=== PATIENT | female | born 1960 | race American Indian/Alaskan Native ===

== ENCOUNTER 2020-09-19 08:54 | Outpatient (REF) | payer MEDICAID, SELFPAY ==
--- NOTE | 2020-09-19 08:58 | MM_ITS ---
EXAMINATION: MM SCREENING DIGITAL BREAST TOMOSYNTHESIS, BILATERAL CLINICAL INFORMATION: Screening. Asymptomatic. The lifetime risk of breast cancer based on the Tyrer-Cuzick Model is 7.5%. COMPARISON: Mammography: May 02, 2019 and April 19, 2018 TECHNIQUE: Digital breast tomosynthesis is performed in both the craniocaudal and mediolateral oblique views along with computer-aided detection (CAD). Synthesized 2D images are generated from the tomosynthesis. FINDINGS: The breasts are almost entirely fatty (ACR BI-RADS breast composition Category a). There are no significant masses, abnormal calcifications, or other abnormalities. MM/MM tomosynthesis screening BI IMPRESSION: There are no significant changes from prior study. ASSESSMENT: BI-RADS 1: Negative RECOMMENDATION: Routine annual mammography screening. This patient's information was entered into a reminder system with a target due date for their next mammogram.
== END 2020-09-19 08:55 | disposition home or self-care (01) ==
LOC: HO.MAMMO 08:54
PROVIDERS: PCP Pediatrics; Visit Provider Pediatrics
DX: Z12.31 Encounter for screening mammogram for malignant neoplasm of breast (principal)
CPT/HCPCS: 77063; 77067

== ENCOUNTER 2020-11-22 10:58 | Emergency (ER) | payer MEDICAID, SELFPAY ==
[2020-11-22 11:20] VITALS: BP 132/71; PULSE 81; RESP 16; TEMP 37.2; O2SAT 98; BMI 37.5
--- NOTE | 2020-11-22 11:49 | ECG_ITS ---
Test Reason : CP Blood Pressure : / mmHG Vent. Rate : 082 BPM Atrial Rate : 082 BPM P-R Int : 110 ms QRS Dur : 084 ms QT Int : 360 ms P-R-T Axes : 066 -09 033 degrees QTc Int : 420 ms Sinus rhythm with short WI Nonspecific ST abnormality Abnormal ECG When compared with ECG of 20-MAY-2020 17:46, No significant change was found Referred By: Florina Vale Electronically Signed By:FERNIE JONES
--- NOTE | 2020-11-22 11:49 | XR_ITS ---
EXAMINATION: XR CHEST CLINICAL INFORMATION: Chest pain. SOB. COMPARISON: None TECHNIQUE: Frontal view of the chest was obtained. FINDINGS: No significant abnormality is noted involving the heart, lungs, mediastinum, bony thorax or soft tissues. XR/XR chest 1V IMPRESSION: Unremarkable chest examination.
[2020-11-22] MEDS: Albuterol Sulfate 90 MCG 8 GM INHALER 4 PUFF INHALE (12:04)
[2020-11-22 12:06] LABS: Basophils Percent Auto 0.5 % (0-2); Hemoglobin 11.7 g/dl (12.0-16.0); Imm Gran Abs Auto 0.01 X10*3/uL (0.00-0.03); Imm Gran Pct Auto 0.2 % (0.0-0.4); Lymphocytes Absolute Auto 1.4 X10*3/uL (1.2-4.9); Lymphocytes Percent Auto 32.6 % (20-40); MANUAL DIFF FLAG NO; Mean Corpuscular HGB Conc 31.6 g/dl (31.0-35.0); Mean Corpuscular Hemoglobin 26.8 pg (27.0-33.0); Mean Corpuscular Volume 84.9 fL (80-98); Mean Platelet Volume 8.6 fL (9.4-12.3); Monocytes Absolute Auto 0.8 X10*3/uL (0.1-1.2); Monocytes Percent Auto 19.3 % (2-11); Neutrophils Absolute Auto 1.9 X10*3/uL (2.0-8.3); Neutrophils Percent Auto 46.4 % (45-73); Platelet Count 257 X10*3/uL (160-400); Red Blood Count 4.36 X10*6/uL (4.20-5.50); Red Cell Distribution Width 14.9 % (11.0-16.0); White Blood Count 4.1 X10*3/uL (4.8-10.8)
--- NOTE | 2020-11-22 12:15 | ED.CHESTPAIN ---
HPI - Chest Pain General Chief Complaint: Chest Pain Stated Complaint: fever, chest tightness Time Seen by Provider: 11/22/20 11:27 Source: patient Mode of arrival: ambulatory History of Present Illness HPI narrative: 60-year-old female with a past medical history of hypertension, AFib/flutter, presenting to the ED complaining of substernal chest tightness, SOB, dry cough, subjective fever/chills since last night. Denies recent travel, sick contacts, history of blood clots, LE edema, calf tenderness, abdominal pain, nausea/vomiting/diarrhea Related Data Previous Rx's Medication Instructions Recorded metoprolol succinate 50 mg 50 mg PO DAILY #30 tab 09/25/20 tablet,extended release 24 hr acetaminophen [Tylenol Extra 500 mg PO Q6H PRN #20 tab 11/22/20 Strength] azithromycin See Rx Instructions .ROUTE 11/22/20 .COMPLEX #6 tab prednisone 40 mg PO DAILY 5 Days #10 tab 11/22/20 Allergies Allergy/AdvReac Type Severity Reaction Status Date / Time No Known Allergies Allergy Unknown N/A Unverified 08/13/20 19:19 [NO KNOWN ALLERGIES] Review of Systems Review of Systems: Constitutional: No Weight loss, +subj Fever, + Chills, No Night Sweats, No Fatigue, No Malaise ENT/Mouth: No Ear Pain, No Nasal Congestion, No sore throat, No Rhinorrhea Cardiovascular: + Chest Pain, + SOB, No Dyspnea on Exertion, No Orthopnea, No Edema, No Palpitations Respiratory: + Cough, No Sputum, No Wheezing Gastrointestinal: No Nausea, No Vomiting, No Diarrhea, No Constipation, No Abdominal pain Musculoskeletal: No joint pain, No Myalgias, No Joint Swelling Skin: No Skin Lesions, No rash Neuro: No Weakness, No Dizziness, No Headache Yes all other systems are reviewed and are negative PMFSH Past Medical History Attestation statement: The following information was validated with the patient. Medical History (Updated 11/22/20 @ 14:55 by MARJ Wadsworth) Atrial fib/flutter, transient HTN (hypertension) Social History Social History Alcohol intake: never Smoking Status: Never smoker Use of substances other than those prescribed or required for medical reasons: No Advance Directives: No Advance Directives Information Provided: Yes Physical Exam Vital Signs: Vital Signs: Last Vital Signs Temp 98.9 F 11/22/20 11:20 Pulse 81 11/22/20 11:20 Resp 16 11/22/20 11:20 BP 132/71 11/22/20 11:20 Pulse Ox 98 11/22/20 11:20 Body Mass Index 37.5 Const: General: cooperative and healthy appearing Orientation/consciousness: patient oriented x3 Limitations: no limitations HENMT: Head: Yes normal to inspection Ears: hearing grossly normal bilaterally General nose exam: Normal external nose present Face and sinus: Yes normal facial exam Eyes: General: appearance normal, both eyes and all related structures EOM: EOMs intact bilaterally Neck: Neck: Yes normal visual inspection and Yes no meningeal signs Resp: Effort & Inspection: normal respiratory effort Auscultation: clear to auscultation bilaterally, no rales, no rhonchi and no wheezes Cardio: Rate: regular rate Heart sounds: S1 normal heart sound present and S2 normal heart sound present GI: Inspection: Yes normal to inspection Palpation (GI): Soft to palpation, nontender, no guarding and not rigid Skin: Rashes: no rashes Wounds: no wounds Neuro: General: patient oriented x3 and no meningeal signs Gait exam (Neuro): Normal gait present Extrem: Other: No LE edema or calf tenderness General: Yes normal to inspection Course Course Course Narrative: Leukopenia of 4.1, CRP mildly elevated, labs otherwise unremarkable, troponin negative CXR unremarkable 1453--COVID-19 positive > results discussed with patient with director speech. Will discharge home with azithromycin, prednisone, and albuterol. Patient has maintained saturation of 98% on room air without any respiratory distress in the ED. Worrisome signs and symptoms and strict return precautions discussed. Patient verbalized understanding feel safe for discharge home MDM - Chest Pain MDM Narrative Medical decision making narrative: 60-year-old female with a past medical history of hypertension, AFib/flutter, presenting to the ED complaining of substernal chest tightness, SOB, dry cough, subjective fever/chills since last night. On exam VSS, NAD/well-appearing, lungs CTA, no LE edema. Concern for viral syndrome/COVID-19 vs bronchitis vs ACS. Pneumonia. Plan: EKG, labs, CXR, COVID-19, albuterol, reassess Lab Data Result diagrams: 11/22/20 12:01 11/22/20 12:01 Labs: Lab Results 11/22/20 11/22/20 11/22/20 Range/Units 12: 12:01 12:01 WBC 4.1 L (4.8-10.8) X10*3/uL RBC 4.36 (4.20-5.50) X10*6/uL Hgb 11.7 L (12.0-16.0) g/dl Hct 37.0 (37-47) % MCV 84.9 (80-98) fL MCH 26.8 L (27.0-33.0) pg MCHC 31.6 (31.0-35.0) g/dl RDW 14.9 (11.0-16.0) % Plt Count 257 (160-400) X10*3/uL MPV 8.6 L (9.4-12.3) fL Immature Gran % (Auto) 0.2 (0.0-0.4) % Neut % (Auto) 46.4 (45-73) % Lymph % (Auto) 32.6 (20-40) % [place] % (Auto) 19.3 H (2-11) % Eos % (Auto) 1.0 (0-4) % Baso % (Auto) 0.5 (0-2) % Lymph # (Auto) 1.4 (1.2-4.9) X10*3/uL [place] # (Auto) 0.8 (0.1-1.2) X10*3/uL Eos # (Auto) 0.0 (0.0-0.4) X10*3/uL Baso # (Auto) 0.0 (0.0-0.2) X10*3/uL Abs Immat Gran (auto) 0.01 (0.00-0.03) X10*3/uL Absolute Neuts (auto) 1.9 L (2.0-8.3) X10*3/uL Absolute Nucleated RBC 0.000 (0.0-0.012) X10*3/uL Nucleated RBC % (auto) 0.0 (0.0-0.2) /100WBC Hold Blue Top SEE NOTE Sodium 140 (135-145) mmol/L Potassium 3.5 (3.3-5.1) mmol/l Chloride 106 (96-108) mmol/L Carbon Dioxide 26 (22-29) mmol/L Anion Gap 12 (12-20) BUN 19 H (9-16) mg/dL Creatinine 1.09 (0.5-1.4) mg/dL Estim Creat Clear Calc 66.7 Estimated GFR 52 Random Glucose 98 (60-115) mg/dL Calcium 8.3 L (8.4-10.2) mg/dL Magnesium 1.7 (1.6-2.6) mg/dL Ferritin (10-250) ng/mL Total Bilirubin 0.3 (0.0-1.0) mg/dL Direct Bilirubin < 0.2 (0.0-0.5) mg/dL AST 17 (5-31) U/L ALT 14 (0-31) U/L Alkaline Phosphatase 92 (39-117) U/L Lactate Dehydrogenase (122-220) U/L Troponin I High Sens (<3.5-17.0) ng/L C-Reactive Protein (< or = 0.50) mg/dL B-Natriuretic Peptide (<100) pg/mL Total Protein 7.0 (6.5-8.0) g/dL Albumin 3.4 L (3.5-5.0) g/dL Procalcitonin ng/mL Coronavirus (PCR) (Negative) Influenza Type A (PCR) (Negative) Influenza Type B (PCR) (Negative) RSV RNA Qual (PCR) (Negative) 11/22/20 11/22/20 11/22/20 Range/Units 12:01 12:01 12:01 WBC (4.8-10.8) X10*3/uL RBC (4.20-5.50) X10*6/uL Hgb (12.0-16.0) g/dl Hct (37-47) % MCV (80-98) fL MCH (27.0-33.0) pg MCHC (31.0-35.0) g/dl RDW (11.0-16.0) % Plt Count (160-400) X10*3/uL MPV (9.4-12.3) fL Immature Gran % (Auto) (0.0-0.4) % Neut % (Auto) (45-73) % Lymph % (Auto) (20-40) % [place] % (Auto) (2-11) % Eos % (Auto) (0-4) % Baso % (Auto) (0-2) % Lymph # (Auto) (1.2-4.9) X10*3/uL [place] # (Auto) (0.1-1.2) X10*3/uL Eos # (Auto) (0.0-0.4) X10*3/uL Baso # (Auto) (0.0-0.2) X10*3/uL Abs Immat Gran (auto) (0.00-0.03) X10*3/uL Absolute Neuts (auto) (2.0-8.3) X10*3/uL Absolute Nucleated RBC (0.0-0.012) X10*3/uL Nucleated RBC % (auto) (0.0-0.2) /100WBC Hold Blue Top Sodium (135-145) mmol/L Potassium (3.3-5.1) mmol/l Chloride (96-108) mmol/L Carbon Dioxide (22-29) mmol/L Anion Gap (12-20) BUN (9-16) mg/dL Creatinine (0.5-1.4) mg/dL Estim Creat Clear Calc Estimated GFR Random Glucose (60-115) mg/dL Calcium (8.4-10.2) mg/dL Magnesium (1.6-2.6) mg/dL Ferritin 228 (10-250) ng/mL Total Bilirubin (0.0-1.0) mg/dL Direct Bilirubin (0.0-0.5) mg/dL AST (5-31) U/L ALT (0-31) U/L Alkaline Phosphatase (39-117) U/L Lactate Dehydrogenase 136 (122-220) U/L Troponin I High Sens < 3.5 (<3.5-17.0) ng/L C-Reactive Protein 1.53 H (< or = 0.50) mg/dL B-Natriuretic Peptide < 10 (<100) pg/mL Total Protein (6.5-8.0) g/dL Albumin (3.5-5.0) g/dL Procalcitonin 0.04 ng/mL Coronavirus (PCR) (Negative) Influenza Type A (PCR) (Negative) Influenza Type B (PCR) (Negative) RSV RNA Qual (PCR) (Negative) 11/22/20 Range/Units 12:50 WBC (4.8-10.8) X10*3/uL RBC (4.20-5.50) X10*6/uL Hgb (12.0-16.0) g/dl Hct (37-47) % MCV (80-98) fL MCH (27.0-33.0) pg MCHC (31.0-35.0) g/dl RDW (11.0-16.0) % Plt Count (160-400) X10*3/uL MPV (9.4-12.3) fL Immature Gran % (Auto) (0.0-0.4) % Neut % (Auto) (45-73) % Lymph % (Auto) (20-40) % [place] % (Auto) (2-11) % Eos % (Auto) (0-4) % Baso % (Auto) (0-2) % Lymph # (Auto) (1.2-4.9) X10*3/uL [place] # (Auto) (0.1-1.2) X10*3/uL Eos # (Auto) (0.0-0.4) X10*3/uL Baso # (Auto) (0.0-0.2) X10*3/uL Abs Immat Gran (auto) (0.00-0.03) X10*3/uL Absolute Neuts (auto) (2.0-8.3) X10*3/uL Absolute Nucleated RBC (0.0-0.012) X10*3/uL Nucleated RBC % (auto) (0.0-0.2) /100WBC Hold Blue Top Sodium (135-145) mmol/L Potassium (3.3-5.1) mmol/l Chloride (96-108) mmol/L Carbon Dioxide (22-29) mmol/L Anion Gap (12-20) BUN (9-16) mg/dL Creatinine (0.5-1.4) mg/dL Estim Creat Clear Calc Estimated GFR Random Glucose (60-115) mg/dL Calcium (8.4-10.2) mg/dL Magnesium (1.6-2.6) mg/dL Ferritin (10-250) ng/mL Total Bilirubin (0.0-1.0) mg/dL Direct Bilirubin (0.0-0.5) mg/dL AST (5-31) U/L ALT (0-31) U/L Alkaline Phosphatase (39-117) U/L Lactate Dehydrogenase (122-220) U/L Troponin I High Sens (<3.5-17.0) ng/L C-Reactive Protein (< or = 0.50) mg/dL B-Natriuretic Peptide (<100) pg/mL Total Protein (6.5-8.0) g/dL Albumin (3.5-5.0) g/dL Procalcitonin ng/mL Coronavirus (PCR) POSITIVE A (Negative) Influenza Type A (PCR) NEGATIVE (Negative) Influenza Type B (PCR) NEGATIVE (Negative) RSV RNA Qual (PCR) NEGATIVE (Negative) Discharge Plan Discharge Clinical Impression: COVID-19 Patient Disposition: Home, Self-Care Instructions: COVID-19 (Coronavirus Disease 2019) (ED) Additional Instructions: Your COVID-19 positive. Azithromycin as antibiotic, take as prescribed. In addition prednisone as a steroid which will help with her breathing. Use albuterol inhaler that was supplied to you in the emergency department at home. You need to self isolate for 14 days. Take Tylenol and Motrin at home for fever as needed. If you develop constant worsening shortness of breath/chest pain, or fever unresolved by medications at home return to the ED Tu COVID-19 positivo. Azitromicina farideh antibi?heladio, allie seg?n lo prescrito. Adem?s prednisona farideh esteroide que ayudar? con lomeli respiraci?n. Use el inhalador de albuterol que se le suministr? en el departamento de emergencias de lomeli casa. Debe aislarse por s? mismo liliane 14 d?as. [place] Tylenol y Motrin en casa para la fiebre seg?n sea necesario. Si presenta un empeoramiento lizzie de la dificultad para respirar / dolor en el pecho, o fiebre que no se resuelve con medicamentos en casa, regrese al servicio de urgencias CDC Guidelines for home isolation: - Stay away from others - WEAR A MASK if you are sick AND STAY HOME - Cover your mouth and nose with a tissue when you cough or sneeze. Dispose of tissues in a lined trash can and wash your hands immediately with soap and water for at least 20 seconds. If soap and water are not available, clean hands with alcohol-based hand intertype operator that contains at least 60% alcohol. - Clean your hands often with soap and water for at least 20 seconds - Avoid touching your eyes, nose and mouth with unwashed hands - Do not share dishes, drinking glasses, cups, eating utensils, towels, or bedding with other people in your home. After using these items, wash them thoroughly with soap and water or put in the barley steeper. - Clean high-touch surfaces in your isolation area ( sick room and bathroom) every day; let a caregiver clean and disinfect high-touch surfaces in other areas of the home. Clean the area or item with soap and water or another detergent if it is dirty. Then, use a household disinfectant. - Limit contact with pets and animals: If you must care for a pet, wash your hands before and after interacting with them) [place] CDC para el aislamiento en el hogar: - Mantente alejado de los dem?s - USE BOBBY M?SCARA si est? enfermo Y QUEDE EN CASA - C?brase la boca y la nariz con un pa?uelo cuando tosa o estornude. Deseche los pa?uelos desechables en un bote de basura forrado y l?vese las rebecca inmediatamente con agua y jab?n liliane al menos 20 segundos. Si no dispone de agua y jab?n, l?vese las rebecca con un desinfectante para rebecca a base de alcohol que contenga al menos un 60% de alcohol. - L?vese las rebecca con frecuencia con agua y jab?n liliane al menos 20 segundos - Evite tocarse los ojos, la nariz y la boca con las rebecca sin rick - No comparta platos, vasos, tazas, cubiertos, toallas o ropa de cama con otras personas en lomeli hogar. Despu?s de usar estos art?culos, l?velos ruddy con agua y jab?n o p?ngalos en el [place]. - Limpie las superficies de alto contacto en lomeli ?erum de aislamiento ( habitaci?n de enfermo y ba?o) todos los d?as; deje que un cuidador limpie y desinfecte las superficies de alto contacto en otras ?reas de la casa. Limpie el ?erum o el art?culo con agua y jab?n u otro detergente si est? sucio. Luego, use un desinfectante dom?stico. - Limite el contacto con mascotas y animales: si debe cuidar a bobby mascota, l?vese las rebecca antes y despu?s de interactuar con ellos) Prescriptions: New azithromycin 250 mg tablet See Rx Instructions .ROUTE .COMPLEX Qty: 6 RF: 0 prednisone 20 mg tablet 40 mg PO DAILY 5 Days Qty: 10 RF: 0 acetaminophen [Tylenol Extra Strength] 500 mg tablet 500 mg PO Q6H PRN (Reason: pain or fever) Qty: 20 RF: 0 No Action metoprolol succinate [Toprol XL] 50 mg tablet extended release 24 hr 50 mg PO DAILY Qty: 30 RF: 5 Referrals: Lluvia Anderson MD [Primary Care Provider] - 2 days (call) Print Language: [place]
[2020-11-22 12:28] LABS: C Reactive Protein 1.53 mg/dL (< or = 0.50); Lactate Dehydrogenase 136 U/L (122-220)
[2020-11-22 12:29] LABS: Alanine Aminotransferase 14 U/L (0-31); Albumin Level 3.4 g/dL (3.5-5.0); Alkaline Phosphatase 92 U/L (39-117); Anion Gap 12 (12-20); Aspartate Amino Transferase 17 U/L (5-31); Bilirubin Direct < 0.2 mg/dL (0.0-0.5); Bilirubin Total 0.3 mg/dL (0.0-1.0); Blood Urea Nitrogen 19 mg/dL (9-16); Calcium 8.3 mg/dL (8.4-10.2); Carbon Dioxide 26 mmol/L (22-29); Chloride 106 mmol/L (96-108); Creatinine Clr Calc Pharmacy 66.7; Estimated Glomerular Filt Rate 52; Glucose Random 98 mg/dL (60-115); Magnesium 1.7 mg/dL (1.6-2.6); Potassium 3.5 mmol/l (3.3-5.1); Sodium 140 mmol/L (135-145)
[2020-11-22 12:36] LABS: B Type Natriuretic Peptide < 10 pg/mL (<100); Troponin-I High Sensitivity < 3.5 ng/L (<3.5-17.0)
--- NOTE | 2020-11-22 12:39 | PC.NURSE ---
cxr at bedside
[2020-11-22 12:47] LABS: Procalcitonin 0.04 ng/mL
[2020-11-22 12:50] LABS: Ferritin 228 ng/mL (10-250)
[2020-11-22 14:39] LABS: Influenza A PCR NEGATIVE (Negative); Influenza B PCR NEGATIVE (Negative); Resp Syncy Virus RNA Qual PCR NEGATIVE (Negative); SARS COV2 PCR INHOUSE POSITIVE (Negative)
--- NOTE | 2020-11-22 15:01 | PC.NURSE ---
mlp at bedside for update w interpretter, plan for discharge home.
== END 2020-11-22 15:13 | disposition home or self-care (01) ==
PROVIDERS: Physician Assistant; Emergency Provider Emergency Medicine Emergency Medical Services; PCP Pediatrics
DX: U07.1 COVID-19 (principal); R07.9 Chest pain, unspecified; R50.9 Fever, unspecified; I10 Essential (primary) hypertension; R05 Cough; Z79.899 Other long term (current) drug therapy
CPT/HCPCS: 0241U; 36415; 71045; 80048; 80076; 82728; 83615; 83735; 83880; 84145; 84484; 85025; 86140; 93005; 99284

== ENCOUNTER 2020-12-02 10:23 | Emergency (ER) | payer MEDICAID, SELFPAY ==
--- NOTE | 2020-12-02 10:49 | ECG_ITS ---
Test Reason : EPIGASTRIC PAIN Blood Pressure : / mmHG Vent. Rate : 087 BPM Atrial Rate : 087 BPM P-R Int : 108 ms QRS Dur : 086 ms QT Int : 356 ms P-R-T Axes : 035 -20 -06 degrees QTc Int : 428 ms Sinus rhythm with short HI Minimal voltage criteria for LVH, may be normal variant Borderline ECG When compared with ECG of 22-NOV-2020 11:04, Inverted T waves have replaced nonspecific T wave abnormality in Inferior leads Nonspecific T wave abnormality now evident in Anterior leads Referred By: Andreas Vo Electronically Signed By:Cayetano Lane
[2020-12-02 10:55] VITALS: BP 132/64; PULSE 82; RESP 16; TEMP 37.4; O2SAT 94; BMI 37.5
--- NOTE | 2020-12-02 11:14 | ED_ITS ---
HPI - Abdominal Pain General Chief Complaint: Abdominal Pain Stated Complaint: covid +, abd pain Time Seen by Provider: 12/02/20 12:30 Source: patient Mode of arrival: ambulatory Limitations: no limitations History of Present Illness HPI narrative: Patient presents to ED for epigastric pain for the past 2 days with nausea. Patient states due to epigastric pain she has had decreased appetite any scared to eat. Patient states no fever, chills, chest pain, shortness of breath. Patient is a known COVID positive patient. MD elicited complaint: abdominal pain Related Data Previous Rx's Medication Instructions Recorded metoprolol succinate 50 mg 50 mg PO DAILY #30 tab 09/25/20 tablet,extended release 24 hr acetaminophen [Tylenol Extra 500 mg PO Q6H PRN #20 tab 11/22/20 Strength] azithromycin See Rx Instructions .ROUTE 11/22/20 .COMPLEX #6 tab prednisone 40 mg PO DAILY 5 Days #10 tab 11/22/20 rivaroxaban 20 mg tablet 20 mg PO DAILY 90 Days #90 tab 11/24/20 amoxicillin-pot clavulanate 1 tab PO Q12H 7 Days #14 tab 12/02/20 [Augmentin] azithromycin [Zithromax Z-Alan] See Rx Instructions .ROUTE 12/02/20 .COMPLEX #6 tab famotidine [Pepcid] 20 mg PO BID 10 Days #20 tab 12/02/20 ondansetron HCl [Zofran] 4 mg PO Q6H PRN #8 tab 12/02/20 Allergies Allergy/AdvReac Type Severity Reaction Status Date / Time No Known Allergies Allergy Unknown N/A Verified 12/02/20 10:58 [NO KNOWN ALLERGIES] Review of Systems Review of Systems Yes all other systems are reviewed and are negative Constitutional: Reports as per HPI and Reports no additional constitutional complaints Eyes: Reports as per HPI and Reports no additional eye complaints Reports system reviewed and no additional complaints, except as documented and Reports as per HPI Cardiovascular: Reports as per HPI and Reports no additional cardiovascular complaints Respiratory: Reports as per HPI and Reports no additional respiratory complaints Gastrointestinal: Reports as per HPI, Reports no additional gastrointestinal complaints, Reports abdominal pain and Reports vomiting Musculoskeletal: Reports no additional musculoskeletal complaints and Reports as per HPI Reports system reviewed and no additional complaints, except as documented and Reports as per HPI Psychiatric: Reports no additional psychiatric complaints and Reports as per HPI Physical Exam Vital Signs: Vital Signs: Last Vital Signs Temp 97.5 F 12/02/20 16:47 Pulse 84 12/02/20 16:47 Resp 18 12/02/20 16:47 BP 126/61 12/02/20 16:47 Pulse Ox 95 12/02/20 16:47 Body Mass Index 37.5 Const: General: cooperative, healthy appearing, comfortable, no acute distress, well developed, alert and awake Orientation/consciousness: patient oriented x3 HENMT: Head: Yes normal to inspection and Yes No palpable skull fracture present Eyes: General: appearance normal, both eyes and all related structures Neck: Neck: Yes normal visual inspection and Yes full ROM Chest: Chest palpation & inspection: normal inspection of the chest and normal palpation of entire chest wall Resp: Effort & Inspection: normal respiratory effort and able to speak in complete sentences Cardio: Jugular venous distension: no JVD Heart sounds: S1 normal heart sound present and S2 normal heart sound present GI: Inspection: Yes normal to inspection Palpation (GI): Soft to palpation, not firm, Tenderness to palpation present (GI) in the epigastrum, no guarding and not rigid : General: No CVA tenderness and Yes no CVA tenderness Back/Spine/Pelvis: Back: no CVA tenderness, No CVA tenderness and No back tenderness Skin: General skin exam: no rashes or lesions noted and elasticity normal Neuro: General: patient oriented x3, gait normal and CN's II-XI intact bilaterally Cranial nerves: Yes CN's II-XII intact bilaterally Extrem: General: Yes normal to inspection and Yes full ROM Psych: Appearance: grossly normal, well kempt and not disheveled Course Course Course Narrative: Patient will have labs including LFT, lipase, EKG, and trop onin. Due to age and history of atrial flutter she have a cardiac evaluation. Most likely patient will be go for abdominal CT scan to rule out any etiology. Reevaluation(s) Reevaluation #1: Patient's initial troponin 5.3. EKG is normal. Liver enzymes and lipase normal. Patient still tendon abdomen/epigastric area so patient will be sent for chest CT to rule out PE and abdominal CT scan to rule out any cholecystitis, pancreatitis, any other abdominal etiology. Patient given GI cocktail. Patient will be given Decadron due to her having O2 sat initially of 91% on room air. Time: 11:17 Reevaluation #2: Chest CT negative for PE. Abdominal CT scan negative for any medical/surgical etiology. Chest CTA does show bilateral infiltrates positive f or COVID. Patient walked around the ER with O2 saturation 95% on room air. Time: 15:12 Reevaluation #3: Second troponin came back less than 50%. Patient will be discharged with azithromycin and Augmentin. Patient states she feels better. Time: 17:33 MDM - Abdominal Pain MDM Narrative Medical decision making narrative: COVID-19 Lab Data Result diagrams: 12/02/20 11:17 12/02/20 11:17 Labs: Lab Results 12/02/20 12/02/20 12/02/20 Range/Units 11:17 11:17 11:17 WBC 5.6 (4.8-10.8) X10*3/uL RBC 4.89 (4.20-5.50) X10*6/uL Hgb 13.2 (12.0-16.0) g/dl Hct 41.1 (37-47) % MCV 84.0 (80-98) fL MCH 27.0 (27.0-33.0) pg MCHC 32.1 (31.0-35.0) g/dl RDW 15.1 (11.0-16.0) % Plt Count 224 (160-400) X10*3/uL MPV 8.7 L (9.4-12.3) fL Immature Gran % (Auto) 0.2 (0.0-0.4) % Neut % (Auto) 74.0 H (45-73) % Lymph % (Auto) 18.8 L (20-40) % [place] % (Auto) 6.8 (2-11) % Eos % (Auto) 0.0 (0-4) % Baso % (Auto) 0.2 (0-2) % Lymph # (Auto) 1.1 L (1.2-4.9) X10*3/uL [place] # (Auto) 0.4 (0.1-1.2) X10*3/uL Eos # (Auto) 0.0 (0.0-0.4) X10*3/uL Baso # (Auto) 0.0 (0.0-0.2) X10*3/uL Abs Immat Gran (auto) 0.01 (0.00-0.03) X10*3/uL Absolute Neuts (auto) 4.1 (2.0-8.3) X10*3/uL Absolute Nucleated RBC 0.000 (0.0-0.012) X10*3/uL Nucleated RBC % (auto) 0.0 (0.0-0.2) /100WBC Smear Tech's Comments VERIFIED PT 14.4 H (10.8-13.0) SEC INR 1.2 H (0.9-1.1) APTT 36.0 (24.1-38.0) SEC Sodium 141 (135-145) mmol/L Potassium 3.2 L (3.3-5.1) mmol/l Chloride 105 (96-108) mmol/L Carbon Dioxide 25 (22-29) mmol/L Anion Gap 14 (12-20) BUN 9 D (9-16) mg/dL Creatinine 0.99 (0.5-1.4) mg/dL Estim Creat Clear Calc 73.5 Estimated GFR 58 Random Glucose 112 (60-115) mg/dL Calcium 8.1 L (8.4-10.2) mg/dL Ferritin 634 H (10-250) ng/mL Total Bilirubin 0.8 (0.0-1.0) mg/dL Direct Bilirubin 0.4 (0.0-0.5) mg/dL AST 39 H D (5-31) U/L ALT 36 H (0-31) U/L Alkaline Phosphatase 86 (39-117) U/L Lactate Dehydrogenase 269 H (122-220) U/L Troponin I High Sens (<3.5-17.0) ng/L Total Protein 7.1 (6.5-8.0) g/dL Albumin 3.5 (3.5-5.0) g/dL Lipase 10 (8-78) U/L Procalcitonin ng/mL Urine Color Urine Appearance Urine pH (5.0-8.0) Ur Specific [place] (1.005-1.025) Urine Protein (NEG-TRACE) MG/DL Urine Glucose (UA) (NEG) MG/DL Urine Ketones (NEG) MG/DL Urine Blood (NEG) Urine Nitrite (NEG) Ur Leukocyte Esterase (NEG) 0112/02/20 12/02/20 Range/Units 11:17 11:17 15:30 WBC (4.8-10.8) X10*3/uL RBC (4.20-5.50) X10*6/uL Hgb (12.0-16.0) g/dl Hct (37-47) % MCV (80-98) fL MCH (27.0-33.0) pg MCHC (31.0-35.0) g/dl RDW (11.0-16.0) % Plt Count (160-400) X10*3/uL MPV (9.4-12.3) fL Immature Gran % (Auto) (0.0-0.4) % Neut % (Auto) (45-73) % Lymph % (Auto) (20-40) % [place] % (Auto) (2-11) % Eos % (Auto) (0-4) % Baso % (Auto) (0-2) % Lymph # (Auto) (1.2-4.9) X10*3/uL [place] # (Auto) (0.1-1.2) X10*3/uL Eos # (Auto) (0.0-0.4) X10*3/uL Baso # (Auto) (0.0-0.2) X10*3/uL Abs Immat Gran (auto) (0.00-0.03) X10*3/uL Absolute Neuts (auto) (2.0-8.3) X10*3/uL Absolute Nucleated RBC (0.0-0.012) X10*3/uL Nucleated RBC % (auto) (0.0-0.2) /100WBC Smear Tech's Comments PT (10.8-13.0) SEC INR (0.9-1.1) APTT (24.1-38.0) SEC Sodium (135-145) mmol/L Potassium (3.3-5.1) mmol/l Chloride (96-108) mmol/L Carbon Dioxide (22-29) mmol/L Anion Gap (12-20) BUN (9-16) mg/dL Creatinine (0.5-1.4) mg/dL Estim Creat Clear Calc Estimated GFR Random Glucose (60-115) mg/dL Calcium (8.4-10.2) mg/dL Ferritin (10-250) ng/mL Total Bilirubin (0.0-1.0) mg/dL Direct Bilirubin (0.0-0.5) mg/dL AST (5-31) U/L ALT (0-31) U/L Alkaline Phosphatase (39-117) U/L Lactate Dehydrogenase (122-220) U/L Troponin I High Sens 5.3 D 6.1 (<3.5-17.0) ng/L Total Protein (6.5-8.0) g/dL Albumin (3.5-5.0) g/dL Lipase (8-78) U/L Procalcitonin 0.24 ng/mL Urine Color Urine Appearance Urine pH (5.0-8.0) Ur Specific [place] (1.005-1.025) Urine Protein (NEG-TRACE) MG/DL Urine Glucose (UA) (NEG) MG/DL Urine Ketones (NEG) MG/DL Urine Blood (NEG) Urine Nitrite (NEG) Ur Leukocyte Esterase (NEG) 12/02/20 Range/Units 16:35 WBC (4.8-10.8) X10*3/uL RBC (4.20-5.50) X10*6/uL Hgb (12.0-16.0) g/dl Hct (37-47) % MCV (80-98) fL MCH (27.0-33.0) pg MCHC (31.0-35.0) g/dl RDW (11.0-16.0) % Plt Count (160-400) X10*3/uL MPV (9.4-12.3) fL Immature Gran % (Auto) (0.0-0.4) % Neut % (Auto) (45-73) % Lymph % (Auto) (20-40) % [place] % (Auto) (2-11) % Eos % (Auto) (0-4) % Baso % (Auto) (0-2) % Lymph # (Auto) (1.2-4.9) X10*3/uL [place] # (Auto) (0.1-1.2) X10*3/uL Eos # (Auto) (0.0-0.4) X10*3/uL Baso # (Auto) (0.0-0.2) X10*3/uL Abs Immat Gran (auto) (0.00-0.03) X10*3/uL Absolute Neuts (auto) (2.0-8.3) X10*3/uL Absolute Nucleated RBC (0.0-0.012) X10*3/uL Nucleated RBC % (auto) (0.0-0.2) /100WBC Smear Tech's Comments PT (10.8-13.0) SEC INR (0.9-1.1) APTT (24.1-38.0) SEC Sodium (135-145) mmol/L Potassium (3.3-5.1) mmol/l Chloride (96-108) mmol/L Carbon Dioxide (22-29) mmol/L Anion Gap (12-20) BUN (9-16) mg/dL Creatinine (0.5-1.4) mg/dL Estim Creat Clear Calc Estimated GFR Random Glucose (60-115) mg/dL Calcium (8.4-10.2) mg/dL Ferritin (10-250) ng/mL Total Bilirubin (0.0-1.0) mg/dL Direct Bilirubin (0.0-0.5) mg/dL AST (5-31) U/L ALT (0-31) U/L Alkaline Phosphatase (39-117) U/L Lactate Dehydrogenase (122-220) U/L Troponin I High Sens (<3.5-17.0) ng/L Total Protein (6.5-8.0) g/dL Albumin (3.5-5.0) g/dL Lipase (8-78) U/L Procalcitonin ng/mL Urine Color YELLOW Urine Appearance CLEAR Urine pH 6.5 (5.0-8.0) Ur Specific [place] <= 1.005 (1.005-1.025) Urine Protein NEG (NEG-TRACE) MG/DL Urine Glucose (UA) NEG (NEG) MG/DL Urine Ketones NEG (NEG) MG/DL Urine Blood NEG (NEG) Urine Nitrite NEG (NEG) Ur Leukocyte Esterase NEG (NEG) ECG Data Interpretation: Sinus rhythm. Ventricular rate 87. Pr interval 108. QRS 86. QTC 428. Negative STEMI Discharge Plan Discharge Clinical Impression: COVID-19, Gastroesophageal reflux disease Patient Disposition: Home, Self-Care Instructions: Gastroesophageal Reflux Disease (ED), COVID-19 (Coronavirus Disease 2019) (ED) Additional Instructions: Return to the ED for any chest pain, shortness of breath, weakness, dizziness, calf pain, diarrhea, vomiting blood, or any other concerning symptoms. Please follow-up with the PCP. Prescriptions: New azithromycin [Zithromax Z-Alan] 250 mg tablet See Rx Instructions .ROUTE .COMPLEX Qty: 6 RF: 0 amoxicillin-pot clavulanate [Augmentin] 875-125 mg tablet 1 tab PO Q12H 7 Days Qty: 14 RF: 0 famotidine [Pepcid] 20 mg tablet 20 mg PO BID 10 Days Qty: 20 RF: 0 ondansetron HCl [Zofran] 4 mg tablet 4 mg PO Q6H PRN (Reason: nausea) Qty: 8 RF: 0 No Action metoprolol succinate [Toprol XL] 50 mg tablet extended release 24 hr 50 mg PO DAILY Qty: 30 RF: 5 Xarelto 20 mg tablet 20 mg PO DAILY 90 Days Qty: 90 RF: 1 azithromycin 250 mg tablet See Rx Instructions .ROUTE .COMPLEX Qty: 6 RF: 0 prednisone 20 mg tablet 40 mg PO DAILY 5 Days Qty: 10 RF: 0 acetaminophen [Tylenol Extra Strength] 500 mg tablet 500 mg PO Q6H PRN (Reason: pain or fever) Qty: 20 RF: 0 Interventions: ED Discharge Assessment Last Done: 12/02/20 18:31 Discharge Date/Time: 12/02/20 18:32 Print Language: [place] [facility] Past Medical History Medical History Atrial fib/flutter, transient HTN (hypertension) Social History Social History Alcohol intake: never Smoking Status: Never smoker Use of substances other than those prescribed or required for medical reasons: No Advance Directives: No Advance Directives Information Provided: No
[2020-12-02 11:28] LABS: Basophils Percent Auto 0.2 % (0-2); Hematocrit 41.1 % (37-47); Hemoglobin 13.2 g/dl (12.0-16.0); Imm Gran Abs Auto 0.01 X10*3/uL (0.00-0.03); Imm Gran Pct Auto 0.2 % (0.0-0.4); Lymphocytes Absolute Auto 1.1 X10*3/uL (1.2-4.9); Lymphocytes Percent Auto 18.8 % (20-40); MANUAL DIFF FLAG SCAN; Mean Corpuscular HGB Conc 32.1 g/dl (31.0-35.0); Mean Platelet Volume 8.7 fL (9.4-12.3); Monocytes Absolute Auto 0.4 X10*3/uL (0.1-1.2); Monocytes Percent Auto 6.8 % (2-11); Neutrophils Absolute Auto 4.1 X10*3/uL (2.0-8.3); Platelet Count 224 X10*3/uL (160-400); Red Blood Count 4.89 X10*6/uL (4.20-5.50); Red Cell Distribution Width 15.1 % (11.0-16.0); SCAN SMEAR FLAG 1; White Blood Count 5.6 X10*3/uL (4.8-10.8)
[2020-12-02 11:31] LABS: INTERNATIONAL NORM RATIO 1.2 (0.9-1.1); Prothrombin Time 14.4 SEC (10.8-13.0)
[2020-12-02] MEDS: Magnesium Hydrox/Alum Hydrox 30 ML ORAL.SUSP PO (11:32)
[2020-12-02] MEDS: Famotidine/PF 20 MG/2 ML VIAL IVPUSH (11:32)
[2020-12-02] MEDS: 0.9 % Sodium Chloride 1,000 ML 999 ML IV (11:32)
[2020-12-02] MEDS: Lidocaine HCl Viscous 2 % 15 ML SOLUTION MUCOUS MEM (11:32)
[2020-12-02] MEDS: PHENobarb/Hyoscy/Atropine/Scop 10 ML ELIXIR PO (11:32)
[2020-12-02 11:54] LABS: Alanine Aminotransferase 36 U/L (0-31); Albumin Level 3.5 g/dL (3.5-5.0); Alkaline Phosphatase 86 U/L (39-117); Anion Gap 14 (12-20); Aspartate Amino Transferase 39 U/L (5-31); Bilirubin Direct 0.4 mg/dL (0.0-0.5); Bilirubin Total 0.8 mg/dL (0.0-1.0); Blood Urea Nitrogen 9 mg/dL (9-16); Calcium 8.1 mg/dL (8.4-10.2); Carbon Dioxide 25 mmol/L (22-29); Chloride 105 mmol/L (96-108); Creatinine Clr Calc Pharmacy 73.5; Estimated Glomerular Filt Rate 58; Glucose Random 112 mg/dL (60-115); Lipase 10 U/L (8-78); Potassium 3.2 mmol/l (3.3-5.1); Sodium 141 mmol/L (135-145); Total Protein 7.1 g/dL (6.5-8.0)
[2020-12-02 12:00] LABS: Troponin-I High Sensitivity 5.3 ng/L (<3.5-17.0)
[2020-12-02 12:21] LABS: SLIDE REVIEW VERIFIED
--- NOTE | 2020-12-02 12:31 | CT_ITS ---
EXAMINATION: CTA CHEST CLINICAL INFORMATION: Covid infection. Question pulmonary embolism. COMPARISON: Previous chest x-ray most recent 11/22/2020 TECHNIQUE: Axial images through the chest following 85 mL Omnipaque 350 intravenous contrast. Sagittal coronal and 3-D reconstructions on the technologist workstation were performed. Patient dose 3 1 6 mg/cm. This CT examination was performed using dose optimization techniques as appropriate, variously including the following: *Automated exposure control *Adjustment of mA and/or kV according to patient size (this includes techniques or standardized protocols for targeted exams where dose is matched to indication/reason for exam; i.e. extremities or head) *Use of iterative reconstruction technique FINDINGS: There is good opacification of the pulmonary arteries. There is no evidence of pulmonary embolism. The lung volumes are low. There are bilateral peripheral groundglass attenuation infiltrates. These are seen diffusely throughout the lungs but greatest in the lower lobes. Chest CT appearance is compatible with Covid infection. There is no pleural effusion or pneumothorax. The heart is slightly enlarged. There is shotty mediastinal and hilar lymphadenopathy. There is no pericardial effusion. The thoracic aorta is normal in caliber. No chest wall mass or enlarged axillary lymph nodes are seen. Review of bone windows is unremarkable. CT/CT angio chest PE protocol IMPRESSION: No evidence of pulmonary embolism. Bilateral groundglass attenuation infiltrate compatible with Covid infection. EXAMINATION: Abdominal and pelvic CT with IV contrast CLINICAL INFORMATION: Epigastric pain COMPARISON: None. TECHNIQUE: Axial images through the abdomen and pelvis following oral and 85 mL Omnipaque [address] of the chest, abdomen and pelvis. Sagittal and coronal reconstructions on the technologist workstation were performed. This CT examination was performed using dose optimization techniques as appropriate, variously including the following: *Automated exposure control *Adjustment of mA and/or kV according to patient size (this includes techniques or standardized protocols for targeted exams where dose is matched to indication/reason for exam; i.e. extremities or head) *Use of iterative reconstruction technique FINDINGS: The liver, spleen, pancreas, adrenal glands and kidneys are unremarkable. The bladder is unremarkable. The uterus and ovaries are unremarkable. Small and large bowel is unremarkable. The appendix is unremarkable. Vascular structures are unremarkable. No ascites or free air is seen. No hernia is seen. There is degenerative disc disease at L5-S1. IMPRESSION: Unremarkable examination.
[2020-12-02 13:28] LABS: Lactate Dehydrogenase 269 U/L (122-220)
[2020-12-02 13:50] LABS: Ferritin 634 ng/mL (10-250)
[2020-12-02 14:01] LABS: Procalcitonin 0.24 ng/mL
[2020-12-02] MEDS: iohexoL 350 MG/ML 100 ML INFUS..BTL 85 ML IV (14:07)
[2020-12-02 15:07] VITALS: PULSE 100; RESP 18; TEMP 36.9; O2SAT 95
[2020-12-02 16:18] LABS: Troponin-I High Sensitivity 6.1 ng/L (<3.5-17.0)
[2020-12-02 16:47] VITALS: BP 126/61; PULSE 84; RESP 18; TEMP 36.4; O2SAT 95
[2020-12-02 16:56] LABS: Appearance Urine CLEAR; Color Urine YELLOW; Glucose Urine UA NEG (NEG); Leukocyte Esterase Urine NEG (NEG); Nitrite Urine NEG (NEG); PH 6.5 (5.0-8.0); Specific Gravity - Urine <= 1.005 (1.005-1.025); Urine Blood NEG (NEG); Urine Ketones NEG (NEG); Urine Protein NEG (NEG-TRACE)
== END 2020-12-02 18:32 | disposition home or self-care (01) ==
PROVIDERS: Physician Assistant; Emergency Provider Internal Medicine
DX: U07.1 COVID-19 (principal); R10.9 Unspecified abdominal pain; K21.9 Gastro-esophageal reflux disease without esophagitis; Z79.899 Other long term (current) drug therapy
CPT/HCPCS: 36415; 71275; 74177; 80053; 80076; 81003; 82248; 82728; 83615; 83690; 84145; 84484; 85025; 85610; 85730; 93005; 96361; 96374; 96375; 99284; J1100; Q9967

== ENCOUNTER → 2021-01-18 12:09 | Outpatient (BNVA) | payer MEDICAID, SELFPAY | PROVIDERS: PCP Pediatrics; Visit Provider Internal Medicine Cardiovascular Disease | DX: I48.0 Paroxysmal atrial fibrillation (principal); I10 Essential (primary) hypertension | CPT/HCPCS: 99212 ==

== ENCOUNTER 2021-05-05 18:12 | Emergency (ER) | payer MEDICAID, SELFPAY | END 2021-05-05 20:08 | disposition left against medical advice (07) | PROVIDERS: Emergency Provider Emergency Medicine; PCP Pediatrics | DX: R07.89 Other chest pain (principal) ==

== ENCOUNTER 2021-06-03 13:21 | Outpatient (REF) | payer MEDICAID, SELFPAY ==
--- NOTE | ~2021-06-03 | US_ITS ---
EXAMINATION: ULTRASOUND EXTREMITY NONVASCULAR CLINICAL INFORMATION: Question lipoma left upper arm/shoulder COMPARISON: None TECHNIQUE: Grayscale and color imaging of the soft tissues of the left upper arm using a linear transducer FINDINGS: No solid or cystic soft tissue mass is seen. No fluid collection is seen. US/US extremity nonvascular IMPRESSION: Unremarkable exam.
== END 2021-06-03 13:22 | disposition home or self-care (01) ==
LOC: HO.US 13:21
PROVIDERS: Visit Provider Internal Medicine
DX: R22.9 Localized swelling, mass and lump, unspecified (principal)
CPT/HCPCS: 76882

== ENCOUNTER 2021-10-02 09:56 | Outpatient (REF) | payer MEDICAID, SELFPAY ==
--- NOTE | ~2021-10-02 | MM_ITS ---
EXAMINATION: MM SCREENING DIGITAL BREAST TOMOSYNTHESIS, BILATERAL CLINICAL INFORMATION: Screening. Asymptomatic. The lifetime risk of breast cancer based on the Tyrer-Cuzick Model is 6%. COMPARISON: Mammography: 09/19/2020, 05/02/2019, 04/19/2018 TECHNIQUE: Digital breast tomosynthesis is performed in both the craniocaudal and mediolateral oblique views along with computer-aided detection (CAD). Synthesized 2D images are generated from the tomosynthesis. FINDINGS: The breasts are almost entirely fatty (ACR BI-RADS breast composition Category a). There are no significant masses, abnormal calcifications, or other abnormalities. There is a small stable circumscribed nodule overlying the anterior 6:00 left breast, likely dermal. No significant changes. MM/MM tomosynthesis screening BI IMPRESSION: No mammographic evidence of malignancy. ASSESSMENT: BI-RADS 2: Benign RECOMMENDATION: Routine annual mammography screening. This patient's information was entered into a reminder system with a target due date for their next mammogram.
== END 2021-10-02 09:57 | disposition home or self-care (01) ==
LOC: HO.MAMMO 09:56
PROVIDERS: Visit Provider Pediatrics
DX: Z12.31 Encounter for screening mammogram for malignant neoplasm of breast (principal)
CPT/HCPCS: 77063; 77067

== ENCOUNTER 2021-10-14 16:31 | Emergency (ER) | payer MEDICAID, SELFPAY ==
--- NOTE | 2021-10-14 | ECG_ITS ---
Test Reason : CHEST PAIN Blood Pressure : / mmHG Vent. Rate : 067 BPM Atrial Rate : 067 BPM P-R Int : 120 ms QRS Dur : 088 ms QT Int : 422 ms P-R-T Axes : 058 002 040 degrees QTc Int : 445 ms Normal sinus rhythm Left axis deviation Otherwise normal ECG When compared with ECG of 02-DEC-2020 11:10, Nonspecific T wave abnormality no longer evident in Anterior leads Referred By: Generic ED Physician Electronically Signed By:GREGORIO VANEGAS MD
--- NOTE | ~2021-10-14 | XR_ITS ---
EXAMINATION: XR CHEST CLINICAL INFORMATION: Chest pain COMPARISON: 12/02/2020, chest film dated 11/22/2020 TECHNIQUE: Frontal view of the chest was obtained. FINDINGS: No acute finding. No failure or infiltrate is present. There is no effusion. The cardiac silhouette is comparable to previous within normal limits. The hilar regions do not appear pathologically enlarged. XR/XR chest 1V IMPRESSION: No acute finding.
[2021-10-14 17:13] VITALS: BP 136/54; PULSE 64; RESP 18; TEMP 35.7; O2SAT 100; BMI 37.4
[2021-10-14 18:03] LABS: MANUAL DIFF FLAG NO
[2021-10-14 18:06] LABS: Basophils Percent Auto 0.2 % (0-2); Eosinophils Absolute Auto 0.1 X10*3/uL (0.0-0.4); Hematocrit 38.1 % (37.0-47.0); Hemoglobin 12.3 g/dl (12.0-16.0); Imm Gran Abs Auto 0.04 X10*3/uL (0.00-0.03); Imm Gran Pct Auto 0.4 % (0.0-0.4); Lymphocytes Absolute Auto 2.2 X10*3/uL (1.2-4.9); Lymphocytes Percent Auto 23.3 % (20-40); Mean Corpuscular HGB Conc 32.3 g/dl (31.0-35.0); Mean Corpuscular Hemoglobin 26.6 pg (27.0-33.0); Mean Corpuscular Volume 82.5 fL (80.0-98.0); Mean Platelet Volume 8.8 fL (9.4-12.3); Monocytes Absolute Auto 0.6 X10*3/uL (0.1-1.2); Monocytes Percent Auto 6.7 % (2-11); Neutrophils Absolute Auto 6.5 x10*3/uL (2.0-8.3); Neutrophils Percent Auto 68.4 % (45-73); Platelet Count 341 X10*3/uL (160-400); Red Blood Count 4.62 X10*6/uL (4.20-5.50); Red Cell Distribution Width 14.1 % (11.0-16.0); White Blood Count 9.5 X10*3/uL (4.8-10.8)
[2021-10-14 18:21] LABS: Anion Gap 13 (12-20); Blood Urea Nitrogen 17 mg/dL (9-16); Calcium 8.8 mg/dL (8.4-10.2); Carbon Dioxide 26 mmol/L (22-29); Chloride 102 mmol/L (96-108); Creatinine Clr Calc Pharmacy 65.2; Estimated Glomerular Filt Rate 51; Glucose Random 98 mg/dL (60-115); Potassium 3.4 mmol/L (3.3-5.1); Sodium 138 mmol/L (135-145)
[2021-10-14 18:23] LABS: Troponin-I High Sensitivity 4.4 ng/L (<3.5-17.0)
[2021-10-14 23:59] VITALS: BP 150/74; PULSE 61; RESP 20; TEMP 36.6; O2SAT 100
--- NOTE | 2021-10-15 00:26 | ED.CHESTPAIN ---
HPI - Chest Pain General Chief Complaint: Chest Pain Stated Complaint: Chest pain Time Seen by Provider: 10/15/21 00:26 Source: patient Mode of arrival: ambulatory Limitations: no limitations History of Present Illness HPI narrative: Patient states that she has had chest and back pain simultaneously. Pain started at 11am, while working in the house doing laundry, the pain was a pressure. patient is currently on xarelto. Patient stats she has had the pain for 14 hours. MD complaint: chest heaviness Pertinent past history: other (atrial fibrillation) Onset (ago): hour(s) Timing of current episode: constant Onset: during exertion Pain location: left chest and right chest Pain radiation: back Quality: tightness Relieving factors: nothing Exacerbating factors: nothing Risk Factors Coronary artery disease risk factors: hypertension Related Data Home Medications Medication Instructions Recorded Confirmed hydrochlorothiazide 25 mg tablet 25 mg PO DAILY 01/18/21 Previous Rx's Medication Instructions Recorded acetaminophen 500 mg tablet 500 mg PO Q6H PRN #20 tab 11/22/20 (Tylenol Extra Strength) prednisone 20 mg tablet 40 mg PO DAILY 5 Days #10 tab 11/22/20 famotidine 20 mg tablet (Pepcid) 20 mg PO BID 10 Days #20 tab 12/02/20 metoprolol succinate 50 mg 50 mg PO DAILY 90 Days #90 tab 04/19/21 tablet,extended release 24 hr rivaroxaban 20 mg tablet (Xarelto) 20 mg PO QPM #90 tab 05/07/21 flecainide 50 mg tablet 50 mg PO BID #60 tab 09/15/21 Allergies Allergy/AdvReac Type Severity Reaction Status Date / Time No Known Allergies Allergy Unknown N/A Verified 10/14/21 17:13 [NO KNOWN ALLERGIES] Review of Systems Constitutional: Constitutional: Reports no additional constitutional complaints Eyes: Eyes: Reports no additional eye complaints ENT: Denies dizziness Cardiovascular: Cardiovascular: Reports no additional cardiovascular complaints Respiratory: Respiratory: Reports as per HPI Gastrointestinal: Gastrointestinal: Reports no additional gastrointestinal complaints Genitourinary: Genitourinary: Reports no additional female genitourinary complaints Musculoskeletal: Musculoskeletal: Reports no additional musculoskeletal complaints Integumentary/Breasts: Skin/Breast: Denies rash Neurologic: Reports system reviewed and no additional complaints, except as documented, Denies dizziness and Denies Sensory deficit (Neuro) Psychiatric: Psychiatric: Denies anxiety PMFSH Past Medical History Medical History HTN (hypertension) Paroxysmal atrial fibrillation Social History Social History Alcohol intake: never Advance Directives: No Advance Directives Information Provided: No Patient : No Physical Exam Vital Signs: Vital Signs: Last Vital Signs Temp 97.8 F 10/14/21 23:59 Pulse 58 10/15/21 00:57 Resp 20 10/15/21 00:57 BP 131/58 L 10/15/21 00:57 Pulse Ox 100 10/15/21 00:57 Body Mass Index 37.4 Const: General: healthy appearing Nutritional Appearance: average body habitus Orientation/consciousness: oriented to person and patient oriented x3 Limitations: no limitations HENMT: Head: Yes normal to inspection Ears: external ears normal General nose exam: Normal external nose present Mouth: Normal oral and palatal mucosa present and oropharynx normal Throat: Yes posterior oropharynx normal Eyes: General: appearance normal, both eyes and all related structures Neck: Other: supple Neck: Yes normal visual inspection Chest: Chest palpation & inspection: normal inspection of the chest Resp: Auscultation: clear to auscultation bilaterally Cardio: Jugular venous distension: no JVD Rate: regular rate Rhythm: regular rhythm Heart sounds: S1 normal heart sound present and S2 normal heart sound present GI: Inspection: Yes normal to inspection Palpation (GI): Soft to palpation, nontender and No hepatosplenomegaly present Auscultation: normal bowel sounds : General: Yes no CVA tenderness Back/Spine/Pelvis: Back: no CVA tenderness Skin: General skin exam: no rashes or lesions noted Neuro: General: oriented to person and patient oriented x3 Cranial nerves: Yes CN's II-XII intact bilaterally Motor exam (neuro): 5/5 motor strength present throughout Sensory Exam: No Sensory deficit (Neuro) Extrem: General: Yes normal to inspection Psych: Appearance: grossly normal Course Reevaluation(s) Reevaluation #1: patient with 16 hours with pain, EKG and troponins negative, CXR looks normal, repeat troponin negative improved after GI cocktail will dc on protonix Time: 02:31 MDM - Chest Pain Lab Data Result diagrams: 10/14/21 17:56 10/14/21 17:56 Labs: Lab Results 10/14/211818 Range/Units 17:56 17:56 17:56 WBC 9.5 (4.8-10.8) X10*3/uL RBC 4.62 (4.20-5.50) X10*6/uL Hgb 12.3 (12.0-16.0) g/dl Hct 38.1 (37.0-47.0) % MCV 82.5 (80.0-98.0) fL MCH 26.6 L (27.0-33.0) pg MCHC 32.3 (31.0-35.0) g/dl RDW 14.1 (11.0-16.0) % Plt Count 341 (160-400) X10*3/uL MPV 8.8 L (9.4-12.3) fL Immature Gran % (Auto) 0.4 (0.0-0.4) % Neut % (Auto) 68.4 (45-73) % Lymph % (Auto) 23.3 (20-40) % [place] % (Auto) 6.7 (2-11) % Eos % (Auto) 1.0 (0-4) % Baso % (Auto) 0.2 (0-2) % Lymph # (Auto) 2.2 (1.2-4.9) X10*3/uL [place] # (Auto) 0.6 (0.1-1.2) X10*3/uL Eos # (Auto) 0.1 (0.0-0.4) X10*3/uL Baso # (Auto) 0.0 (0.0-0.2) X10*3/uL Abs Immat Gran (auto) 0.04 H (0.00-0.03) X10*3/uL Absolute Neuts (auto) 6.5 (2.0-8.3) x10*3/uL Absolute Nucleated RBC 0.000 (0.0-0.012) X10*3/uL Nucleated RBC % (auto) 0.0 (0.0-0.2) /100WBC Sodium 138 (135-145) mmol/L Potassium 3.4 (3.3-5.1) mmol/L Chloride 102 (96-108) mmol/L Carbon Dioxide 26 (22-29) mmol/L Anion Gap 13 (12-20) BUN 17 H D (9-16) mg/dL Creatinine 1.10 (0.5-1.4) mg/dL Estim Creat Clear Calc 65.2 Estimated GFR 51 Random Glucose 98 (60-115) mg/dL Calcium 8.8 D (8.4-10.2) mg/dL Troponin I High Sens 4.4 (<3.5-17.0) ng/L 10/15/21 Range/Units 00:56 WBC (4.8-10.8) X10*3/uL RBC (4.20-5.50) X10*6/uL Hgb (12.0-16.0) g/dl Hct (37.0-47.0) % MCV (80.0-98.0) fL MCH (27.0-33.0) pg MCHC (31.0-35.0) g/dl RDW (11.0-16.0) % Plt Count (160-400) X10*3/uL MPV (9.4-12.3) fL Immature Gran % (Auto) (0.0-0.4) % Neut % (Auto) (45-73) % Lymph % (Auto) (20-40) % [place] % (Auto) (2-11) % Eos % (Auto) (0-4) % Baso % (Auto) (0-2) % Lymph # (Auto) (1.2-4.9) X10*3/uL [place] # (Auto) (0.1-1.2) X10*3/uL Eos # (Auto) (0.0-0.4) X10*3/uL Baso # (Auto) (0.0-0.2) X10*3/uL Abs Immat Gran (auto) (0.00-0.03) X10*3/uL Absolute Neuts (auto) (2.0-8.3) x10*3/uL Absolute Nucleated RBC (0.0-0.012) X10*3/uL Nucleated RBC % (auto) (0.0-0.2) /100WBC Sodium (135-145) mmol/L Potassium (3.3-5.1) mmol/L Chloride (96-108) mmol/L Carbon Dioxide (22-29) mmol/L Anion Gap (12-20) BUN (9-16) mg/dL Creatinine (0.5-1.4) mg/dL Estim Creat Clear Calc Estimated GFR Random Glucose (60-115) mg/dL Calcium (8.4-10.2) mg/dL Troponin I High Sens 5.6 (<3.5-17.0) ng/L Imaging Data Chest x-ray: Radiologist's impression: FINDINGS: No acute finding. No failure or infiltrate is present. There is no effusion. The cardiac silhouette is comparable to previous within normal limits. The hilar regions do not appear pathologically enlarged. XR/XR chest 1V IMPRESSION: No acute finding. Discharge Plan Discharge Clinical Impression: Gastritis Qualifiers: Gastritis type: unspecified gastritis Chronicity: acute Gastritis bleeding: without bleeding Qualified Code(s): K29.00 - Acute gastritis without bleeding Patient Disposition: Home, Self-Care Instructions: Gastritis (ED) Additional Instructions: increase pepcid to 40mg twice a day Prescriptions: No Action metoprolol succinate 50 mg tablet extended release 24 hr 50 mg PO DAILY 90 Days Qty: 90 RF: 1 rivaroxaban [Xarelto] 20 mg tablet 20 mg PO QPM Qty: 90 RF: 1 flecainide 50 mg tablet 50 mg PO BID Qty: 60 RF: 5 prednisone 20 mg tablet 40 mg PO DAILY 5 Days Qty: 10 RF: 0 acetaminophen [Tylenol Extra Strength] 500 mg tablet 500 mg PO Q6H PRN (Reason: pain or fever) Qty: 20 RF: 0 famotidine [Pepcid] 20 mg tablet 20 mg PO BID 10 Days Qty: 20 RF: 0 hydrochlorothiazide 25 mg tablet 25 mg PO DAILY RF: 0 Referrals: Lluvia Anderson MD [Primary Care Provider] - 5 days
[2021-10-15 00:52] VITALS: BP 131/58; PULSE 57; RESP 20; O2SAT 100
[2021-10-15 00:57] VITALS: BP 131/58; PULSE 58; RESP 20; O2SAT 100
[2021-10-15] MEDS: Magnesium Hydrox/Alum Hydrox 30 ML ORAL.SUSP PO (00:58)
[2021-10-15] MEDS: PHENobarb/Hyoscy/Atropine/Scop 10 ML ELIXIR PO (00:58)
[2021-10-15] MEDS: Lidocaine HCl Viscous 2 % 15 ML SOLUTION MUCOUS MEM (00:58)
[2021-10-15 01:21] LABS: Troponin-I High Sensitivity 5.6 ng/L (<3.5-17.0)
[2021-10-15 02:49] VITALS: BP 134/66; PULSE 84; RESP 18; TEMP 37; O2SAT 97
== END 2021-10-15 02:53 | disposition home or self-care (01) ==
PROVIDERS: Emergency Provider Emergency Medicine; PCP Pediatrics
DX: K29.00 Acute gastritis without bleeding (principal); R07.9 Chest pain, unspecified; I10 Essential (primary) hypertension; I48.0 Paroxysmal atrial fibrillation; Z79.01 Long term (current) use of anticoagulants; Z79.899 Other long term (current) drug therapy
CPT/HCPCS: 36415; 71045; 80048; 84484; 85025; 93005; 99283; 99285

== ENCOUNTER → 2021-11-10 13:02 | Outpatient (REF) | payer MEDICAID, SELFPAY ==
--- NOTE | 2021-11-10 13:05 | ECG_ITS ---
Hook-up date: 2021-11-10 13:27:00 Duration: 25:22:00 Test Indications: PAF Medications: 70790 QRS complexes 2 Ventricular ectopics which represent <1 % of total QRS comp. 14 Supraventricular ectopics which represent <1 % of total QRS comp. * Paced QRS complexs which represent % of total QRS comp. VENTRICULAR ECTOPY 2 Isolated 0 Bigeminal Cycles 0 Couplets 0 Runs 0 Beats in Runs * Beats LONGEST at * BPM at :: -- * Beats FASTEST at * BPM at :: -- SUPRAVENTRICULAR ECTOPY 10 Isolated 2 Couplets 0 Runs 0 Beats in Runs * Beats LONGEST at * BPM at :: -- * Beats FASTEST at * BPM at :: -- HEART RATES 57 MIN at 05:27:07 2021-11-11 66 AVG 110 MAX at 11:26:20 2021-11-11 LONGEST RR 1.2880 secs at 20:44:58 2021-11-10 S-T LEVELS Channel 1 - 128 mm at 13:27:00 2021-11-10 - 128 mm at 13:27:00 2021-11-10 Channel 2 - 128 mm at 13:27:00 2021-11-10 - 128 mm at 13:27:00 2021-11-10 Channel 3 - 128 mm at 03:24:61 -- - 128 mm at 03:24:61 Basic rhythm Normal sinus rhythm No long pause or profound bradycardia Rare Premature atrial complexes No sustained Atrial fibrillation Patient did not report any symptoms in the diary Referred By: Everette Beaulieu Overread By: EVERETTE BEAULIEU MD
== END ==
LOC: HO.CARD 13:02
PROVIDERS: Visit Provider Internal Medicine Cardiovascular Disease
DX: I48.0 Paroxysmal atrial fibrillation (principal)
CPT/HCPCS: 93225; 93226

== ENCOUNTER 2022-02-08 08:41 | Outpatient (REF) | payer MEDICAID, SELFPAY ==
--- NOTE | ~2022-02-08 | US_ITS ---
EXAMINATION: US ABDOMEN COMPLETE CLINICAL INFORMATION: Epigastric pain. COMPARISON: Normal CT abdomen and pelvis 12/02/2020 TECHNIQUE: Real-time imaging of the abdominal viscera. FINDINGS: PANCREAS: The head and body of the pancreas is homogeneous echotexture. The tail of pancreas is partially obscured by gas ABDOMINAL AORTA: The proximal, mid, and distal segments are normal in caliber. INFERIOR VENA CAVA: Visualized portions are normal. LIVER: The liver is normal in size. The liver contour is normal. Parenchymal echogenicity is increased. No focal hepatic lesion. There is no intrahepatic biliary duct dilatation seen. GALLBLADDER: Normal. The gallbladder is physiologically distended without evidence of stones, sludge, polyps, wall thickening or pericholecystic fluid. COMMON BILE DUCT: Normal in caliber measuring 0.4 cm in diameter. RIGHT KIDNEY: Normal. No hydronephrosis. No renal calculi or focal parenchymal lesions. The kidney measures 9.7 cm in maximum dimension. LEFT KIDNEY: Normal. No hydronephrosis. No renal calculi or focal parenchymal lesions. The kidney measures 9.2 cm in maximum dimension. SPLEEN: Normal. The spleen measures 10.6 cm in maximum dimension. FREE FLUID: None. US/US abdomen complete IMPRESSION: Mild hepatic steatosis but no focal lesion seen. Rest of the abdominal ultrasound is unremarkable.
== END 2022-02-08 08:42 | disposition home or self-care (01) ==
LOC: HO.US 08:41
PROVIDERS: PCP Pediatrics; Visit Provider Pediatrics
DX: R10.13 Epigastric pain (principal)
CPT/HCPCS: 76700

== ENCOUNTER 2022-02-18 07:25 | Outpatient (REF) | payer MEDICAID, SELFPAY ==
--- NOTE | ~2022-02-18 | XR_ITS ---
EXAMINATION: XR KNEE, RIGHT CLINICAL INFORMATION: Right knee pain COMPARISON: None TECHNIQUE: Four views of the right knee. FINDINGS: There is mild reduction in the patellofemoral compartment joint space with inferior anterior patellar enthesophyte. No loose bodies. No bony erosive changes. Minimal suprapatellar joint effusion. No soft tissue swelling seen. XR/XR knee RT 2V IMPRESSION: Mild degenerative changes patellofemoral compartment Inferior anterior patellar spurring with minimal suprapatellar joint effusion.
--- NOTE | ~2022-02-18 | XR_ITS ---
EXAMINATION: XR KNEE, BILATERAL XR KNEE, LEFT CLINICAL INFORMATION: Knee pain. COMPARISON: None TECHNIQUE: AP bilateral knee standing. Left knee 2 views. FINDINGS: AP BILATERAL KNEE: There is mild reduction in the medial and lateral compartment joint space both knees with mild periarticular spurring in medial and lateral compartments right knee. There is no visible acute fracture, dislocation or subluxation seen. LEFT KNEE: There is mild loss of patellofemoral compartment joint space without suprapatellar joint effusion. No loose bodies or bony erosive changes seen. The soft tissues are normal. XR/XR knee LT 2V IMPRESSION: Mild degenerative changes medial and lateral compartments of both knees with periarticular spurring in the medial and lateral compartments of right knee. Mild loss of patellofemoral compartment joint space without loose bodies, bony erosive changes or joint effusion in the left knee.
--- NOTE | ~2022-02-18 | XR_ITS ---
EXAMINATION: XR KNEE, BILATERAL XR KNEE, LEFT CLINICAL INFORMATION: Knee pain. COMPARISON: None TECHNIQUE: AP bilateral knee standing. Left knee 2 views. FINDINGS: AP BILATERAL KNEE: There is mild reduction in the medial and lateral compartment joint space both knees with mild periarticular spurring in medial and lateral compartments right knee. There is no visible acute fracture, dislocation or subluxation seen. LEFT KNEE: There is mild loss of patellofemoral compartment joint space without suprapatellar joint effusion. No loose bodies or bony erosive changes seen. The soft tissues are normal. XR/XR knee standing BI IMPRESSION: Mild degenerative changes medial and lateral compartments of both knees with periarticular spurring in the medial and lateral compartments of right knee. Mild loss of patellofemoral compartment joint space without loose bodies, bony erosive changes or joint effusion in the left knee.
== END 2022-02-18 07:26 | disposition home or self-care (01) ==
LOC: HO.HOSX 07:25
PROVIDERS: Visit Provider Physician Assistant
DX: M17.0 Bilateral primary osteoarthritis of knee (principal)
CPT/HCPCS: 20610; 73560; 73565; 99202; J1040

== ENCOUNTER → 2022-06-15 08:26 | Outpatient (BNVA) | payer MEDICAID, SELFPAY | PROVIDERS: PCP Pediatrics; Referring Provider Pediatrics; Visit Provider Internal Medicine Cardiovascular Disease | DX: I48.0 Paroxysmal atrial fibrillation (principal); I10 Essential (primary) hypertension; Z79.01 Long term (current) use of anticoagulants; Z79.899 Other long term (current) drug therapy | CPT/HCPCS: 93005; 99212 ==

== ENCOUNTER 2022-06-18 08:44 | Outpatient (REF) | payer MEDICAID, SELFPAY ==
[2022-06-18 10:17] LABS: Hematocrit 38.9 % (37.0-47.0); Hemoglobin 12.5 g/dl (12.0-16.0); Mean Corpuscular HGB Conc 32.1 g/dl (31.0-35.0); Mean Corpuscular Hemoglobin 26.7 pg (27.0-33.0); Mean Corpuscular Volume 82.9 fL (80.0-98.0); Mean Platelet Volume 9.1 fL (9.4-12.3); Platelet Count 348 X10*3/uL (160-400); Red Blood Count 4.69 X10*6/uL (4.20-5.50); Red Cell Distribution Width 14.2 % (11.0-16.0); White Blood Count 8.3 X10*3/uL (4.8-10.8)
[2022-06-18 10:46] LABS: Anion Gap 13 (12-20); Blood Urea Nitrogen 17 mg/dL (9-16); Calcium 8.8 mg/dL (8.4-10.2); Carbon Dioxide 27 mmol/L (22-29); Chloride 104 mmol/L (96-108); Estimated Glomerular Filt Rate 50; Glucose Random 104 mg/dL (60-115); Sodium 140 mmol/L (135-145)
== END 2022-06-18 08:45 | disposition home or self-care (01) ==
LOC: HO.LAB 08:44
PROVIDERS: PCP Pediatrics; Visit Provider Internal Medicine Cardiovascular Disease
DX: I48.0 Paroxysmal atrial fibrillation (principal)
CPT/HCPCS: 36415; 80048; 85027

== ENCOUNTER → 2022-06-24 12:47 | Outpatient (BNVA) | payer MEDICAID, SELFPAY | PROVIDERS: PCP Pediatrics; Visit Provider Physician Assistant | DX: M17.0 Bilateral primary osteoarthritis of knee (principal) | CPT/HCPCS: 99212 ==

== ENCOUNTER → 2022-07-12 11:18 | Outpatient (BNVA) | payer MEDICAID, SELFPAY | PROVIDERS: PCP Pediatrics; Visit Provider Physician Assistant | DX: M17.0 Bilateral primary osteoarthritis of knee (principal) | CPT/HCPCS: 20610; 99212; J7318 ==

== ENCOUNTER 2022-09-10 10:08 | Emergency (ER) | payer MEDICAID, SELFPAY ==
[2022-09-10 10:24] VITALS: BP 136/69; PULSE 69; RESP 16; TEMP 36.1; O2SAT 97; BMI 35.7
--- NOTE | 2022-09-10 10:40 | ED.EAR ---
HPI - Ear Problem General Chief complaint: Ear Problems Stated complaint: R EAR PAIN Time Seen by Provider: 09/10/22 10:28 Source: patient and family Mode of arrival: ambulatory Limitations: language barrier (Declined accounting associate services-use family) History of Present Illness HPI Narrative: 62-year-old female with a history of AFib on Xarelto, hypertension presents with right ear pain since last evening with itching of the ear and muffled sound from the right side. No drainage from the ear. Patient reports pain outside of the ear as well. No sore throat, cough, recent URI symptoms. No fevers or chills. Related Data Home Medications Medication Instructions Recorded Confirmed hydrochlorothiazide 25 mg tablet 25 mg PO DAILY 01/18/21 06/15/22 finasteride 5 mg tablet 5 mg PO DAILY 02/18/22 06/15/22 Previous Rx's Medication Instructions Recorded acetaminophen 500 mg tablet 500 mg PO Q6H PRN pain or fever 11/22/20 (Tylenol Extra Strength) #20 tabs flecainide 50 mg tablet 50 mg PO BID #60 tabs 07/18/22 metoprolol succinate 50 mg 50 mg PO DAILY #90 tabs 08/16/22 tablet,extended release 24 hr rivaroxaban 20 mg tablet (Xarelto) 20 mg PO QPM #90 tabs 08/16/22 amoxicillin 500 mg capsule 500 mg PO BID #20 caps 09/10/22 Allergies Allergy/AdvReac Type Severity Reaction Status Date / Time No Known Allergies Allergy Unknown N/A Verified 07/12/22 11:26 [NO KNOWN ALLERGIES] Review of Systems Review of Systems: Yes all other systems are reviewed and are negative Constitutional: Constitutional: Reports no additional constitutional complaints, Denies body ache(s), Denies chills, Denies fever(s), Denies headache(s) and Denies weakness Eyes: Eyes: Reports no additional eye complaints and Denies change in vision ENT: Reports system reviewed and no additional complaints, except as documented, Denies dizziness, Reports otalgia, Denies headache(s), Denies nasal congestion, Denies nasal discharge and Denies neck pain Cardiovascular: Cardiovascular: Reports no additional cardiovascular complaints, Denies chest pain, Denies leg edema and Denies dyspnea Respiratory: Respiratory: Reports no additional respiratory complaints, Denies cough and Denies dyspnea Gastrointestinal: Gastrointestinal: Reports no additional gastrointestinal complaints, Denies abdominal pain, Denies diarrhea, Denies nausea and Denies vomiting Genitourinary: Genitourinary: Reports no additional female genitourinary complaints and Denies urinary incontinence Musculoskeletal: Musculoskeletal: Reports no additional musculoskeletal complaints, Denies back pain, Denies arthralgias, Denies joint swelling, Denies neck pain, Denies numbness and Denies tingling Integumentary/Breasts: Skin/Breast: Reports system reviewed and no additional complaints, except as docu and Denies rash Neurologic: Reports system reviewed and no additional complaints, except as documented, Denies Abnormal speech present, Denies dizziness, Denies headache(s), Denies numbness, Denies tingling and Denies weakness PMFSH Past Medical History Attestation statement: The following information was validated with the patient. 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 Physical Exam Vital Signs: Vital Signs: Last Vital Signs Temp 96.9 F 09/10/22 10:24 Pulse 69 09/10/22 10:24 Resp 16 09/10/22 10:24 BP 136/69 09/10/22 10:24 Pulse Ox 97 09/10/22 10:24 O2 Del Method 09/10/22 10:24 BMI result Body Mass Index 35.7 Const: General: cooperative, healthy appearing, comfortable and no acute distress Orientation/consciousness: patient oriented x3 Limitations: no limitations HEENT: Head: Yes normal to inspection Ears: hearing grossly normal bilaterally, TM normal on the left, mastoids normal, no periauricular adenopathy, TM abnormal (Right TM with bulging, erythema effusion) and other (There is periauricular tenderness with movement of the ear) General nose exam: Normal external nose present Face and sinus: Yes normal facial exam Mouth: Normal oral and palatal mucosa present Throat: Yes posterior oropharynx normal Eyes: General: appearance normal, both eyes and all related structures Pupils: Equal, round and reactive pupils present Neck: Neck: Yes normal visual inspection Chest: Chest palpation & inspection: normal inspection of the chest Resp: Effort & Inspection: normal respiratory effort Auscultation: clear to auscultation bilaterally Cardio: Rate: regular rate Rhythm: regular rhythm Peripheral pulses: Peripheral pulses 2+ throughout GI: Inspection: Yes normal to inspection Palpation (GI): Soft to palpation and nontender Auscultation: normal bowel sounds Back/Spine/Pelvis: Thoracic/Lumbar Spine: thoracic and lumbar spine normal to inspection Skin: General skin exam: no rashes or lesions noted Neuro: General: patient oriented x3, no focal motor deficits and normal sensation to monofilament Cranial nerves: Yes Equal, round and reactive pupils present Cognition (Neuro): normal cognition Speech: No Abnormal speech present Gait exam (Neuro): Normal gait present Motor exam (neuro): 5/5 motor strength present throughout Extrem: General: Yes normal to inspection MDM - Ear MDM Narrative Medical decision making narrative: Right otitis media. No evidence of mastoiditis. Patient be started amoxicillin. Reviewed worrisome signs and symptoms of when to return to the emergency room. Comfortable w/plan for discharge home Differential Diagnosis Differential diagnosis: Likely otitis media Medical Records Attestation: I reviewed the patient's medical records. Lab Data Attestation: I reviewed the patient's lab results. Discharge Plan Discharge Clinical Impression: Otitis media Patient Disposition: Home, Self-Care Instructions: Ear Infection (ED) Additional Instructions: Take Tylenol for pain Follow-up with primary care doctor for any persistent symptoms Prescriptions: New amoxicillin 500 mg capsule 500 mg PO BID Qty: 20 0RF No Action flecainide 50 mg tablet 50 mg PO BID Qty: 60 5RF Xarelto 20 mg tablet 20 mg PO QPM Qty: 90 3RF metoprolol succinate 50 mg tablet extended release 24 hr 50 mg PO DAILY Qty: 90 3RF acetaminophen [Tylenol Extra Strength] 500 mg tablet 500 mg PO Q6H PRN (Reason: pain or fever) Qty: 20 0RF hydrochlorothiazide 25 mg tablet 25 mg PO DAILY finasteride 5 mg tablet 5 mg PO DAILY Referrals: Lluvia Anderson MD [Primary Care Provider] - Interventions: ED Discharge Assessment Last Done: 09/10/22 10:54 Discharge Date/Time: 09/10/22 10:54
== END 2022-09-10 10:54 | disposition home or self-care (01) ==
PROVIDERS: Emergency Provider Emergency Medicine; PCP Pediatrics
DX: H66.91 Otitis media, unspecified, right ear (principal); I10 Essential (primary) hypertension; I48.0 Paroxysmal atrial fibrillation; Z79.01 Long term (current) use of anticoagulants
CPT/HCPCS: 99282; 99283

== ENCOUNTER 2022-10-05 10:33 | Outpatient (REF) | payer MEDICAID, SELFPAY ==
--- NOTE | ~2022-10-05 | MM_ITS ---
EXAMINATION: MM SCREENING DIGITAL BREAST TOMOSYNTHESIS, BILATERAL CLINICAL INFORMATION: Screening. Asymptomatic. COMPARISON: Mammography: 10/02/2021, 09/19/2020, 05/02/2019 TECHNIQUE: Digital breast tomosynthesis is performed in both the craniocaudal and mediolateral oblique views along with computer-aided detection (CAD). Synthesized 2D images are generated from the tomosynthesis. FINDINGS: The breasts are almost entirely fatty (ACR BI-RADS breast composition Category a). There are no significant masses, abnormal calcifications, or other abnormalities. Background stromal markings are unremarkable. No developing density or architectural abnormality. The axilla are unremarkable. Probable small dermal lesion again noted overlying lower anterior left breast. No significant changes. MM/MM tomosynthesis screening BI IMPRESSION: No mammographic evidence of malignancy. ASSESSMENT: BI-RADS 2: Benign RECOMMENDATION: Routine annual mammography screening. This patient's information was entered into a reminder system with a target due date for their next mammogram.
== END 2022-10-05 10:34 | disposition home or self-care (01) ==
LOC: HO.MAMMO 10:33
PROVIDERS: PCP Pediatrics; Visit Provider Pediatrics
DX: Z12.31 Encounter for screening mammogram for malignant neoplasm of breast (principal)
CPT/HCPCS: 77063; 77067

== ENCOUNTER 2023-01-16 16:32 | Emergency (ER) | payer MEDICAID, SELFPAY ==
--- NOTE | ~2023-01-16 | XR_ITS ---
EXAMINATION: XR KNEE, RIGHT CLINICAL INFORMATION: Right knee pain. COMPARISON: knees bilateral 02/18/2022 TECHNIQUE: Four views of the right knee. FINDINGS: No fracture. No dislocation. No joint effusion. No focal bone lesion. There is degenerative joint disease. Joint narrowing of the femoral tibial joint. Marginal bone spurs of femur and tibia. No bone erosion. Minimal spur of the patella superiorly at the patellofemoral joint. There is no soft tissue calcification. Compared to prior study 02/18/2022 there is no substantial change. XR/XR knee RT 4V IMPRESSION: 1. No acute abnormality. 2. Degenerative joint disease of the knee.
[2023-01-16 17:47] VITALS: BP 127/68; PULSE 69; RESP 18; TEMP 36.8; O2SAT 99; BMI 37.5
--- NOTE | 2023-01-16 17:50 | ED.LOWEXIN ---
HPI - Extremity Injury (Lower) General Chief Complaint: Extremity Injury, Lower <MARJ Rodriguez - Last Filed: 01/16/23 17:53> Stated Complaint: arthritis in leg <MARJ Rodriguez - Last Filed: 01/16/23 17:53> Time Seen by Provider: 01/16/23 18:46 <MARJ Rodriguez - Last Filed: 01/16/23 17:53> Source: patient, family (Spouse) and circuit manager <Myke Schneider MD - Last Filed: 01/16/23 19:31> Mode of arrival: ambulatory <Myke Schneider MD - Last Filed: 01/16/23 19:31> Limitations: no limitations <Myke Schneider MD - Last Filed: 01/16/23 19:31> History of Present Illness HPI Narrative: 62-year-old female with longstanding history of osteoarthritis patient get intra-articular shot into her right knee, patient was walking today when she started to have a sudden onset of severe right knee pain then difficulty to bear weight onto her night knee. There is swelling to the right knee, no fever, no chills, no falling. <Myke Schneider MD - Last Filed: 01/16/23 19:31> Related Data Home Medications: Home Medications Medication Instructions Recorded Confirmed hydrochlorothiazide 25 mg tablet 25 mg PO DAILY 01/18/21 06/15/22 finasteride 5 mg tablet 5 mg PO DAILY 02/18/22 06/15/22 Previous Rx's Medication Instructions Recorded acetaminophen 500 mg tablet 500 mg PO Q6H PRN pain or fever 11/22/20 (Tylenol Extra Strength) #20 tabs flecainide 50 mg tablet 50 mg PO BID #60 tabs 07/18/22 metoprolol succinate 50 mg 50 mg PO DAILY #90 tabs 08/16/22 tablet,extended release 24 hr rivaroxaban 20 mg tablet (Xarelto) 20 mg PO QPM #90 tabs 08/16/22 amoxicillin 500 mg capsule 500 mg PO BID #20 caps 09/10/22 oxycodone 5 mg capsule 5 mg PO Q8H PRN pain #10 caps 01/16/23 <MARJ Rodriguez - Last Filed: 01/16/23 17:53> Allergies/Adverse Reactions: Allergies Allergy/AdvReac Type Severity Reaction Status Date / Time No Known Allergies Allergy Unknown N/A Verified 01/16/23 17:47 [NO KNOWN ALLERGIES] <MARJ Rodriguez - Last Filed: 01/16/23 17:53> Review of Systems Review of Systems: All other systems are reviewed and are negative Constitutional: Reports as per HPI and Reports no additional constitutional complaints Eyes: Reports as per HPI and Reports no additional eye complaints Reports system reviewed and no additional complaints, except as documented Cardiovascular: Reports as per HPI and Reports no additional cardiovascular complaints Respiratory: Reports as per HPI and Reports no additional respiratory complaints Gastrointestinal: Reports as per HPI and Reports no additional gastrointestinal complaints Genitourinary: Reports no additional female genitourinary complaints Musculoskeletal: Reports no additional musculoskeletal complaints Skin/Breast: Reports system reviewed and no additional complaints, except as docu Psychiatric: Reports no additional psychiatric complaints Endocrine: Reports no additional endocrine complaints Hematologic/Lymphatic: Reports no additional hematologic/lymphatic complaints Allergic/Immunologic: Reports no additional allergic/immunologic complaints Reports system reviewed and no additional complaints, except as documented and Reports Abnormal speech present <Myke Schneider MD - Last Filed: 01/16/23 19:31> [facility] Past Medical History Medical History: Medical History HTN (hypertension) Paroxysmal atrial fibrillation <MARJ Rodriguez - Last Filed: 01/16/23 17:53> Social History Social History: Social History Alcohol intake: never Advance Directives: No Advance Directives Information Provided: Yes Current occupational status: disabled 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 <MARJ Rodriguez - Last Filed: 01/16/23 17:53> Physical Exam Vital Signs: Vital Signs: Last Vital Signs Temp 98.3 F 01/16/23 17:47 Pulse 69 01/16/23 17:47 Resp 18 01/16/23 17:47 BP 127/68 01/16/23 17:47 Pulse Ox 99 01/16/23 17:47 O2 Del Method 01/16/23 17:47 BMI result Body Mass Index 37.5 <MARJ Rodriguez - Last Filed: 01/16/23 17:53> Vital Signs: Last Vital Signs Temp 98.3 F 01/16/23 17:47 Pulse 69 01/16/23 17:47 Resp 18 01/16/23 17:47 BP 127/68 01/16/23 17:47 Pulse Ox 99 01/16/23 17:47 O2 Del Method 01/16/23 17:47 BMI result Body Mass Index 37.5 Vital signs have been reviewed as appeared to be correct. Blood pressure normal. Heart rate normal. Respiration rate normal. Temperature normal. Oxygen saturation normal. <Myke Schneider MD - Last Filed: 01/16/23 19:31> Appearance: Alert. Oriented X3. No acute distress. Head: Normal external exam. Normocephalic. Atraumatic. No Amos signs noted. No raccoon eyes noted Eyes: PERRLA. EOMI. Conjunctiva and sclera normal. Eyelids normal. ENT: TM's Normal. Pharynx normal. Uvula midline. Moist mucous membranes. No trismus noted. No drooling noted. No muffled voice noted. Neck: Normal inspection. Neck supple. FROM. No adenopathy. Thyroid Normal. No meningeal signs. No neck mass noted. CVS: Normal heart rate and rhythm. Heart sound normal. No murmurs noted. Pulses normal throughout. Respiratory: No respiratory distress. Painless inspiration. Breath sounds normal. No wheezes/rales/rhonchi noted. Chest nontender. No accessory muscle usage noted or decreased air movement noted. Abdomen: Soft and nontender. Bowel sounds normal in all 4 quadrants. No distention noted. No organomegaly noted. No visible injury noted. Back: No CVA tenderness. Full range of motion noted. Skin: Skin warm and dry. Normal skin color. Normal skin turgor. No rashes/lesions/lacerations noted. Extremities: No lower extremity edema. Extremities exhibit normal range of motion. Extremities nontender. Neuro: Oriented X 3. Cranial nerve exam: II-XII are grossly intact No motor deficit. No sensory deficit. Reflexes normal. <Myke Schneider MD - Last Filed: 01/16/23 19:31> Course Course Course Narrative: RME - 62 yo female with history of obesity, HTN, osteoarthritis of bilateral knees who gets Q6 months injections presents to the ER for evaluation of acute onset of worsening right knee pain that started today when she was walking. Had sudden onset of sharp pain and inability to bear weight since. Reports mild swelling. Was due for shot yesterday but needs to call for an appointment. In a wheelchair in triage. XRs ordered. Stable to go back to waiting room until treatment room available. <MARJ Rodriguez - Last Filed: 01/16/23 17:53> Reevaluation(s) Reevaluation #1: Right knee acute on chronic arthritis, x-ray shows no acute fracture but degenerative joint disease of the right knee. Patient was given oxycodone feels better, will continue for right knee immobilization and follow-up with Orthopedic. <Myke Schneider MD - Last Filed: 01/16/23 19:31> Time: 19:30 <Myke Schneider MD - Last Filed: 01/16/23 19:31> Medical Decision Making Differential Diagnosis Differential Diagnoses: The differential diagnosis associated with the presentation includes (Right knee osteoarthritis, fracture, subluxation, joint effusion.) <Myke Schneider MD - Last Filed: 01/16/23 19:31> Independent Interpretation I performed an independent interpretation of an: Plain X-Ray (Right knee: No acute abnormality.) <Myke Schneider MD - Last Filed: 01/16/23 19:31> Discharge Plan Discharge Clinical Impression: Arthralgia of knee, right <MARJ Rodriguez - Last Filed: 01/16/23 17:53> Patient Disposition: Home, Self-Care <MARJ Rodriguez - Last Filed: 01/16/23 17:53> Instructions: Arthralgia (ED) <MARJ Rodriguez - Last Filed: 01/16/23 17:53> Prescriptions: New oxycodone 5 mg capsule 5 mg PO Q8H PRN (Reason: pain) Qty: 10 0RF Rx Instructions: Partial Fill upon patient request. No Action flecainide 50 mg tablet 50 mg PO BID Qty: 60 5RF Xarelto 20 mg tablet 20 mg PO QPM Qty: 90 3RF metoprolol succinate 50 mg tablet extended release 24 hr 50 mg PO DAILY Qty: 90 3RF acetaminophen [Tylenol Extra Strength] 500 mg tablet 500 mg PO Q6H PRN (Reason: pain or fever) Qty: 20 0RF amoxicillin 500 mg capsule 500 mg PO BID Qty: 20 0RF hydrochlorothiazide 25 mg tablet 25 mg PO DAILY finasteride 5 mg tablet 5 mg PO DAILY <MARJ Rodriguez - Last Filed: 01/16/23 17:53> Referrals: Lluvia Anderson MD [Primary Care Provider] - Kemar Scott MD [Physician] - <MARJ Rodriguez - Last Filed: 01/16/23 17:53>
[2023-01-16] MEDS: oxyCODONE HCl Immed Release 5 MG TABLET PO (19:33)
== END 2023-01-16 19:52 | disposition home or self-care (01) ==
PROVIDERS: Emergency Provider Emergency Medicine; PCP Pediatrics
DX: M25.561 Pain in right knee (principal); Z79.899 Other long term (current) drug therapy
CPT/HCPCS: 73564; 99283

== ENCOUNTER 2023-02-28 | Outpatient (REF) | payer MEDICAID, SELFPAY ==
--- NOTE | ~2023-02-28 | XR_ITS ---
EXAMINATION: XR knee RT 1V, XR knee standing BI CLINICAL INFORMATION: Reason for Exam M25.569 - Pain in unspecified knee COMPARISON: None. TECHNIQUE: Standing view of the bilateral knees and sunrise view of the right knee XR/XR knee RT 1V FINDINGS/IMPRESSION: * No acute fracture or dislocation. * Mild to moderate degenerative changes of the right knee joint. * No soft tissue abnormality.
--- NOTE | ~2023-02-28 | XR_ITS ---
EXAMINATION: XR knee RT 1V, XR knee standing BI CLINICAL INFORMATION: Reason for Exam M25.569 - Pain in unspecified knee COMPARISON: None. TECHNIQUE: Standing view of the bilateral knees and sunrise view of the right knee XR/XR knee standing BI FINDINGS/IMPRESSION: * No acute fracture or dislocation. * Mild to moderate degenerative changes of the right knee joint. * No soft tissue abnormality.
== END 2023-02-28 00:01 | disposition home or self-care (01) ==
LOC: HO.HOSX
PROVIDERS: Visit Provider Physician Assistant
DX: M17.0 Bilateral primary osteoarthritis of knee (principal); I48.0 Paroxysmal atrial fibrillation; I10 Essential (primary) hypertension
CPT/HCPCS: 20610; 73560; 73565; 93005; 99212; J1040

== ENCOUNTER 2023-03-18 09:16 | Outpatient (REF) | payer MEDICAID, SELFPAY ==
--- NOTE | ~2023-03-18 | XR_ITS ---
EXAMINATION: XR SHOULDER, RIGHT CLINICAL INFORMATION: Pain COMPARISON: None available. TECHNIQUE: AP external rotation, Grashey, scapular Y, and axillary views of the right shoulder. FINDINGS: Bone alignment is normal. No fracture or dislocation. The glenohumeral joint is normal. There is arthritis at the acromioclavicular joint. Soft tissues are unremarkable. XR/XR shoulder RT min 2V IMPRESSION: Arthritis at the acromioclavicular joint.
== END 2023-03-18 09:17 | disposition home or self-care (01) ==
LOC: HO.XRAY 09:16
PROVIDERS: PCP Pediatrics; Visit Provider Student in an Organized Health Care Education/Training Program
DX: M25.511 Pain in right shoulder (principal)
CPT/HCPCS: 73030

== ENCOUNTER → 2023-09-06 09:42 | Outpatient (BNVA) | payer MEDICAID, SELFPAY | PROVIDERS: PCP Pediatrics; Visit Provider Internal Medicine Cardiovascular Disease ==

== ENCOUNTER 2023-09-26 10:15 | Outpatient (AMB) | payer MEDICAID, SELFPAY ==
--- NOTE | 2023-09-26 10:18 | A.OFFVIS_ITS ---
Intake Intake Visit Reasons: ov- Bilateral primary osteoarthritis of knee Intake Note: Afia is a 63 year old female who presents today for a follow up for her bilateral knee pain, last injection 02/28/23. Patient reports her last gel injections lasted her 6 months of relief and she would like to repeat the gel injections. Hx of taking Tylenol with no relief. Allergies No Known Allergies [NO KNOWN ALLERGIES] Allergy (Unknown, Verified 09/26/23 1 0:28) N/A HPI ov- Bilateral primary osteoarthritis of knee HPI Details 63-year-old female, who is Danish speak ing, presents in the office today for a follow up of bilateral knee pain. The patient has a Gel injection in the bilateral knees on 02/28/2023. She states the Gel injections gave her about 6 months of relief. She would like to repeat the Gel injection. She also confirms taking Tylenol with no relief. 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 No ecchymosis, redness or edema. No joint effusions noted. No tenderness to palpation of the medial or lateral joint lines bilaterally. Crepitus felt with knee range of motion. Negative Ammy's. NVI. Office Procedures Joint Injection/Drain Joint Injection/Drain Primary Site: right knee Secondary Site: left knee Injected: 80 mg of, DepoMedrol, with 8 mL of (2% plain lido ) and in the joint Procedure: The patient tolerated the procedure well, but had some pain with the injection and there was some relief with the local anesthesia Coding 36598 - Large joint Procedure code (CPT) selection complete Results Reviewed Results Reviewed: 09/26/23 10:19 Lidocaine HCl 2 % MPF [Xylocaine 2 % MPF] 5 ml .ROUTE .STK-MED ONE methylPREDNISolone acetate [DEPO-MedroL] 80 mg .ROUTE .STK-MED ONE Assessment & Plan Assessment & Plan (1) Bilateral primary osteoarthritis of knee: Code(s): M17.0 - Bilateral primary osteoarthritis of knee Plan Ms. Isael Wilkins is a 63-year-old female, who is Danish speaking, presents in the office today for a follow up of bilateral knee pain. The patient has a Gel injection in the bilateral knees on 02/28/2023. She states the Gel injections gave her about 6 months of relief. She would like to repeat the Gel injection. She also confirms taking Tylenol with no relief. The patient was offered a cortisone injection in the bilateral knees with 80 mg of DepoMedrol. The patient was explained the risk, benefits, and alternatives to receiving this injection. After receiving consent for the injection, the patient had the procedure done while in office today. The patient tolerated the procedure well with no complications. The patient reports the last gel injection gave her about 6 months of relief. Therefore we will petition the insurance for approval. Follow up will be after approval is obtained for Gel injections, or sooner if needed. Patient Instructions: Scribed for Carole Moore PA-C by Lisseth Garibay medical record technician, on 09/26/2023 at 10:17 am, EST. Coding Level of Care Code Est Pt Level 3 (35854) Diagnoses Bilateral primary osteoarthritis of knee M17.0 CPT Codes Coding - 93820 Large joint: 54753 - Large joint ([id number])
== END 2023-09-26 10:35 | disposition home or self-care (01) ==
PROVIDERS: PCP Pediatrics; Visit Provider Physician Assistant
DX: M17.0 Bilateral primary osteoarthritis of knee (principal)
CPT/HCPCS: 20610

== ENCOUNTER → 2023-09-26 10:15 | Outpatient (BNVA) | payer MEDICAID, SELFPAY | PROVIDERS: PCP Pediatrics; Visit Provider Physician Assistant | DX: M17.0 Bilateral primary osteoarthritis of knee (principal) | CPT/HCPCS: 20610; J1040 ==

== ENCOUNTER 2023-10-11 10:13 | Outpatient (REF) | payer MEDICAID, SELFPAY | END 2023-10-11 10:14 | disposition home or self-care (01) | LOC: HO.MAMMO 10:13 | PROVIDERS: PCP Pediatrics; Visit Provider Pediatrics | DX: Z12.31 Encounter for screening mammogram for malignant neoplasm of breast (principal) | CPT/HCPCS: 77063; 77067 ==

== ENCOUNTER → 2023-10-11 10:45 | Outpatient (BNV) | payer MEDICAID, SELFPAY | PROVIDERS: PCP Pediatrics; Visit Provider Radiology Diagnostic Radiology | DX: Z12.31 Encounter for screening mammogram for malignant neoplasm of breast (principal) | CPT/HCPCS: 77063; 77067 ==

== ENCOUNTER 2023-10-12 11:01 | Outpatient (AMB) | payer MEDICAID, SELFPAY ==
--- NOTE | 2023-10-12 11:09 | MHC.OFFVIS ---
Intake Intake Visit Reasons: OV - B/L knee Durolane Gel Injections Intake Note: Afia is a 63 year old female who presents today for her bilateral knee durolane gel injections. Allergies No Known Allergies [NO KNOWN ALLERGIES] Allergy (Unknown, Verified 09/26/23 10:28) N/A HPI OV - B/L knee Durolane Gel Injections HPI Details 63-year-old female, who is Luxembourger speaking, presents in the office today for a follow up of bilateral knee pain and durolane injection bilaterally. 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 No ecchymosis, redness or edema. No joint effusions noted. No tenderness to palpation of the medial or lateral joint lines bilaterally. Crepitus felt with knee range of motion. Negative Ammy's. NVI. Office Procedures Joint Injection/Drain Joint Injection/Drain Primary Site: right knee Secondary Site: left knee Prep: site was prepped using aseptic technique, ethochloride spray was applied and injection warnings given Injected: in the joint (Durolane ) Approach Used: anterolateral Procedure: The patient tolerated the procedure well, but had some pain with the injection and there was some relief with the local anesthesia Coding 19018 - Large joint Procedure code (CPT) selection complete Assessment & Plan Assessment & Plan (1) Bilateral primary osteoarthritis of knee: Code(s): M17.0 - Bilateral primary osteoarthritis of knee Plan Ms. Isale Wilkins is a 63-year-old female, who is Luxembour[place] speaking, presents in the office today for a follow up of bilateral knee pain and durolane injection bilaterally. The patient was offered a Durolane injection in the bilateral knees. The patient was explained the risk, benefits, and alternatives to receiving this injection. After receiving consent for the injection, the patient had the procedure done while in office today. The patient tolerated the procedure well with no complications. Follow up will be PRN, or sooner if needed. Patient Instructions: Scribed for Carole Moore PA-C by Lisseth Garibay medical record librarians teacher, on 10/12/2023 at 11:03 am, EST. Coding Level of Care Code Procedure Only Diagnoses Bilateral primary osteoarthritis of knee M17.0 CPT Codes Coding - 49141 Large joint: 36487 - Large joint ([id number])
== END 2023-10-12 11:09 | disposition home or self-care (01) ==
PROVIDERS: PCP Pediatrics; Visit Provider Physician Assistant
DX: M17.0 Bilateral primary osteoarthritis of knee (principal)
CPT/HCPCS: 20610

== ENCOUNTER → 2023-10-12 11:01 | Outpatient (BNVA) | payer MEDICAID, SELFPAY | PROVIDERS: PCP Pediatrics; Visit Provider Physician Assistant | DX: M17.0 Bilateral primary osteoarthritis of knee (principal) | CPT/HCPCS: 20610; J7318 ==

== ENCOUNTER 2023-10-14 13:07 | Emergency (ER) | payer MEDICAID, SELFPAY ==
--- NOTE | ~2023-10-14 | XR_ITS ---
EXAMINATION: XR SHOULDER, RIGHT CLINICAL INFORMATION: Right shoulder pain COMPARISON: Right shoulder x-rays of 03/18/2023 TECHNIQUE: AP external rotation, Grashey, scapular Y views of the right shoulder. FINDINGS: Mild degenerative changes are noted at the acromioclavicular articulation. No significant degenerative/arthritic changes are seen at the glenohumeral articulation. No fracture. Glenohumeral and acromioclavicular alignment is anatomic with normal joint space. No abnormal soft tissue calcifications. Visualized thorax is unremarkable. XR/XR shoulder RT min 2V IMPRESSION: Mild right AC joint arthropathy. No acute osseous abnormality in the right shoulder. No significant interval change is noted compared to previous x-ray of 03/18/2023.
--- NOTE | 2023-10-14 13:15 | ED_ITS ---
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 States she was lying in bed when pain began. Pain has been constant since onset, now radiating down her right upper arm. Pain does not go past the elbow. Denies injury/trauma/fall. Reports taking tylenol which temporarily relieved her pain. Denies right elbow or wrist pain. Denies fever, chills, headache, neck or back pain, chest pain, palpitations, SOB, N/V, abd pain, numbness/tingling/weakness of UE. Denies IVDU. Related Data Home Medications Medication Instructions Recorded Confirmed hydrochlorothiazide 25 mg tablet 25 mg PO DAILY 01/18/21 02/28/23 finasteride 5 mg tablet 5 mg PO DAILY 02/18/22 02/28/23 Previous Rx's Medication Instructions Recorded acetaminophen 500 mg tablet 500 mg PO Q6H PRN pain or fever 11/22/20 (Tylenol Extra Strength) #20 tabs flecainide 50 mg tablet 50 mg PO BID 90 days #180 tabs 08/25/23 metoprolol succinate 50 mg 50 mg PO DAILY #90 tabs 08/25/23 tablet,extended release 24 hr rivaroxaban 20 mg tablet (Xarelto) 20 mg PO QPM #90 tabs 08/25/23 lidocaine 5 % topical patch 1 patch topical DAILY #15 ea 10/14/23 (Lidoderm) Allergies Allergy/AdvReac Type Severity Reaction Status Date / Time No Known Allergies Allergy Unknown N/A Verified 10/14/23 13:33 [NO KNOWN ALLERGIES] Review of Systems Review of Systems: Constitutional: No fever, chills, fatigue, night sweats, weight changes ENT/Mouth: No ear pain, hearing loss, nasal congestion, sinus pain, rhinorrhea, sore throat Eyes: No eye pain, swelling, redness, vision changes, discharge Cardio: No chest pain, palpitations, STINSON, orthopnea, peripheral edema Pulm: No SOB, cough, sputum, wheezing, dyspnea, hemoptysis GI: No nausea, vomiting, hematemesis, abdominal pain, diarrhea, constipation, hematochezia, melena : No irregular bleeding, dysuria, frequency, urgency, hesitancy, hematuria, flank pain, urinary flow changes, urinary incontinence or retention MSK: No back pain, neck pain, joint pain, myalgias, +right shoulder pain Skin: No lesions, rashes Neuro: No weakness, numbness, paresthesias, LOC, dizziness, headache All other systems reviewed and are negative. [facility] Past Medical History Attestation statement: The following information was validated with the patient. 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 Physical Exam ED Vital Signs: Vital Signs - 24 hr 10/14/23 13:33 Temperature 98.0 F Pulse Rate 68 Respiratory Rate 18 Blood Pressure 148/68 H Pulse Oximetry 98 Oxygen Delivery Method Room Air BMI result Body Mass Index 36.2 Vital signs stable Const General: cooperative, no acute distress, alert and awake Orientation/consciousness: patient oriented x3 Limitations: no limitations Eyes General: appearance normal, both eyes and all related structures Conjunctivae: conjunctivae normal Sclerae: sclerae normal Pupils: Equal, round and reactive pupils present Neck Neck: Yes normal visual inspection and Yes full ROM Resp Effort & Inspection: normal respiratory effort Auscultation: clear to auscultation bilaterally Cardio Rate: regular rate Rhythm: regular rhythm Peripheral pulses: radial pulses present and ulnar radial pulses present Back/Spine/Pelvis Other: No midline spinous tenderness. No paraspinal muscle tenderness b/l. No step off deformity. Skin General skin exam: no rashes or lesions noted Neuro Other: Strength 5/5 intact throughout.?Sensation intact to light touch.? Neurovascular intact distally.? General: patient oriented x3, gait normal, moves all extremities and no focal motor deficits Cranial nerves: Yes CN's II-XII intact bilaterally and Yes Equal, round and reactive pupils present Extrem Other: + right shoulder without overlying edema, erythema or visible deformity. No tenderness to palpation over the AC joint. Full ROM intact to right shoulder. Full ROM intact to right elbow. General: Yes normal to inspection and Yes full ROM Course Course Course Narrative: This is an RME: Additional HPI, ROS, PE not included below will be deferred to primary provider. This is a [id number]-female, with a hx of HTN and paroxysmal atrial fibrillation on xarelto, presenting to the emergency department for evaluation of neck pain and right shoulder pain x yesterday. No recent trauma or injury. No CP, SOB. Also reporting pain radiating into right side of her neck. VSS. Plan: XRay right shoulder Reevaluation(s) Reevaluation #1: 1545-- x-ray right shoulder showing mild degenerative changes within the AC joint along with arthropathy. There are no acute changes when compared to previous imaging. There is no acute fracture. I discussed imaging results with patient. I advised her to take ibuprofen at home for pain/ discomfort. I will send Lidoderm patches to her pharmacy. I advised her to follow-up with her primary care provider as needed. I will also provide her with a referral to an orthopedic doctor so that she can follow-up with them. Discussed strict return precautions. All questions answered at this time. Patient is agreeable with disposition stable for discharge. Medications Administered Discontinued Medications Generic Name Dose Route Start Last Admin Trade Name Connor PRN Reason Stop Dose Admin Acetaminophen 975 mg 10/14/23 15:42 10/14/23 15:48 Acetaminophen 325 Mg Tablet PO 10/14/23 15:43 975 mg ONCE ONE Administration Lidocaine 1 patch 10/14/23 15:39 10/14/23 15:49 Lidocaine 4 % Patch Adh..Patch TRANSDERMA 10/14/23 15:40 1 patch ONCE ONE Administration Protocol Medical Decision Making Medical Decision Making MDM Narrative: 63 year old female with pmhx significant for HTN, paroxysmal afib, and osteoarthritis presents to the ED today with complaint of right shoulder pain x1 day. VSS. Patient is nontosic appearing, in NAD. Full ROM to cervical spine. No midline spinous tenderness. No paraspinal muscle tenderness to palpation. No step off deformity. On exam of the right shoulder, there is no overlying edema, erythema or visible deformity. No tenderness to palpation over the AC joint. Full ROM intact to right shoulder. Full ROM intact to right elbow. NV intact distally. Clinical concern for arthritis vs arthropathy, cervical radiculopathy, tendonitis, adhesive capsulitis. Unlikely fracture, dislocation, rotator cuff injury, NV compromise, or threat to limb. XR right shoulder ordered in triage. Plan to review results and re-evaluate patient. Differential Diagnosis Differential Diagnoses: The differential diagnosis associated with the presentation includes As above. Admission/Observation Not indicated. Independent Interpretation I performed an independent interpretation of an: Plain X-Ray Interpretation: XR right shoulder without acute fracture or dislocation, agree with radiologist's interpretation. Radiology Impression Discussion of test interpretation with radiology: I have reviewed the radiologist's reading. Radiologist Impression: XR shoulder RT min 2V IMPRESSION: Mild right AC joint arthropathy. No acute osseous abnormality in the right shoulder. No significant interval change is noted compared to previous x-ray of 03/18/2023. External Record Review External record reviewed: Inpatient record, Office record, Outpatient record, Prior outpatient labs, Prior outpatient radiology, Primary care record and Outside ED record Prescription Management I considered prescription management with: Pain Medication Chronic Conditions Patient?s care impacted by: Other (osteoarthritis) Critical Care Time Critical Care Time Critical Care Time: No Discharge Plan Discharge Clinical Impression: AC joint arthropathy Patient Disposition: Home, Self-Care Instructions: Acetaminophen (By mouth), Arthritis (ED) Additional Instructions: The imaging studies of your right shoulder did not show acute fracture. The did show mild degenerative changes within your shoulder joint. This may be a normal finding of aging. You may take Tylenol or ibuprofen as needed for any shoulder or neck pain. Lidoderm patches or numbing patches that have been sent to your pharmacy. Apply these to her neck and right shoulder as needed for pain control. Follow up with your primary care provider as needed. If your pain persists or worsen, return to the emergency department. In case of an emergency call 911. Prescriptions: New lidocaine [Lidoderm] 5 % adhesive patch,medicated 1 patch topical DAILY Qty: 15 0RF Rx Instructions: leave on most painful area for up to 12 hrs No Action metoprolol succinate 50 mg tablet extended release 24 hr 50 mg PO DAILY Qty: 90 3RF Xarelto 20 mg tablet 20 mg PO QPM Qty: 90 3RF flecainide 50 mg tablet 50 mg PO BID 90 Days Qty: 180 1RF acetaminophen [Tylenol Extra Strength] 500 mg tablet 500 mg PO Q6H PRN (Reason: pain or fever) Qty: 20 0RF hydrochlorothiazide 25 mg tablet 25 mg PO DAILY finasteride 5 mg tablet 5 mg PO DAILY Referrals: Lluvia Anderson MD [Primary Care Provider] - Interventions: ED Discharge Assessment Last Done: 10/14/23 15:57 Discharge Date/Time: 10/14/23 15:58 Print Language: Vietnamese
[2023-10-14 13:33] VITALS: BP 148/68; PULSE 68; RESP 18; TEMP 36.7; O2SAT 98; BMI 36.2
[2023-10-14] MEDS: Acetaminophen 325 MG TABLET 975 MG PO (15:48)
[2023-10-14] MEDS: Lidocaine 4 % Patch ADH..PATCH 1 PATCH TRANSDERMA (15:49)
== END 2023-10-14 15:58 | disposition home or self-care (01) ==
PROVIDERS: Emergency Provider Emergency Medicine; PCP Pediatrics
DX: M19.011 Primary osteoarthritis, right shoulder (principal); M25.511 Pain in right shoulder; I10 Essential (primary) hypertension; I48.0 Paroxysmal atrial fibrillation; Z79.02 Long term (current) use of antithrombotics/antiplatelets; Z79.899 Other long term (current) drug therapy
CPT/HCPCS: 73030; 99283

== ENCOUNTER 2023-10-23 10:19 | Outpatient (AMB) | payer MEDICAID, SELFPAY ==
[2023-10-23 10:24] VITALS: BMI 36.8
--- NOTE | 2023-10-23 10:24 | MHC.OFFVIS ---
Intake Vital Signs 10/23/23 10:24 Height 5 ft 5 in Weight 221 lb BMI 36.8 Intake Visit Reasons: New Prob- RT shoulder possible RTC tear Intake Note: Afia is a 63 year old right hand dominant female who presents today for a evaluation for her right shoulder pain. Patient reports ongoing pain for 2 weeks and getting worse. Patient reports trying on a coat a year ago when she was going to remove the coat she felt a pulling sensation in her right shoulder. She has a history of injection back in March of last year along with now she is experiencing that pain again. Patient states that her right side feels weak. Allergies No Known Allergies [NO KNOWN ALLERGIES] Allergy (Unknown, Verified 10/23/23 10:24) N/A HPI New Prob- RT shoulder possible RTC tear HPI Details 63-year-old right hand dominant female, who is Greenlandic speaking, presents in the office today for an evaluation of right shoulder pain. The patient presented to the ED on 10/14/2023 status post pain that began while she was laying in bed on 10/13/2023. X-rays of the right shoulder were obtained. While in the office today the patient reports she has had pain for 2 weeks that has been increasing. She confirms a history of cortisone injection in 03/2022, which gave her relief. However, she states her pain has returned. She states a year ago, in 2021, she tried to take her coat off when she felt a pulling sensation in her right shoulder. She confirms her right side feels weak. 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 Unable to assess empty can or drop arm due to ROM limitations from pain. Pain with cross-body reach. NVI. Office Procedures Joint Injection/Drain Joint Injection/Drain Primary Site: right shoulder Prep: site was prepped using aseptic technique, ethochloride spray was applied and injection warnings given Injected: 80 mg of, DepoMedrol, with 8 mL of (2% plain lido ) and in the subcromial space Approach Used: posterolateral Procedure: The patient tolerated the procedure well, but had some pain with the injection and there was some relief with the local anesthesia Coding 44854 - Large joint Procedure code (CPT) selection complete Assessment & Plan Assessment & Plan (1) Painful arc syndrome of right shoulder: Code(s): M75.101 - Unspecified rotator cuff tear or rupture of right shoulder, not specified as traumatic (2) Osteoarthritis of right AC (acromioclavicular) joint: Code(s): M19.011 - Primary osteoarthritis, right shoulder Plan Ms. Isael Wilkins is a 63-year-old right hand dominant female, who is Greenlandic speaking, presents in the office today for an evaluation of right shoulder pain. The patient presented to the ED on 10/14/2023 status post pain that began while she was laying in bed on 10/13/2023. X-rays of the right shoulder were obtained. While in the office today the patient reports she has had pain for 2 weeks that has been increasing. She confirms a history of cortisone injection in 03/2022, which gave her relief. However, she states her pain has returned. She states a year ago, in 2021, she tried to take her coat off when she felt a pulling sensation in her right shoulder. She confirms her right side feels weak. The patient was offered a cortisone injection in the right shoulder with 80 mg of DepoMedrol. The patient was explained the risk, benefits, and alternatives to receiving this injection. After receiving consent for the injection, the patient had the procedure done while in office today. The patient tolerated the procedure well with no complications. I have discussed the role of physical therapy to work on ROM. She has agreed to attend. Follow up will be in 6 weeks, or sooner if needed. X-rays of the right shoulder, obtained on 10/14/2023, revealed: Mild right AC joint arthropathy. No acute osseous abnormality in the right shoulder. No significant interval change is noted compared to previous x-ray of 03/18/2023. Patient Instructions: Scribed for Carole Moore PA-C by Lisseth Garibay certified medical coding specialist, on 10/23/2023 at 10:26 am, EST. Coding Level of Care Code Est Pt Level 3 (96881) Diagnoses Painful arc syndrome of right shoulder M75.101 Osteoarthritis of right AC (acromioclavicular) joint M19.011 CPT Codes Coding - 19195 Large joint: 54633 - Large joint ([id number])
== END 2023-10-23 11:10 | disposition home or self-care (01) ==
PROVIDERS: PCP Pediatrics; Visit Provider Physician Assistant
DX: M75.101 Unspecified rotator cuff tear or rupture of right shoulder, not specified as traumatic (principal); M19.011 Primary osteoarthritis, right shoulder
CPT/HCPCS: 20610; 99213

== ENCOUNTER → 2023-10-23 10:19 | Outpatient (BNVA) | payer MEDICAID, SELFPAY | PROVIDERS: PCP Pediatrics; Visit Provider Physician Assistant | DX: M75.101 Unspecified rotator cuff tear or rupture of right shoulder, not specified as traumatic (principal); M19.011 Primary osteoarthritis, right shoulder | CPT/HCPCS: 20610; 99212; J1040 ==

== ENCOUNTER 2023-11-28 17:00 | Outpatient (RCR) | payer MEDICAID, SELFPAY ==
--- NOTE | 2023-11-07 18:20 | MHC.PT.EP ---
[facility] [place] Office [place] Office [place] Office [address] Jailene Bonner [address] [phone] F: [phone] F: [phone] F: [phone] F: [phone] Physical Therapy Plan of Care Date of Evaluation: 11/07/23 Date of Surgery: Diagnosis: RIGHT shoulder osteoarthritis and OA of ACJ, RIGHT RTC tear, RIGHT shoulder painful arc syndrome (MD Dx) RIGHT shoulder subacromial impingement syndrome, cervical R radiculopathy (PT Dx) Assessment: Patient is a pleasant 63 y.o. uruguayan speaking female who is referred to PT by Carole Moore PA-C with Dx of RIGHT shoulder osteoarthritis and OA of ACJ, RIGHT RTC tear, RIGHT shoulder painful arc syndrome. I do feel her cervical spine is involved as movements and palpation causes R UE radiation of numbness/tingling. PT diagnosis is RIGHT shoulder subacromial impingement syndrome, cervical R radiculopathy. Patient impairments include poor posture, limited ROM in cervical spine and R shoulder, weakness in R shoulder and UE, radicular sxs in R UE. Patient current functional limitations are reaching overhead, behind her back, folding clothes/repetitive tasks, holding arm overhead (shelf, cabinet), carrying groceries. Patient will benefit from skilled PT to address aforementioned impairments and functional limitations to meet established goals. Frequency and Duration: The patient will be seen 2x/week for 4 weeks Short Term Goals: 2 weeks Patient demonstrates consistency and independence with HEP to self manage symptoms. Patient demonstrates centralization of R UE symptoms. Tissue Inserter Goals: 4 weeks Patient presents with increased R shoulder flexion 170 degrees to reach to high cabinets to get plate/cup off shelf. Patient presents with increased R shoulder ER strength 4+/5 to be able to fold clothes. Treatment Plan: Modalities to reduce pain, spasms and effusion. Manual therapy to restore motion and function. Therapeutic exercise to improve strength and flexibility. Neuromuscular re-education for posture and balance. Therapeutic activities to return to functional activities of daily living. Electronically signed by: Darian Jane, PT, DPT Please sign and return to therapist. Thank you for your referral.
--- NOTE | 2023-11-29 14:32 | MHC.PT.DC ---
[facility] [place] Office [place] Office [place] Office [address] Jailene Bonner [address] [phone] F: [phone] F: [phone] F: [phone] F: [phone] Physical Therapy Discharge Report Diagnosis: RIGHT shoulder osteoarthritis and OA of ACJ, RIGHT RTC tear, RIGHT shoulder painful arc syndrome (MD Dx) RIGHT shoulder subacromial impingement syndrome, cervical R radiculopathy (PT Dx) Date of Surgery: Date of Evaluation: 11/07/23 Date of Discharge: 11/28/23 Treatments to Date: 7 Cancellations to Date: No Shows to Date: Discharge Status: Achieved Goals Improved Function Independent with HEP Discharge Summary: Afia has shown significant improvement in R shoulder AROM and strength, without pain during or after her session. She does persist with slight end range pain so I instructed her to continue with HEP for intermediate manager symptom management. Patient agrees to discharge from PT today due to improvement. Electronically signed by: Darian Jane, PT, DPT Please sign and return to therapist. Thank you for your referral.
== END 2023-11-29 14:32 | disposition home or self-care (01) ==
LOC: HO.PT 17:00
PROVIDERS: PCP Pediatrics; Visit Provider Physician Assistant
DX: M19.011 Primary osteoarthritis, right shoulder (principal); M75.101 Unspecified rotator cuff tear or rupture of right shoulder, not specified as traumatic
CPT/HCPCS: 97110; 97161; 97530

== ENCOUNTER 2023-12-05 08:14 | Outpatient (AMB) | payer MEDICAID, SELFPAY ==
[2023-12-05 08:30] VITALS: BMI 36.8
--- NOTE | 2023-12-05 08:30 | MHC.OFFVIS ---
Intake Vital Signs 12/05/23 08:30 Height 5 ft 5 in Weight 221 lb BMI 36.8 Intake Visit Reasons: OV - RT shoulder OA, last inj 10/23/23 Intake Note: Afia is a 63 year old right hand dominant female who presents today for a follow up for her right shoulder OA, last inj 10/23/23. Patient reports she is doing well, PT is helping her with mobility and ROM. She has a concern of when she tilts her head back she feels a pulling/tingling sensation in her right shoulder and it moves down to her arm. Allergies No Known Allergies [NO KNOWN ALLERGIES] Allergy (Unknown, Verified 12/05/23 08:30) N/A HPI OV - RT shoulder OA, last inj 10/23/23 HPI Details 63-year-old right hand dominant female, who is Filipino speaking, presents in the office today for a follow up of right shoulder pain. I last saw the patient on 10/23/2023 where she received a cortisone injection. We also discussed should her symptoms continue we could refer her to physical therapy. While in the office today the patient reports she is doing well. She states physical therapy is helping with mobility and ROM. She states she has a concern when she tilts her head back she feels a pulling/tingling sensation in her right shoulder that radiates down to her arm to her fingers. She states the right hand will feel weak. 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 Unable to assess empty can or drop arm due to ROM limitations from pain. Pain with cross-body reach. NVI. Assessment & Plan Assessment & Plan (1) Painful arc syndrome of right shoulder: Code(s): M75.101 - Unspecified rotator cuff tear or rupture of right shoulder, not specified as traumatic (2) Osteoarthritis of right AC (acromioclavicular) joint: Code(s): M19.011 - Primary osteoarthritis, right shoulder (3) Tingling of right upper extremity: Code(s): R20.2 - Paresthesia of skin Plan Ms. Isael Wilkins is a 63-year-old right hand dominant female, who is Filipino speaking, presents in the office today for a follow up of right shoulder pain. I last saw the patient on 10/23/2023 where she received a cortisone injection. We also discussed should her symptoms continue we could refer her to physical therapy. While in the office today the patient reports she is doing well. She states physical therapy is helping with mobility and ROM. She states she has a concern when she tilts her head back she feels a pulling/tingling sensation in her right shoulder that radiates down to her arm to her fingers. She states the right hand will feel weak. The patient will be referred for an EMG for further evaluation of the tingling sensation from the neck radiating down. I will place a referral to Physiatry for further evaluation. Follow up with Orthopedics will be PRN, or sooner if needed. Orders: Orders NE electromyogram (EMG) Today R20.2 - Paresthesia of skin, R29.898 - Other symptoms and signs involving the musculoskeletal system Patient Instructions: Scribed for Carole Moore PA-C by Lisseth Garibay medical affairs manager, on 12/05/2023 at 8:15 am, EST. Coding Level of Care Code Est Pt Level 3 (36228) Diagnoses Painful arc syndrome of right shoulder M75.101 Osteoarthritis of right AC (acromioclavicular) joint M19.011 Tingling of right upper extremity R20.2
== END 2023-12-05 09:10 | disposition home or self-care (01) ==
PROVIDERS: PCP Pediatrics; Visit Provider Physician Assistant
DX: M75.101 Unspecified rotator cuff tear or rupture of right shoulder, not specified as traumatic (principal); M19.011 Primary osteoarthritis, right shoulder; R20.2 Paresthesia of skin
CPT/HCPCS: 99213

== ENCOUNTER → 2023-12-05 08:14 | Outpatient (BNVA) | payer MEDICAID, SELFPAY | PROVIDERS: PCP Pediatrics; Visit Provider Physician Assistant | DX: M75.101 Unspecified rotator cuff tear or rupture of right shoulder, not specified as traumatic (principal); M19.011 Primary osteoarthritis, right shoulder; R20.2 Paresthesia of skin | CPT/HCPCS: 99212 ==

== ENCOUNTER 2024-01-11 13:20 | Outpatient (REF) | payer MEDICAID, SELFPAY ==
--- NOTE | 2024-01-11 13:23 | EMG_ITS ---
Chief complaint: Right lateral neck pain, radiating to right upper extremity with tingling Reason for referral: Evaluate for Carpal Tunnel Syndrome versus radiculopathy Referred by: Carole MCMAHAN Procedure done: Right upper extremity NCS/EMG Precautions and/or limitations: Patient on Xarelto The limb temperature was monitored continuously and remained between 32-36 degrees C during the performance of the NCS. Nerve Conduction Studies Anti Sensory Summary Table ?Stim Site NR Onset (ms) Norm Onset (ms) Peak (ms) Norm Peak (ms) O-P Amp (?V) Norm O-P Amp Site1 Site2 Delta-0 (ms) Dist (cm) Chance (m/s) Norm Chance (m/s) Right Median Anti Sensory (2nd Digit) Wrist ? 2.8 3.5 <3.6 24.1 >10 Wrist 2nd Digit 2.8 14.0 50 Right Radial Anti Sensory (Thumb) Forearm ? 1.7 2.2 <3.1 31.8 Forearm Thumb 1.7 0.0 Right Ulnar Anti Sensory (5th Digit) Wrist ? 2.4 3.3 <3.7 16.5 >15.0 Wrist 5th Digit 2.4 14.0 58 Motor Summary Table ?Stim Site NR Onset (ms) Norm Onset (ms) O-P Amp (mV) Norm O-P Amp iAmp (mV) Amp (1st) (%) Site1 Site2 Delta-0 (ms) Dist (cm) Chance (m/s) Norm Chance (m/s) Right Median Motor (Abd Poll Brev) Wrist ? 3.4 <3.9 10.4 >4.5 13.2 100.0 Elbow Wrist 4.0 22.0 55 >45 Elbow ? 7.4 10.7 14.2 102.9 Right Ulnar Motor (Abd Dig Minimi) Wrist ? 2.9 <3.0 12.3 >5 14.4 100.0 B Elbow Wrist 3.5 21.0 60 >45 B Elbow ? 6.4 10.7 12.6 87.0 A Elbow B Elbow 1.3 10.0 77 >45 A Elbow ? 7.7 11.3 13.3 91.9 EMG ?Side Muscle Nerve Root Ins Act Fibs Psw Amp Dur Poly Recrt Int Pat Comment Right 1stDorInt Ulnar C8-T1 Nml Nml Nml Nml Nml 0 Nml Complete Right FlexCarRad Median C6-7 Nml Nml Nml Nml Nml 0 Nml Complete Right Biceps Musculocut C5-6 Nml Nml Nml Nml Nml 0 Nml Complete Right Triceps Radial C6-7-8 Nml Nml Nml Nml Nml 0 Nml Complete Right Deltoid Axillary C5-6 Nml Nml Nml Nml Nml 0 Nml Complete FINDINGS: All motor and sensory nerves tested showed normal latencies, amplitudes and conduction velocities. Concentric needle EMG was performed in selected muscles of the right upper extremity. Study did not reveal signs of electric abnormalities as shown in the table below. IMPRESSION: 1. This is a normal study. 2. There is no electrodiagnostic evidence for median neuropathy, ulnar neuropathy, brachial plexopathy, or cervical radiculopathy. Thank you for your kind referral. Sunitha Rivas MD, JACKIE Board Certified, [place] [employer] and Rehabilitation (ABPMR) Board Certified, [place] Board of Electrodiagnostic Medicine (ABEM) CODIN [id number] [facility]
== END 2024-01-11 13:21 | disposition home or self-care (01) ==
LOC: HO.NEURO 13:20
PROVIDERS: PCP Pediatrics; Visit Provider Physician Assistant
DX: R20.2 Paresthesia of skin (principal); R29.898 Other symptoms and signs involving the musculoskeletal system
CPT/HCPCS: 95886; 95909

== ENCOUNTER → 2024-01-11 13:23 | Outpatient (BNV) | payer MEDICAID, SELFPAY | PROVIDERS: PCP Pediatrics; Visit Provider Physical Medicine & Rehabilitation | DX: M79.601 Pain in right arm (principal); R20.2 Paresthesia of skin | CPT/HCPCS: 95886; 95909 ==

== ENCOUNTER 2024-02-01 10:43 | Outpatient (REF) | payer MEDICAID, SELFPAY ==
[2024-02-01 12:27] LABS: B Type Natriuretic Peptide 103 pg/mL (<100)
[2024-02-01 12:34] LABS: Alanine Aminotransferase 13 U/L (0-31); Albumin Level 3.8 g/dL (3.5-5.0); Alkaline Phosphatase 98 U/L (39-117); Anion Gap 13 (12-20); Aspartate Amino Transferase 16 U/L (5-31); Bilirubin Total 0.6 mg/dL (0.0-1.0); Blood Urea Nitrogen 20 mg/dL (9-16); Calcium 9.2 mg/dL (8.4-10.2); Carbon Dioxide 27 mmol/L (22-29); Chloride 105 mmol/L (96-108); Estimated Glomerular Filt Rate 56; Glucose Random 93 mg/dL (60-115); Sodium 142 mmol/L (135-145); Total Protein 7.5 g/dL (6.5-8.0)
== END 2024-02-01 10:44 | disposition home or self-care (01) ==
LOC: HO.LAB 10:43
PROVIDERS: PCP Pediatrics; Visit Provider Nurse Practitioner Primary Care
DX: R60.0 Localized edema (principal)
CPT/HCPCS: 36415; 80053; 83880

== ENCOUNTER 2024-02-07 11:37 | Outpatient (AMB) | payer MEDICAID, SELFPAY ==
--- NOTE | 2024-02-07 11:40 | A.OFFVIS_ITS ---
Intake Vital Signs 02/07/24 11:41 Height 5 ft 5 in Weight 221 lb BMI 36.8 Intake Visit Reasons: OV - EMG review Intake Note: Afia is a 63 year old right and dominant, bolivian speaking female who presents today for a follow up s/p EMG. EMG revealed normal study, patient complains of Right lateral neck pain, radiating to right upper extremity with tingling. Last injection done with Carole in the right shoulder on 10/23/23. Patient reports that this injection was helpful for her. Partner Cco Required: Yes Partner Cco Name: [id number] Allergies No Known Allergies [NO KNOWN ALLERGIES] Allergy (Unknown, Verified 02/07/24 11:42) N/A Medication List - Last Reconciled 02/07/24 by Sunitha Rivas MD acetaminophen (Tylenol Extra Strength) 500 mg PO Q6H PRN finasteride 5 mg PO DAILY flecainide 50 mg PO BID 90 days hydrochlorothiazide 25 mg PO DAILY lidocaine 5% (Lidoderm) 1 patch topical DAILY metoprolol succinate ER 50 mg PO DAILY rivaroxaban (Xarelto) 20 mg PO QPM HPI HPI Comments History of Present Illness Details Seen with [place] interpereter. EMG done by me ORNELAS 01/11 was normal. Says she is feeling better but she feels the stretch/pull pointing on right upper arm, but much less than before. This started 2 years ago, hurting her arm while removing her coat. Pain also from lateral neck. Some paresthesias on right hand before but not anymore. Pain on wrist. Treatment done so far: voltaren gel therapy - October 2023 On xarelto and history of afib. 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 MSK: Inspection reveals appropriate head and neck positioning. No pain with palpation over the neck musculature. Cervical ROM was full. Spurling's sign negative. Bilateral shoulder ROM WNL. No ligamentous laxity or crepitance. No increased effusion. Hawkin's test is negative. Negative empty can sign. No joint effusion noted. No deformity noted. No intrinsic hand weakness noted. No atrophy noted. Jolene test negative. Carpal compression test negative. Tinel sign negative. Pain with wrist flexion right. Strength is 5/5 in all muscle groups tested. No increased tone noted. Neurological: Neurologic examination of the upper and lower extremities was nonfocal with intact sensation, muscle stretch reflexes and without focal motor deficits . Andrews?s negative bilaterally. Gait is non-antalgic without loss of balance. Results Reviewed Results Reviewed: Ordering Physician: Karey Emmanuel Date of Service: 10/14/23 Procedure(s): XR shoulder RT min 2V Accession Number(s): [id number] cc: Lluvia Anderson MD; Karey Emmanuel~ EXAMINATION: XR SHOULDER, RIGHT CLINICAL INFORMATION: Right shoulder pain COMPARISON: Right shoulder x-rays of 03/18/2023 TECHNIQUE: AP external rotation, Grashey, scapular Y views of the right shoulder. FINDINGS: Mild degenerative changes are noted at the acromioclavicular articulation. No significant degenerative/arthritic changes are seen at the glenohumeral articulation. No fracture. Glenohumeral and acromioclavicular alignment is anatomic with normal joint space. No abnormal soft tissue calcifications. Visualized thorax is unremarkable. XR/XR shoulder RT min 2V IMPRESSION: Mild right AC joint arthropathy. No acute osseous abnormality in the right shoulder. No significant interval change is noted compared to previous x-ray of 03/18/2023. I reviewed records from the following: ortho Assessment & Plan Assessment & Plan (1) Right wrist pain: Code(s): M25.531 - Pain in right wrist Plan Continues to have right wrist pain but no definite signs of de Quervain tenosynovitis or carpal tunnel syndrome. EMG negative. Improve right shoulder pain without any signs of rotator cuff injury. We will send for wrist x-ray today. Evaluate him for DJD. Will put on thumb spica splint. Assessment and plan discussed with patient, and patient was agreeable. All questions were answered thoroughly. Follow-up 2 months. Sunitha Rivas MD, JACKIE Board Certified, [place] Board [employer] Medicine and Rehabilitation (ABPMR) Board Certified, [place] Board [employer] Electrodiagnostic Medicine (ABEM) Orders: Orders XR hand wrist RT Today M25.531 - Pain in right wrist Coding Level of Care Code Est Pt Level 4 (80657) Diagnoses Right wrist pain M25.531
[2024-02-07 11:41] VITALS: BMI 36.8
== END 2024-02-07 13:25 | disposition home or self-care (01) ==
PROVIDERS: PCP Pediatrics; Visit Provider Physical Medicine & Rehabilitation
DX: M25.531 Pain in right wrist (principal)
CPT/HCPCS: 99214

== ENCOUNTER 2024-02-07 11:37 | Outpatient (REF) | payer MEDICAID, SELFPAY ==
--- NOTE | ~2024-02-07 | XR_ITS ---
EXAMINATION: XR HAND/WRIST, RIGHT CLINICAL INFORMATION: Pain in right wrist, evaluate DJD [facility]. COMPARISON: None TECHNIQUE: PA, lateral, and oblique views of the right hand and wrist. FINDINGS: Moderate degenerative changes in the 1st carpometacarpal joint with joint space narrowing and hypertrophic change. No displaced fracture. Mild ulnar minus variance. Minimal degenerative changes in scattered IP joints. XR/XR hand wrist RT IMPRESSION: 1. Moderate degenerative changes first carpometacarpal joint. 2. No displaced fracture. Recommend followup imaging in 10-14 days if fracture is suspected.
== END 2024-02-07 11:38 | disposition home or self-care (01) ==
LOC: HO.HOSX 11:37
PROVIDERS: PCP Pediatrics; Visit Provider Physical Medicine & Rehabilitation
DX: M25.531 Pain in right wrist (principal); Z79.899 Other long term (current) drug therapy
CPT/HCPCS: 73110; 73130; 99212

== ENCOUNTER → 2024-02-14 09:39 | Outpatient (REF) | payer MEDICAID, SELFPAY ==
--- NOTE | 2024-02-14 09:41 | CA_ITS ---
Transthoracic Echocardiogram Patient (Last, First, Middle): Afia Guadalupe, Gender: Female Date of : 1960 Age: 63 Procedure Date: 02/14/2024 Procedure Type: Transthoracic Echocardiogram Location: OP Height: 165.1 cm Weight: 97.98 kg BSA: 2.04 m2 Heart Rate: bpm BP: 110 / [address] Worker: BOO Referring MD: Everette Beaulieu MD Symptoms: I48.0 - Paroxysmal atrial fibrillation Study Quality: Adequate ECG Rhythm: Sinus Conclusions: - The left ventricular systolic function is normal. The calculated ejection fraction is 64% by biplane method. - There is mild to moderate aortic valve regurgitation. - There is mild to moderate tricuspid valve regurgitation. - Mild pulmonary hypertension is present. Findings Left Ventricle Normal left ventricular cavity size. There is normal left ventricular wall thickness. The left ventricular systolic function is normal. The calculated ejection fraction is 64% by biplane method. There is no evidence of regional wall motion abnormalities. Diastolic function is normal for age. LV peak GLS -17.9%. Right Ventricle Normal right ventricular cavity size and systolic function. Atria Both atria are normal in size. Aortic Valve There is a normal trileaflet aortic valve. There is no aortic valve stenosis. There is mild to moderate aortic valve regurgitation. Mitral Valve The mitral valve appears normal. There is trace mitral valve regurgitation. There is no mitral valve stenosis. Pulmonic Valve The pulmonic valve is likely normal. Tricuspid Valve Normal tricuspid valve structure. There is mild to moderate tricuspid valve regurgitation. Mild pulmonary hypertension is present. Great Vessels The asc aorta and aortic arch are normal in size. Venous The inferior vena cava is normal in size and collapses greater than 50% with inspiration. Pericardium/Pleural There is no evidence of pericardial effusion. Prior Study Comparison Changes noted compared to prior study dated: 09/19/2017. slight progression of valvular regurgitation. Measurements 2D Linear Measurements IVSd: 0.76 0.6-0.9/0.6-1.0 cm LVIDd: 4.55 3.9-5.3/4.2-5.9 cm LVIDd Index: 2.23 2.4-3.2/2.2-3.1 cm/m2 LVIDs: 3.02 2.0-3.6 cm LVPWd: 0.81 0.7-1.1 cm LA Diam: 3.60 2.7-3.8/3.0-4.0 cm LAIDs Index: 1.76 1.5-2.3 cm/m2 LV Mass: 141.13 67-162/88-224 g LV Mass Index: 69.18 43-95/49-115 g/m2 LVOT Diam: 1.90 3.0+(-)1.3 cm 2D Systolic Function EF 4C: 61.50 >55% EF 2C: 63.90 >55% EF BiP: 63.60 >55% Mitral Valve MV Pk E: 0.69 MV PK A: 0.65 MV Decel Time: 154.00 E/A: 1.10 E'Lateral: 10.70 E'Medial: 7.62 E/E' Med: 9.00 E/E' Lat: 6.40 PHT: 45.00 MVA PHT: 4.89 Decel [place]: 4.45 Aortic Valve AoV Pk Chance: 1.53 AoV Mn Chance: 1.14 AoV VTI: 0.39 AoV Pk Grad: 9.00 Aov Mn Grad: 6.00 DIANA Cont.VTI: 1.66 AI Pk Chance: 4.29 AI [place]: 2.31 LVOT LVOT Pk Chance: 0.99 LVOT Mn Chance: 0.63 LVOT VTI: 0.23 LVOT Pk Grad: 4.00 LVOT Mn Grad: 2.00 LVOT Diam: 1.90 LVOT Area: 2.84 Diastolic Function MV Pk E: 0.69 MV Pk A: 0.65 E/A: 1.10 E'Medial: 7.62 E/E' Med: 9.00 E' Laterial: 10.70 E/E' Lat: 6.40 Right Ventricle TAPSE (mm): 23.00 TVS' Chance: 10.60 Tricuspid Valve TR Pk Chance: 3.00 TR Pk Grad: 36.00 RA Press: 3.00 RVSP: 39.00 Great Vessels Aorta Sinus of Valsalva: 2.74 2.0-3.[address] Ridge: 2.22 1.7-3.4 cm Ao Asc: 2.80 2.1-3.4 cm Ao Arch: 2.60 Updated in Other Vendor System with Status of Final Joe Guillaume MD electronically signed on 02/15/2024 1:49:16 PM with status of Final
== END ==
LOC: HO.CARD 09:39
PROVIDERS: PCP Pediatrics; Visit Provider Internal Medicine Cardiovascular Disease
DX: I48.0 Paroxysmal atrial fibrillation (principal)
CPT/HCPCS: 93306; 93356

== ENCOUNTER → 2024-02-14 09:41 | Outpatient (BNV) | payer MEDICAID, SELFPAY | PROVIDERS: PCP Pediatrics; Visit Provider Internal Medicine | DX: I35.1 Nonrheumatic aortic (valve) insufficiency (principal); I36.1 Nonrheumatic tricuspid (valve) insufficiency | CPT/HCPCS: 93306; 93356 ==

== ENCOUNTER 2024-02-23 08:58 | Outpatient (AMB) | payer MEDICAID, SELFPAY ==
--- NOTE | 2024-02-23 09:02 | MHC.OFFVIS ---
Intake Intake Visit Reasons: knee injection Intake Note: Afia is a 63 year old right hand dominant female who presents today for a follow up for her bilateral knee OA, last inj 10/12/23. Patient reports her gel injections gave her about a month of relief. She states that the cortisone injections give her more relief. Allergies No Known Allergies [NO KNOWN ALLERGIES] Allergy (Unknown, Verified 02/23/24 09:11) N/A HPI knee injection HPI Details 63-year-old right hand dominant female, who is Gibralt[place] speaking, presents in the office today for a follow up of bilateral knee pain. I last saw the patient for an evaluation of her bilateral knees on 10/12/2023. At this time she received a Durolane injection bilaterally. While in the office today the patient reports the gel injections gave her about a month of relief. She feels the cortisone injection gave her more relief. 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 No ecchymosis, redness or edema. No joint effusions noted. No tenderness to palpation of the medial or lateral joint lines bilaterally. Crepitus felt with knee range of motion. Negative Ammy's. NVI. Office Procedures Joint Injection/Drain Joint Injection/Drain Primary Site: right knee Secondary Site: left knee Prep: site was prepped using aseptic technique, ethochloride spray was applied and injection warnings given Injected: 80 mg of, DepoMedrol, with 8 mL of (2% plain lido ) and in the joint Approach Used: anterolateral Procedure: The patient tolerated the procedure well, but had some pain with the injection and there was some relief with the local anesthesia Coding 14278 - Large joint Additional procedure code (CPT) needed Assessment & Plan Assessment & Plan (1) Bilateral primary osteoarthritis of knee: Code(s): M17.0 - Bilateral primary osteoarthritis of knee Plan Ms. Isael Wilkins is a 63-year-old right hand dominant female, who is [place]ralt[place] speaking, presents in the office today for a follow up of bilateral knee pain. I last saw the patient for an evaluation of her bilateral knees on 10/12/2023. At this time she received a Durolane injection bilaterally. While in the office today the patient reports the gel injections gave her about a month of relief. She feels the cortisone injection gave her more relief. The patient was offered a cortisone injection in the bilateral knees. The patient was explained the risk, benefits, and alternatives to receiving this injection. After receiving consent for the injection, the patient had the procedure done while in office today. The patient tolerated the procedure well with no complications. Follow up will be PRN, or sooner if needed. Patient Instructions: Scribed by Lisseth Garibay director medical safety, for Carole Moore PA-C on 02/23/2024 at 9:13 am, EST. Coding Level of Care Code Est Pt Level 3 (02366) Diagnoses Bilateral primary osteoarthritis of knee M17.0 CPT Codes Coding - 18548 Large joint: 16121 - Large joint ([id number])
== END 2024-02-23 09:06 | disposition home or self-care (01) ==
PROVIDERS: PCP Pediatrics; Visit Provider Physician Assistant
DX: M17.0 Bilateral primary osteoarthritis of knee (principal)
CPT/HCPCS: 20610; 99213

== ENCOUNTER → 2024-02-23 08:58 | Outpatient (BNVA) | payer MEDICAID, SELFPAY | PROVIDERS: PCP Pediatrics; Visit Provider Physician Assistant | DX: M17.0 Bilateral primary osteoarthritis of knee (principal) | CPT/HCPCS: 20610; 99212; J1040 ==

== ENCOUNTER 2024-03-07 10:56 | Outpatient (AMB) | payer MEDICAID, SELFPAY ==
--- NOTE | 2024-03-07 10:57 | MHC.OFFVIS ---
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 Overall she has been doing well. History was obtained with help of special education teacher. Patient has had no significant cardiac complaints. Denies any prolonged palpitation irregular heartbeat or fluttering in her chest. Taking all her medications. Blood pressures been generally well controlled. Denies any neurologic issues or bleeding events. Taking all her medications regularly. Does not exercise much although. 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 Review of Systems Const Denies chills, Denies fatigue, Denies fever(s), Denies frequent falls, Denies weakness, Denies weight gain and Denies weight loss ENT Denies dizziness Card Denies chest pain, Denies leg edema, Denies lightheadedness, Denies palpitations, Denies dyspnea, Denies dyspnea on exertion, Denies orthopnea and Denies other (loss of consciousness) Resp Denies cough, Denies dyspnea and Denies dyspnea on exertion GI Denies hematochezia and Denies change in stool character Musc Denies abnormal gait, Denies muscle weakness, Denies numbness, Denies radiating pain into limb and Denies tingling Neuro Denies abnormal gait, Denies dizziness, Denies frequent falls, Denies numbness, Denies tingling and Denies weakness Endo Denies fatigue and Denies palpitations Physical Exam Vital Signs: Last Vital Signs Pulse 69 03/07/24 11:00 BP 140/86 H 03/07/24 11:00 BMI result Body Mass Index 36.7 Repeat blood pressure-120/70 Const General: cooperative, comfortable, alert and awake Nutritional Appearance: obese Orientation/consciousness: patient oriented x3 Limitations: no limitations Neck Neck: Yes trachea midline, Yes supple and Yes no JVD Chest Chest palpation & inspection: normal inspection of the chest Resp Effort & Inspection: normal respiratory effort Auscultation: clear to auscultation bilaterally Cardio Jugular venous distension: no JVD Palpation: normal PMI Rate: regular rate Rhythm: regular rhythm Heart sounds: S1 normal heart sound present and S2 normal heart sound present Neuro General: patient oriented x3 and no focal motor deficits Extrem General: Yes no clubbing, cyanosis or edema Psych Appearance: grossly normal Office Procedures EKG Details: EKG shows normal sinus rhythm with sinus arrhythmia with nonspecific ST T wave changes without QT prolongation [id number], Complete Assessment & Plan Assessment & Plan (1) Paroxysmal atrial fibrillation: Code(s): I48.0 - Paroxysmal atrial fibrillation Plan: Highly symptomatic paroxysmal atrial fibrillation which has remained suppressed on current therapy with flecainide. She is done very well with rhythm control approach will continue the same. Requires concomitant metoprolol use for AV conduction slowing. Continue full oral anticoagulation, currently on Xarelto 20 mg daily. Semi annual renal function test should be pursued. Management of atrial fibrillation was discussed in details. Participate in weight loss program as helped her show reduce recurrence of atrial fibrillation this was discussed with her. Continue to exercise as tolerated. Continue blood pressure control. Avoidance of stimulants was discussed. She understands agrees. Advised to call me with any worsening symptoms. (2) HTN (hypertension): Code(s): I10 - Essential (primary) hypertension Plan: Hypertension which is currently well optimized advised to monitor blood pressure at home maintain a log. Goal blood pressure less than 130/84. Advised to continue current therapy importance of good blood pressure control was discussed with her. She understands agrees. Low-salt diet was discussed. Increase activity level and heart healthy lifestyle was discussed. Will follow up in the clinic in 6 months for EKG in 1 year with me. Thank you for allowing me to partake in the care (3) Mitral regurgitation: Code(s): I34.0 - Nonrheumatic mitral (valve) insufficiency Plan: Mitral regurgitation which is [id number]. Clinically not relevant or significant at this point time. Advised to call me with any new symptoms. Follow-up echocardiogram in 1 year's time. No interventions required. Will follow up in 1 year's time Coding Level of Care Code Est Pt Level 4 (03440) Diagnoses Paroxysmal atrial fibrillation I48.0 HTN (hypertension) I10 Mitral regurgitation I34.0 CPT Codes EKG - CPT: 39973-[id number], Complete ([id number])
[2024-03-07 11:00] VITALS: BP 140/86; PULSE 69; BMI 36.7
== END 2024-03-07 11:22 | disposition home or self-care (01) ==
PROVIDERS: PCP Pediatrics; Referring Provider Pediatrics; Visit Provider Internal Medicine Cardiovascular Disease
DX: I48.0 Paroxysmal atrial fibrillation (principal); I10 Essential (primary) hypertension; I34.0 Nonrheumatic mitral (valve) insufficiency
CPT/HCPCS: 93010; 99214

== ENCOUNTER → 2024-03-07 10:56 | Outpatient (BNVA) | payer MEDICAID, SELFPAY | PROVIDERS: Visit Provider Internal Medicine Cardiovascular Disease | DX: I48.0 Paroxysmal atrial fibrillation (principal); I10 Essential (primary) hypertension; I34.0 Nonrheumatic mitral (valve) insufficiency | CPT/HCPCS: 93005; 99212 ==

== ENCOUNTER 2024-04-14 08:13 | Emergency (ER) | payer MEDICAID, SELFPAY ==
--- NOTE | ~2024-04-14 | XR_ITS ---
EXAMINATION: XR CHEST CLINICAL INFORMATION: Cough. Fever. COMPARISON: Chest radiograph dated 10/14/2021. TECHNIQUE: 2 views of the chest were obtained. FINDINGS: The lungs are clear. The cardiomediastinal silhouette is normal in size. There is no pleural effusion or pneumothorax. No acute osseous abnormality. XR/XR chest 2V IMPRESSION: No acute cardiopulmonary findings.
[2024-04-14 08:26] VITALS: BP 128/71; PULSE 100; RESP 16; TEMP 36.4; O2SAT 95; BMI 36.8
[2024-04-14 09:19] LABS: Influenza A PCR NEGATIVE (Negative); Influenza B PCR NEGATIVE (Negative); Resp Syncy Virus RNA Qual PCR NEGATIVE (Negative); SARS COV2 PCR INHOUSE NEGATIVE (Negative)
--- NOTE | 2024-04-14 10:42 | ED.URI ---
HPI - URI/Sore Throat General Chief Complaint: Upper Respiratory Symptoms Stated Complaint: SOB, fever, cough Time Seen by Provider: 04/14/24 09:40 Source: patient and family Mode of arrival: ambulatory Limitations: no limitations History of Present Illness HPI Narrative: 63-year-old female with a history of AFib on Xarelto, hypertension presents to the ER with complaints of cough, congestion, subjective fevers, chills, back pain, headache, chest discomfort with coughing for the last 2-3 days. Patient reports that her had similar symptoms but was negative for COVID. She denies any shortness of breath, abdominal pain, vomiting, diarrhea, neck pain, neck stiffness, skin rash. She has been taking Tylenol intermittently with continued symptoms. No recent travel, recent surgeries, history of DVT or PE or any reports of leg swelling or leg pain Related Data Home Medications ?Medication ?Instructions ?Recorded ?Confirmed hydrochlorothiazide 25 mg tablet 25 mg PO DAILY 01/18/21 03/07/24 finasteride 5 mg tablet 5 mg PO DAILY 02/18/22 03/07/24 Previous Rx's ?Medication ?Instructions ?Recorded acetaminophen 500 mg tablet 500 mg PO Q6H PRN pain or fever 11/22/20 (Tylenol Extra Strength) #20 tabs metoprolol succinate 50 mg 50 mg PO DAILY #90 tabs 08/25/23 tablet,extended release 24 hr rivaroxaban 20 mg tablet (Xarelto) 20 mg PO QPM #90 tabs 08/25/23 lidocaine 5 % topical patch 1 patch topical DAILY #15 ea 10/14/23 (Lidoderm) flecainide 50 mg tablet 50 mg PO BID 90 days #180 tabs 02/15/24 benzonatate 200 mg capsule 200 mg PO TID PRN cough #30 caps 04/14/24 Allergies Allergy/AdvReac Type Severity Reaction Status Date / Time No Known Allergies Allergy Unknown N/A Verified 04/14/24 08:29 [NO KNOWN ALLERGIES] Review of Systems Review of Systems: Yes all other systems are reviewed and are negative Constitutional: Constitutional: Reports no additional constitutional complaints, Denies body ache(s), Reports chills, Reports fever(s), Reports headache(s) and Denies weakness Eyes: Eyes: Reports no additional eye complaints and Denies change in vision ENT: Reports system reviewed and no additional complaints, except as documented, Denies dizziness, Reports headache(s), Reports nasal congestion, Denies nasal discharge and Denies neck pain Cardiovascular: Cardiovascular: Reports no additional cardiovascular complaints, Denies chest pain, Denies leg edema and Denies dyspnea Respiratory: Respiratory: Reports no additional respiratory complaints, Reports cough and Denies dyspnea Gastrointestinal: Gastrointestinal: Reports no additional gastrointestinal complaints, Denies abdominal pain, Denies diarrhea, Denies nausea and Denies vomiting Genitourinary: Genitourinary: Reports no additional female genitourinary complaints and Denies urinary incontinence Musculoskeletal: Musculoskeletal: Reports no additional musculoskeletal complaints, Reports back pain, Denies arthralgias, Denies joint swelling, Denies neck pain, Denies numbness and Denies tingling Integumentary/Breasts: Skin/Breast: Reports system reviewed and no additional complaints, except as docu and Denies rash Neurologic: Reports system reviewed and no additional complaints, except as documented, Denies Abnormal speech present, Denies dizziness, Reports headache(s), Denies numbness, Denies tingling and Denies weakness [facility] Past Medical History Attestation statement: The following information was validated with the patient. 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 Physical Exam Vital Signs: Vital Signs: Last Vital Signs Temp 97.5 F 04/14/24 08:26 Pulse 100 04/14/24 08:26 Resp 16 04/14/24 08:26 BP 128/71 04/14/24 08:26 Pulse Ox 95 04/14/24 08:26 O2 Del Method Room Air 04/14/24 08:26 BMI result Body Mass Index 36.8 Const: General: cooperative, healthy appearing, comfortable and no acute distress Orientation/consciousness: patient oriented x3 Limitations: no limitations HEENT: Head: Yes normal to inspection Ears: hearing grossly normal bilaterally and TM's normal bilaterally General nose exam: Normal external nose present Face and sinus: Yes normal facial exam Mouth: Normal oral and palatal mucosa present Throat: Yes posterior oropharynx normal, Yes tonsils normal and Yes uvula midline Eyes: General: appearance normal, both eyes and all related structures Pupils: Equal, round and reactive pupils present Neck: Neck: Yes normal visual inspection, Yes full ROM, Yes no lymphadenopathy and Yes no meningeal signs Chest: Chest palpation & inspection: normal inspection of the chest Resp: Effort & Inspection: normal respiratory effort Auscultation: clear to auscultation bilaterally Cardio: Rate: regular rate Rhythm: regular rhythm Peripheral pulses: Peripheral pulses 2+ throughout GI: Inspection: Yes normal to inspection Palpation (GI): Soft to palpation and nontender Auscultation: normal bowel sounds Back/Spine/Pelvis: Thoracic/Lumbar Spine: thoracic and lumbar spine normal to inspection Skin: General skin exam: no rashes or lesions noted Neuro: General: patient oriented x3, no meningeal signs, no focal motor deficits and normal sensation to monofilament Cranial nerves: Yes Equal, round and reactive pupils present Cognition (Neuro): normal cognition Speech: No Abnormal speech present Gait exam (Neuro): Normal gait present Motor exam (neuro): 5/5 motor strength present throughout Extrem: General: Yes normal to inspection, Yes no pedal edema and Yes no calf tenderness Course Course Course Narrative: viral testing is negative. Chest x-ray shows no acute finding. Likely viral syndrome. Recommend supportive care at home. Reviewed worrisome signs and symptoms of when to return to the emergency room. Comfortable plan for discharge home. Medical Decision Making Medical Decision Making MDM Narrative: 63-year-old female with a history of AFib on Xarelto, hypertension presents to the ER with complaints of cough, congestion, subjective fevers, chills, back pain, headache, chest discomfort with coughing for the last 2-3 days. Patient reports that her had similar symptoms but was negative for COVID. She denies any shortness of breath, abdominal pain, vomiting, diarrhea, neck pain, neck stiffness, skin rash. She has been taking Tylenol intermittently with continued symptoms. No recent travel, recent surgeries, history of DVT or PE or any reports of leg swelling or leg pain exam is benign vitals are stable will send viral testing, obtain chest x-ray Differential Diagnosis Differential Diagnoses: The differential diagnosis associated with the presentation includes viral syndrome, pneumonia, influenza low suspicion for PE as patient is med compliant with Xarelto Admission/Observation Consideration of admission/observation: Escalation of care including admission/observation considered upper respiratory syndrome with no hypoxia or tachypnea requiring supplemental oxygen and or admission Lab Data MDM Lab Attestation statement: I reviewed the patient's lab results. Labs: Lab Results 04/14/24 Range/Units 08:34 Influenza Type A (PCR) NEGATIVE (Negative) Influenza Type B (PCR) NEGATIVE (Negative) RSV RNA Qual (PCR) NEGATIVE (Negative) SARS-CoV-2 RNA (RT-PCR) NEGATIVE (Negative) Independent Interpretation I performed an independent interpretation of an: Plain X-Ray Interpretation: I independently reviewed the x-ray and agree with the radiology report Radiology Impression Discussion of test interpretation with radiology: I have reviewed the radiologist's reading. Radiologist Impression: [address] [address] XRay Report Signed Patient: Afia Guadalupe MR#: [id number] : 1960 Acct:[id number] Age/Sex: 63 / F ADM Date: 04/14/24 Loc: .ED Attending Dr: Ordering Physician: Angélica Pelaez NP Date of Service: 04/14/24 Procedure(s): XR chest 2V Accession Number(s): [id number] cc: Lluvia Anderson MD; Angélica Pelaez NP~ EXAMINATION: XR CHEST CLINICAL INFORMATION: Cough. Fever. COMPARISON: Chest radiograph dated 10/14/2021. TECHNIQUE: 2 views of the chest were obtained. FINDINGS: The lungs are clear. The cardiomediastinal silhouette is normal in size. There is no pleural effusion or pneumothorax. No acute osseous abnormality. XR/XR chest 2V IMPRESSION: No acute cardiopulmonary findings. Independent Historian Clinical information obtained from an independent historian. History obtained from or confirmed by: Spouse Discharge Plan Discharge Clinical Impression: Upper respiratory infection Patient Disposition: Home, Self-Care Instructions: Upper Respiratory Infection (ED) Additional Instructions: Testing for flu, COVID, RSV are negative Your chest x-ray shows no acute finding Take Tylenol for pain or fever Increase fluids, rest Return for any worsening symptoms Prescriptions: New benzonatate 200 mg capsule 200 mg PO TID PRN (Reason: cough) Qty: 30 0RF No Action metoprolol succinate 50 mg tablet extended release 24 hr 50 mg PO DAILY Qty: 90 3RF Xarelto 20 mg tablet 20 mg PO QPM Qty: 90 3RF flecainide 50 mg tablet 50 mg PO BID 90 Days Qty: 180 3RF acetaminophen [Tylenol Extra Strength] 500 mg tablet 500 mg PO Q6H PRN (Reason: pain or fever) Qty: 20 0RF lidocaine [Lidoderm] 5 % adhesive patch,medicated 1 patch topical DAILY Qty: 15 0RF Rx Instructions: leave on most painful area for up to 12 hrs hydrochlorothiazide 25 mg tablet 25 mg PO DAILY finasteride 5 mg tablet 5 mg PO DAILY Referrals: Lluvia Anderson MD [Primary Care Provider] - 1 week (as needed) Print Language: Belarusian
[2024-04-14 10:53] VITALS: BP 121/76; PULSE 99; RESP 18; TEMP 36.6; O2SAT 96
== END 2024-04-14 10:54 | disposition home or self-care (01) ==
PROVIDERS: Physician Assistant; Emergency Provider Emergency Medicine; PCP Pediatrics
DX: J06.9 Acute upper respiratory infection, unspecified (principal); R06.02 Shortness of breath; R50.9 Fever, unspecified; R05.9 Cough, unspecified; I10 Essential (primary) hypertension; I48.0 Paroxysmal atrial fibrillation; Z79.01 Long term (current) use of anticoagulants; Z03.818 Encounter for observation for suspected exposure to other biological agents ruled out
CPT/HCPCS: 0241U; 71046; 99282; 99283

== ENCOUNTER 2024-04-19 18:11 | Outpatient (REF) | payer MEDICAID, SELFPAY ==
[2024-04-20 08:13] LABS: Bacterial Vaginosis PCR NEGATIVE (Negative); Candida Group PCR NOT DETECTED (Not Detect); Candida glab krusei PCR NOT DETECTED (Not Detect); Trichomonas vaginalis PCR NOT DETECTED (Not Detect)
== END 2024-04-19 18:12 | disposition home or self-care (01) ==
LOC: HO.HHCLNP 18:11
PROVIDERS: Visit Provider Internal Medicine
DX: N89.8 Other specified noninflammatory disorders of vagina (principal); R39.9 Unspecified symptoms and signs involving the genitourinary system
CPT/HCPCS: 0352U; 87086

== ENCOUNTER 2024-05-09 12:12 | Outpatient (REF) | payer MEDICAID, SELFPAY ==
--- NOTE | ~2024-05-09 | XR_ITS ---
EXAMINATION: XR FOOT, RIGHT CLINICAL INFORMATION: pain and swelling base of R great toe x one week COMPARISON: None available. TECHNIQUE: AP, lateral, and oblique views of the right foot. FINDINGS: Alignment is anatomic. No evidence of acute fracture. Moderate posterior and plantar calcaneal spurs. No erosions. No significant focal soft tissue swelling. No radiopaque foreign body. XR/XR foot RT min 3V IMPRESSION: 1. No evidence of acute fracture or dislocation. 2. Moderate posterior and plantar calcaneal spurs.
[2024-05-09 16:11] LABS: Uric Acid 8.1 mg/dL (2.4-5.7)
== END 2024-05-09 12:13 | disposition home or self-care (01) ==
LOC: HO.HHCL 12:12
PROVIDERS: Visit Provider Family Medicine
DX: M79.671 Pain in right foot (principal)
CPT/HCPCS: 36415; 73630; 84550

== ENCOUNTER 2024-05-18 10:15 | Emergency (ER) | payer MEDICAID, SELFPAY ==
--- NOTE | ~2024-05-18 | XR_ITS ---
EXAMINATION: XR CHEST CLINICAL INFORMATION: Cough fever COMPARISON: Chest x-ray March 2024. CT a chest April 2021 TECHNIQUE: 2 views of the chest were obtained. FINDINGS: There is thickening of the major fissures seen on the lateral projection. Lungs otherwise clear. Cardiac mediastinal silhouette normal. There is a small 7 mm area of increased density in the posterior aspect of the left sixth rib not seen on prior exams. Bone and soft tissues otherwise unremarkable. XR/XR chest 2V IMPRESSION: 1. No acute disease. 2. Small area of increased density in the posterior aspect of the left sixth rib not seen on prior exams. This could reflect a small focus of scarring or possibly a pulmonary nodule. There does not appear to be a bone island on review of prior CT scan of the chest November 2020. Follow-up recommended.
[2024-05-18 10:16] VITALS: BP 128/70; PULSE 106; RESP 19; TEMP 36.5; O2SAT 97; BMI 36.1
--- NOTE | 2024-05-18 10:22 | ED_ITS ---
HPI - URI/Sore Throat General Chief Complaint: Upper Respiratory Symptoms Stated Complaint: fever cough chest congestion Time Seen by Provider: 05/18/24 10:17 Source: patient and family Mode of arrival: ambulatory Limitations: language barrier (using family/declined interpreter for the deaf ) History of Present Illness ED Provider: Angélica Zhang APRN HPI Narrative: 63-year-old female with a history of AFib on Xarelto, hypertension presents to the ER with complaints of cough, chest congestion, subjective fevers, chills, back pain, headache, chest discomfort with coughing for the last 2-3 days. Her daughter recently traveled to [place] and returned with URI symptoms. Neither the patient or her daughter have done any COVID testing at home. She denies any shortness of breath, abdominal pain, vomiting, diarrhea, neck pain, neck stiffness, skin rash. She has been taking Tylenol intermittently with continued symptoms. No recent travel, recent surgeries, history of DVT or PE or any reports of leg swelling or leg pain Related Data Home Medications ?Medication ?Instructions ?Recorded ?Confirmed hydrochlorothiazide 25 mg tablet 25 mg PO DAILY 01/18/21 03/07/24 finasteride 5 mg tablet 5 mg PO DAILY 02/18/22 03/07/24 Previous Rx's ?Medication ?Instructions ?Recorded acetaminophen 500 mg tablet 500 mg PO Q6H PRN pain or fever 11/22/20 (Tylenol Extra Strength) #20 tabs metoprolol succinate 50 mg 50 mg PO DAILY #90 tabs 08/25/23 tablet,extended release 24 hr rivaroxaban 20 mg tablet (Xarelto) 20 mg PO QPM #90 tabs 08/25/23 lidocaine 5 % topical patch 1 patch topical DAILY #15 ea 10/14/23 (Lidoderm) flecainide 50 mg tablet 50 mg PO BID 90 days #180 tabs 02/15/24 benzonatate 200 mg capsule 200 mg PO TID PRN cough #30 caps 04/14/24 oseltamivir 75 mg capsule (Tamiflu) 75 mg PO BID 5 days #10 caps 05/18/24 Allergies Allergy/AdvReac Type Severity Reaction Status Date / Time No Known Allergies Allergy Unknown N/A Verified 05/18/24 10:21 [NO KNOWN ALLERGIES] Review of Systems Review of Systems: Yes all other systems are reviewed and are negative Constitutional: Constitutional: Reports no additional constitutional complaints, Denies body ache(s), Reports chills, Reports fever(s) (subjective), Reports headache(s) and Denies weakness Eyes: Eyes: Reports no additional eye complaints and Denies change in vision ENT: Reports system reviewed and no additional complaints, except as documented, Denies dizziness, Reports headache(s), Reports nasal congestion, Denies nasal discharge and Denies neck pain Cardiovascular: Cardiovascular: Reports no additional cardiovascular complaints, Reports chest pain (w/ coughing only ), Denies leg edema and Denies dyspnea Respiratory: Respiratory: Reports no additional respiratory complaints, Reports cough and Denies dyspnea Gastrointestinal: Gastrointestinal: Reports no additional gastrointestinal complaints, Denies abdominal pain, Denies diarrhea, Denies nausea and Denies vomiting Genitourinary: Genitourinary: Reports no additional female genitourinary complaints and Denies urinary incontinence Musculoskeletal: Musculoskeletal: Reports no additional musculoskeletal complaints, Reports back pain, Denies arthralgias, Denies joint swelling, Denies neck pain, Denies numbness and Denies tingling Integumentary/Breasts: Skin/Breast: Reports system reviewed and no additional complaints, except as docu and Denies rash Neurologic: Reports system reviewed and no additional complaints, except as documented, Denies Abnormal speech present, Denies dizziness, Reports headache(s), Denies numbness, Denies tingling and Denies weakness PMFSH Past Medical History Attestation statement: The following information was validated with the patient. 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 Physical Exam Vital Signs: Vital Signs: Last Vital Signs Temp 97.7 F 05/18/24 10:16 Pulse 106 H 05/18/24 10:16 Resp 19 05/18/24 10:16 BP 128/70 05/18/24 10:16 Pulse Ox 97 05/18/24 10:16 BMI result Body Mass Index 36.1 Const: General: cooperative, healthy appearing, comfortable and no acute distress Orientation/consciousness: patient oriented x3 Limitations: no limitations HEENT: Head: Yes normal to inspection Ears: hearing grossly normal bilaterally and TM's normal bilaterally General nose exam: Normal external nose present Face and sinus: Yes normal facial exam Mouth: Normal oral and palatal mucosa present Throat: Yes posterior oropharynx normal, Yes tonsils normal and Yes uvula midline Eyes: General: appearance normal, both eyes and all related structures Pupils: Equal, round and reactive pupils present Neck: Neck: Yes normal visual inspection, Yes full ROM, Yes no lymphadenopathy and Yes no meningeal signs Chest: Chest palpation & inspection: normal inspection of the chest Resp: Effort & Inspection: normal respiratory effort Auscultation: clear to auscultation bilaterally Cardio: Rate: regular rate Rhythm: regular rhythm Peripheral pulses: Peripheral pulses 2+ throughout GI: Inspection: Yes normal to inspection Palpation (GI): Soft to palpation and nontender Auscultation: normal bowel sounds Back/Spine/Pelvis: Thoracic/Lumbar Spine: thoracic and lumbar spine normal to inspection Skin: General skin exam: no rashes or lesions noted Neuro: General: patient oriented x3, no meningeal signs, no focal motor deficits and normal sensation to monofilament Cranial nerves: Yes Equal, round and reactive pupils present Cognition (Neuro): normal cognition Speech: No Abnormal speech present Gait exam (Neuro): Normal gait present Motor exam (neuro): 5/5 motor strength present throughout Extrem: General: Yes normal to inspection, Yes no pedal edema and Yes no calf tenderness Course Course Course Narrative: influenza screen is positive. Patient has no hypoxia or tachypnea is not requiring supplemental oxygen. She will discharge home with Tamiflu. Her chest x-ray shows no signs of pneumonia. She does have a small area of either scarring or pulmonary nodule seen and they do recommend follow up outpatient. I discussed this with both the patient and her spouse. They will follow up with the primary care outpatient. Reviewed worrisome signs and symptoms of when to return to the emergency room. Comfortable plan for discharge home. Medications Administered Discontinued Medications Generic Name Dose Route Start Last Admin Trade Name Freq PRN Reason Stop Dose Admin Acetaminophen 975 mg 05/18/24 10:22 05/18/24 10:42 Acetaminophen 325 Mg Tablet PO 05/18/24 10:23 975 mg ONCE ONE Administration Medical Decision Making Medical Decision Making [facility] Narrative: 63-year-old female with a history of AFib on Xarelto, hypertension presents to the ER with complaints of cough, chest congestion, subjective fevers, chills, back pain, headache, chest discomfort with coughing for the last 2-3 days. Her daughter recently traveled to [place] and returned with URI symptoms. Neither the patient or her daughter have done any COVID testing at home. She denies any shortness of breath, abdominal pain, vomiting, diarrhea, neck pain, neck stiffness, skin rash. She has been taking Tylenol intermittently with continued symptoms. No recent travel, recent surgeries, history of DVT or PE or any reports of leg swelling or leg pain Arrival the patient has stable vital signs. she is clear lung sounds. her exam is benign. likely viral upper respiratory infection will send testing for flu /COVID /RSV, chest x-ray. will provide Tylenol for discomfort Differential Diagnosis Differential Diagnoses: The differential diagnosis associated with the presentation includes viral upper respiratory infection, influenza, pneumonia low suspicion for PE with no hypoxia, no tachypnea, no tachycardia, no clinical findings concerning for DVT, no risk factors for same such as travel, estrogen use, personal or family history of same. Additionally patient reports she is med compliant with Xarelto Admission/Observation Consideration of admission/observation: Escalation of care including admission/observation considered Influenza A positive with no hypoxia or tachypnea requiring supplemental oxygen and or admission for hospitalization Lab Data MDM Lab Attestation statement: I reviewed the patient's lab results. Labs: Lab Results 05/18/24 Range/Units 10:25 Influenza Type A (PCR) POSITIVE A (Negative) Influenza Type B (PCR) NEGATIVE (Negative) RSV RNA Qual (PCR) NEGATIVE (Negative) SARS-CoV-2 RNA (RT-PCR) NEGATIVE (Negative) Independent Interpretation I performed an independent interpretation of an: Plain X-Ray Interpretation: I independently viewed the x-ray and agree with the radiology report Radiology Impression Discussion of test interpretation with radiology: I have reviewed the radiologist's reading. Radiologist Impression: [address] [address] XRay Report Signed Patient: Afia Guadalupe MR#: [id number] : 1960 Acct:[id number] Age/Sex: 63 / F ADM Date: 05/18/24 Loc: .ED Attending Dr: Ordering Physician: Angélica Pelaez NP Date of Service: 05/18/24 Procedure(s): XR chest 2V Accession Number(s): [id number] cc: Lluvia Anderson MD; Angélica Pelaez NP~ EXAMINATION: XR CHEST CLINICAL INFORMATION: Cough fever COMPARISON: Chest x-ray March 2024. CT a chest April 2021 TECHNIQUE: 2 views of the chest were obtained. FINDINGS: There is thickening of the major fissures seen on the lateral projection. Lungs otherwise clear. Cardiac mediastinal silhouette normal. There is a small 7 mm area of increased density in the posterior aspect of the left sixth rib not seen on prior exams. Bone and soft tissues otherwise unremarkable. XR/XR chest 2V IMPRESSION: 1. No acute disease. 2. Small area of increased density in the posterior aspect of the left sixth rib not seen on prior exams. This could reflect a small focus of scarring or possibly a pulmonary nodule. There does not appear to be a bone island on review of prior CT scan of the chest November 2020. Follow-up recommended. Independent Historian Clinical information obtained from an independent historian. History obtained from or confirmed by: Spouse Tests considered The following testing was considered but not selected: low suspicion for PE requiring D-dimer or CTA Prescription Management I considered prescription management with: Pain Medication, Antiviral and Antibiotic Chronic Conditions Patient?s care impacted by: Hypertension Discharge Plan Discharge Clinical Impression: Influenza Patient Disposition: Home, Self-Care Instructions: Influenza (ED) Additional Instructions: your testing for COVID, RSV are negative You are positive for influenza A. We prescribed a medication called tamiflu. Take this with food. Side effects can include vomiting and diarrhea. If these occur you may discontinue the medication. your chest x-ray shows no signs of pneumonia. on the left lung there is an area that we are unable to determine if this is scarring from previous infection or if there is a nodule. They do recommend you follow up outpatient with her primary care doctor to have a CT scan done of the chest. please continue Tylenol for pain or fever as needed increase fluids at home return to the emergency room for any worsening symptoms Prescriptions: New oseltamivir [Tamiflu] 75 mg capsule 75 mg PO BID 5 Days Qty: 10 0RF No Action metoprolol succinate 50 mg tablet extended release 24 hr 50 mg PO DAILY Qty: 90 3RF Xarelto 20 mg tablet 20 mg PO QPM Qty: 90 3RF flecainide 50 mg tablet 50 mg PO BID 90 Days Qty: 180 3RF acetaminophen [Tylenol Extra Strength] 500 mg tablet 500 mg PO Q6H PRN (Reason: pain or fever) Qty: 20 0RF lidocaine [Lidoderm] 5 % adhesive patch,medicated 1 patch topical DAILY Qty: 15 0RF Rx Instructions: leave on most painful area for up to 12 hrs benzonatate 200 mg capsule 200 mg PO TID PRN (Reason: cough) Qty: 30 0RF hydrochlorothiazide 25 mg tablet 25 mg PO DAILY finasteride 5 mg tablet 5 mg PO DAILY Referrals: Lluvia Anderson MD [Primary Care Provider] - 1 week Print Language: [place]
[2024-05-18] MEDS: Acetaminophen 325 MG TABLET 975 MG PO (10:42)
[2024-05-18 11:19] LABS: Influenza A PCR POSITIVE (Negative); Influenza B PCR NEGATIVE (Negative); Resp Syncy Virus RNA Qual PCR NEGATIVE (Negative); SARS COV2 PCR INHOUSE NEGATIVE (Negative)
[2024-05-18 13:43] VITALS: BP 122/68; PULSE 90; RESP 18; TEMP 36.5; O2SAT 94
== END 2024-05-18 13:44 | disposition home or self-care (01) ==
PROVIDERS: Nurse Practitioner Family; Emergency Provider Emergency Medicine; PCP Pediatrics
DX: J10.1 Influenza due to other identified influenza virus with other respiratory manifestations (principal); R50.9 Fever, unspecified; R05.9 Cough, unspecified; Z11.52 Encounter for screening for COVID-19
CPT/HCPCS: 0241U; 71046; 99283

== ENCOUNTER 2024-06-04 12:56 | Outpatient (AMB) | payer MEDICAID, SELFPAY ==
--- NOTE | 2024-06-04 12:58 | MHC.OFFVIS ---
Vital Signs 06/04/24 13:09 Height 5 ft 5 in Weight 217 lb BMI 36.1 Intake Visit Reasons: OV-B/L knee injection-last inj-02/23/24 Intake Note: Afia is a 63 year old right hand dominant female who presents today for a follow up for her bilateral knee OA, last inj 02/23/24. Patient reports her last injections gave her about a month and a half relief. She expresses that they do give her mild relief for the couple of weeks but then she has to wait for the 3 months to repeat the next round. Patient finds mild relief with taking NSAIDs/Tylenol. Allergies No Known Allergies [NO KNOWN ALLERGIES] Allergy (Unknown, Verified 06/04/24 13:08) N/A HPI HPI OV-B/L knee injection-last inj-02/23/24: Details: 63-year-old right hand dominant female, who is Djib[place]ian speaking, presents in the office today for a follow-up of bilateral knee pain. I last saw the patient in the office on 02/23/2024, when she was given cortisone injection in the bilateral knees. ? While in the office, the patient reports that her last cortisone injections in the bilateral knees gave her about a month and a half relief.?She experiences mild relief by taking NSAIDs or Tylenol.? 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 No ecchymosis, redness or edema. No joint effusions noted. No tenderness to palpation of the medial or lateral joint lines bilaterally. Crepitus felt with knee range of motion. Negative Ammy's. NVI. Office Procedures Joint Injection/Drain Joint Injection/Drain Primary Site: right knee Secondary Site: left knee Prep: site was prepped using aseptic technique, ethochloride spray was applied and injection warnings given Injected: 80 mg of, DepoMedrol, with 8 mL of (2% plain lido ) and in the joint Approach Used: anterolateral Procedure: The patient tolerated the procedure well, but had some pain with the injection and there was some relief with the local anesthesia Coding - Large joint Procedure code (CPT) selection complete Assessment & Plan Assessment & Plan (1) Bilateral primary osteoarthritis of knee: Code(s): M17.0 - Bilateral primary osteoarthritis of knee Category: Medical Plan: Ms. Chauhan is a 63-year-old right hand dominant female, who is [place]ib[place]ian speaking, presents in the office today for a follow-up of bilateral knee pain. I last saw the patient in the office on 02/23/2024, when she was given cortisone injection in the bilateral knees. ? ? While in the office, the patient reports that her last cortisone injections in the bilateral knees gave her about a month and a half relief.?She experiences mild relief by taking NSAIDs or Tylenol.? The patient was offered a?cortisone injection in the bilateral knees with 80 mg of DepoMedrol. The patient was explained the risk, benefits, and alternatives to receiving this injection. After receiving consent for the injection, the patient had the procedure done while in the office today. The patient tolerated the procedure well with no complications. Follow-up will be PRN, or sooner if needed.? Patient Instructions: Scribed by Derrek Buckley medical driver, for Carole Moore PA-C on 06/04/2024 at 1:00 PM EST.? Coding Level of Care Code Est Pt Level 3 (85152) Diagnoses Bilateral primary osteoarthritis of knee M17.0 CPT Codes Coding - Large joint: 28654 - Large joint ([id number])
[2024-06-04 13:09] VITALS: BMI 36.1
== END 2024-06-04 13:25 | disposition home or self-care (01) ==
PROVIDERS: PCP Pediatrics; Visit Provider Physician Assistant
DX: M17.0 Bilateral primary osteoarthritis of knee (principal)
CPT/HCPCS: 20610; 99213

== ENCOUNTER → 2024-06-04 12:56 | Outpatient (BNVA) | payer MEDICAID, SELFPAY | PROVIDERS: PCP Pediatrics; Visit Provider Physician Assistant | DX: M17.0 Bilateral primary osteoarthritis of knee (principal) | CPT/HCPCS: 20610; 99212; J1010 ==

== ENCOUNTER 2024-06-21 14:18 | Outpatient (REF) | payer MEDICAID, SELFPAY ==
--- NOTE | ~2024-06-21 | CT_ITS ---
EXAMINATION: CT CHEST WITHOUT CONTRAST CLINICAL INFORMATION: Abnormal chest x-ray with possible left lung nodule. Coughing for 3 months. COMPARISON: Chest radiograph the second 2023, CTA chest 01/02/2021 TECHNIQUE: Multidetector volumetric CT imaging of the chest was done. Axial MIP volume rendering provided. Sagittal and coronal reformatted images were obtained. This CT examination was performed using dose optimization techniques as appropriate, variously including the following: *Automated exposure control *Adjustment of mA and/or kV according to patient size (this includes techniques or standardized protocols for targeted exams where dose is matched to indication/reason for exam; i.e. extremities or head) *Use of iterative reconstruction technique DLP: 179 mGy-cm FINDINGS: LUNGS: Right lower lobe solid nodule measuring 5 mm (5:303), unchanged from 2020 and requiring no further imaging follow-up. No left-sided pulmonary nodule to correspond to the previously noted finding. Subpleural groundglass opacity in the right lower lobe, likely subsegmental atelectasis. MEDIASTINUM: The mediastinum is normal. CORONARY ARTERY CALCIFICATION: None visualized on this study. PLEURA: There is no pleural effusion. No pleural mass or thickening. AXILLA: No lymphadenopathy. UPPER ABDOMEN: Unremarkable. OSSEOUS STRUCTURES: Unremarkable. CT/CT chest wo IV con IMPRESSION: No left-sided pulmonary nodule to correspond to the previously noted finding. No correlate on this study. Fleischner guidelines were followed.
== END 2024-06-21 14:19 | disposition home or self-care (01) ==
LOC: HO.CT 14:18
PROVIDERS: PCP Pediatrics; Visit Provider Pediatrics
DX: R93.89 Abnormal findings on diagnostic imaging of other specified body structures (principal)
CPT/HCPCS: 71250

== ENCOUNTER → 2024-09-05 08:42 | Outpatient (BNVA) | payer MEDICAID, SELFPAY | PROVIDERS: PCP Pediatrics; Visit Provider Internal Medicine Cardiovascular Disease ==

== ENCOUNTER 2024-09-05 15:43 | Outpatient (REF) | payer MEDICAID, SELFPAY ==
[2024-09-05 17:41] LABS: MANUAL DIFF FLAG NO
[2024-09-05 17:45] LABS: Basophils Percent Auto 0.4 % (0-2); Eosinophils Absolute Auto 0.2 X10*3/uL (0.0-0.4); Eosinophils Percent Auto 2.3 % (0-4); Hematocrit 36.6 % (37.0-47.0); Hemoglobin 12.1 g/dl (12.0-16.0); Imm Gran Abs Auto 0.03 X10*3/uL (0.00-0.03); Imm Gran Pct Auto 0.3 % (0.0-0.4); Lymphocytes Absolute Auto 2.6 X10*3/uL (1.2-4.9); Lymphocytes Percent Auto 27.1 % (20-40); Mean Corpuscular HGB Conc 33.1 g/dl (31.0-35.0); Mean Corpuscular Hemoglobin 27.9 pg (27.0-33.0); Mean Corpuscular Volume 84.3 fL (80.0-98.0); Mean Platelet Volume 9.3 fL (9.4-12.3); Monocytes Absolute Auto 0.6 X10*3/uL (0.1-1.2); Monocytes Percent Auto 6.1 % (2-11); Neutrophils Absolute Auto 6.2 x10*3/uL (2.0-8.3); Neutrophils Percent Auto 63.8 % (45-73); Platelet Count 397 X10*3/uL (160-400); Red Blood Count 4.34 X10*6/uL (4.20-5.50); Red Cell Distribution Width 14.6 % (11.0-16.0); White Blood Count 9.6 X10*3/uL (4.8-10.8)
[2024-09-05 18:02] LABS: Uric Acid 4.6 mg/dL (2.4-5.7)
[2024-09-05 18:36] LABS: Erythrocyte Sedimentation Rate 37 MM/HR (0-20)
== END 2024-09-05 15:44 | disposition home or self-care (01) ==
LOC: HO.CHCLDS 15:43
PROVIDERS: Visit Provider Pediatrics
DX: M79.671 Pain in right foot (principal); M10.00 Idiopathic gout, unspecified site
CPT/HCPCS: 36415; 84550; 85025; 85652

== ENCOUNTER 2024-09-13 08:58 | Outpatient (AMB) | payer MEDICAID, SELFPAY ==
--- NOTE | 2024-09-13 09:01 | MHC.OFFVIS ---
Intake Visit Reasons: Inj-B/L knee injection-last inj-06/04/24 Intake Note: Afia is a 63 year old right hand dominant female who presents today for a follow up for her bilateral knee OA, last inj 06/04/24. Patient reports her last injections gave her right knee a couple weeks of relief and her left knee it gave her about 2 months of relief. Patient would like to repeat her injections today. Allergies No Known Allergies [NO KNOWN ALLERGIES] Allergy (Unknown, Verified 09/13/24 09:14) N/A HPI HPI Inj-B/L knee injection-last inj-06/04/24: Details: 64-year-old right hand dominant female, who is Lao speaking, presents in the office today for a follow-up of bilateral knee pain. I last saw the patient in the office on 06/04/24 when she received a cortisone injection in the bilateral knees. While in the office today, the patient reports that her last cortisone injection in the bilateral knees provided 2 weeks of relief in her right knee and about 2 months of relief in her left knee. She would like to have a repeat injection today. 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 No ecchymosis, redness or edema. No joint effusions noted. No tenderness to palpation of the medial or lateral joint lines bilaterally. Crepitus felt with knee range of motion. Negative Ammy's. NVI. Office Procedures Joint Injection/Aspiration Joint Injection/Aspiration Primary Site: right knee Secondary Site: left knee Prep: site was prepped using aseptic technique, ethochloride spray was applied and injection warnings given Injected: 80 mg of, DepoMedrol, with 8 mL of (2% plain lido ) and in the joint Approach Used: anterolateral Procedure: The patient tolerated the procedure well, but had some pain with the injection and there was some relief with the local anesthesia Coding 73529 - Large joint Procedure code (CPT) selection complete Assessment & Plan Assessment & Plan (1) Bilateral primary osteoarthritis of knee: Code(s): M17.0 - Bilateral primary osteoarthritis of knee Category: Medical Plan Ms. Isael Wilkins is a 64-year-old right hand dominant female, who is Lao speaking, presents in the office today for a follow-up of bilateral knee pain. I last saw the patient in the office on 06/04/24 when she received a cortisone injection in the bilateral knees. While in the office today, the patient reports that her last cortisone injection in the bilateral knees provided 2 weeks of relief in her right knee and about 2 months of relief in her left knee. She would like to have a repeat injection today. The patient was offered a cortisone injection in the bilateral knees with 80 mg of Depo-Medrol. The patient was explained the risks, benefits, and alternatives to receiving this injection. After receiving consent for the injection, the patient had the procedure done while in the office today. The patient tolerated the procedure well with no complication. Follow-up will be PRN, or sooner if needed. Patient Instructions: Scribed by Fiona Veliz medical advisor, for Carole Moore PA-C on 09/13/24 at 9:27 am EST. Coding Level of Care Code Est Pt Level 3 (46106) Diagnoses Bilateral primary osteoarthritis of knee M17.0 CPT Codes Coding - 94152 Large joint: 08133 - Large joint ([id number])
== END 2024-09-13 09:23 | disposition home or self-care (01) ==
PROVIDERS: PCP Pediatrics; Visit Provider Physician Assistant
DX: M17.0 Bilateral primary osteoarthritis of knee (principal)
CPT/HCPCS: 20610; 99213

== ENCOUNTER → 2024-09-13 08:58 | Outpatient (BNVA) | payer MEDICAID, SELFPAY | PROVIDERS: PCP Pediatrics; Visit Provider Physician Assistant | DX: M17.0 Bilateral primary osteoarthritis of knee (principal) | CPT/HCPCS: 20610; 99212; J1010; J2003 ==

== ENCOUNTER 2024-11-23 09:52 | Outpatient (REF) | payer MEDICAID, SELFPAY | END 2024-11-23 09:53 | disposition home or self-care (01) | LOC: HO.MAMMO 09:52 | PROVIDERS: PCP Pediatrics; Visit Provider Pediatrics | DX: Z12.31 Encounter for screening mammogram for malignant neoplasm of breast (principal) | CPT/HCPCS: 77063; 77067 ==

== ENCOUNTER → 2024-11-23 10:30 | Outpatient (BNV) | payer MEDICAID, SELFPAY | PROVIDERS: PCP Pediatrics; Visit Provider Internal Medicine | DX: Z12.31 Encounter for screening mammogram for malignant neoplasm of breast (principal) | CPT/HCPCS: 77063; 77067 ==

== ENCOUNTER 2025-01-28 13:22 | Outpatient (AMB) | payer MEDICAID, SELFPAY ==
--- NOTE | 2025-01-28 13:25 | A.OFFVIS_ITS ---
Intake Visit Reasons: B/L knee cortisone injections, last inj 09/13/24 Intake Note: Afia is a 63 year old female who presents today for repeat bilateral knee injections, last injections 06/04/24. Patient reports her last injection gave her about 3 months of relief and would like to repeat. Allergies No Known Allergies [NO KNOWN ALLERGIES] Allergy (Unknown, Verified 01/28/25 13:37) N/A HPI HPI B/L knee cortisone injections, last inj 09/13/24: Details: Ms. Isael Wilkins is a 64-year-old female who presents to the office today for bilateral knee repeat cortisone injections. Her last cortisone injections were given on 09/13/2024. She reports that she has about 3 months of relief. 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 No ecchymosis, redness or edema. No joint effusions noted. No tenderness to palpation of the medial or lateral joint lines bilaterally. Crepitus felt with knee range of motion. Negative Ammy's. NVI. Office Procedures AMB Joint Injection/Aspiration Joint Injection/Aspiration Primary Site: right knee Secondary Site: left knee Prep: site was prepped using aseptic technique, ethochloride spray was applied and injection warnings given Injected: 80 mg of, DepoMedrol, with 8 mL of (2% plain lidocaine) and in the joint Approach Used: anterolateral Procedure: The patient tolerated the procedure well, but had some pain with the injection and there was some relief with the local anesthesia Coding 64908 - Large joint Procedure code (CPT) selection complete Assessment & Plan Assessment & Plan (1) Bilateral primary osteoarthritis of knee: Code(s): M17.0 - Bilateral primary osteoarthritis of knee Category: Medical Plan The patient was offered a cortisone injection in bilateral knees with 80 mg of DepoMedrol. The patient was explained the risks, benefits, and alternatives to receiving this injection. After receiving consent for the injection, the patient had the procedure done while in the office today. The patient tolerated the pr ocedure well with no complications. Follow-up will be p.r.n., or sooner if needed Coding Level of Care Code Est Pt Level 3 (31583) Diagnoses Bilateral primary osteoarthritis of knee M17.0 CPT Codes Coding - 17499 Large joint: 50733 - Large joint ([id number])
--- OUTSIDE RECORDS SUMMARY | 2025-01-28 16:45 | XMS_ITS | Encounter Summary ---
Author Organization [employer] Address [address] [place] [address] [address] [place] [address] Care Team Providers Care Divider Operator Name Role Phone Lluvia Anderson MD Primary Care Provider [phone] Reason for Visit * Reason Onset Date Comments PT1 12/07/2023 Encounter Details Date Type Department Care Team ([facility] st Contact Info) Description 12/07/2023 Telephone [facility] CHC MED & PEDS [address] [place], [place] [phone] Lluvia Anderson MD [address] [place] [address] PT1 Social History Tobacco Use Types Packs/Day Years Used Date Smoking Tobacco: Never Passive Smoke Exposure: Never Smokeless Tobacco: Never Comments No Sex and Gender Information Value Date Recorded Sex Assigned at Female 09/26/2022 10:31 AM EDT Legal Sex Female 10:31 AM EDT Gender Identity Female 09/26/2022 10:31 AM EDT Sexual Orientation Straight 09/26/2022 10 :31 AM EDT documented as of this encounter Miscellaneous Notes * Telephone Encounter - Michaelle Gurrola - 12/07/2023 2:24 PM EST PT-1 submitted for patient. They will receive a letter of approval or denial in the mail. * Telephone Encounter - Nicole Sammy - 12/07/2023 12:47 PM EST PT1 renewal needed Date: n/a Time: n/a Visits: n/a Address: [address] [facility] Facility: (name, specialty or name of doctor) Wheel Chair: no Senior Research Project Manager Needed: n/a Date: 12/29 Time: 9:45 AM Visits: (amount of visits) ( x monthly, weekly, daily) Address: [address] [facility] Facility: (name, specialty or name of doctor) Wheel Chair: no Senior Research Project Manager Needed: n/a Date: n/a Time: n/a Visits: (amount of visits) ( x monthly, weekly, daily) Address: [address] [facility] Facility: 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 Contact Info) Description 02/21/2025 10:00 AM EDT Office Visit [facility] OPTOMETRY [address] [place] [address] Soha Wynn, OD [address] [place] [address] documented as of this encounter Visit Diagnoses Not on filedocumented in this encounter Care Teams Divider Operator Relationship Specialty Start Date End Date Lluvia Anderson MD [address] [place] [address] PCP - General Family Medicine 06/28/17 documented as of this encounter
--- OUTSIDE RECORDS SUMMARY | 2025-01-28 16:45 | XMS_ITS | Encounter Summary ---
Author Organization [employer] Address [address] [facility] [address] [place] [address] Care Team Providers Care Heel Coverer Name Role Phone Lluvia Anderson MD Primary Care Provider Encounter Details Date Type Department Care Team (Late Contact Info) Description 10/03/2023 Abstract [facility] MEDICINE [address] [place] [address] Lluvia Anderson MD [address] [place] [address] [id number] Social History Tobacco Use Types Packs/Day Years Used Date Smoking Tobacco: Never Passive Smoke Exposure: Never Smokeless Tobacco: Never Comments No Sex and Gender Information Value Date Recorded Sex Assigned at Female 09/26/2022 10:31 AM EDT Legal Sex Female 10:31 AM EDT Gender Identity Female 09/26/2022 10:31 AM EDT Sexual Orientation Straight 09/26/2022 10 :31 AM EDT documented as of this encounter Plan of Treatment Upcoming Encounters Date Type Department Care Team (Late Contact Info) Description 02/21/2025 10:00 AM EDT Office Visit [facility] OPTOMETRY [address] [place] [address] Soha Wynn, OD [address] [place] [address] documented as of this encounter Procedures Procedure Name Priority Date/Time Associated Diagnosis Comments COLONOSCOPY Routine 12/18/2017 documented in this encounter Results * Colonoscopy (12/18/2017) Colonoscopy Normal Normal Narrative Alma Martinez - 12/18/2017 Recommended 5 year follow up us Historical Provider HEALTH MAINTENANCE Final Result documented in this encounter Visit Diagnoses Not on filedocumented in this encounter Care Teams Heel Coverer Relationship Specialty Start Date End Date Lluvia Anderson MD [address] [place] [id number] PCP - General Family Medicine 06/28/17 documented as of this encounter
--- OUTSIDE RECORDS SUMMARY | 2025-01-28 16:45 | XMS_ITS | Encounter Summary ---
Author Organization [employer] Address [address] [facility] [address] [place] [address] Care Team Providers Care Java Swing Developer Name Role Phone Lluvia Anderson MD Primary Care Provider [phone] Encounter Details Date Type Department Care Team ([facility] st Contact Info) Description 01/23/2024 Telephone [facility] CHC MED & PEDS [address] [place], [place] [phone] Lluvia Anderson MD [address] [place] [address] Social History Tobacco Use Types Packs/Day Years Used Date Smoking Tobacco: Never Passive Smoke Exposure: Never Smokeless Tobacco: Never Depression Answer Date Recorded Patient Health Questionnaire-9 Score 0 12/29/2023 Patient Health Questionnaire-9 Score 0 12/29/2023 Last PHQ-9: Questionnaire Data Not on file 0 12/29/2023 Housing Stability Answer Date Recorded What is your housing situation today? I have elisha buckley 12/29/[address] you li ve. Do you have problems with any of the following? None of the above 12/29/2023 Food Insecurity Answer Date Recorded Within the past 12 months, y ou worried that your food would run out before you got money to buy more: Never True 12/29/2023 Within the past 12 months,th e food you bought just didn't last and you didn't have enough money to get more: Never True 12/2023 Transportation Answer Date Recorded In the past 12 months, has l ack of transportation kept you from medical appts, meetings, work or from getting things needed for daily living? No 12/29/2023 Utilities Answer Date Recorded In the past 12 months, has t he electric, gas, oil or water company threatened to shut off services in your home? No 12/29/2023 Depression Answer Date Recorded Patient Health Questionnaire-2 Score 0 12/29/2023 Comments No Sex and Gender Information Value Date Recorded Sex Assigned at Female 09/26/2022 10:31 AM EDT Legal Sex Female 10:31 AM EDT Gender Identity Female 09/26/2022 10:31 AM EDT Sexual Orientation Straight 09/26/2022 10 :31 AM EDT documented as of this encounter Miscellaneous Notes * Telephone Encounter - Nicole Sammy - 01/23/2024 12:52 PM EST Tc from pt calling in regards to metroNIDAZOLE (Metrogel) 0.75 % gel. States medication is not working. Was advised by provider to call if medication is not working. Please contact pt at [phone] ([place]) documented in this encounter Plan of Treatment Upcoming Encounters Date Type Department Care Team (Late st Contact Info) Description 02/21/2025 10:00 AM EDT Office Visit [facility] OPTOMETRY [address] [place] [address] KingsleySoha levy, OD [address] [place] [address] documented as of this encounter Visit Diagnoses Not on filedocumented in this encounter Additional Health Concerns Assessment Noted Time PHQ-9 Depression Total Score: 0 12/29/19 24 9:27 AM EST documented as of this encounter Care Teams Java Swing Developer Relationship Specialty Start Date End Date Lluvia Anderson MD [address] [place] [address] PCP - General Family Medicine 06/28/17 documented as of this encounter
--- OUTSIDE RECORDS SUMMARY | 2025-01-28 16:45 | XMS_ITS | Encounter Summary ---
Author Organization [employer] Address [address] [place] [address] [address] [address] Care Team Providers Care Creative Technologist Name Role Phone Lluvia Anderson MD Primary Care Provider [phone] Reason for Visit * Reason Onset Date Comments pt1 12/14/2022 Encounter Details Date Type Department Care Team ([facility] Contact Info) Description 12/14/2022 Telephone [facility] MEDICINE [address] [place] [address] Lluvia Anderson MD [address] [place], [place] [phone] pt1 Social History Tobacco Use Types Packs/Day Years Used Date Smoking Tobacco: Never Assessed Comments Unknown Sex and Gender Information Value Date Recorded Sex Assigned at Female 09/26/2022 10:31 AM EDT Legal Sex Female 10:31 AM EDT Gender Identity Female 09/26/2022 10:31 AM EDT Sexual Orientation Straight 09/26/2022 10 :31 AM EDT documented as of this encounter Miscellaneous Notes * Telephone Encounter - Scott Chauhan - 12/14/2022 10:32 AM EST Tc from pt requesting to update yearly PT1 Location: PSYCHIATRIC [address] [place] [address] Specialty: care provider Time: n/a Date:n/a Bingo Checker: n/a wheelchair accessible : n/a Location: [address] [address] Specialty: double reamer operator Time: n/a Date:n/a Bingo Checker:n/a wheelchair accessible :n/a Location: [facility] [address] [place] [address] Specialty: double reamer operator / Lab works Time:n/a Date:n/a Bingo Checker:n/a wheelchair accessible :n/a documented in this encounter Plan of Treatment Upcoming Encounters Date Type Department Care Team (Late st Contact Info) Description 02/21/2025 10:00 AM EDT Office Visit [facility] OPTOMETRY [address] [place] [address] Soha Wynn, OD [address] [place] [address] documented as of this encounter Visit Diagnoses Not on filedocumented in this encounter Care Teams Creative Technologist Relationship Specialty Start Date End Date Lluvia Anderson MD [address] [place] [address] PCP - General Family Medicine 06/28/17 documented as of this encounter
--- OUTSIDE RECORDS SUMMARY | 2025-01-28 16:45 | XMS_ITS | Clinical Summary ---
Author Organization [employer] Address [address] [facility] 7t [place] [address] Care Team Providers Care Material Flow Engineer Name Role Phone Lluvia Anderson MD Primary Care Provider [phone] Allergies No known active allergies Medications baclofen (Lioresal) 10 MG tablet Take 1 tablet by mouth in the morning and 1 tablet in the evening. 1 Active flecainide (Tambocor) 50 MG tablet Take 1 tablet by mouth every 12 (twelve) hours. Active metoprolol succinate XL (Toprol XL) 50 MG 24 hr tablet Take 1 Tablet by Oral route once a day 0 Active rivaroxaban (Xarelto) 20 MG tablet Take 1 tablet by mouth at bed time. Active minoxidil (Loniten) 2.5 MG tabletIndications :Alopecia hereditaria Take 0.625 mg orally daily 30 tablet 11 3 Active triamcinolone (Kenalog) 0.025 % cream APPLY TO THE AFFECTED AREA(S) TWICE DAILY 30 g 4 Active Sulfacetamide Sodium 10 % cream Apply 1 mL topically 2 times daily. 57 g 1 4 Active Diclofenac Sodium 1 % gel Apply 2 g topically if needed in the morning, at noon, in the evening, and at bedtime (pain). 150 g 3 4 Active acetaminophen (Tylenol 8 Hour) 650 MG ER tablet Take 1 tablet (650 mg) by mouth every 8 (eight) hours if needed for mild pain. 40 tablet 1 4 Active benzonatate (Tessalon) 200 MG capsule TAKE 1 CAPSULE BY MOUTH 3 TIMES A DAY NEEDED FOR COUGH 4 Active cholecalciferol (D3 Super Strength) 50 MCG (1999 UT) capsule TAKE 1 CAPSULE BY MOUTH EVERY DAY IN THE MORNING 90 capsule 3 4 Active allopurinol (Zyloprim) 300 MG tablet Take 1 tab orally daily 30 tablet 11 4 Active hydroCHLOROthiazi de (HYDRODiuril) 25 MG tabletIndications :Primary hypertension TAKE 1 TABLET EVERY MORNING 90 tablet 1 4 Active finasteride (Proscar) 5 MG tabletIndications :Androgenic alopecia, unspecified TAKE 1 TABLET BY MOUTH EVERY DAY 90 tablet 1 4 Active Active Problems Problem Noted Date Diagnosed Date Bilateral primary osteoarthritis of knee 024 Mitral regurgitation 05/20/2024 Painful arc syndrome of right shoulder 4 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 Rapid strep negative, will send for culture and start on augemntin. Acute cough 11/29/2022 03/30/2023 Assessment & Plan (11/29/2022 2:10 PM EST): Patient started with symptoms of URI on 11/21, tested positive for covid on 11/23, refers last episode of fever was over 2 days ago, denied shortness of breath, currently her only symptom is cough, told she can take honey syrup, will prescribe benzonatate, in case of worsening call back Encounters Date Type Department Care Team Description 12/03/2024 Patient Outreach [facility] [address] [place] [address] Lluvia Anderson MD Care Coordination (CHW outreach for SDOH PT-1 and food needs-referral completed /) 12/03/2024 Telephone [facility] [address] [place] [address] Lluvia Anderson MD PT-1 11/23/2024 Orders Only [facility] [address] [facility] [place], [place] [id number] Lluvia Anderson MD from Last 3 Months Immunizations Name Administration Dates Next Due Influenza injectable quadriv alent IIV4 with preservative 09/03/2019,09/21/2018,09/07/2017 Influenza injectable quadriv alent preservative free 09/27/2023 Tdap 09/21/2018 Zoster, Recombinant 08/09/2019,06/06/2019 Family History Medical History Relation Name Comments COPD Father Stroke Mother Relation Name Status Comments Father Mother Social History Tobacco Use Types Packs/Day Years Used Date Smoking Tobacco: Never Passive Smoke Exposure: Never Smokeless Tobacco: Never Tobacco Cessation:Counseling Given: Not Answered Depression Answer Date Recorded Patient Health Questionnaire-9 [...] Orientation Straight 09/26/2022 10 :31 AM EDT Last Filed Vital Signs Vital Sign Reading Time Taken Comments Blood Pressure 118/68 09/05/2024 3:16 PM EDT Pulse 74 09/05/2024 3:16 PM EDT Temperature 35.9 ??C (96.7 ??F) 09/05/2024 3:16 PM ED T Respiratory Rate 20 09/05/2024 3:16 PM EDT Oxygen Saturation 99% 05/09/2024 11:08 AM EDT Inhaled Oxygen Concentration - - Weight 97.5 kg (215 lb) 09/05/2024 3:16 PM EDT Height 165.1 cm (5' 5 ) 09/05/2024 3:16 PM EDT Body Mass Index 35.78 09/05/2024 3:16 PM EDT Plan of Treatment Upcoming Encounters Date Type Department Care Team (Late st Contact Info) Description 02/21/2025 10:00 AM EDT Office Visit [facility] [address] [place] [address] Kingsley, Soha, OD [address] [place] [address] Health Maintenance Due Date Last Done Comments CT Colonography 1962 FIT DNA/Cologuard 1962 FIT 1960 FOBT 1960 HIV Screening 1960 Sigmoidoscopy 1962 Alcohol/Substance Use Screening 1974 Hepatitis C Screening 1980 Pneumococcal Vaccine: 50+ Years (1 of 2 - PCV) 1981 RSV Patients and Patients Aged 60 years or older (1 - Risk 60-74 years 1-dose series) 2022 Colonoscopy 12/18/2022 12/18/2017 Colorectal Cancer Screening 12/18/2022 COVID-19 Vaccine ( season) 2024 11/22/2021, 03/09/2021, 02/09/2021 Influenza Vaccine (#1) 2024 , 09/03/2019, 09/21/2018, Additional history exists Depression Screening 12/29/2024 12/29/2023, 12/29/19 24 SDOH Screening 12/29/2024 12/29/2023 Tobacco Screening 09/05/2025 09/05/2024 Mammogram 11/23/2025 11/23/2024, 09/27, 10/05/2022, Additional history exists Cervical Cancer Screening 04/06/2026 HPV/Cotest 04/06/2026 04/06/2021 Pap Smear 04/06/2026 04/06/2021 Lipid Panel 01/19/2027 01/19/2022 DTaP/Tdap/Td Vaccines (2 - Td or Tdap) 09/21/2028 09/21/2018 Zoster Vaccines Completed 08/09/2019, 06/06/2019 HIB Vaccines Aged Out No longer eligi ble based on patient's age to complete this topic HPV Vaccines Aged Out No longer eligi ble based on patient's age to complete this topic Hepatitis A Vaccines Aged Out No long er eligible based on patient's age to complete this topic Hepatitis B Vaccines Aged Out No long er eligible based on patient's age to complete this topic IPV Vaccines Aged Out No longer eligi ble based on patient's age to complete this topic Meningococcal Vaccine Aged Out No joaquin scar eligible based on patient's age to complete this topic RSV under 20 months Aged Out No longe r eligible based on patient's age to complete this topic Rotavirus Vaccines Aged Out No longer eligible based on patient's age to complete this topic Procedures Procedure Name Priority Date/Time Associated Diagnosis Comments BI MAMMOGRAM SCREENING TOMOSYNTHESIS BILATERAL Routine 11/23/2024 9:57 AM EST LIPID PANEL, STANDARD Routine 01/19/2022 11:58 AM EST HPV MRNA E6/E7 Routine 04/06/2021 9:25 AM EDT THINPREP PAP Routine 04/06/2021 9:25 AM EDT HM COLONOSCOPY Routine 12/18/2017 from Last 3 Months or Most Recently Relevant to Health Maintenance Results * BI Mammogram Screening Tomosynthesis Bilateral (11/23/2024 9:57 AM EST) Anatomical Region Laterality Modality Breast Bilateral Mammography 11/23/2024 9:57 AM EST Narrative 12/06/2024 5:07 PM EST ? [facility] ? [address] ?[place] [address] ? Mammography Report ? Signed ? Patient: IsaelAfia Curran ?MR#: ?? [id number] ? : 1960 ?Acct:[id number] ? Age/Sex: 64 / F ?ADM Date: 11/23/24 ? Loc: HO.MAMMO ? Attending Dr: Lluvia Anderson MD ? Ordering Physician: Lluvia Anderson MD ?Results: 1Ne ?? gative ? Date of Service: 11/23/ ?Follow Up: 1 Year From Orig ?? inal Mammogram ? Procedure(s): MM tomosynthesis screening BI ?? Accession Number(s): [id number] ? cc: Lluvia Anderson MD ? EXAMINATION: ?? MM SCREENING DIGITAL BREAST TOMOSYNTHESIS, BILATERAL ? CLINICAL INFORMATION: ? Screening. Asymptomatic. ? COMPARISON: ?? Mammography: Comparison is made with available priors ? TECHNIQUE: ?? Digital breast mammography with tomosynthesis is performed in both the ?? craniocaudal and mediolateral oblique views along with computer-aided ?? detection (CAD). ? FINDINGS: ?? There are scattered areas of fibroglandular density (ACR BI-RADS breast ?? composition Category b). ? There are no significant masses, abnormal calcifications, or other ?? abnormalities. ? MM/MM tomosynthesis screening BI ?? IMPRESSION: ?? No mammographic evidence of malignancy. ? ASSESSMENT: ? BI-RADS BI-RADS 1 - Negative ? RECOMMENDATION: ?? Routine annual mammography screening. ? 1 year F/U ? This examination should not preclude the clinical evaluation of a ?? suspicious palpable abnormality. ? This patient's information was entered into a reminder system with a ?? target due date for their next mammogram. ? Electronically signed by: ??Emily Gr DO ??12/06/2024 05:05 PM EST ? Dictated By: ?Emily Gr DO ? Signed By: ?<Electronically signed by Emily Gr, DO in OV> ? 12/06/24 1705 ? DD/ 0957 ? TD/TT: 11/23/24 1010 ? Administrator Of Home Health: ? Procedure Note Jone, Image - 12/06/2024 [facility] [address] [place] [address] [place] [address] Mammography Report Signed Patient: Clara GuadalupenMR#: [id number] : 2Acct:[id number] Age/Sex: 64 / FADM Date: 11/23/24 Loc: LYDIAO Attending Dr: Lluvia Anderson MD Ordering Physician: Lluvia Andersonults: 1Ne gative Date of Service: 11/23/24Follow Up: 1 Year From Orig inal Mammogram Procedure(s): MM tomosynthesis screening BI Accession Number(s): [id number] cc: Lluvia Anderson MD EXAMINATION: MM SCREENING DIGITAL BREAST TOMOSYNTHESIS, BILATERAL CLINICAL INFORMATION: Screening. Asymptomatic. COMPARISON: Mammography: Comparison is made with available priors TECHNIQUE: Digital breast mammography with tomosynthesis is performed in both the craniocaudal and mediolateral oblique views along with computer-aided detection (CAD). FINDINGS: There are scattered areas of fibroglandular density (ACR BI-RADS breast composition Category b). There are no significant masses, abnormal calcifications, or other abnormalities. MM/MM tomosynthesis screening BI IMPRESSION: No mammographic evidence of malignancy. ASSESSMENT: BI-RADS BI-RADS 1 - Negative RECOMMENDATION: Routine annual mammography screening. 1 year F/U This examination should not preclude the clinical evaluation of a suspicious palpable abnormality. This patient's information was entered into a reminder system with a target due date for their next mammogram. Electronically signed by: Emily Gr DO 12/06/2024 05:05 PM EST Dictated By: Emily Gr DO Signed By: <Electronically signed by Emily Gr DO in OV> 12/06/24 1705 DD/ 0957 TD/TT: 11/23/24 1010 Administrator Of Home Health: us Lluvia Anderson MD IMG BI PROCEDURES Final Resul t * (ABNORMAL) LIPID PANEL, STANDARD (01/19/2022 11:58 AM EST) Chol/HDLC Ratio 3.4 <5.0 (calc) [facility] Cholesterol, Total 155 <200 mg/dL [facility] HDL Cholesterol 46(L) > OR = 50 mg/dL [facility] LDL Cholesterol 89 mg/dL (calc) [facility] Comment: Reference range: <100 ?? Desirable range <100 mg/dL for primary prevention; ?? <70 mg/dL for patients with CHD or diabetic patients ?? with > or = 2 CHD risk factors. ?? LDL-C is now calculated using the Saúl-Leal ?? calculation, which is a validated novel method providing ?? better accuracy than the Friedewald equation in the ?? estimation of LDL-C. ?? Saúl SS et al. GLENN. 2013;310(19): 2557-8675 ?? (http://education.[facility]/faq/GZG114) Non-HDL Cholesterol 109 <130 mg/dL (calc) [facility] Comment: For patients with diabetes plus 1 major ASCVD risk ?? factor, treating to a non-HDL-C goal of <100 mg/dL ?? (LDL-C of <70 mg/dL) is considered a therapeutic ?? option. Triglycerides 103 <150 mg/dL [facility] 01/19/2022 11:5 8 AM EST us Lluvia Anderson MD LAB BLOOD ORDERABLES Final Re sult [facility] [address] [place] [address], * THINPREP PAP (04/06/2021 9:25 AM EDT) Clinical Information: [facility] COMMENT SEE COMMENT [facility] Comment: EXPLANATORY NOTE: ? The Pap is a screening test for cervical cancer. It is ?? not a diagnostic test and is subject to false negative ?? and false positive results. It is most reliable when a ?? satisfactory sample, regularly obtained, is submitted ?? with relevant clinical findings and history, and when ?? the Pap result is evaluated along with historic and ?? current clinical information. ?? Construction Teacher : SEE COMMENT [facility] Comment: RK, CT(ASCP) CT screening location: [address] ??[address] Interpretation/R esult: Negative for intraepithelial lesion or malignancy. [facility] LMP: NONE GIVEN [facility] Prev. BX: NONE GIVEN [facility] Prev. PAP: NIL 2017 [facility] SOURCE: None given [facility] Statement Of Adequacy: SEE COMMENT [facility] Comment: Satisfactory for evaluation. Endocervical/transformation zone component present. 04/06/2021 9:25 AM EDT us Julia Billingsley [facility] LAB PATHOLOGY ORDERABLES Final Result Performing Organization Address [facility] de Phone Number [facility] [address] * HPV mRNA E6/E7 (04/06/2021 9:25 AM EDT) HPV nRNA E6/E7 Not Detected Not Detected [facility] Comment: Methodology: Stucco Laborer-Mediated Amplification This assay detects E6/E7 viral messenger RNA (mRNA) from 14 high-risk HPV types (16,18,31,33,35,39,45,51,52,56,58,59,66,68). ? The analytical performance characteristics of this assay have been determined by [employer]. The modifications have not been cleared or approved by the FDA. This assay has been validated pursuant to the CLIA regulations and is used for clinical purposes. ?? For additional information, please refer to http://education.[employer]/faq/BNM687v9 (This link if provided for information/ educational purposes only.) 04/06/2021 9:25 AM EDT Julia Analilia [facility] LAB BLOOD ORDERABLES Ciarra l Result Performing Organization Address [facility] de Phone Number [facility] [address] * Hm Colonoscopy (12/18/2017) Colonoscopy Normal Normal Narrative Alma Martinez - 12/18/2017 Recommended 5 year follow up Historical Provider HEALTH MAINTENANCE Final Result from Last 3 Months or Most Recently Relevant to Health Maintenance Insurance [facility] C3 Care Teams Material Flow Engineer Relationship Specialty Start Date End Date Lluvia Anderson MD [address] [place] [id number] PCP - General Family Medicine 06/28/17
--- OUTSIDE RECORDS SUMMARY | 2025-01-28 16:45 | XMS_ITS | Encounter Summary ---
Author Organization [employer] [facility] Address [address] [place] [address] [address] [place] [address] Care Team Providers Care Dragger Out Name Role Phone Lluvia Anderson MD Primary Care Provider [phone] Encounter Details Date Type Department Care Team (Latest Contact Info) Description 04/16/2021 Abstract [facility] CONVERSIONS Dental, Provider, DDS Social History Tobacco Use Types Packs/Day Years [...] Description 02/21/2025 10:00 AM EDT Office Visit [facility] [address] [place] [address] Kingsley, Soha, OD [address] [place] [address] documented as of this encounter Visit Diagnoses Not on filedocumented in this encounter Care Teams Dragger Out Relationship Specialty Start Date End Date Lluvia Anderson MD [address] [place] [address] PCP - General Family Medicine 06/28/17 documented as of this encounter
--- OUTSIDE RECORDS SUMMARY | 2025-01-28 16:45 | XMS_ITS | Encounter Summary ---
Author Organization [employer] Address [address] [facility] [facility] [address] [place] [address] Care Team Providers Care Pillowcase Maker Name Role Phone Lluvia Anderson MD Primary Care Provider [phone] Reason for Visit * Reason Onset Date Comments PT-1 12/03/2024 Encounter Details Date Type Department Care Team (Late st Contact Info) Description 12/03/2024 Telephone [facility] MEDICINE [address] [place] [address] Lluvia Anderson MD [address] [place] [address] PT-1 Social History Tobacco Use Types Packs/Day Years [...] encounter Miscellaneous Notes * Telephone Encounter - Luiz Love - 12/03/2024 2:24 PM EST Patient calling requesting PT1 Home Address verified: Y/N: Yes Provider name or facility name: [address] [address] Escort needed: Y/N: Yes Do you have a wheelchair: Y/N: No If yes- Manual or electric: N/A Visits: (amount of visits) ( x monthly, weekly, daily) 1 time a year documented in this encounter Plan of Treatment Upcoming Encounters Date Type Department Care Team (Late st Contact Info) Description 02/21/2025 10:00 AM EDT Office Visit [facility] OPT[facility]RY [address] [place] [address] Soha Wynn, OD [address] [place] [address] documented as of this encounter Visit Diagnoses Not on filedocumented in this encounter Additional Health Concerns Assessment Noted Time PHQ-9 Depression Total Score: 0 12/29/19 24 9:27 AM EST documented as of this encounter Care Teams Pillowcase Maker Relationship Specialty Start Date End Date Lluvia Anderson MD [address] [place] [address] PCP - General Family Medicine 06/28/17 documented as of this encounter
--- OUTSIDE RECORDS SUMMARY | 2025-01-28 16:45 | XMS_ITS | Encounter Summary ---
Author Organization [employer] Address [address] [facility] [address] [place] [address] Care Team Providers Care Pedigree Researcher Name Role Phone Lluvia Anderson MD Primary Care Provider [phone] Reason for Visit * Reason Onset Date Comments Results 04/25/2024 Encounter Details Date Type Department Care Team ([facility] st Contact Info) Description 04/25/2024 Telephone [facility] MEDICINE [address] [place] [address] Lluvia Anderson MD [address] [place], [place] [phone] Results Social History Tobacco Use Types Packs/Day Years [...] encounter Miscellaneous Notes * Telephone Encounter - Wing Leah RN - 04/25/2024 12:15 PM EDT Tc to pt using [employer] [place], [place] [id number] in regards to lab results from 04/19. Relayed Dr. Nieto's notes that all labs were negative and pt could return to care if symptoms persist. Pt reports only yellow discharge, denies fever, chills, and dysuria. Advised pt to continue to monitor and to call back if discharge continued. Pt verbalized understanding and agreement with plan. * Telephone Encounter - Deysi Farris - 04/25/2024 11:55 AM EDT Tc from pt requesting a call back with labs results from 04/19 Frisian speaker documented in this encounter Plan of Treatment Upcoming Encounters Date Type Department Care Team (Late st Contact Info) Description 02/21/2025 10:00 AM EDT Office Visit [facility] OPTOMETRY [address] [place] [address] Soha Wynn, OD [address] [place] [address] documented as of this encounter Visit Diagnoses Not on filedocumented in this encounter Additional Health Concerns Assessment Noted Time PHQ-9 Depression Total Score: 0 02/02/20 24 9:27 AM EST documented as of this encounter Care Teams Pedigree Researcher Relationship Specialty Start Date End Date Lluvia Anderson MD [address] [place] [address] PCP - General Family Medicine 06/28/17 documented as of this encounter
== END 2025-01-28 14:02 | disposition home or self-care (01) ==
PROVIDERS: PCP Pediatrics; Visit Provider Physician Assistant
DX: M17.0 Bilateral primary osteoarthritis of knee (principal)
CPT/HCPCS: 20610; 99213

== ENCOUNTER → 2025-01-28 13:22 | Outpatient (BNVA) | payer MEDICAID, SELFPAY | PROVIDERS: PCP Pediatrics; Visit Provider Physician Assistant | DX: M17.0 Bilateral primary osteoarthritis of knee (principal) | CPT/HCPCS: 20610; 99212; J1010; J2003 ==

== ENCOUNTER → 2025-02-24 09:27 | Outpatient (REF) | payer MEDICAID, SELFPAY ==
--- NOTE | 2025-02-24 09:31 | CA_ITS ---
Transthoracic Echocardiogram Patient (Last, First, Middle): Afia Guadalupe, Gender: Female Date of : 1960 Age: 64 Procedure Date: 02/24/2025 Procedure Type: Transthoracic Echocardiogram Location: OP Height: 165.1 cm Weight: 98.43 kg BSA: 2.05 m2 Heart Rate: bpm BP: 124 / 70 mmHg Machine Feller: Referring MD: Everette Beaulieu MD Symptoms: I48.0 - Paroxysmal atrial fibrillation Study Quality: Adequate ECG Rhythm: Sinus Conclusions: - The left ventricular systolic function is low normal. The calculated ejection fraction is 53% by biplane method. - There is mild aortic valve regurgitation. - There is mild to moderate tricuspid valve regurgitation. Findings Left Ventricle Normal left ventricular cavity size. There is normal left ventricular wall thickness. The left ventricular systolic function is low normal. The calculated ejection fraction is 53% by biplane method. There is no evidence of regional wall motion abnormalities. Evidence suggests grade I (mild) diastolic dysfunction. Right Ventricle Normal right ventricular cavity size and systolic function. Atria Both atria are normal in size. Aortic Valve There is a normal trileaflet aortic valve. There is no aortic valve stenosis. There is mild aortic valve regurgitation. Mitral Valve The mitral valve appears normal. There is no mitral valve regurgitation. There is no mitral valve stenosis. Pulmonic Valve There is trace pulmonic valve regurgitation. Tricuspid Valve There is mild to moderate tricuspid valve regurgitation. There is no evidence of pulmonary hypertension. Great Vessels The asc aorta is normal in size. Venous The inferior vena cava is normal in size and collapses greater than 50% with inspiration. Pericardium/Pleural There is no evidence of pericardial effusion. Prior Study Comparison No significant change compared to prior study dated: 02/14/2024. Images compared and no significant change. Measurements 2D Linear Measurements IVSd: 0.87 0.6-0.9/0.6-1.0 cm LVIDd: 4.32 3.9-5.3/4.2-5.9 cm LVIDd Index: 2.11 2.4-3.2/2.2-3.1 cm/m2 LVIDs: 2.96 2.0-3.6 cm LVPWd: 0.86 0.7-1.1 cm Ao Root: 2.50 2.1-3.5 cm LA Diam: 3.30 2.7-3.8/3.0-4.0 cm LAIDs Index: 1.61 1.5-2.3 cm/m2 LV Mass: 145.77 67-162/88-224 g LV Mass Index: 71.11 43-95/49-115 g/m2 LVOT Diam: 1.90 3.0+(-)1.3 cm 2D Systolic Function EF 4C: 51.60 >55% EF 2C: 60.70 >55% EF BiP: 53.30 >55% Mitral Valve MV Pk E: 0.45 MV PK A: 0.62 MV Decel Time: 181.00 E/A: 0.70 E'Lateral: 4.13 E/E' Lat: 10.80 PHT: 53.00 MVA PHT: 4.15 Decel Hayes: 2.46 Aortic Valve AoV Pk Chance: 1.49 AoV Mn Chance: 0.96 AoV VTI: 0.37 AoV Pk Grad: 9.00 Aov Mn Grad: 4.00 DIANA Cont.VTI: 1.43 AI Pk Chance: 4.83 AI Hayes: 2.48 LVOT LVOT Pk Chance: 0.79 LVOT Mn Chance: 0.48 LVOT VTI: 0.19 LVOT Pk Grad: 2.00 LVOT Mn Grad: 1.00 LVOT Diam: 1.90 LVOT Area: 2.84 Diastolic Function MV Pk E: 0.45 MV Pk A: 0.62 E/A: 0.70 E' Laterial: 4.13 E/E' Lat: 10.80 Right Ventricle TAPSE (mm): 23.00 TVS' Chance: 10.00 Tricuspid Valve TR Pk Chance: 2.68 TR Pk Grad: 29.00 RA Press: 3.00 RVSP: 32.00 Great Vessels Aorta Ao Root-2D: 2.50 2.0-3.7 cm Ao Asc: 2.80 2.1-3.4 cm Pulmonary Valve PV Pk Chance: 0.81 Peak PV Grad: 3.00 Updated in Other Vendor System with Status of Final Joe Guillaume MD electronically signed on 02/25/2025 11:12:58 AM with status of Final
== END ==
LOC: HO.CARD 09:27
PROVIDERS: PCP Pediatrics; Visit Provider Internal Medicine Cardiovascular Disease
DX: I48.0 Paroxysmal atrial fibrillation (principal)
CPT/HCPCS: 93306

== ENCOUNTER → 2025-02-24 09:31 | Outpatient (BNV) | payer MEDICAID, SELFPAY | PROVIDERS: PCP Pediatrics; Visit Provider Internal Medicine | DX: I42.8 Other cardiomyopathies (principal); I35.1 Nonrheumatic aortic (valve) insufficiency; I36.1 Nonrheumatic tricuspid (valve) insufficiency | CPT/HCPCS: 93306 ==

== ENCOUNTER 2025-03-06 09:28 | Outpatient (AMB) | payer MEDICAID, SELFPAY ==
--- NOTE | 2025-03-06 09:31 | A.OFFVIS_ITS ---
Vital Signs 03/06/25 09:32 Height 5 ft 5 in Weight 216 lb 0.848 oz BMI 35.9 BP 130/84 Blood Pressure Location Lt brachial Position Sitting Pulse 71 Intake Visit Reasons: 1 yr fu w/ ekg Intake Note: 1 year follow-up with ekg feeling good Learning Center Instructor Required: Yes Learning Center Instructor Services: Learning Center Instructor Present Learning Center Instructor Name: quan Luevano Allergies No Known Allergies [NO KNOWN ALLERGIES] Allergy (Unknown, Verified 01/28/25 13:37) N/A Medication List - Last Reconciled 03/06/25 by Everette Beaulieu MD acetaminophen (Tylenol Extra Strength) 500 mg PO Q6H PRN cholecalciferol (vitamin D3) (Vitamin D3) 50 mcg PO QAM finasteride 5 mg PO DAILY flecainide 50 mg PO BID 90 days hydrochlorothiazide 25 mg PO DAILY lidocaine 5% (Lidoderm) 1 patch topical DAILY metoprolol succinate ER 50 mg PO DAILY rivaroxaban (Xarelto) 20 mg PO QPM HPI Comments Details: Afia comes for follow-up. She has not been to the weather as well as her knee pain. However she has been doing well from cardiac perspective. She denies any significant exertional chest pain or shortness of breath. Denies any prolonged palpitation irregular heartbeat. No bleeding issues or neurologic events. Recent echocardiogram shows mild aortic regurgitation [id number] tricuspid regurgitation. Denies any heart failure symptoms. No lightheadedness, syncope. No exertional chest pain. 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 Review of Systems Const Denies chills, Denies fatigue, Denies fever(s), Denies frequent falls, Denies weakness, Denies weight gain and Denies weight loss ENT Denies dizziness Card Denies chest pain, Denies leg edema, Denies lightheadedness, Denies palpitations, Denies dyspnea, Denies dyspnea on exertion, Denies orthopnea and Denies other (loss of consciousness) Resp Denies cough, Denies dyspnea and Denies dyspnea on exertion GI Denies hematochezia and Denies change in stool character Musc Denies abnormal gait, Denies muscle weakness, Denies numbness, Denies radiating pain into limb and Denies tingling Neuro Denies abnormal gait, Denies dizziness, Denies frequent falls, Denies numbness, Denies tingling and Denies weakness Endo Denies fatigue and Denies palpitations Physical Exam Vital Signs: Last Vital Signs Pulse 71 03/06/25 09:32 BP 130/84 03/06/25 09:32 BMI result Body Mass Index 35.9 Repeat blood pressure-120/70 Const General: cooperative, comfortable, alert and awake Nutritional Appearance: obese Orientation/consciousness: patient oriented x3 Limitations: no limitations Neck Neck: Yes trachea midline, Yes supple and Yes no JVD Chest Chest palpation & inspection: normal inspection of the chest Resp Effort & Inspection: normal respiratory effort Auscultation: clear to auscultation bilaterally Cardio Jugular venous distension: no JVD Palpation: normal PMI Rate: regular rate Rhythm: regular rhythm Heart sounds: S1 normal heart sound present and S2 normal heart sound present Neuro General: patient oriented x3 and no focal motor deficits Extrem General: Yes no clubbing, cyanosis or edema Psych Appearance: grossly normal Office Procedures EKG Details: EKG shows normal sinus rhythm with normal EKG 43258-Hooysoisejygugefp, Complete Assessment & Plan Assessment & Plan (1) Paroxysmal atrial fibrillation: Code(s): I48.0 - Paroxysmal atrial fibrillation Category: Medical Plan: Highly symptomatic paroxysmal atrial fibrillation doing well on current antiarrhythmic drug therapy with flecainide. Needs concomitant rate lowering medication would continue metoprolol therapy. Continue full oral anticoagulation, currently on Xarelto 20 mg daily. Semi annual renal function test and annual CBC should be performed. Continue to participate in weight loss program which has shown to reduce recurrence of atrial fibrillation. Continue aggressive blood pressure control. She understands agrees. She was advised to call me with any new symptoms. (2) HTN (hypertension): Code(s): I10 - Essential (primary) hypertension Category: Medical Plan: Hypertension which is currently well optimized on current therapy with metoprolol and hydrochlorothiazide. Importance of good blood pressure control was discussed. Low-salt diet was advised. Advised to monitor blood pressure at home intermittently and maintain a log. Goal blood pressure less than 130/84. Encouraged to increase her aerobic activity. (3) Valvular heart disease: Code(s): I38 - Endocarditis, valve unspecified Category: Medical Plan: Valvular heart disease with mild aortic regurgitation [id number] tricuspid regurgitation. Follow-up echocardiogram in a year's time. No interventions required. Will follow up in the clinic in 6 months time for EKG only in 1 year with me. Thank you for allowing me to partake in his care Orders: Orders CA echo transthoracic complete 1 Year I48.0 - Paroxysmal atrial fibrillation Basic Metabolic Panel Today I48.0 - Paroxysmal atrial fibrillation Complete Blood Count no Diff Today I48.0 - Paroxysmal atrial fibrillation Coding Level of Care Code Est Pt Level 4 (55461) Complex EM visit Add On G2211 Diagnoses Paroxysmal atrial fibrillation I48.0 HTN (hypertension) I10 Valvular heart disease I38 CPT Codes EKG - CPT: 50947-Upwperubwslmxzlwv, Complete ([id number])
[2025-03-06 09:32] VITALS: BP 130/84; PULSE 71; BMI 35.9
--- OUTSIDE RECORDS SUMMARY | 2025-03-06 10:23 | XMS_ITS | Encounter Summary ---
Author Organization [employer] Address [address] [facility] 7t [place] [address] Care Team Providers Care Emergency Medical Service Coordinator Name Role Phone Lluvia Anderson MD Primary Care Provider [phone] Encounter Details Date Type Department Care Team ([facility] Contact Info) Description 10/03/2023 Abstract [facility] [address] [place], [place] [phone] Lluvia Anderson MD [address] [place], [place] [phone] Social History Tobacco Use Types Packs/Day Years [...] Upcoming Encounters Date Type Department Care Team ([facility] Contact Info) Description 03/11/2025 9:45 AM EDT Office Visit [facility] MED & PEDS [address] [place], [place] [phone] Lluvia Anderson MD [address] [place], [place] [phone] documented as of this encounter Procedures Procedure Name Priority Date/Time Associated Diagnosis Comments COLONOSCOPY Routine 12/18/2017 documented in this encounter Results * Colonoscopy (12/18/2017) Colonoscopy Normal Normal Narrative Alma Martinez - 12/18/2017 Recommended 5 year follow up us Historical Provider HEALTH MAINTENANCE Final Result documented in this encounter Visit Diagnoses Not on filedocumented in this encounter Care Teams Emergency Medical Service Coordinator Relationship Specialty Start Date End Date Lluvia Anderson MD [address] [place] [address] PCP - General Family Medicine 06/28/17 documented as of this encounter
--- OUTSIDE RECORDS SUMMARY | 2025-03-06 10:23 | XMS_ITS | Encounter Summary ---
Author Organization [employer] Address [address] [facility] 7t [place] [address] Care Team Providers Care School Library Media Specialist Name Role Phone Lluvia Anderson MD Primary Care Provider [phone] Encounter Details Date Type Department Care Team ([facility] st Contact Info) Description 01/23/2024 Telephone [facility] MED & PEDS [address] [place], [place] [phone] Lluvia Anderson MD [address] [place] [address] Social History Tobacco Use Types Packs/Day Years [...] is not working. Please contact pt at [phone] (Slovenian) documented in this encounter Plan of Treatment Upcoming Encounters Date Type Department Care Team (Late st Contact Info) Description 03/11/2025 9:45 AM EDT Office Visit [facility] MED & PEDS [address] [place], [place] [phone] Lluvia Anderson MD [address] [place] [address] documented as of this encounter Visit Diagnoses Not on filedocumented in this encounter Additional Health Concerns Assessment Noted Time PHQ-9 Depression Total Score: 0 12/29/19 24 9:27 AM EST documented as of this encounter Care Teams School Library Media Specialist Relationship Specialty Start Date End Date Lluvia Anderson MD [address] [place] [address] PCP - General Family Medicine 06/28/17 documented as of this encounter
--- OUTSIDE RECORDS SUMMARY | 2025-03-06 10:23 | XMS_ITS | Encounter Summary ---
Author Organization [employer] Address [address] [place] [address] [address], [place] [address] Care Team Providers Care Business Process Consultant Name Role Phone Lluvia Anderson MD Primary Care Provider [phone] Reason for Visit * Reason Onset Date Comments pt1 12/14/2022 Encounter Details Date Type Department Care Team ([facility] Contact Info) Description 12/14/2022 Telephone [facility] [address] [place] [phone] Lluvia Anderson MD [address] [place], [place] [phone] pt1 Social History Tobacco Use Types Packs/Day [...] pt requesting to update yearly PT1 Location: [facility] [address] [place] [address] Specialty: care provider Time: n/a Date:n/a Truck Packer: n/a wheelchair accessible : n/a Location: [address] [address] Specialty: locomotive repairer diesel Time: n/a Date:n/a Truck Packer:n/a wheelchair accessible :n/a Location: [address] [address] 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: locomotive 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 / 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 works Time:n/a Date:n/a Truck Packer:n/a wheelchair accessible :n/a documented in this encounter Plan of Treatment Upcoming Encounters Date Type Department Care Team (Late st Contact Info) Description 03/11/2025 9:45 AM EDT Office Visit [facility] MED & PEDS [address] [place] [address] Lluvia Anderson MD [address] [place] [address] documented as of this encounter Visit Diagnoses Not on filedocumented in this encounter Care Teams Business Process Consultant Relationship Specialty Start Date End Date Lluvia Anderson MD [address] [place] [address] PCP - General Family Medicine 06/28/17 documented as of this encounter
--- OUTSIDE RECORDS SUMMARY | 2025-03-06 10:23 | XMS_ITS | Encounter Summary ---
Author Organization [employer] [facility] Address [address] [place] [address] 7t [place] [address] Care Team Providers Care Electronics Detail Draftsperson Name Role Phone Lluvia Anderson MD Primary Care Provider [phone] Encounter Details Date Type Department Care Team (Latest Contact Info) Description 04/16/2021 Abstract [facility] CONVERSIONS Dental, Provider, DDS Social History Tobacco [...] Description 03/11/2025 9:45 AM EDT Office Visit [facility] CHC MED & PEDS [address] [place] [address] Lluvia Anderson MD [address] [place] [address] documented as of this encounter Visit Diagnoses Not on filedocumented in this encounter Care Teams Electronics Detail Draftsperson Relationship Specialty Start Date End Date Lluvia Anderson MD [address] [place] [address] PCP - General Family Medicine 06/28/17 documented as of this encounter
--- OUTSIDE RECORDS SUMMARY | 2025-03-06 10:23 | XMS_ITS | Encounter Summary ---
Author Organization [employer] Address [address] [facility] [address] 7[address] [place] [address] Care Team Providers Care Junior Sales Assistant Name Role Phone Lluvia Anderson MD Primary Care Provider [phone] Reason for Visit * Reason Onset Date Comments PT-1 12/03/2024 Encounter Details Date Type Department Care Team (Late st Contact Info) Description 12/03/2024 Telephone [facility] [address] [place] [address] Lluvia Anderson MD [address] [place] [address] PT-1 Social History Tobacco Use Types Packs/Day [...] Miscellaneous Notes * Telephone Encounter - Luiz Ivan - 12/03/2024 2:24 PM EST Patient calling requesting PT1 Home Address verified: Y/N: Yes Provider name or facility name: [address] [address] Escort needed: Y/N: Yes Do you have a wheelchair: Y/N: No If yes- Manual or electric: N/A Visits: (amount of visits) ( x monthly, weekly, daily) 1 time a year documented in this encounter Plan of Treatment Upcoming Encounters Date Type Department Care Team (Late st Contact Info) Description 03/11/2025 9:45 AM EDT Office Visit [facility] CH[facility] MED & PEDS [address] [place] [address] Lluvia Anderson MD [address] [place] [address] documented as of this encounter Visit Diagnoses Not on filedocumented in this encounter Additional Health Concerns Assessment Noted Time PHQ-9 Depression Total Score: 0 12/29/19 24 9:27 AM EST documented as of this encounter Care Teams Junior Sales Assistant Relationship Specialty Start Date End Date Lluvia Anderson MD [address] [place] [address] PCP - General Family Medicine 06/28/17 documented as of this encounter
--- OUTSIDE RECORDS SUMMARY | 2025-03-06 10:23 | XMS_ITS | Clinical Summary ---
Author Organization [employer] Address [address] [facility] 7t [place] [address] Care Team Providers Care Memorial Designer Name Role Phone Lluvia Anderson MD Primary Care Provider [phone] Allergies No known active allergies Medications baclofen (Lioresal) 10 MG tablet Take 1 tablet by mouth in the morning and 1 tablet in the evening. 05/25/20 21 Active flecainide (Tambocor) 50 MG tablet Take 1 tablet by mouth every 12 (twelve) hours. Active metoprolol succinate XL (Toprol XL) 50 MG 24 hr tablet Take 1 Tablet by Oral route once a day 12/26/19 20 Active rivaroxaban (Xarelto) 20 MG tablet Take 1 tablet by mouth at bed time. Active minoxidil (Loniten) 2.5 MG tabletIndication s:Alopecia hereditaria Take 0.625 mg orally daily 30 tablet 11 09/27/20 23 Active triamcinolone (Kenalog) 0.025 % cream APPLY TO THE AFFECTED AREA(S) TWICE DAILY 30 g 12/08/19 24 Active Sulfacetamide Sodium 10 % cream Apply 1 mL topically 2 times daily. 57 g 1 02/28/20 24 Active Diclofenac Sodium 1 % gel Apply 2 g topically if needed in the morning, at noon, in the evening, and at bedtime (pain). 150 g 3 05/09/20 24 Active acetaminophen (Tylenol 8 Hour) 650 MG ER tablet Take 1 tablet (650 mg) by mouth every 8 (eight) hours if needed for mild pain. 40 tablet 1 05/09/20 24 Active benzonatate (Tessalon) 200 MG capsule TAKE 1 CAPSULE BY MOUTH 3 TIMES A DAY NEEDED FOR COUGH 04/14/20 24 Active cholecalciferol (D3 Super Strength) 50 MCG (1999 UT) capsule TAKE 1 CAPSULE BY MOUTH EVERY DAY IN THE MORNING 90 capsule 3 06/04/20 24 Active allopurinol (Zyloprim) 300 MG tablet Take 1 tab orally daily 30 tablet 11 06/05/20 24 Active hydroCHLOROthiaz ron (HYDRODiuril) 25 MG tabletIndication s:Primary hypertension TAKE 1 TABLET BY MOUTH EVERY DAY IN THE MORNING 90 tablet 1 02/28/20 25 Active finasteride (Proscar) 5 MG tabletIndication s:Androgenic alopecia, unspecified TAKE 1 TABLET BY MOUTH EVERY DAY 90 tablet 1 02/28/20 25 Active hydroCHLOROthiaz ron (HYDRODiuril) 25 MG tabletIndication s:Primary hypertension TAKE 1 TABLET EVERY MORNING 90 tablet 1 08/26/20 24 025 Discontinued finasteride (Proscar) 5 MG tabletIndication s:Androgenic alopecia, unspecified TAKE 1 TABLET BY MOUTH EVERY DAY 90 tablet 1 08/26/20 24 025 Discontinued Active Problems Problem Noted Date Diagnosed Date [...] Encounters Date Type Department Care Team Description 02/26/[address] [facility] CH[facility] MED & PEDS [address] [place] [address] Lluvia Anderson MD Primary hypertension; Androgenic alopecia, unspecified 02/21/2025 10:00 AM EDT Office Visit [facility] OPTOMET[facility] [address] [place] [address] Kingsley, Soha, OD Retinal defect, left (Primary Dx); Combined forms of age-related cataract of both eyes; Myopia of both eyes 02/21/2025 Travel 02/07/[address] [facility] () Department [address] [place] [phone] Provider, Population Health Generic from Last 3 Months Immunizations Name Administration [...] Description 03/11/2025 9:45 AM EDT Office Visit [facility] MED & PEDS [address] [place] [address] Lluvia Anderson MD [address] [place] [address] Health Maintenance Due Date Last Done Comments [...] 12/29/2023, 12/29/19 24 SDOH Screening 12/29/2024 12/29/2023 Mammogram 11/23/2025 11/23/2024, 09/27, 10/05/2022, Additional history exists Tobacco Screening 03/03/2026 03/03/2025 Cervical Cancer Screening 04/06/2026 HPV/Cotest 04/06/2026 04/06/2021 [...] EST Narrative 12/06/2024 5:07 PM EST ? [facility] [employer] ? [address] ?[place] [address] ? Mammography Report ? Signed ? Patient: Afia Guadalupe ?MR#: ?? [id number] ? : 1960 ?Acct:[id number] ? Age/Sex: 64 / F ?ADM Date: 12/28/24 ? Loc: HO.MAMMO ? Attending Dr: Lluvia Anderson MD ? Ordering Physician: Lluvia Anderson MD ?Results: 1Ne ?? gative ? Date of Service: 11/23/24 ?Follow Up: 1 Year From Orig ?? inal Mammogram ? Procedure(s): MM tomosynthesis screening BI ?? Accession Number(s): [id number] ? cc: Lluvia Anderson MD ? EXAMINATION: [...] ??Emily Gr DO ??12/06/2024 05:05 PM EST ?? RP ? Dictated By: ?Emily Gr DO ? Signed By: ?<Electronically signed by Emily Gr, DO in OV> ? 12/06/24 1705 ? DD/ 0957 ? TD/TT: 11/23/24 1010 ? Sand Blaster: ? Procedure Note Jone, Image - 12/06/2024 [facility] [address] [place] [address] Dr. Desai, [place] [address] Mammography Report Signed Patient: Jennifer Guadalupe#: [id number] : 2Acct:[id number] Age/Sex: 64 / FADM Date: 11/23/24 Loc: HO.MAMMO Attending Dr: Lluvia Anderson MD Ordering Physician: Lluvia Anderson MDResults: 1Ne gative Date of Service: 11/23/24Follow Up: 1 Year From Orig ina Mammogram Procedure(s): MM tomosynthesis screening BI Accession Number(s): [id number] cc: Lluvia Anderson MD EXAMINATION: MM SCREENING [...] 12/06/24 1705 DD/ 0957 TD/TT: 11/23/24 1010 Sand Blaster: us Lluvia Anderson MD IM BI PROCEDURES Final Resul t * (ABNORMAL) LIPID PANEL, STANDARD (01/19/2022 11:58 AM EST) Chol/HDLC Ratio 3.4 <5.0 (calc) [facility] Cholesterol, Total 155 <200 mg/dL [facility] HDL Cholesterol 46(L) > OR = 50 mg/dL [facility] LDL Cholesterol 89 mg/dL (calc) [facility] Comment: Reference range: <100 ?? Desirable range <100 mg/dL for primary prevention; ?? <70 mg/dL for patients with CHD or diabetic patients ?? with > or = 2 CHD risk factors. ?? LDL-C is now calculated using the Dori ?? calculation, which is a validated novel method providing ?? better accuracy than the Friedewald equation in the ?? estimation of LDL-C. ?? Saúl ROBERTSON et al. GLENN. 2013;310(19): 5975-8309 ?? (http://education.[employer]/faq/MDZ462) Non-HDL Cholesterol 109 <130 mg/dL (calc) [facility] Comment: For patients with diabetes plus 1 major ASCVD risk ?? factor, treating to a non-HDL-C goal of <100 mg/dL ?? (LDL-C of <70 mg/dL) is considered a therapeutic ?? option. Triglycerides 103 <150 mg/dL [facility] 01/19/2022 11:5 8 AM EST Lluvia Anderson MD LAB BLOOD ORDERABLES Final Re sult [facility] [address] * THINPREP PAP (04/06/2021 9:25 AM EDT) Clinical Information: MENOPAUSAL [facility] COMMENT SEE COMMENT [facility] [...] historic and ?? current clinical information. ?? Epic Ambulatory Analyst : SEE COMMENT [facility] Comment: RK, CT(ASCP) CT screening location: [address] ??[address] Interpretation/R esult: Negative for intraepithelial lesion or malignancy. [facility] LMP: NONE GIVEN [facility] Prev. BX: NONE GIVEN [facility] Prev. PAP: NIL 2017 [facility] SOURCE: None given [facility] Statement Of Adequacy: SEE COMMENT [facility] Comment: Satisfactory for evaluation. Endocervical/transformation zone component present. 04/06/2021 9:25 AM EDT Julia Billingsley [facility] LAB PATHOLOGY ORDERABLES Final Result Performing Organization Address [facility] Co de Phone Number [facility] [address] [place] [address], * HPV mRNA E6/E7 (04/06/2021 9:25 AM EDT) HPV nRNA E6/E7 Not Detected Not Detected [facility] Comment: Methodology: Shank Tapper-Mediated Amplification This assay detects E6/E7 viral messenger RNA (mRNA) from 14 high-risk HPV types (16,18,31,33,35,39,45,51,52,56,58,59,66,68). ? The analytical performance characteristics of this assay have been determined by [employer]. The modifications have not been cleared or approved by the FDA. This assay has been validated pursuant to the CLIA regulations and is used for clinical purposes. ?? For additional information, please refer to http://education.flaveit.[employer]/faq/PVN116w8 (This link if provided for information/ educational purposes only.) 04/06/2021 9:25 AM EDT Julia Billingsley [facility] LAB BLOOD ORDERABLES Ciarra l Result Performing Organization Address [facility] Co de Phone Number [facility] [address] [place] [address], * Hm Colonoscopy (12/18/2017) Colonoscopy Normal Normal Narrative Alma Martinez - 12/18/2017 Recommended 5 year follow up Historical Provider MD HEALTH MAINTENANCE Final Result from Last 3 Months or Most Recently Relevant to Health Maintenance Insurance [facility] C3 Care Teams Memorial Designer Relationship Specialty Start Date End Date Lluvia Anderson MD [address] [place] [address] PCP - General Family Medicine 06/28/17
--- OUTSIDE RECORDS SUMMARY | 2025-03-06 10:23 | XMS_ITS | Encounter Summary ---
Author Organization [employer] Address [address] [place] [address] [address] [place] [address] Care Team Providers Care Retail Shift Leader Name Role Phone Lluvia Anderson MD Primary Care Provider [phone] Reason for Visit * Reason Onset Date Comments PT1 12/07/2023 Encounter Details Date Type Department Care Team ([facility] st Contact Info) Description 12/07/2023 Telephone [facility] CH[facility] MED & PEDS [address] [place], [place] [phone] Lluvia Anderson MD [address] [place] [address] PT1 Social History Tobacco Use Types Packs/Day [...] n/a Time: n/a Visits: n/a Address: [address] [facility] Facility: (name, specialty or name of doctor) Wheel Chair: no Dictionary Editor Needed: n/a Date: 12/29 Time: 9:45 AM Visits: (amount of visits) ( x monthly, weekly, daily) Address: [address] [facility] Facility: (name, specialty or name of doctor) Wheel Chair: no Dictionary Editor Needed: n/a Date: n/a Time: n/a Visits: (amount of visits) ( x monthly, weekly, daily) Address: [address] [facility] Facility: [facility] Wheel Chair: cloth bale header Dictionary Editor Needed: n/a documented in this encounter Plan of Treatment Upcoming Encounters Date Type Department Care Team ([facility] Contact Info) Description 03/11/2025 9:45 AM EDT Office Visit [facility] MED & PEDS [address] [place] [address] Lluvia Anderson MD [address] [place] [address] documented as of this encounter Visit Diagnoses Not on filedocumented in this encounter Care Teams Retail Shift Leader Relationship Specialty Start Date End Date Lluvia Anderson MD [address] [place] [address] PCP - General Family Medicine 06/28/17 documented as of this encounter
--- OUTSIDE RECORDS SUMMARY | 2025-03-06 10:23 | XMS_ITS | Encounter Summary ---
Author Organization [employer] Address [address] [facility] 7t [place] [address] Care Team Providers Care Postdoctoral Scholar Name Role Phone Lluvia Anderson MD Primary Care Provider [phone] Reason for Visit * Reason Onset Date Comments Results 04/25/2024 Encounter Details Date Type Department Care Team ([facility] st Contact Info) Description 04/25/2024 Telephone [facility] MEDICINE [address] [place] [address] Lluvia Anderson MD [address] [place], [place] [phone] Results Social History Tobacco Use Types Packs/Day [...] 12:15 PM EDT Tc to pt using [employer] [place], [place] [id number] in regards to lab results from 04/19. [...] call back with labs results from 04/19 Polish speaker documented in this encounter Plan of Treatment Upcoming Encounters Date Type Department Care Team (Late st Contact Info) Description 03/11/2025 9:45 AM EDT Office Visit [facility] CHC MED & PEDS [address] [place] [address] Lluvia Anderson MD [address] [place] [address] documented as of this encounter Visit Diagnoses Not on filedocumented in this encounter Additional Health Concerns Assessment Noted Time PHQ-9 Depression Total Score: 0 12/29/19 24 9:27 AM EST documented as of this encounter Care Teams Postdoctoral Scholar Relationship Specialty Start Date End Date Lluvia Anderson MD [address] [place] [phone] PCP - General Family Medicine 06/28/17 documented as of this encounter
== END 2025-03-06 09:57 | disposition home or self-care (01) ==
LOC: HO.HCS 09:28
PROVIDERS: PCP Pediatrics; Visit Provider Internal Medicine Cardiovascular Disease
DX: I48.0 Paroxysmal atrial fibrillation (principal); I10 Essential (primary) hypertension; I38 Endocarditis, valve unspecified
CPT/HCPCS: 93010; 99214

== ENCOUNTER 2025-03-06 09:28 | Outpatient (REF) | payer MEDICAID, SELFPAY ==
[2025-03-06 11:11] LABS: Hematocrit 41.9 % (37.0-47.0); Hemoglobin 13.8 g/dl (12.0-16.0); Mean Corpuscular HGB Conc 32.9 g/dl (31.0-35.0); Mean Corpuscular Hemoglobin 27.4 pg (27.0-33.0); Mean Corpuscular Volume 83.3 fL (80.0-98.0); Mean Platelet Volume 8.8 fL (9.4-12.3); Platelet Count 385 X10*3/uL (160-400); Red Blood Count 5.03 X10*6/uL (4.20-5.50); Red Cell Distribution Width 14.7 % (11.0-16.0)
[2025-03-06 11:44] LABS: Anion Gap 13 (12-20); Blood Urea Nitrogen 23 mg/dL (9-16); Calcium 9.5 mg/dL (8.4-10.2); Carbon Dioxide 29 mmol/L (22-29); Chloride 106 mmol/L (96-108); Estimated Glomerular Filt Rate 58; Glucose Random 87 mg/dL (60-115); Potassium 3.9 mmol/L (3.3-5.1); Sodium 144 mmol/L (135-145)
--- OUTSIDE RECORDS SUMMARY | 2025-03-06 11:46 | XMS_ITS | Encounter Summary ---
Author Organization [employer] Address [address] [place] [address] [place], [place] [address] Care Team Providers Care Computer Numerical Control Operator Name Role Phone Lluvia Anderson MD Primary Care Provider [phone] Reason for Visit * Reason Onset Date Comments pt1 12/14/2022 Encounter Details Date Type Department Care Team ([facility] Contact Info) Description 12/14/2022 Telephone [facility] MEDICINE [address] [place] [address] Lluvia Anderson MD [address] [place], [place] [phone] pt1 Social History Tobacco Use Types Packs/Day [...] pt requesting to update yearly PT1 Location: [facility] [address] [place] [address] Specialty: care provider Time: n/a Date:n/a Shorts Sifter: n/a wheelchair accessible : n/a Location: [address] [address] 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 Time: n/a Date:n/a Shorts Sifter:n/a wheelchair accessible :n/a Location: [address] [address] 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 Time:n/a Date:n/a Shorts Sifter:n/a wheelchair accessible :n/a documented in this encounter Plan of Treatment Upcoming Encounters Date Type Department Care Team (Late st Contact Info) Description 03/11/2025 9:45 AM EDT Office Visit [facility] MED & PEDS [address] [place] [address] Lluvia Anderson MD [address] [place] [address] documented as of this encounter Visit Diagnoses Not on filedocumented in this encounter Care Teams Computer Numerical Control Operator Relationship Specialty Start Date End Date Lluvia Anderson MD [address] [place] [address] PCP - General Family Medicine 06/28/17 documented as of this encounter
--- OUTSIDE RECORDS SUMMARY | 2025-03-06 11:46 | XMS_ITS | Encounter Summary ---
Author Organization [employer] Address [address] 7[address] [place] [address] Care Team Providers Care Youth Counselor Name Role Phone Lluvia Anderson MD Primary Care Provider [phone] Encounter Details Date Type Department Care Team (Late st Contact Info) Description 03/06/2025 Orders Only GENERIC EXTERNAL DATA DEPARTMENT Provider, Generic External Data Social History Tobacco Use Types Packs/Day Years [...] Upcoming Encounters Date Type Department Care Team ([facility] st Contact Info) Description 03/11/2025 9:45 AM EDT Office Visit [facility] CHC MED & PEDS [address] [place], [place] [phone] Lluvia Anderson MD [address] [place], [place] [phone] documented as of this encounter Procedures Procedure Name Priority Date/Time Associated Diagnosis Comments CBC Routine 03/06/2025 10:21 AM EDT BASIC METABOLIC PANEL Routine 03/06/2025 10:21 AM EDT documented in this encounter Results * (ABNORMAL) Basic Metabolic Panel (03/06/2025 10:21 AM EDT) Sodium 144 135 - 145 mmol/L [facility] Potassium 3.9 3.3 - 5.1 mmol/L [facility] Chloride 106 96 - 108 mmol/L [facility] Carbon Dioxide 29 22 - 29 mmol/L [facility] Anion Gap 13 12 - 20 [facility] Urea Nitrogen (BUN) 23(H) 9 - 16 mg/dL [facility] Creatinine, Serum 0.98 0.5 - 1.4 mg/dL [facility] Estimated Glomerular Filt Rate 58 [facility] Comment:Chronic Kidney Disea se: Estimated GFR < 60 mL/min/[id number] Kidney Disease: Estimated GFR < 15 mL/min/1.73m2 Glucose 87 60 - 115 mg/dL [facility] Calcium 9.5 8.4 - 10.2 mg/dL [facility] 03/06/2025 10:2 1 AM EDT 03/06/2025 10:21 AM EDT us Generic External Data Provider LAB BLOOD ORDERAB LES Final Result Performing Organization Address City/[facility]/ZIP Co de Phone Number [facility] [address] [place] [phone] [phone] * (ABNORMAL) CBC (03/06/2025 10:21 AM EDT) White Blood Count 10.0 4.8 - 10.8 X10*3/uL [facility] Red Blood Count 5.03 4.20 - 5.50 X10*6/uL [facility] Hemoglobin 13.8 12.0 - 16.0 g/dl [facility] Hematocrit 41.9 37.0 - 47.0 % [facility] Mean Corpuscular Volume 83.3 80.0 - 98.0 fL [facility] Mean Corpuscular Hemoglobin 27.4 27.0 - 33.0 pg [facility] Mean Corpuscular HGB Conc 32.9 31.0 - 35.0 g/dl [facility] Red Cell Distribution Width 14.7 11.0 - 16.0 % [facility] Platelet Count 385 160 - 400 X10*3/uL [facility] Mean Platelet Volume 8.8(L) 9.4 - 12.3 fL [facility] NRBC Pct Auto 0.0 0.0 - 0.2 /100WBC [facility] NRBC Abs Auto 0.000 0.0 - 0.012 X10*3/uL [facility] 03/06/2025 10:2 1 AM EDT 03/06/2025 10:21 AM EDT us Generic External Data Provider LAB BLOOD ORDERAB LES Final Result Performing Organization Address [facility]/ZIP Co de Phone Number [facility] [address] [place] [address] [phone] documented in this encounter Visit Diagnoses Not on filedocumented in this encounter Additional Health Concerns Assessment Noted Time PHQ-9 Depression Total Score: 0 12/29/19 24 9:27 AM EST documented as of this encounter Care Teams Youth Counselor Relationship Specialty Start Date End Date Lluvia Anderson MD [address] [place] [address] PCP - General Family Medicine 06/28/17 documented as of this encounter
--- OUTSIDE RECORDS SUMMARY | 2025-03-06 11:46 | XMS_ITS | Clinical Summary ---
Author Organization [employer] Address [address] [facility] 7t [place] [address] Care Team Providers Care Creative Developer Name Role Phone Lluvia Anderson MD Primary Care Provider Allergies No known active allergies Medications baclofen [...] Encounters Date Type Department Care Team Description 03/06/2025 Orders Only GENERIC EXTERNAL DATA DEPARTMENT Provider, Generic External Data 02/26/2025 Refill [facility] CHC MED & PEDS [address] [place], [place] [phone] Lluvia Anderson MD Primary hypertension; Androgenic alopecia, unspecified 02/21/2025 10:00 AM EDT Office Visit [facility] OPTOMETRY [address] [place] [address] Kingsley, Soha, OD Retinal defect, left (Primary Dx); Combined forms of age-related cataract of both eyes; Myopia of both eyes 02/21/2025 Travel 02/07/2025 Population Health Risk Score [facility] () Department [address] [place] [phone] Provider, Population Health Generic from Last [...] the past 12 months, has t he [employer], gas, oil or water [employer] threatened to shut off services in your [...] Description 03/11/2025 9:45 AM EDT Office Visit [facility] MED & PEDS [address] [place] [address] Lluvia Anderson MD [address] [place] [address] Health Maintenance Due Date Last Done Comments [...] Procedure Name Priority Date/Time Associated Diagnosis Comments BASIC METABOLIC PANEL Routine 03/06/2025 10:21 AM EDT CBC Routine 03/06/2025 10:21 AM EDT BI MAMMOGRAM SCREENING TOMOSYNTHESIS BILATERAL Routine 11/23/2024 9:57 AM EST LIPID PANEL, STANDARD Routine 01/19/2022 11:58 AM EST HPV MRNA E6/E7 Routine 04/06/2021 9:25 AM EDT THINPREP PAP Routine 04/06/2021 9:25 AM EDT HM COLONOSCOPY Routine 12/18/2017 from Last 3 Months or Most Recently Relevant to Health Maintenance Results * (ABNORMAL) CBC (03/06/2025 10:21 AM EDT) White Blood Count 10.0 4.8 - 10.8 X10*3/uL [facility] Red Blood Count 5.03 4.20 - 5.50 X10*6/uL [facility] Hemoglobin 13.8 12.0 - 16.0 g/dl [facility] Hematocrit 41.9 37.0 - 47.0 % [facility] Mean Corpuscular Volume 83.3 80.0 - 98.0 fL [facility] Mean Corpuscular Hemoglobin 27.4 27.0 - 33.0 pg [facility] Mean Corpuscular HGB Conc 32.9 31.0 - 35.0 g/dl [facility] Red Cell Distribution Width 14.7 11.0 - 16.0 % [facility] Platelet Count 385 160 - 400 X10*3/uL [facility] Mean Platelet Volume 8.8(L) 9.4 - 12.3 fL [facility] NRBC Pct Auto 0.0 0.0 - 0.2 /100WBC [facility] NRBC Abs Auto 0.000 0.0 - 0.012 X10*3/uL [facility] 03/06/2025 10:2 1 AM EDT 03/06/2025 10:21 AM EDT us Generic External Data Provider LAB BLOOD ORDERAB LES Final Result Performing Organization Address [facility] Co de Phone Number [facility] [address] [place] [phone] * (ABNORMAL) Basic Metabolic Panel (03/06/2025 10:21 AM EDT) Sodium 144 135 - 145 mmol/L [facility] Potassium 3.9 3.3 - 5.1 mmol/L [facility] Chloride 106 96 - 108 mmol/L [facility] Carbon Dioxide 29 22 - 29 mmol/L [facility] Anion Gap 13 12 - 20 [facility] Urea Nitrogen (BUN) 23(H) 9 - 16 mg/dL [facility] Creatinine, Serum 0.98 0.5 - 1.4 mg/dL [facility] Estimated Glomerular Filt Rate 58 [facility] Comment:Chronic Kidney Disea se: Estimated GFR < 60 mL/min/1.05m9Saxphj Kidney Disease: Estimated GFR < 15 mL/min/1.73m2 Glucose 87 60 - 115 mg/dL [facility] Calcium 9.5 8.4 - 10.2 mg/dL [facility] 03/06/2025 10:2 1 AM EDT 03/06/2025 10:21 AM EDT us Generic External Data Provider LAB BLOOD ORDERAB LES Final Result Performing Organization Address [facility] Co de Phone Number [facility] [address] [place] [phone] * BI Mammogram Screening Tomosynthesis Bilateral (11/23/2024 9:57 AM EST) Anatomical Region Laterality Modality Breast Bilateral Mammography 11/23/2024 9:57 AM EST Narrative 12/06/2024 5:07 PM EST ? [facility] ? [address] ?[place] [address] ? Mammography Report ? Signed ? Patient: Afia Guadalupe ?MR#: ?? [id number] ? : 1960 ?Acct:[id number] ? Age/Sex: 64 / F ?ADM Date: 11/23/24 ? Loc: HO.MAMMO ? Attending Dr: Lluvia Anderson MD ? Ordering Physician: Lluvia Anderson MD ?Results: 1Ne ?? gative ? Date of Service: 11/23/24 ?Follow Up: 1 Year From Orig ?? inal Mammogram ? Procedure(s): MM tomosynthesis screening BI ?? Accession Number(s): [id number] ? cc: Lluvia Anderson MD ? EXAMINATION: [...] DD/ 0957 ? TD/TT: 11/23/24 1010 ? Med Surg Nurse: ? Procedure Note Donhilda, Image - 12/06/2024 [place] [facility] [address] [place] [address] Mammography Report Signed Patient: Jennifer Guadalupe#: [id number] : 2Acct:[id number] Age/Sex: 64 / FADM Date: 11/23/24 Loc: HO.MAMMO Attending Dr: Lluvia Anderson MD Ordering Physician: Lluvia Anderson MDResults: 1Ne gative Date of Service: 11/23/24Follow Up: 1 Year From Orig inal Mammogram Procedure(s): MM tomosynthesis screening BI Accession Number(s): [id number] cc: Lluvia Anderson MD EXAMINATION: MM SCREENING [...] 12/06/24 1705 DD/ 0957 TD/TT: 11/23/24 1010 Med Surg Nurse: us Lluvia Anderson MD IM BI PROCEDURES [...] ?? Saúl ROBERTSON et al. GLENN. 2013;310(19): 6298-9926 ?? (http://education.[employer]/faq/NVW343) Non-HDL Cholesterol 109 <130 mg/dL (calc) [facility] Comment: For patients with diabetes plus 1 major ASCVD risk ?? factor, treating to a non-HDL-C goal of <100 mg/dL ?? (LDL-C of <70 mg/dL) is considered a therapeutic ?? option. Triglycerides 103 <150 mg/dL [facility] 01/19/2022 11:5 8 AM EST us Lluvia Anderson MD LAB BLOOD ORDERABLES Final Re sult Performing Organization Address [facility] Co de Phone Number [facility] [address] [place] [address], * THINPREP PAP (04/06/2021 9:25 AM EDT) [...] historic and ?? current clinical information. ?? Piano Professor : SEE COMMENT [facility] Comment: RK, CT(ASCP) CT screening location: [address] ??[phone] Interpretation/R esult: Negative for intraepithelial lesion or [...] 04/06/2021 9:25 AM EDT us Julia Billingsley CNM LAB PATHOLOGY ORDERABLES Final Result Performing Organization Address [facility] Co de Phone Number [facility] [address] [place] [address], * HPV mRNA E6/E7 (04/06/2021 9:25 AM EDT) HPV nRNA E6/E7 Not Detected Not Detected [facility] Comment: Methodology: Bulk System Operator-Mediated Amplification This assay detects E6/E7 viral messenger RNA (mRNA) from 14 high-risk HPV types (16,18,31,33,35,39,45,51,52,56,58,59,66,68). ? The analytical performance characteristics of this assay have been determined by [employer]. The modifications have not been cleared or approved by the FDA. This assay has been validated pursuant to the CLIA regulations and is used for clinical purposes. ?? For additional information, please refer to http://education.[employer]/faq/BZN548p7 (This link if provided for information/ educational purposes only.) 04/06/2021 9:25 AM EDT Julia MAURO LAB BLOOD ORDERABLES Ciarra gilmore Result Performing Organization Address City/State/[facility] Co de Phone Number [facility] [address] * Colonoscopy (12/18/2017) Colonoscopy Normal Normal Narrative Alma Martinez - 12/18/2017 Recommended 5 year follow up Historical Provider MD HEALTH MAINTENANCE Final Result from Last 3 Months or Most Recently Relevant to Health Maintenance Insurance [facility] C3 * Guarantor: Afia Guadalupe Account Type Relation to Patient Date of Phone Billing Address Personal/Family Self [address] [place] Care Teams Creative Developer Relationship Specialty Start Date End Date Lluvia Anderson MD [address] [place] [phone] PCP - General Family Medicine 06/28/17
--- OUTSIDE RECORDS SUMMARY | 2025-03-06 11:46 | XMS_ITS | Encounter Summary ---
Author Organization [employer] [facility] Address [address] [place] [address] 7t [place] [address] Care Team Providers Care Senior Energy Consultant Name Role Phone Lluvia Anderson MD Primary Care Provider [phone] Encounter Details Date Type Department Care Team (Latest Contact Info) Description 04/16/2021 Abstract [facility] CONVERSIONS Dental, Provider, DDS Social History Tobacco [...] Description 03/11/2025 9:45 AM EDT Office Visit [facility] CHC MED & PEDS [address] [place] [address] Lluvia Anderson MD [address] [place] [address] documented as of this encounter Visit Diagnoses Not on filedocumented in this encounter Care Teams Senior Energy Consultant Relationship Specialty Start Date End Date Lluvia Anderson MD [address] [place] [address] PCP - General Family Medicine 06/28/17 documented as of this encounter
--- OUTSIDE RECORDS SUMMARY | 2025-03-06 11:46 | XMS_ITS | Encounter Summary ---
Author Organization [employer] Address [address] [place] [address] 7 [place] [address] Care Team Providers Care Medical Practice Assistant Name Role Phone Lluvia Anderson MD Primary Care Provider [phone] Reason for Visit * Reason Onset Date Comments PT1 12/07/2023 Encounter Details Date Type Department Care Team ([facility] st Contact Info) Description 12/07/2023 Telephone [facility] CHC MED & PEDS [address] [place], [place] [phone] Lluvia Anderson MD [address] [place] [address] PT1 Social History Tobacco Use Types Packs/Day [...] Time: n/a Visits: n/a Address: [address] [facility] Facility: (name, specialty or name of doctor) Wheel Chair: no Line Service Supervisor Needed: n/a Date: 12/29 Time: 9:45 AM Visits: (amount of visits) ( x monthly, weekly, daily) Address: [address] [facility] Facility: (name, specialty or name of doctor) Wheel Chair: no Line Service Supervisor Needed: n/a Date: n/a Time: n/a Visits: (amount of visits) ( x monthly, weekly, daily) Address: [address] [facility] Facility: [facility] Wheel Chair: religious ritual slaughterer Line Service Supervisor Needed: n/a documented in this encounter Plan of Treatment Upcoming Encounters Date Type Department Care Team ([facility] Contact Info) Description 03/11/2025 9:45 AM EDT Office Visit [facility] MED & PEDS [address] [place] [address] Lluvia Anderson MD [address] [place] [address] documented as of this encounter Visit Diagnoses Not on filedocumented in this encounter Care Teams Medical Practice Assistant Relationship Specialty Start Date End Date Lluvia Anderson MD [address] [place] [address] PCP - General Family Medicine 06/28/17 documented as of this encounter
--- OUTSIDE RECORDS SUMMARY | 2025-03-06 11:46 | XMS_ITS | Encounter Summary ---
Author Organization [employer] Address [address] [facility] 7t [place] [address] Care Team Providers Care Fill Plant Operator Name Role Phone Lluvia Anderson MD Primary Care Provider [phone] Reason for Visit * Reason Onset Date Comments Results 04/25/2024 Encounter Details Date Type Department Care Team ([facility] st Contact Info) Description 04/25/2024 Telephone [facility] MEDICINE [address] [place] [address] Lluvia Anderson MD [address] [place], [place] [phone] Results Social History Tobacco Use Types Packs/Day [...] 12:15 PM EDT Tc to pt using [employer] [place], [place] [id number] in regards to lab results from 04/19. [...] call back with labs results from 04/19 Syriac speaker documented in this encounter Plan of Treatment Upcoming Encounters Date Type Department Care Team (Late st Contact Info) Description 03/11/2025 9:45 AM EDT Office Visit [facility] CHC MED & PEDS [address] [place] [address] Lluvia Anderson MD [address] [place] [address] documented as of this encounter Visit Diagnoses Not on filedocumented in this encounter Additional Health Concerns Assessment Noted Time PHQ-9 Depression Total Score: 0 12/29/19 24 9:27 AM EST documented as of this encounter Care Teams Fill Plant Operator Relationship Specialty Start Date End Date Lluvia Anderson MD [address] [place] [phone] PCP - General Family Medicine 06/28/17 documented as of this encounter
--- OUTSIDE RECORDS SUMMARY | 2025-03-06 11:46 | XMS_ITS | Encounter Summary ---
Author Organization [employer] Address [address] [facility] 7t [place] [address] Care Team Providers Care Dobby Loom Chain Pegger Name Role Phone Lluvia Anderson MD Primary Care Provider [phone] Encounter Details Date Type Department Care Team ([facility] Contact Info) Description 10/03/2023 Abstract [facility] MEDICINE [address] [place], [place] [phone] Lluvia Anderson MD [address] [place], [place] [phone] Social History Tobacco Use Types Packs/Day Years [...] Upcoming Encounters Date Type Department Care Team ([facility] Contact Info) Description 03/11/2025 9:45 AM EDT Office Visit [facility] CHC MED & PEDS [address] [place], [place] [phone] Lluvia Anderson MD [address] [place], [place] [phone] documented as of this encounter Procedures Procedure Name Priority Date/Time Associated Diagnosis Comments COLONOSCOPY Routine 12/18/2017 documented in this encounter Results * Colonoscopy (12/18/2017) Colonoscopy Normal Normal Narrative Alma Martinez - 12/18/2017 Recommended 5 year follow up us Historical Provider HEALTH MAINTENANCE Final Result documented in this encounter Visit Diagnoses Not on filedocumented in this encounter Care Teams Dobby Loom Chain Pegger Relationship Specialty Start Date End Date Lluvia Anderson MD [address] [place] [address] PCP - General Family Medicine 06/28/17 documented as of this encounter
--- OUTSIDE RECORDS SUMMARY | 2025-03-06 11:46 | XMS_ITS | Encounter Summary ---
Author Organization [employer] Address [address] 7[address] [place] [address] Care Team Providers Care Poultry Cutter Name Role Phone Lluvia Anderson MD Primary Care Provider [phone] Reason for Visit * Reason Onset Date Comments PT-1 12/03/2024 Encounter Details Date Type Department Care Team (Late st Contact Info) Description 12/03/2024 Telephone [facility] MEDICINE [address] [place] [address] Lluvia Anderson MD [address] [place] [address] PT-1 Social History Tobacco Use Types Packs/Day [...] Y/N: Yes Provider name or facility name: [address] [address] Escort needed: Y/N: Yes Do you have a wheelchair: Y/N: No If yes- Manual or electric: N/A Visits: (amount of visits) ( x monthly, weekly, daily) 1 time a year documented in this encounter Plan of Treatment Upcoming Encounters Date Type Department Care Team (Late st Contact Info) Description 03/11/2025 9:45 AM EDT Office Visit [facility] CHC MED & PEDS [address] [place] [address] Lluvia Anderson MD [address] [place] [address] documented as of this encounter Visit Diagnoses Not on filedocumented in this encounter Additional Health Concerns Assessment Noted Time PHQ-9 Depression Total Score: 0 12/29/19 24 9:27 AM EST documented as of this encounter Care Teams Poultry Cutter Relationship Specialty Start Date End Date Lluvia Anderson MD [address] [place] [address] PCP - General Family Medicine 06/28/17 documented as of this encounter
--- OUTSIDE RECORDS SUMMARY | 2025-03-06 11:46 | XMS_ITS | Encounter Summary ---
Author Organization [employer] Address [address] [facility] 7t [place] [address] Care Team Providers Care Front Desk Host Name Role Phone Lluvia Anderson MD Primary Care Provider [phone] Encounter Details Date Type Department Care Team ([facility] st Contact Info) Description 01/23/2024 Telephone [facility] PEDS [address] [place], [place] [phone] Lluvia Anderson MD [address] [place] [address] Social History Tobacco Use Types Packs/Day Years [...] is not working. Please contact pt at [phone] (Turkish) documented in this encounter Plan of Treatment Upcoming Encounters Date Type Department Care Team (Late st Contact Info) Description 03/11/2025 9:45 AM EDT Office Visit [facility]S [address] [place], [place] [phone] Lluvia Anderson MD [address] [place] [address] documented as of this encounter Visit Diagnoses Not on filedocumented in this encounter Additional Health Concerns Assessment Noted Time PHQ-9 Depression Total Score: 0 12/29/19 24 9:27 AM EST documented as of this encounter Care Teams Front Desk Host Relationship Specialty Start Date End Date Lluvia Anderson MD [address] [place] [address] PCP - General Family Medicine 06/28/17 documented as of this encounter
== END 2025-03-06 09:29 | disposition home or self-care (01) ==
LOC: HO.LAB 09:28
PROVIDERS: PCP Pediatrics; Visit Provider Internal Medicine Cardiovascular Disease
DX: I48.0 Paroxysmal atrial fibrillation (principal); I10 Essential (primary) hypertension; I38 Endocarditis, valve unspecified
CPT/HCPCS: 36415; 80048; 85027; 93005; 99212

== ENCOUNTER 2025-03-11 10:16 | Outpatient (REF) | payer MEDICAID, SELFPAY ==
--- OUTSIDE RECORDS SUMMARY | 2025-03-11 12:14 | XMS_ITS | Encounter Summary ---
Author Organization [employer] Address [address] [facility] 7t [place] [address] Care Team Providers Care Cruise Consultant Name Role Phone Lluvia Anderson MD Primary Care Provider [phone] Encounter Details Date Type Department Care Team ([facility] st Contact Info) Description 01/23/2024 Telephone [facility] MED & PEDS [address] [place], [place] [phone] Lluvia Anderson MD [address] [place] [address] Social History Tobacco Use Types Packs/Day Years [...] is not working. Please contact pt at [phone] (Kinyarwanda) documented in this encounter Plan of Treatment Not on file documented as of this encounter Visit Diagnoses Not on filedocumented in this encounter Additional Health Concerns Assessment Noted Time PHQ-9 Depression Total Score: 0 12/29/19 24 9:27 AM EST documented as of this encounter Care Teams Cruise Consultant Relationship Specialty Start Date End Date Lluvia Anderson MD [address] [place] [phone] PCP - General Family Medicine 06/28/17 documented as of this encounter
--- OUTSIDE RECORDS SUMMARY | 2025-03-11 12:14 | XMS_ITS | Encounter Summary ---
Author Organization [employer] Address [address] [place] [address], [place] [address] Care Team Providers Care Certified Executive Chef Name Role Phone Lluvia Anderson MD Primary Care Provider Reason for Referral * Consultation (Routine) - Pending Review Specialty Diagnoses / Procedures Referred By Angel oshea Referred To Contact Podiatry Diagnoses Right foot pain Lluvia Anderson MD [address] [place] [address] Phone: tel: fax: Referral ID Status Reason Start Date Expiration Date Visits Requested Visits Authorized [id number] Pending Review Specialty Services Required 03/11/2025 03/11/2026 1 1 Encounter Details Date Type Department Care Team (Late st Contact Info) Description 03/11/2025 9:45 AM EDT Office Visit [facility] MED & PEDS [address] [place] [address] Lluvia Anderson MD [address] [place] [address] Benign essential hypertension (Primary Dx); Dietary counseling; Exercise counseling; Idiopathic gout, unspecified chronicity, unspecified site; Chronic atrial flutter (CMS/HCC); Right foot pain; 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 I have elisha buckley 03/11/[address] you li ve. Do you have problems with any of the following? None of the above 03/11/2025 Food Insecurity Answer Date Recorded Within the past 12 months, y ou worried that your food would run out before you got money to buy more: Never True 03/11/2025 Within the past 12 months,th e food you bought just didn't last and you didn't have enough money to get more: Never True Transportation Answer Date Recorded In the past 12 months, has l ack of transportation kept you from medical appts, meetings, work or from getting things needed for daily living? No 03/11/2025 Utilities Answer Date Recorded In the past 12 months, has t he electric, gas, oil or water company threatened to shut off services in your home? No 03/11/2025 Depression Answer Date Recorded Patient Health Questionnaire-2 Score 0 12/29/2023 Internet Access Answer Date Recorded Internet Access Q1 Yes 03/11/2025 Internet Access Q2 Not on file 03/11/2025 Comments No Sex and Gender Information Value Date Recorded Sex Assigned at Female 09/26/2022 10:31 AM EDT Legal Sex Female 10:31 AM EDT Gender Identity Female 09/26/2022 10:31 AM EDT Sexual Orientation Straight 09/26/2022 10 :31 AM EDT documented as of this encounter Last Filed Vital Signs Vital Sign Reading Time Taken Comments Blood Pressure 109/61 03/11/2025 9:40 AM EDT Pulse 74 03/11/2025 9:40 AM EDT Temperature 36.3 ??C (97.3 ??F) 03/11/2025 9:40 AM ED T Respiratory Rate 20 03/11/2025 9:40 AM EDT Oxygen Saturation 99% 03/11/2025 9:40 AM EDT Inhaled Oxygen Concentration - - Weight 97.1 kg (214 lb) 03/11/2025 9:40 AM EDT Height 165.1 cm (5' 5 ) 03/11/2025 9:40 AM EDT Body Mass Index 35.61 03/11/2025 9:40 AM EDT documented in this encounter Plan of Treatment Scheduled Orders Name Type Priority Associated Diagnoses Orde r Schedule Albumin, Random Urine W/Creatinine Lab Routine Dietary counseling Exercise counseling Benign essential hypertension Idiopathic gout, unspecified chronicity, unspecified site Chronic atrial flutter (CMS/HCC) Right foot pain 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, unspecified site, subsequent encounter Expected: 03/11/2025 (Approximate), Expires: 03/11/2026 Lipid Panel, Standard Lab Routine Dietary counseling Exercise counseling Benign essential hypertension Idiopathic gout, unspecified chronicity, unspecified site Chronic atrial flutter (CMS/HCC) Right foot pain 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, unspecified site, subsequent encounter Expected: 03/11/2025 (Approximate), Expires: 03/11/2026 TSH W/Reflex to FT4 Lab Routine Dietary counseling Exercise counseling Benign essential hypertension Idiopathic gout, unspecified chronicity, unspecified site Chronic atrial flutter (CMS/HCC) Right foot pain 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, unspecified site, subsequent encounter Expected: 03/11/2025 (Approximate), Expires: 03/11/2026 Vitamin D, 25-Hydroxy, Total, Immunoassay Lab Routine Dietary counseling Exercise counseling Benign essential hypertension Idiopathic gout, unspecified chronicity, unspecified site Chronic atrial flutter (CMS/HCC) Right foot pain 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, unspecified site, subsequent encounter Expected: 03/11/2025 (Approximate), Expires: 03/11/2026 Uric acid Lab Routine 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, unspecified site, subsequent encounter Expected: 03/11/2025 (Approximate), Expires: 03/11/2026 Scheduled Referrals Name Type Priority Associated Diagnoses Orde r Schedule Referral to Podiatry Outpatient Referral Routine Right foot pain Expected: 03/11/2025 (Approximate), Expires: 03/11/2026 documented as of this encounter Visit Diagnoses Diagnosis Benign essential hypertension- Primary Essential hypertension, benign Dietary counseling Dietary surveillance and counseling Exercise counseling Idiopathic gout, unspecified chronicity, unspecified site Chronic atrial flutter (CMS/HCC) Right foot pain Pain in soft tissues of limb 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
--- OUTSIDE RECORDS SUMMARY | 2025-03-11 12:14 | XMS_ITS | Encounter Summary ---
Author Organization [employer] Address [address] [facility] [address] 7[address] [place] [address] Care Team Providers Care Dynamicist Name Role Phone Lluvia Anderson MD Primary Care Provider [phone] Reason for Visit * Reason Onset Date Comments PT-1 12/03/2024 Encounter Details Date Type Department Care Team (Late st Contact Info) Description 12/03/2024 Telephone [facility] MED[facility] [address] [place] [address] Lluvia Anderson MD [address] [place] [address] PT-1 Social History Tobacco Use Types Packs/Day [...] Y/N: Yes Provider name or facility name: [address] [address] Escort needed: Y/N: Yes Do you have [...] documented as of this encounter Care Teams Dynamicist Relationship Specialty Start Date End Date Lluvia Anderson MD [address] [place] [address] PCP - General Family Medicine 06/28/17 documented as of this encounter
--- OUTSIDE RECORDS SUMMARY | 2025-03-11 12:14 | XMS_ITS | Encounter Summary ---
Author Organization [employer] Address [address] [place] [address] [place], [place] [address] Care Team Providers Care Parking Regulation Enforcement Officer Name Role Phone Lluvia Anderson MD Primary Care Provider [phone] Reason for Visit * Reason Onset Date Comments pt1 12/14/2022 Encounter Details Date Type Department Care Team ([facility] Contact Info) Description 12/14/2022 Telephone [facility] [address] [place] [phone] Lluvia Anderson MD [address] [place], [place] [phone] pt1 Social History Tobacco Use Types Packs/Day [...] pt requesting to update yearly PT1 Location: [facility] 505 [place] [address] Specialty: care provider Time: n/a Date:n/a Airplane Tube Builder: n/a wheelchair accessible : n/a Location: [address] [address] Specialty: e commerce architect Time: n/a Date:n/a Airplane Tube Builder:n/a wheelchair accessible :n/a Location: [address] [address] Specialty: e commerce architect / Lab works Time:n/a Date:n/a Airplane Tube Builder:n/a wheelchair accessible :n/a documented in this encounter Plan of Treatment Not on file documented as of this encounter Visit Diagnoses Not on filedocumented in this encounter Care Teams Parking Regulation Enforcement Officer Relationship Specialty Start Date End Date Lluvia Anderson MD [address] [place] [phone] PCP - General Family Medicine 06/28/17 documented as of this encounter
--- OUTSIDE RECORDS SUMMARY | 2025-03-11 12:14 | XMS_ITS | Encounter Summary ---
Author Organization [employer] Address [address] [facility] [address] [place] [address] Care Team Providers Care Night Order Selector Name Role Phone Lluvia Anderson MD Primary Care Provider [phone] Encounter Details Date Type Department Care Team (Late st Contact Info) Description 10/03/2023 Abstract [facility] [address] [place] [address] Lluvia Anderson MD [address] [place], [place] [phone] Social History Tobacco Use Types Packs/Day Years [...] as of this encounter Plan of Treatment Not on file documented as of this encounter Procedures Procedure Name Priority Date/Time Associated Diagnosis Comments COLONOSCOPY Routine 12/18/2017 documented in this encounter Results * Colonoscopy (12/18/2017) Colonoscopy Normal Normal Narrative Michelle Alma - 12/18/2017 Recommended 5 year follow up Historical Provider HEALTH MAINTENANCE Final Result documented in this encounter Visit Diagnoses Not on filedocumented in this encounter Care Teams Night Order Selector Relationship Specialty Start Date End Date Lluvia Anderson MD [address] [place] [phone] PCP - General Family Medicine 06/28/17 documented as of this encounter
--- OUTSIDE RECORDS SUMMARY | 2025-03-11 12:14 | XMS_ITS | Clinical Summary ---
Author Organization [employer] Address [address] [facility] 7t [place] [address] Care Team Providers Care Operations Officer Afloat Name Role Phone Lluvia Anderson MD Primary Care Provider [phone] Allergies No known active allergies Medications flecainide (Tambocor) 50 MG tablet Take 1 tablet by mouth every 12 (twelve) hours. Active metoprolol succinate XL (Toprol XL) 50 MG 24 hr tablet Take 1 Tablet by Oral route once a day 12/26/19 20 Active rivaroxaban (Xarelto) 20 MG tablet Take 1 tablet by mouth at bed time. Active minoxidil (Loniten) 2.5 MG tabletIndicatio ns:Alopecia hereditaria Take 0.625 mg orally daily 30 [...] daily 30 tablet 11 06/05/20 24 Active hydroCHLOROthia zide (HYDRODiuril) 25 MG tabletIndicatio ns:Primary hypertension TAKE 1 TABLET BY MOUTH EVERY DAY IN THE MORNING 90 tablet 1 02/28/20 25 Active finasteride (Proscar) 5 MG tabletIndicatio ns:Androgenic alopecia, unspecified TAKE 1 TABLET BY MOUTH EVERY DAY 90 tablet 1 02/28/20 25 Active amoxicillin-cla vulanate (Augmentin) 875-125 MG tablet Take 1 tablet by mouth 2 times daily for 7 days. 14 tablet 03/11/20 25 025 Active baclofen (Lioresal) 10 MG tablet Take 1 tablet by mouth in the morning and 1 tablet in the evening. 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 [...] Encounters Date Type Department Care Team Description 03/11/2025 9:45 AM EDT Office Visit [facility] MED & PEDS [address] [place] [address] Lluvia Anderson MD Benign essential hypertension (Primary Dx); Dietary counseling; Exercise counseling; Idiopathic gout, unspecified chronicity, unspecified site; Chronic atrial flutter (CMS/HCC); Right foot pain; 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, unspecified site, subsequent encounter; Alopecia hereditaria 03/11/2025 Travel 03/10/2025 Telephone [facility] MED & PEDS [address] [place] [address] Lluvia Anderson MD Chart Prep 03/06/2025 Orders Only GENERIC EXTERNAL DATA DEPARTMENT Provider, Generic External Data 02/26/2025 Refill [facility] MED & PEDS [address] [place] [address] Lluvia Anderson MD Primary hypertension; Androgenic alopecia, unspecified 02/21/2025 10:00 AM EDT Office Visit [facility] OPTOMETRY [address] [place] [address] Kingsley, Soha, OD Cortical cataract of both eyes (Primary Dx); Retinal defect, left; Presbyopia 02/21/2025 Travel 02/07/2025 Population Health Risk Score [facility] (C3) Department [address] [phone] Provider, Population Health Generic from Last 3 [...] Mass Index 35.61 03/11/2025 9:40 AM EDT Plan of Treatment Health Maintenance Due Date Last Done Comments CT Colonography 1962 FIT DNA/Cologuard 1962 FIT 1962 FOBT 1960 HIV Screening 1960 Sigmoidoscopy 1962 Hepatitis C Screening 1980 Pneumococcal Vaccine: 50+ Years (1 of 2 - PCV) 1981 RSV Patients and Patients Aged 60 years or older (1 - Risk 60-74 years 1-dose series) 2022 Colonoscopy 12/18/2022 12/18/2017 Colorectal Cancer Screening 12/18/2022 COVID-19 Vaccine ( season) 2024 11/22/2021, 03/09/2021, 02/09/2021 Influenza Vaccine (#1) 2024 , 09/03/2019, 09/21/2018, Additional history exists Depression Screening 12/29/2024 12/29/2023, 12/29/19 24 Mammogram 11/23/2025 11/23/2024, 09/27, 10/05/2022, Additional history exists Alcohol/Substance Use Screening 03/11/2026 03/11/2025 SDOH Screening 03/11/2026 03/11/2025 Tobacco Screening 03/11/2026 03/11/2025 Cervical Cancer Screening 04/06/2026 HPV/Cotest 04/06/2026 04/06/2021 [...] Blood Count 10.0 4.8 - 10.8 X10*3/uL [facility] Red Blood Count 5.03 4.20 - 5.50 X10*6/uL [facility] Hemoglobin 13.8 12.0 - 16.0 g/dl [facility] Hematocrit 41.9 37.0 - 47.0 % [facility] Mean Corpuscular Volume 83.3 80.0 - 98.0 fL [facility] Mean Corpuscular Hemoglobin 27.4 27.0 - 33.0 pg [facility] Mean Corpuscular HGB Conc 32.9 31.0 - 35.0 g/dl [facility] Red Cell Distribution Width 14.7 11.0 - 16.0 % [facility] Platelet Count 385 160 - 400 X10*3/uL [facility] Mean Platelet Volume 8.8(L) 9.4 - 12.3 fL [facility] NRBC Pct Auto 0.0 0.0 - 0.2 /100WBC [facility] NRBC Abs Auto 0.000 0.0 - 0.012 X10*3/uL [facility] 03/06/2025 10:2 1 AM EDT 03/06/2025 10:21 AM EDT us Generic External Data Provider LAB BLOOD ORDERAB LES Final Result Performing Organization Address City/State/[facility] Co de Phone Number [facility] [address] [place] [phone] * (ABNORMAL) Basic Metabolic Panel (03/06/2025 10:21 AM EDT) Sodium 144 135 - 145 mmol/L [facility] Potassium 3.9 3.3 - 5.1 mmol/L [facility] Chloride 106 96 - 108 mmol/L [facility] Carbon Dioxide 29 22 - 29 mmol/L [facility] Anion Gap 13 12 - 20 [facility] Urea Nitrogen (BUN) 23(H) 9 - 16 mg/dL [facility] Creatinine, Serum 0.98 0.5 - 1.4 mg/dL [facility] Estimated Glomerular Filt Rate 58 [facility] Comment:Chronic Kidney Disea se: Estimated GFR < 60 mL/min/1.04p6Dyzedx Kidney Disease: Estimated GFR < 15 mL/min/1.73m2 Glucose 87 60 - 115 mg/dL [facility] Calcium 9.5 8.4 - 10.2 mg/dL [facility] 03/06/2025 10:2 1 AM EDT 03/06/2025 10:21 AM EDT us Generic External Data Provider LAB BLOOD ORDERAB LES Final Result Performing Organization Address City/State/[facility] Co de Phone Number [facility] [address] [facility] [place] [address] [phone] * BI Mammogram Screening Tomosynthesis Bilateral (11/23/2024 9:57 AM EST) Anatomical Region Laterality Modality Breast Bilateral Mammography 11/23/2024 9:57 AM EST Narrative 12/06/2024 5:07 PM EST ? [facility] [place] ? [address] ?[place] [address] ? Mammography Report ? Signed ? Patient: IsaelAfia Curran ?MR#: ?? [id number] ? : 1960 ?Acct:[id number] ? Age/Sex: 64 / F ?ADM Date: 12/28/24 ? Loc: HO.MAMMO ? Attending Dr: Lluvia Anderson MD ? Ordering Physician: Lluvia Anderson MD ?Results: 1Ne ?? gative ? Date of Service: 12/28/24 ?Follow Up: 1 Year From Orig ?? inal Mammogram ? Procedure(s): MM tomosynthesis screening BI ?? Accession Number(s): [id number] ? cc: Lluvia Anderson MD ? EXAMINATION: [...] ??12/06/2024 05:05 PM EST ? Dictated By: ?Simón,Emily DO ? Signed By: ?<Electronically signed by Emily Gr, DO in OV> ? 12/06/24 1705 ? DD/ 0957 ? TD/TT: 11/23/24 1010 ? Social Media Sr Strategy Manager: ? Procedure Note Nikolay Becerril - 12/06/2024 [facility] [address] [place], [place] [address] Mammography Report Signed Patient: Yu GuadalupeToñoR#: [id number] : 2Acct:[id number] Age/Sex: 64 / FADM Date: 11/23/24 Loc: HO.MAMMO Attending Dr: Lluvia Anderson MD Ordering Physician: Lluvia Anderson MDResults: 1Ne rohit Date of Service: 11/23/24Follow Up: 1 Year From [facility] ina Mammogram Procedure(s): MM tomosynthesis screening BI Accession Number(s): [id number] cc: Lluvia Anderson MD EXAMINATION: MM SCREENING [...] 12/06/24 1705 DD/ 0957 TD/TT: 11/23/24 1010 Social Media Sr Strategy Manager: us Lluvia Anderson MD IMG BI PROCEDURES [...] ?? Saúl ROBERTSON et al. GLENN. 2013;310(19): 3762-1505 ?? (http://[employer].GSOUND/faq/HOV270) Non-HDL Cholesterol 109 <130 mg/dL (calc) [facility] Comment: For patients with diabetes plus 1 major ASCVD risk ?? factor, treating to a non-HDL-C goal of <100 mg/dL ?? (LDL-C of <70 mg/dL) is considered a therapeutic ?? option. Triglycerides 103 <150 mg/dL [facility] 01/19/2022 11:5 8 AM EST us Lluvia Anderson MD LAB BLOOD ORDERABLES Final Re sult [facility] [address] * THINPREP PAP (04/06/2021 9:25 AM EDT) Clinical Information: MENOPAUSAL [facility] COMMENT SEE COMMENT [facility] [...] historic and ?? current clinical information. ?? Personal Computer Network Analyst : SEE COMMENT [facility] Comment: RK, CT(ASCP) CT screening location: [address] ??[id number] Interpretation/R esult: Negative for intraepithelial lesion or malignancy. [facility] LMP: NONE GIVEN [facility] Prev. BX: NONE GIVEN [facility] Prev. PAP: NIL 2017 [facility] SOURCE: None given [facility] Statement Of Adequacy: SEE COMMENT [facility] Comment: Satisfactory for evaluation. Endocervical/transformation zone component present. 04/06/2021 9:25 AM EDT Julia Billingsley [facility] PATHOLOGY ORDERABLES Final Result Performing Organization Address [facility] Co de Phone Number [facility] [address] * HPV mRNA E6/E7 (04/06/2021 9:25 AM EDT) Pathologist [facility] HPV nRNA E6/E7 Not Detected Not Detected [facility] Comment: Methodology: Warehouse Team Member-Mediated Amplification This assay detects E6/E7 viral messenger RNA (mRNA) from 14 high-risk HPV types (16,18,31,33,35,39,45,51,52,56,58,59,66,68). ? The analytical performance characteristics of this assay have been determined by [employer]. The modifications have not been cleared or approved by the FDA. This assay has been validated pursuant to the CLIA regulations and is used for clinical purposes. ?? For additional information, please refer to http://education.Urban Gentleman/faq/CHG522h8 (This link if provided for information/ educational purposes only.) 04/06/2021 9:25 AM EDT Julia Billingsley [facility] LAB BLOOD ORDERABLES Ciarra l Result Performing Organization Address [facility] Co de Phone Number [facility] [address] * Hm Colonoscopy (12/18/2017) Pathologist [facility] Colonoscopy Normal Normal Narrative Alma Martinez - 12/18/2017 Recommended 5 year follow up Historical Provider MD HEALTH MAINTENANCE Final Result from Last 3 Months or Most Recently Relevant to Health Maintenance Insurance [facility] C3 Care Teams Operations Officer Afloat Relationship Specialty Start Date End Date Lluvia Anderson MD [address] [place] [phone] PCP - General Family Medicine 06/28/17
--- OUTSIDE RECORDS SUMMARY | 2025-03-11 12:14 | XMS_ITS | Encounter Summary ---
Author Organization [facility] Address [address] [place] [address] 7t [place] [address] Care Team Providers Care Academic Affairs Vice President Name Role Phone Lluvia Anderson MD Primary Care Provider [phone] Encounter Details Date Type Department Care Team (Latest Contact Info) Description 04/16/2021 Abstract [facility] CONVERSIONS Dental, Provider, DDS Social History Tobacco [...] on filedocumented in this encounter Care Teams Academic Affairs Vice President Relationship Specialty Start Date End Date Lluvia Anderson MD [address] [place] [address] PCP - General Family Medicine 06/28/17 documented as of this encounter
--- OUTSIDE RECORDS SUMMARY | 2025-03-11 12:14 | XMS_ITS | Encounter Summary ---
Author Organization [employer] Address [address] [facility] 7t [place] [address] Care Team Providers Care External Grinder Tool Name Role Phone Lluvia Anderson MD Primary Care Provider [phone] Reason for Visit * Reason Onset Date Comments Results 04/25/2024 Encounter Details Date Type Department Care Team ([facility] st Contact Info) Description 04/25/2024 Telephone [facility] MED[facility] [address] [place] [address] Lluvia Anderson MD [address] [place], [place] [phone] Results Social History Tobacco Use Types Packs/Day [...] 12:15 PM EDT Tc to pt using [employer], [place] [id number] in regards to lab results from 04/19. [...] call back with labs results from 04/19 Maltese speaker documented in this encounter Plan of Treatment Not on file documented as of this encounter Visit Diagnoses Not on filedocumented in this encounter Additional Health Concerns Assessment Noted Time PHQ-9 Depression Total Score: 0 12/29/19 24 9:27 AM EST documented as of this encounter Care Teams External Grinder Tool Relationship Specialty Start Date End Date Lluvia Anderson MD [address] [place] [address] PCP - General Family Medicine 06/28/17 documented as of this encounter
--- OUTSIDE RECORDS SUMMARY | 2025-03-11 12:14 | XMS_ITS | Encounter Summary ---
Author Organization [employer] Address [address] [facility] 7t [place] [address] Care Team Providers Care Box Fabricator Name Role Phone Lluvia Anderson MD Primary Care Provider [phone] Reason for Visit * Reason Onset Date Comments Chart Prep 03/10/2025 Encounter Details Date Type Department Care Team ([facility] st Contact Info) Description 03/10/2025 Telephone [facility] CHC MED & PEDS [address] [place], [place] [phone] Lluvia Anderson MD [address] [place] [address] Chart Prep Social History Tobacco Use Types Packs/Day Years [...] encounter Miscellaneous Notes * Telephone Encounter - Yudi Vásquez [place] - 03/10/2025 11:44 AM EDT Chart Prep Labs: done Images: done Referrals: not applicable Vaccines due: yes Screenings: colonoscopy Overdue care gaps: SBIRT, SDOH, Oral health screening, Disability screen, and Tobacco documented in this encounter Plan of Treatment Not on file documented as of this encounter Visit Diagnoses Not on filedocumented in this encounter Additional Health Concerns Assessment Noted Time PHQ-9 Depression Total Score: 0 12/29/19 24 9:27 AM EST documented as of this encounter Care Teams Box Fabricator Relationship Specialty Start Date End Date Lluvia Anderson MD [address] [place] [address] PCP - General Family Medicine 06/28/17 documented as of this encounter
--- OUTSIDE RECORDS SUMMARY | 2025-03-11 12:14 | XMS_ITS | Encounter Summary ---
Author Organization [employer] Address [address] [facility] [address] 7t [place] [address] Care Team Providers Care Occupational Medicine Officer Name Role Phone Lluvia Anderson MD Primary Care Provider [phone] Encounter Details Date Type Department Care Team [...] EDT) Sodium 144 135 - 145 mmol/L [facility] Potassium 3.9 3.3 - 5.1 mmol/L [facility] Chloride 106 96 - 108 mmol/L [facility] Carbon Dioxide 29 22 - 29 mmol/L [facility] Anion Gap 13 12 - 20 [facility] Urea Nitrogen (BUN) 23(H) 9 - 16 mg/dL [facility] Creatinine, Serum 0.98 0.5 - 1.4 mg/dL [facility] Estimated Glomerular Filt Rate 58 [facility] Comment:Chronic Kidney Disea se: Estimated GFR < 60 mL/min/1.28y1Zfzyuf Kidney Disease: Estimated GFR < 15 mL/min/1.73m2 Glucose 87 60 - 115 mg/dL [facility] Calcium 9.5 8.4 - 10.2 mg/dL [facility] 03/06/2025 10:2 1 AM EDT 03/06/2025 10:21 AM EDT us Generic External Data Provider LAB BLOOD ORDERAB LES Final Result [facility] [address] [place] [phone] * (ABNORMAL) CBC (03/06/2025 10:21 AM EDT) White Blood Count 10.0 4.8 - 10.8 X10*3/uL [facility] Red Blood Count 5.03 4.20 - 5.50 X10*6/uL [facility] Hemoglobin 13.8 12.0 - 16.0 g/dl [facility] Hematocrit 41.9 37.0 - 47.0 % [facility] Mean Corpuscular Volume 83.3 80.0 - 98.0 fL [facility] Mean Corpuscular Hemoglobin 27.4 27.0 - 33.0 pg [facility] Mean Corpuscular HGB Conc 32.9 31.0 - 35.0 g/dl [facility] Red Cell Distribution Width 14.7 11.0 - 16.0 % [facility] Platelet Count 385 160 - 400 X10*3/uL [facility] Mean Platelet Volume 8.8(L) 9.4 - 12.3 fL [facility] NRBC Pct Auto 0.0 0.0 - 0.2 /100WBC [facility] NRBC Abs Auto 0.000 0.0 - 0.012 X10*3/uL [facility] 03/06/2025 10:2 1 AM EDT 03/06/2025 10:21 AM EDT us Generic External Data Provider LAB BLOOD ORDERAB LES Final Result [facility] [address] [place] [phone] documented in this encounter Visit Diagnoses Not on filedocumented in this encounter Additional Health Concerns Assessment Noted Time PHQ-9 Depression Total Score: 0 12/29/19 24 9:27 AM EST documented as of this encounter Care Teams Occupational Medicine Officer Relationship Specialty Start Date End Date Lluvia Anderson MD [address] [place] [address] PCP - General Family Medicine 06/28/17 documented as of this encounter
--- OUTSIDE RECORDS SUMMARY | 2025-03-11 12:14 | XMS_ITS | Encounter Summary ---
Author Organization [employer] Address [address] [place] [address] 7 [place] [address] Care Team Providers Care Registered Nurse Renal Name Role Phone Lluvia Anderson MD Primary Care Provider [phone] Reason for Visit * Reason Onset Date Comments PT1 12/07/2023 Encounter Details Date Type Department Care Team ([facility] st Contact Info) Description 12/07/2023 Telephone [facility] CHC MED & PEDS [address] [place], [place] [phone] Lluvia Anderson MD [address] [place] [address] PT1 Social History Tobacco Use Types Packs/Day [...] n/a Time: n/a Visits: n/a Address: [address] [facility] Facility: (name, specialty or name of doctor) Wheel Chair: no Day Habilitation Supervisor Needed: n/a Date: 12/29 Time: 9:45 AM Visits: (amount of visits) ( x monthly, weekly, daily) Address: [address] [facility] Facility: (name, specialty or name of doctor) Wheel Chair: no Day Habilitation Supervisor Needed: n/a Date: n/a Time: n/a Visits: (amount of visits) ( x monthly, weekly, daily) Address: [address] [facility] Facility: [facility] 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
--- OUTSIDE RECORDS SUMMARY | 2025-03-11 12:14 | XMS_ITS | Encounter Summary ---
Author Organization [employer] Address [address] [facility] [address] 7t [place] [address] Care Team Providers Care Epitaxial Reactor Technician Name Role Phone Lluvia Anderson MD Primary Care Provider [phone] Encounter Details Date Type Department Care Team (Latest Contact Info) Description 03/11/2025 Travel Social History Tobacco Use Types Packs/Day Years [...] documented as of this encounter Care Teams Epitaxial Reactor Technician Relationship Specialty Start Date End Date Lluvia Anderson MD [address] [place] [address] PCP - General Family Medicine 06/28/17 documented as of this encounter
[2025-03-11 15:11] LABS: Creatinine Urine 231.67 mg/dL
[2025-03-11 15:14] LABS: Cholesterol 173 mg/dL (<200); HDL Cholesterol 49 mg/dL (>40); LDL Cholesterol Calculated 101 mg/dL (<100); Triglycerides 117 mg/dL (<150); Uric Acid 4.9 mg/dL (2.4-5.7)
[2025-03-11 15:32] LABS: Vitamin D 25-OH Total 41.7 ng/mL (>30)
== END 2025-03-11 10:17 | disposition home or self-care (01) ==
LOC: HO.CHCLDS 10:16
PROVIDERS: Visit Provider Pediatrics
DX: I10 Essential (primary) hypertension (principal); Z71.3 Dietary counseling and surveillance; Z71.82 Exercise counseling; M10.00 Idiopathic gout, unspecified site; I48.92 Unspecified atrial flutter; M79.671 Pain in right foot; T56.0X1D Toxic effect of lead and its compounds, accidental (unintentional), subsequent encounter; M1A.10X0 Lead-induced chronic gout, unspecified site, without tophus (tophi)
CPT/HCPCS: 36415; 80061; 82043; 82306; 82570; 84443; 84550

== ENCOUNTER 2025-05-01 10:20 | Outpatient (AMB) | payer MEDICAID, SELFPAY ==
--- NOTE | 2025-05-01 10:40 | A.OFFVIS_ITS ---
Intake Visit Reasons: B/L knee cortisone injections, last inj 01/28/25 Intake Note: Afia is a 64 year old female who presents today for repeat bilateral knee injections, last injections 01/29/24. Patient reports her last injections gave very little relief and she would like to repeat. She states that her left knee lasted 2 months and her right knee had 2 weeks of relief. Allergies No Known Allergies [NO KNOWN ALLERGIES] Allergy (Unknown, Verified 05/01/25 10:51) N/A HPI HPI B/L knee cortisone injections, last inj 01/28/25: Details: Ms. Isael Wilkins is a 64-year-old female who presents to the office today for chronic bilateral knee pain. She received a cortisone injections every 3 months. Last injection was on 01/28/2025 in his looking to repeat injections today. 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 No ecchymosis, redness or edema. No joint effusions noted. No tenderness to palpation of the medial or lateral joint lines bilaterally. Crepitus felt with knee range of motion. Negative Ammy's. NVI. Office Procedures AMB Joint Injection/Aspiration Joint Injection/Aspiration Primary Site: right knee Secondary Site: left knee Prep: site was prepped using aseptic technique, ethochloride spray was applied and injection warnings given Injected: 80 mg of, DepoMedrol, with 8 mL of (2% plain lidocaine) and in the joint Approach Used: anterolateral Procedure: The patient tolerated the procedure well, but had some pain with the injection and there was some relief with the local anesthesia Coding 99658 - Large joint Procedure code (CPT) selection complete Assessment & Plan Assessment & Plan (1) Bilateral primary osteoarthritis of knee: Code(s): M17.0 - Bilateral primary osteoarthritis of knee Category: Medical Plan Ms. Isael Wilkins is a 64-year-old female who presents to the office today for chronic bilateral knee pain. She received a cortisone injections every 3 months. Last injection was on 01/28/2025 in his looking to repeat injections today. The patient was offered a cortisone injection in bilateral knees with 80 mg of DepoMedrol. The patient was explained the risks, benefits, and alternatives to receiving this injection. After receiving consent for the injection, the patient had the procedure done while in the office today. The patient tolerated the procedure well with no complications. Follow-up will be p.r.n., or sooner if needed Coding Level of Care Code Est Pt Level 3 (85795) Diagnoses Bilateral primary osteoarthritis of knee M17.0 CPT Codes Coding - 04977 Large joint: 59515 - Large joint ([id number])
--- OUTSIDE RECORDS SUMMARY | 2025-05-01 12:05 | XMS_ITS | Encounter Summary ---
Author Organization [employer] Address [address] [facility] 7 [place] [address] Care Team Providers Care Granite Sandblaster Apprentice Name Role Phone Lluvia Anderson MD Primary Care Provider [phone] Reason for Visit * Reason Onset Date Comments PT-1 12/03/2024 Encounter Details Date Type Department Care Team (Late st Contact Info) Description 12/03/2024 Telephone [facility] MEDICINE [address] [place] [address] Lluvia Anderson MD [address] [place] [address] PT-1 Social History Tobacco Use Types Packs/Day [...] Y/N: Yes Provider name or facility name: [address] [address] Escort needed: Y/N: Yes Do you have a wheelchair: Y/N: No If yes- Manual or electric: N/A Visits: (amount of visits) ( x monthly, weekly, daily) 1 time a year documented in this encounter Plan of Treatment Upcoming Encounters Date Type Department Care Team (Late st Contact Info) Description 06/04/2025 3:30 PM EDT Office Visit [facility] [address] [place] [address] Soha Wynn, OD [address] [place] [address] documented as of this encounter Visit Diagnoses Not on filedocumented in this encounter Additional Health Concerns Assessment Noted Time PHQ-9 Depression Total Score: 0 12/29/19 24 9:27 AM EST documented as of this encounter Care Teams Granite Sandblaster Apprentice Relationship Specialty Start Date End Date Lluvia Anderson MD [address] [place] [address] PCP - General Family Medicine 06/28/17 documented as of this encounter
== END 2025-05-01 11:06 | disposition home or self-care (01) ==
LOC: HO.HOS 10:20
PROVIDERS: PCP Pediatrics; Visit Provider Physician Assistant
DX: M17.0 Bilateral primary osteoarthritis of knee (principal)
CPT/HCPCS: 20610; 99213

== ENCOUNTER → 2025-05-01 10:20 | Outpatient (BNVA) | payer MEDICAID, SELFPAY | PROVIDERS: PCP Pediatrics; Visit Provider Physician Assistant | DX: M17.0 Bilateral primary osteoarthritis of knee (principal) | CPT/HCPCS: 20610; 99212; J1010; J2003 ==

== ENCOUNTER 2025-09-16 14:44 | Outpatient (AMB) | payer MEDICAID, SELFPAY ==
--- NOTE | 2025-09-16 15:01 | MHC.OFFVIS ---
Vital Signs 09/16/25 15:10 Height 5 ft 5 in Weight 216 lb BMI 35.9 Intake Visit Reasons: B/L knee cortisone injections, last inj 05/01/25 Intake Note: Afai is a 65 year old female who presents today for a repeat injection for her bilateral knees, last injections 05/01/25. Patient reports her last injection provided relief for about 3 weeks. She states her PCP recommended using an angelica wrap for her right knee as the pain was affecting ADL's. Patient is interested on a right knee brace today for her to use in between injections. Retail Sales Specialist Required: Yes Retail Sales Specialist Language: Rnp Services: Retail Sales Specialist Present Retail Sales Specialist Name: ChadANGEL jordan/PEDRO Information Interpreted: clinical only Allergies No Known Allergies (NO KNOWN ALLERGIES) Allergy (Unknown, Verified 09/16/25 15:10) N/A HPI HPI B/L knee cortisone injections, last inj 05/01/25: Details: Ms. Isael Wilkins is a 65-year-old female who presents to the office today with bilateral knee osteoarthritis and chronic knee pain. Her last cortisone injection was on 05/01/2025 and gave her some relief. She is looking to repeat injections while in the office today and obtained a knee brace for the right knee. 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 No ecchymosis, redness or edema. No joint effusions noted. No tenderness to palpation of the medial or lateral joint lines bilaterally. Crepitus felt with knee range of motion. Negative Ammy's. NVI. Office Procedures AMB Joint Injection/Aspiration Joint Injection/Aspiration Primary Site: right knee Secondary Site: left knee Prep: site was prepped using aseptic technique, ethochloride spray was applied and injection warnings given Injected: 40 mg of, with 3 mL of, 1% plain lidocaine, 0.25% bupivacaine, in the joint and decadron Approach Used: anterolateral Procedure: The patient tolerated the procedure well, but had some pain with the injection and there was some relief with the local anesthesia Coding 77236 - Bilateral Large Joint Procedure code (CPT) selection complete Assessment & Plan Assessment & Plan (1) Bilateral primary osteoarthritis of knee: Code(s): M17.0 - Bilateral primary osteoarthritis of knee Category: Medical Plan The patient was offered a cortisone injection in bilateral knees. The patient was explained the risks, benefits, and alternatives to receiving this injection. After receiving consent for the injection, the patient had the procedure done while in the office today. The patient tolerated the procedure well with no complications. Additionally, the patient was fit for a Genumed knee brace off the shelf while in the office today. Follow-up will be PRN, or sooner if needed Coding Level of Care Code Est Pt Level 3 (87195) Diagnoses Bilateral primary osteoarthritis of knee M17.0 CPT Codes Coding - 15358 - Bilateral Large Joint: 95396 - Bilateral Large Joint ([id number])
[2025-09-16 15:10] VITALS: BMI 35.9
--- OUTSIDE RECORDS SUMMARY | 2025-09-16 19:48 | XMS_ITS | Clinical Summary ---
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 Social History Tobacco Use Types Packs/Day Years Used Date Smoking Tobacco: Never Assessed Comments Unknown Sex and Gender Information Value Date Recorded Sex Assigned at Not on file Legal Sex Female 12:18 PM EDT Gender Identity Not on file Sexual Orientation Not on file Plan of Treatment Upcoming Encounters Date Type Department Care Team (Late st Contact Info) Description 10/15/2025 3:15 PM EST Office Visit [facility] [address] [phone] Ajit Walsh DPM [address] [phone] Health Maintenance Due Date Last Done Comments Breast Cancer Screening 1962 Colorectal Cancer Screening: Colonoscopy 1962 Cervical Cancer Screening: Pap Smear 1983 Pneumococcal Vaccine: 50+ Years (1 of 1 - PCV) 2012 Depression Screening 11/27/2024 HIV Screening 04/02/2025 Hepatitis C Screening 04/02/2025 Social Influencers of Health Screening 04/02/2025 COVID-19 Vaccine ( - season) 2025 11/22/2021, 03/09/2021, 02/09/2021 Influenza Vaccine (#1) 2025 3, 09/03/2019, 09/21/2018, Additional history exists Hypertension/CHF/CAD Annual BMP Blood Test 03/06/2026 03/06/2025 DTaP,Tdap,and Td Vaccines (2 - Td or Tdap) 09/21/2028 09/21/2018 Cholesterol Screening (Lipid Panel) 03/11/2030 03/11/2025 RSV Immunization Adult Patients (1 - 1-dose 75+ series) 2037 Zoster Vaccines Completed 08/09/2019, 06/06/2019 HIB Vaccines [...] on patient's age to complete this topic MMR Vaccines Aged Out No longer eligi ble based on patient's age to complete this topic Meningococcal ACWY Vaccine Aged Out N o longer eligible based on patient's age to complete this topic Meningococcal B Vaccine Aged Out No l onger eligible based on patient's age to complete this topic RSV Immunization Patients Under 20 months Aged Out No longer eligible based on patient's age to complete this topic Varicella Vaccines Aged Out No longer eligible based on patient's age to complete this topic Insurance MEDICAID - [place] Care Teams Trading Analyst Relationship Specialty Start Date End Date Lluvia Anderson MD [address] [place] [phone] PCP - General Internal Medicine 04/02/25
--- OUTSIDE RECORDS SUMMARY | 2025-09-16 19:48 | XMS_ITS | Encounter Summary ---
Author Organization [employer] Address [address] [place] [address] Care Team Providers Care Arch Cushion Skiving Machine Operator Name Role Phone Lluvia Anderson MD Primary Care Provider [phone] Reason for Visit * Reason Onset Date Comments PT1 12/07/2023 Encounter Details Date Type Department Care Team ([facility] st Contact Info) Description 12/07/2023 Telephone [facility] CHC MED & PEDS [address] [place], [place] [phone] Lluvia Anderson MD [address] [place], [place] [phone] PT1 Social History Tobacco Use Types Packs/Day [...] the mail. * Telephone Encounter - Nicole Christianson - 12/07/2023 12:47 PM EST PT1 renewal needed Date: n/a Time: n/a Visits: n/a Address: [address] [facility] Facility: (name, specialty or name of doctor) Wheel Chair: no Furniture Assembler Needed: n/a Date: 12/29 Time: 9:45 AM Visits: (amount of visits) ( x monthly, weekly, daily) Address: [address] [facility] Facility: (name, specialty or name of doctor) Wheel Chair: no Furniture Assembler Needed: n/a Date: n/a Time: n/a Visits: (amount of visits) ( x monthly, weekly, daily) Address: [address] [facility] Facility: [facility] Wheel Chair: computer forensics analyst Furniture Assembler Needed: n/a documented in this encounter Plan of Treatment Not on file documented as of this encounter Visit Diagnoses Not on filedocumented in this encounter Care Teams Arch Cushion Skiving Machine Operator Relationship Specialty Start Date End Date Lluvia Anderson MD [address] [place] [address] PCP - General Family Medicine 06/28/17 documented as of this encounter
--- OUTSIDE RECORDS SUMMARY | 2025-09-16 19:48 | XMS_ITS | Encounter Summary ---
Author Organization [employer] Address [address] [place] [address] Care Team Providers Care Photographer Apprentice Lithographic Name Role Phone Lluvia Anderson MD Primary Care Provider [phone] Reason for Visit * Reason Onset Date Comments pt1 12/14/2022 Encounter Details Date Type Department Care Team ([facility] Contact Info) Description 12/14/2022 Telephone [facility] MEDICINE [address] [place] [address] Lluvia Anderson MD [address] [place], [place] [phone] pt1 Social History Tobacco Use Types Packs/Day [...] pt requesting to update yearly PT1 Location: [address] [address] Specialty: care provider Time: n/a Date:n/a Set Up Person: n/a wheelchair accessible : n/a Location: [address] [address] Specialty: electrical high tension tester Time: n/a Date:n/a Set Up Person:n/a wheelchair accessible :n/a Location: [address] [address] Specialty: electrical high tension tester / Lab works Time:n/a Date:n/a Set Up Person:n/a wheelchair accessible :n/a documented in this encounter Plan of Treatment Not on file documented as of this encounter Visit Diagnoses Not on filedocumented in this encounter Care Teams Photographer Apprentice Lithographic Relationship Specialty Start Date End Date Lluvia Anderson MD [address] [place] [address] PCP - General Family Medicine 06/28/17 documented as of this encounter
--- OUTSIDE RECORDS SUMMARY | 2025-09-16 19:48 | XMS_ITS | Encounter Summary ---
Author Organization [employer] Address [address] [place] [address] 7 [place] [address] Care Team Providers Care Group Insurance Specialist Name Role Phone Lluvia Anderson MD Primary Care Provider [phone] Encounter Details Date Type Department Care Team [...] on filedocumented in this encounter Care Teams Group Insurance Specialist Relationship Specialty Start Date End Date Lluvia Anderson MD [address] [place] [address] PCP - General Family Medicine 06/28/17 documented as of this encounter
--- OUTSIDE RECORDS SUMMARY | 2025-09-16 19:48 | XMS_ITS | Encounter Summary ---
Author Organization [employer] Address [address] [facility] 7 [place] [address] Care Team Providers Care Relocation Specialist Name Role Phone Lluvia Anderson MD Primary Care Provider [phone] Reason for Visit * Reason Onset Date Comments Results 04/25/2024 Encounter Details Date Type Department Care Team ([facility] st Contact Info) Description 04/25/2024 Telephone [facility] MED[facility]INE [address] [place] [address] Lluvia Anderson MD [address] [place] [address] Results Social History Tobacco Use Types Packs/Day [...] 12:15 PM EDT Tc to pt using [employer] [place] [place], [place] [id number] in regards to lab results from 04/19. [...] call back with labs results from 04/19 Yakut speaker documented in this encounter Plan of Treatment Not on file documented as of this encounter Visit Diagnoses Not on filedocumented in this encounter Additional Health Concerns Assessment Noted Time PHQ-9 Depression Total Score: 0 12/29/19 24 9:27 AM EST documented as of this encounter Care Teams Relocation Specialist Relationship Specialty Start Date End Date Lluvia Anderson MD [address] [place] [address] PCP - General Family Medicine 06/28/17 documented as of this encounter
--- OUTSIDE RECORDS SUMMARY | 2025-09-16 19:48 | XMS_ITS | Encounter Summary ---
Author Organization [employer] Address 75 [facility] 7 [place] [address] Care Team Providers Care Hand Salter Name Role Phone Lluvia Anderson MD Primary Care Provider [phone] Encounter Details Date Type Department Care Team (Late st Contact Info) Description 10/03/2023 Abstract [facility] MEDICINE [address] [place] [address] Lluvia Anderson MD [address] [place], [place] [phone] Social History Tobacco Use Types Packs/Day Years [...] on filedocumented in this encounter Care Teams Hand Salter Relationship Specialty Start Date End Date Lluvia Anderson MD [address] [place] [id number] PCP - General Family Medicine 06/28/17 documented as of this encounter
--- OUTSIDE RECORDS SUMMARY | 2025-09-16 19:48 | XMS_ITS | Encounter Summary ---
Author Organization [employer] Address 75 [facility] 7 [place] [address] Care Team Providers Care Principal Engineer Name Role Phone Lluvia Anderson MD Primary Care Provider [phone] Reason for Visit * Reason Onset Date Comments PT-1 12/03/2024 Encounter Details Date Type Department Care Team (Late st Contact Info) Description 12/03/2024 Telephone [facility] MEDICINE [address] [place] [address] Lluvia Anderson MD [address] [place] [address] PT-1 Social History Tobacco Use Types Packs/Day [...] Y/N: Yes Provider name or facility name: [place] [id number] Escort needed: Y/N: Yes Do you have [...] documented as of this encounter Care Teams Principal Engineer Relationship Specialty Start Date End Date Lluvia Anderson MD [address] [place] [address] PCP - General Family Medicine 06/28/17 documented as of this encounter
--- OUTSIDE RECORDS SUMMARY | 2025-09-16 19:48 | XMS_ITS | Clinical Summary ---
Author Organization [employer] Address 75 [facility] 7t [place] [address] Care Team Providers Care Lap Welder Name Role Phone Lluvia Anderson MD Primary Care Provider [phone] Allergies No known active allergies Medications flecainide (Tambocor) 50 MG tablet Take 1 tablet by mouth every 12 (twelve) hours. Active metoprolol succinate XL (Toprol XL) 50 MG 24 hr tablet Take 1 Tablet by Oral route once a day 12/26/19 20 Active rivaroxaban (Xarelto) 20 MG tablet Take 1 tablet by mouth at bed time. Active triamcinolone (Kenalog) 0.025 % cream APPLY [...] pain. 40 tablet 1 05/09/20 24 Active minoxidil (Loniten) 2.5 MG tabletIndication s:Alopecia hereditaria Take 0.625 mg orally daily 30 tablet 11 03/11/20 25 Active D3 Super Strength 50 MCG (2000 UT) capsule TAKE 1 CAPSULE BY MOUTH EVERY DAY IN THE MORNING 90 capsule 3 05/27/20 25 Active allopurinol (Zyloprim) 300 MG tablet TAKE 1 TABLET BY MOUTH EVERY DAY 90 tablet 3 05/27/20 25 Active lidocaine (Lidoderm) 5 % patch Apply 1 patch topically Once per day. Remove & discard patch within 12 hours or as directed by MD. 30 patch 2 07/30/20 25 Active hydroCHLOROthiaz ron (HYDRODiuril) 25 MG tabletIndication s:Primary hypertension TAKE 1 TABLET BY MOUTH EVERY MORNING 90 tablet 1 08/27/20 25 Active finasteride (Proscar) 5 MG tabletIndication s:Androgenic alopecia, unspecified TAKE 1 TABLET BY MOUTH EVERY DAY 90 tablet 1 09/04/20 25 Active hydroCHLOROthiaz ron (HYDRODiuril) 25 MG tabletIndication s:Primary hypertension TAKE 1 TABLET BY MOUTH EVERY DAY IN THE MORNING 90 tablet 1 02/28/20 25 025 Discontinued finasteride (Proscar) 5 MG tabletIndication s:Androgenic alopecia, unspecified TAKE 1 TABLET BY MOUTH EVERY DAY 90 tablet 1 02/28/20 25 025 Discontinued Active Problems Problem Noted Date Diagnosed Date Bilateral primary osteoarthritis of knee 024 Mitral regurgitation 05/20/2024 Painful arc syndrome of 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 05/20/2024 Paroxysmal atrial fibrillation (CMS/HCC) 024 Right wrist pain 05/20/2024 Anterior knee pain 01/01/2024 01/01/2024 Osteoarthritis of right patellofemoral joint Atrophic vaginitis 08/14/2019 Benign essential hypertension 07/20/2017 Chronic atrial flutter (CMS/HCC) 06/28/2017 Resolved Problems Problem Noted Date Diagnosed [...] Encounters Date Type Department Care Team Description 09/03/2025 Refill [facility] [address] [place] [address] Lluvia Anderson MD Androgenic alopecia, unspecified 08/27/2025 Refill [facility] [address] [place] [address] Lluvia Anderson MD Primary hypertension 07/30/2025 9:00 AM EDT Office Visit [facility] [address] [place] [address] Lluvia Anderson MD Encounter for immunization (Primary Dx); Benign essential hypertension; Chronic atrial flutter (CMS/HCC); Osteoarthritis of right patellofemoral joint 07/30/2025 Travel 07/29/2025 Telephone [facility] [address] [place] [address] Lluvia Anderson MD Chart Prep from Last 3 Months Immunizations Immunization Administration Dates Next Due Influenza injectable quadriv alent IIV4 with preservative 09/03/2019,09/21/2018,09/07/2017 Influenza injectable quadriv alent preservative free 09/27/2023 Pneumococcal Conjugate PCV 20 07/30/2025 Tdap 09/21/2018 Zoster, Recombinant 08/09/2019,06/06/2019 Family History Medical History Relation Name Comments COPD Father Stroke Mother Relation Name Status Comments Father Mother Social History Tobacco Use Types Packs/Day Years Used Date Smoking Tobacco: Never Passive Smoke Exposure: Never Smokeless Tobacco: Never Tobacco Cessation:Counseling Given: Not Answered Depression Answer Date Recorded Patient Health Questionnaire-9 Score 0 07/30/2025 Patient Health Questionnaire-9 Score 0 07/30/2025 Last PHQ-9: Questionnaire Data Not on file 0 07/30/2025 Housing Stability Answer Date Recorded What is [...] Date Recorded Patient Health Questionnaire-2 Score 0 07/30/2025 Internet Access Answer Date Recorded Internet Access [...] Sign Reading Time Taken Comments Blood Pressure 110/62 07/30/2025 8:57 AM EDT Pulse 64 07/30/2025 8:57 AM EDT Temperature 36.5 C (97.7 F) 07/30/2025 8:57 AM EDT Respiratory Rate 16 07/30/2025 8:57 AM EDT Oxygen Saturation 99% 03/11/2025 9:40 AM EDT Inhaled Oxygen Concentration - - Weight 98.4 kg (217 lb) 07/30/2025 8:57 AM EDT Height 165.1 cm (5' 5 ) 03/11/2025 9:40 AM EDT Body Mass Index 36.11 03/11/2025 9:40 AM EDT Plan of Treatment Health Maintenance Due Date Last Done Comments CT Colonography 1960 FIT DNA/Cologuard 1960 FIT 1960 FOBT 1960 HIV Screening 1960 Sigmoidoscopy 1960 Hepatitis C Screening 1980 RSV Patients and Patients Aged 60 years or older (1 - Risk 60-74 years 1-dose series) 2022 Colonoscopy 12/18/2022 12/18/2017 Colorectal Cancer Screening 12/18/2022 COVID-19 Vaccine ( season) 2025 11/22/2021, 03/09/2021, 02/09/2021 Influenza Vaccine (#1) 2025 , 09/03/2019, 09/21/2018, Additional history exists Mammogram 11/23/2025 11/23/2024, 09/27, 10/05/2022, Additional history exists Alcohol/Substance Use Screening 03/11/2026 03/11/2025 Disability Screening 03/11/2026 03/11/2025 SDOH Screening 03/11/2026 03/11/2025 Cervical Cancer Screening 04/06/2026 HPV/Cotest 04/06/2026 04/06/2021 Pap Smear 04/06/2026 04/06/2021 Depression Screening 07/30/2026 07/30/2025, 07/30/20 Tobacco Screening 07/30/2026 07/30/2025 DTaP/Tdap/Td Vaccines (2 - Td or Tdap) 09/21/2028 09/21/2018 Lipid Panel 03/11/2030 03/11/2025, 01/19/2022 Zoster Vaccines Completed 08/09/2019, 06/06/2019 Pneumococcal Vaccine: 50+ Years Completed 07/30/2025 HIB Vaccines Aged Out No longer eligi [...] Procedure Name Priority Date/Time Associated Diagnosis Comments LIPID PANEL, STANDARD Routine 03/11/2025 10:18 AM EDT Dietary counseling Exercise counseling Benign essential hypertension Idiopathic gout, unspecified chronicity, unspecified site Chronic atrial flutter (CMS/HCC) Right foot pain 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, unspecified site, subsequent encounter BI MAMMOGRAM SCREENING TOMOSYNTHESIS BILATERAL Routine 11/23/2024 9:57 AM EST HPV MRNA E6/E7 Routine 04/06/2021 9:25 AM EDT THINPREP PAP Routine 04/06/2021 9:25 AM EDT HM COLONOSCOPY Routine 12/18/2017 from Last 3 Months or Most Recently Relevant to Health Maintenance Results * (ABNORMAL) Lipid Panel, Standard (03/11/2025 10:18 AM EDT) Triglycerides 117 <150 mg/dL [facility] Comment:Desirable Triglyceri de: less than 150 mg/dLBorderline High Triglyceride 150-199 mg/dLHigh Triglyceride: 200-499 mg/dLVery High Triglyceride: greater than or equal to 5OO mg/dL Cholesterol 173 <200 mg/dL [facility] Comment:Desirable Cholestero l: less than 200 mg/dLBorderline High Cholesterol: 200-239 mg/dLHigh Cholesterol: greater than 239 mg/dL LDL Cholesterol Calculated 101(H) <100 mg/dL [facility] Comment:Desirable LDL: less than 100 mg/dLNear Optimal/Above Optimal LDL: 110- 129 mg/dLBorderline High LDL: 130-159 mg/dLHigh LDL: 160-189 mg/dLVery High LDL: greater than or equal to 190 mg/dL HDL Cholesterol 49 >40 mg/dL [facility] Comment:Desirable HDL: great er than 40 mg/dL Note: This HDL assay may give artificially low results in patients with liver disease. Blood Venous blood specimen / Unknown 03/11/2025 10:18 AM EDT 03/11/2025 2:33 PM EDT us Lluvia Anderson MD LAB BLOOD ORDERABLES Final Re sult [facility] [address] [place] [phone] * BI Mammogram Screening Tomosynthesis Bilateral (11/23/2024 9:57 AM EST) Anatomical Region Laterality Modality Breast Bilateral Mammography 11/23/2024 9:57 AM EST Narrative 12/06/2024 5:07 PM EST [address] [place] [address] Mammography Report Signed Patient: Afia Guadalupe MR#: [id number] : 1960 Acct:[id number] Age/Sex: 64 / F ADM Date: 11/23/24 Loc: HO.MAMMO Attending Dr: Lluvia Anderson MD Ordering Physician: Lluvia Anderson MD Results: 1Ne gative Date of Service: 11/23/24 Follow Up: 1 Year From Orig ina Mammogram Procedure(s): MM tomosynthesis screening BI Accession Number(s): [id number] cc: Lluvia Anderson MD EXAMINATION: MM SCREENING [...] 12/06/24 1705 DD/ 0957 TD/TT: 11/23/24 1010 Air Pollution Analyst: Procedure Note Donotuseinterpreter, Image - 12/06/20[facility] [address] [place], [place] [address] Mammography Report Signed Patient: Clara GuadalupenMR#: [id number] : 1960cct:[id number] Age/Sex: 64 / FADM Date: 11/23/24 Loc: HO.MAMMO Attending Dr: Lluvia Anderson MD Ordering Physician: Lluvia Anderson MDResults: 1Ne gative Date of Service: 11/23/24Follow Up: 1 Year From Orig inal Mammogram Procedure(s): MM tomosynthesis screening BI Accession Number(s): [id number] cc: Lluvia Anderson MD EXAMINATION: MM SCREENING [...] 12/06/24 1705 DD/ 0957 TD/TT: 11/23/24 1010 Air Pollution Analyst: us Lluvia Anderson MD IMG BI PROCEDURES Final Resul t * THINPREP PAP (04/06/2021 9:25 AM EDT) Clinical Information: [facility] COMMENT SEE COMMENT [facility] Comment: EXPLANATORY NOTE: The Pap is a screening test for cervical cancer. It is not a diagnostic test and is subject to false negative and false positive results. It is most reliable when a satisfactory sample, regularly obtained, is submitted with relevant clinical findings and history, and when the Pap result is evaluated along with historic and current clinical information. Edge Kitter : SEE COMMENT [facility] Comment: RK, CT(ASCP) CT screening location: [place] [address] Interpretation/R esult: Negative for intraepithelial lesion or malignancy. [facility] LMP: NONE GIVEN [facility] Prev. BX: NONE GIVEN [facility] Prev. PAP: NIL 2017 [facility] SOURCE: None given [facility] Statement Of Adequacy: SEE COMMENT [facility] Comment: Satisfactory for evaluation. Endocervical/transformation zone component present. 04/06/2021 9:25 AM EDT Julia Billingsley CNM LAB PATHOLOGY ORDERABLES Final Result [facility] [address] * HPV mRNA E6/E7 (04/06/2021 9:25 AM EDT) HPV nRNA E6/E7 Not Detected Not Detected [facility] Comment: Methodology: Metal Numerical Tool Programmer-Mediated Amplification This assay detects E6/E7 viral messenger RNA (mRNA) from 14 high-risk HPV types (16,18,31,33,35,39,45,51,52,56,58,59,66,68). The analytical performance characteristics of this assay have been determined by [employer]. The modifications have not been cleared or approved by the FDA. This assay has been validated pursuant to the CLIA regulations and is used for clinical purposes. For additional information, please refer to http://education.incrediblue/faq/NQP699p9 (This link if provided for information/ educational purposes only.) 04/06/2021 9:25 AM EDT Julia Billingsley CNM LAB BLOOD ORDERABLES Ciarra gilmore Result [facility] * Colonoscopy (12/18/2017) Colonoscopy Normal Normal Narrative Alma Martinez - 12/18/2017 Recommended 5 year follow up Historical Provider MD HEALTH MAINTENANCE Final Result from Last 3 Months or Most Recently Relevant to Health Maintenance Insurance [facility] C3 Care Teams Lap Welder Relationship Specialty Start Date End Date Lluvia Anderson MD [address] [place] [phone] PCP - General Family Medicine 06/28/17
--- OUTSIDE RECORDS SUMMARY | 2025-09-16 19:48 | XMS_ITS | Encounter Summary ---
Author Organization [employer] Address 75 [facility] 7t [place] [address] Care Team Providers Care Mri Technologist Name Role Phone Lluvia Anderson MD Primary Care Provider [phone] Encounter Details Date Type Department Care Team ([facility] st Contact Info) Description 01/23/2024 Telephone [facility] [address] [place], [place] [phone] Lluvia Anderson MD [address] [place] [address] Social History Tobacco Use Types Packs/Day Years [...] Miscellaneous Notes * Telephone Encounter - Nicole Christianson - 01/23/2024 12:52 PM EST Tc from pt calling in regards to metroNIDAZOLE (Metrogel) 0.75 % gel. States medication is not working. Was advised by provider to call if medication is not working. Please contact pt at [phone] (Lao) documented in this encounter Plan of Treatment Not on file documented as of this encounter Visit Diagnoses Not on filedocumented in this encounter Additional Health Concerns Assessment Noted Time PHQ-9 Depression Total Score: 0 12/29/19 24 9:27 AM EST documented as of this encounter Care Teams Mri Technologist Relationship Specialty Start Date End Date Lluvia Anderson MD [address] [place] [address] PCP - General Family Medicine 06/28/17 documented as of this encounter
== END 2025-09-16 15:30 | disposition home or self-care (01) ==
LOC: HO.HOS 14:44
PROVIDERS: PCP Pediatrics; Visit Provider Physician Assistant
DX: M17.0 Bilateral primary osteoarthritis of knee (principal)
CPT/HCPCS: 20610; 99213

== ENCOUNTER → 2025-09-16 14:44 | Outpatient (BNVA) | payer MEDICAID, SELFPAY | PROVIDERS: PCP Pediatrics; Visit Provider Physician Assistant | DX: M17.0 Bilateral primary osteoarthritis of knee (principal) | CPT/HCPCS: 20610; 99212; J0665; J1100; J2003 ==

== ENCOUNTER 2025-10-07 03:52 | Emergency (ER) | payer MEDICAID, SELFPAY ==
--- NOTE | ~2025-10-07 | XR_ITS ---
CLINICAL HISTORY: pain 3 view left wrist Comparison: None provided Findings: No fractures or dislocations. No significant arthritic change or erosions. IMPRESSION: 1. 2 mm density in the volar palmar soft tissues. Age-indeterminate foreign body. 2. No acute fracture. This document has been electronically signed by: Derrek Houston MD on 10/07/2025 04:42:41
[2025-10-07 03:55] VITALS: BP 137/63; PULSE 72; RESP 20; TEMP 36; O2SAT 98; BMI 36.1
--- OUTSIDE RECORDS SUMMARY | 2025-10-07 04:26 | XMS_ITS | Encounter Summary ---
Author Organization [employer] Address 75 [facility] 7 [place] [address] Care Team Providers Care Can Pusher Name Role Phone Lluvia Anderson MD Primary Care Provider [phone] Encounter Details Date Type Department Care Team (Late st Contact Info) Description 10/03/2023 Abstract [facility] MEDICINE [address] [place] [address] Lluvia Anderson MD [address] [place] [address] Social History Tobacco Use Types Packs/Day Years [...] on filedocumented in this encounter Care Teams Can Pusher Relationship Specialty Start Date End Date Lluvia Anderson MD [address] [place] [phone] PCP - General Family Medicine 06/28/17 documented as of this encounter
--- OUTSIDE RECORDS SUMMARY | 2025-10-07 04:26 | XMS_ITS | Encounter Summary ---
Author Organization [employer] Address 75 [facility] 7t [place] [address] Care Team Providers Care Drum Loader And Unloader Name Role Phone Lluvia Anderson MD Primary Care Provider [phone] Encounter Details Date Type Department Care Team ([facility] st Contact Info) Description 01/23/2024 Telephone [facility]S [address] [place], [place] [phone] Lluvia Anderson MD [address] [place] [address] Social History Tobacco Use Types Packs/Day Years [...] is not working. Please contact pt at [phone] (Equatorial Guinean) documented in this encounter Plan of Treatment Not on file documented as of this encounter Visit Diagnoses Not on filedocumented in this encounter Additional Health Concerns Assessment Noted Time PHQ-9 Depression Total Score: 0 12/29/19 24 9:27 AM EST documented as of this encounter Care Teams Drum Loader And Unloader Relationship Specialty Start Date End Date Lluvia Anderson MD [address] [place] [address] PCP - General Family Medicine 06/28/17 documented as of this encounter
--- OUTSIDE RECORDS SUMMARY | 2025-10-07 04:26 | XMS_ITS | Clinical Summary ---
Author Organization [employer] Address [address] [facility] 7t [place] [address] Care Team Providers Care Auto Service Writer Name Role Phone Lluvia Anderson MD Primary Care Provider [phone] Allergies No known active allergies Medications flecainide [...] mild pain. 40 tablet 1 4 Active minoxidil (Loniten) 2.5 MG tabletIndications :Alopecia hereditaria Take 0.625 mg orally daily 30 tablet 11 5 Active D3 Super Strength 50 MCG (2000 UT) capsule TAKE 1 CAPSULE BY MOUTH EVERY DAY IN THE MORNING 90 capsule 3 5 Active allopurinol (Zyloprim) 300 MG tablet TAKE 1 TABLET BY MOUTH EVERY DAY 90 tablet 3 5 Active lidocaine (Lidoderm) 5 % patch Apply 1 patch topically Once per day. Remove & discard patch within 12 hours or as directed by . 30 patch 2 5 Active hydroCHLOROthiazi de (HYDRODiuril) 25 MG tabletIndications :Primary hypertension TAKE 1 TABLET BY MOUTH EVERY MORNING 90 tablet 1 5 Active finasteride (Proscar) 5 MG tabletIndications :Androgenic alopecia, unspecified TAKE 1 TABLET BY MOUTH EVERY DAY 90 tablet 1 5 Active Active Problems Problem Noted Date Diagnosed [...] Type Department Care Team Description 09/03/2025 Refill [facility] & PEDS [address] [place] [address] Lluvia Anderson MD Androgenic alopecia, unspecified 08/27/2025 Refill [facility] [address] [facility] [place] [address] Lluvia Anderson MD Primary hypertension 07/30/2025 9:00 AM EDT Office Visit [facility] [address] [facility] [place] [address] Lluvia Anderson MD Encounter for immunization (Primary Dx); Benign essential hypertension; Chronic atrial flutter (CMS/HCC); Osteoarthritis of right patellofemoral joint 07/30/2025 Travel 07/29/2025 Telephone [facility] [address] [place] [address] Lluvia Anderson MD Chart Prep from Last [...] 10:18 AM EDT) Triglycerides 117 <150 mg/dL [facility] Comment:Desirable Triglyceri de: less than 150 mg/dLBorderline High Triglyceride 150-199 mg/dLHigh Triglyceride: 200-499 mg/dLVery High Triglyceride: greater than or equal to 5OO mg/dL Cholesterol 173 <200 mg/dL [facility] Comment:Desirable Cholestero l: less than 200 mg/dLBorderline High Cholesterol: 200-239 mg/dLHigh Cholesterol: greater than 239 mg/dL LDL Cholesterol Calculated 101(H) <100 mg/dL [facility] Comment:Desirable LDL: less than 100 mg/dLNear Optimal/Above Optimal LDL: 110- 129 mg/dLBorderline High LDL: 130-159 mg/dLHigh LDL: 160-189 mg/dLVery High LDL: greater than or equal to 190 mg/dL HDL Cholesterol 49 >40 mg/dL [facility] Comment:Desirable HDL: great er than 40 mg/dL Note: This HDL assay may give artificially low results in patients with liver disease. Blood Venous blood specimen / Unknown 03/11/2025 10:18 AM EDT 03/11/2025 2:33 PM EDT us Lluvia Anderson MD LAB BLOOD ORDERABLES Final Re sult [facility] [address] [place] [address] [phone] * BI Mammogram Screening Tomosynthesis Bilateral (11/23/2024 9:57 AM EST) Anatomical Region Laterality Modality Breast Bilateral Mammography 11/23/2024 9:57 AM EST Narrative 12/06/2024 5:07 PM EST [facility] [address] [place] [address] Mammography Report Signed Patient: Afia Guadalupe MR#: [id number] : 1960 Acct:[id number] Age/Sex: 64 / F ADM Date: 11/23/24 Loc: HO.MAMMO Attending Dr: Lluvia Anderson MD Ordering Physician: Lluvia Anderson MD Results: 1Ne gative Date of Service: 11/23/24 Follow Up: 1 Year From Orig ina Mammogram Procedure(s): MM tomosynthesis screening BI Accession Number(s): [id number] cc: Lluvia Anderson MD EXAMINATION: MM SCREENING [...] DO 12/06/2024 05:05 PM EST Dictated By: Tyminski,Emily DO Signed By: <Electronically signed by Emily Gr DO in OV> 12/06/241704 DD/ 0957 TD/TT: 11/23/24 1010 Electronic Technician: Procedure Note Donotbrittanyinterpreter, Image - 12/06/2024 [facility] [address] [place], [place] [address] Mammography Report Signed Patient: Clara GuadalupenMR#: [id number] : 1960cct:[id number] Age/Sex: 64 / FADM Date: 11/23/24 Loc: HO.MAMMO Attending Dr: Lluvia Anderson MD Ordering Physician: Lluvia Anderson MDResults: 1Ne gative Date of Service: 11/23/24Follow Up: 1 Year From Orig inal Mammogram Procedure(s): MM tomosynthesis screening BI Accession Number(s): [id number] cc: Lluvia Anderson MD EXAMINATION: MM SCREENING [...] signed by Emily Gr DO in OV> 12/06/241704 DD/ 0957 TD/TT: 11/23/24 1010 Electronic Technician: us Lluvia Anderson MD IMG BI PROCEDURES [...] along with historic and current clinical information. Data Warehouse Architect : SEE COMMENT [facility] Comment: RK, CT(ASCP) CT screening location: [place] [address] Interpretation/R esult: Negative for intraepithelial lesion or malignancy. [facility] LMP: NONE GIVEN [facility] Prev. BX: NONE GIVEN [facility] Prev. PAP: NIL 2017 [facility] SOURCE: None given [facility] Statement Of Adequacy: SEE COMMENT [facility] Comment: Satisfactory for evaluation. Endocervical/transformation zone component present. 04/06/2021 9:25 AM EDT us Julia Billingsley CNM LAB PATHOLOGY ORDERABLES Final Result [facility] [address] * HPV mRNA E6/E7 (04/06/2021 9:25 AM EDT) HPV nRNA E6/E7 Not Detected Not Detected [facility] Comment: Methodology: Museum Librarian-Mediated Amplification This assay detects E6/E7 viral messenger RNA (mRNA) from 14 high-risk HPV types (16,18,31,33,35,39,45,51,52,56,58,59,66,68). The analytical performance characteristics of this assay have been determined by [employer]. The modifications have not been cleared or approved by the FDA. This assay has been validated pursuant to the CLIA regulations and is used for clinical purposes. For additional information, please refer to http://education.Multifonds/faq/YEU207w0 (This link if provided for information/ educational purposes only.) 04/06/2021 9:25 AM EDT Julia MAURO LAB BLOOD ORDERABLES Ciarra l Result [facility] [address] * Colonoscopy (12/18/2017) Colonoscopy Normal Normal Narrative Alma Martinez - 12/18/2017 Recommended 5 year follow up Historical Provider MD HEALTH MAINTENANCE Final Result from Last 3 Months or Most Recently Relevant to Health Maintenance Insurance [facility] C3 Care Teams Auto Service Writer Relationship Specialty Start Date End Date Lluvia Anderson MD [address] [place] [id number] PCP - General Family Medicine 06/28/17
--- OUTSIDE RECORDS SUMMARY | 2025-10-07 04:26 | XMS_ITS | Encounter Summary ---
Author Organization [employer] Address [address] [facility] 7 [place] [address] Care Team Providers Care Tile Roofer Name Role Phone Lluvia Anderson MD Primary Care Provider Reason for Visit * Reason Onset Date Comments PT-1 12/03/2024 Encounter Details Date Type Department Care Team (Late st Contact Info) Description 12/03/2024 Telephone [facility] [address] [place] [address] Lluvia Anderson MD [address] [place] [address] PT-1 Social History Tobacco Use Types Packs/Day [...] Y/N: Yes Provider name or facility name: [place] [address] Escort needed: Y/N: Yes Do you have [...] documented as of this encounter Care Teams Tile Roofer Relationship Specialty Start Date End Date Lluvia Anderson MD [address] [place] [address] PCP - General Family Medicine 06/28/17 documented as of this encounter
--- OUTSIDE RECORDS SUMMARY | 2025-10-07 04:26 | XMS_ITS | Clinical Summary ---
Author Organization [address] [facility] Address [address] [place] [address] Phone Care Team Providers Care Welding Teacher Name Role Phone Lluvia Anderson MD Primary Care Provider [phone] Encounters Date Type Department Care Team Description 07/15/2025 3:00 PM EDT Office Visit [facility] [address] [phone] Ajit Walsh DPM Dermatophytosis of nail (Primary [...] Description 10/15/2025 3:15 PM EST Office Visit [facility] [address] [phone] Ajit Walsh DPM [address] [phone] Health Maintenance Due Date Last Done Comments [...] topic Insurance MEDICAID - [place] Care Teams Welding Teacher Relationship Specialty Start Date End Date Lluvia Anderson MD [address] [place] [phone] PCP - General Internal Medicine 04/02/25
--- OUTSIDE RECORDS SUMMARY | 2025-10-07 04:26 | XMS_ITS | Encounter Summary ---
Author Organization [employer] Address [address] [place] [address] Care Team Providers Care Spider Assembler Name Role Phone Lluvia Anderson MD Primary Care Provider [phone] Reason for Visit * Reason Onset Date Comments pt1 12/14/2022 Encounter Details Date Type Department Care Team ([facility] Contact Info) Description 12/14/2022 Telephone [facility] [address] [place] [phone] Lluvia Anderson MD [address] [place], [place] [phone] pt1 Social History Tobacco Use Types Packs/Day [...] pt requesting to update yearly PT1 Location: [address] [address] Specialty: care provider Time: n/a Date:n/a Tire Repair Mechanic: n/a wheelchair accessible : n/a Location: [address] [address] Specialty: upholstery technician Time: n/a Date:n/a Tire Repair Mechanic:n/a wheelchair accessible :n/a Location: [address] [address] Specialty: upholstery technician / Lab works Time:n/a Date:n/a Tire Repair Mechanic:n/a wheelchair accessible :n/a documented in this encounter Plan of Treatment Not on file documented as of this encounter Visit Diagnoses Not on filedocumented in this encounter Care Teams Spider Assembler Relationship Specialty Start Date End Date Lluvia Anderson MD [address] [place] [address] PCP - General Family Medicine 06/28/17 documented as of this encounter
--- OUTSIDE RECORDS SUMMARY | 2025-10-07 04:26 | XMS_ITS | Encounter Summary ---
Author Organization [employer] Address [address] [facility] 7 [place] [address] Care Team Providers Care Powder Mill Operator Name Role Phone Lluvia Anderson MD Primary Care Provider [phone] Reason for Visit * Reason Onset Date Comments Results 04/25/2024 Encounter Details Date Type Department Care Team ([facility] st Contact Info) Description 04/25/2024 Telephone [facility] [address] [place] [address] Lluvia Anderson MD [address] [place] [address] Results Social History Tobacco Use Types Packs/Day [...] 12:15 PM EDT Tc to pt using [employer] [place], [place] [id number] in regards to lab results from 04/19. [...] call back with labs results from 04/19 Yoruba speaker documented in this encounter Plan of Treatment Not on file documented as of this encounter Visit Diagnoses Not on filedocumented in this encounter Additional Health Concerns Assessment Noted Time PHQ-9 Depression Total Score: 0 12/29/19 24 9:27 AM EST documented as of this encounter Care Teams Powder Mill Operator Relationship Specialty Start Date End Date Lluvia Anderson MD [address] [place] [address] PCP - General Family Medicine 06/28/17 documented as of this encounter
--- OUTSIDE RECORDS SUMMARY | 2025-10-07 04:26 | XMS_ITS | Encounter Summary ---
Author Organization [employer] Address [address] [facility] 7 [place] [address] Care Team Providers Care Center Rep Name Role Phone Lluvia Anderson MD Primary Care Provider [phone] Reason for Visit * Reason Onset Date Comments PT1 12/07/2023 Encounter Details Date Type Department Care Team ([facility] st Contact Info) Description 12/07/2023 Telephone [facility] MED & PEDS [address] [place], [place] [phone] Lluvia Anderson MD [address] [place], [place] [phone] PT1 Social History Tobacco Use Types Packs/Day [...] encounter Miscellaneous Notes * Telephone Encounter - Mihcaelle Gurrola - 12/07/2023 2:24 PM EST PT-1 submitted for patient. They will receive a letter of approval or denial in the mail. * Telephone Encounter - Nicole Christianson - 12/07/2023 12:47 PM EST PT1 renewal needed Date: n/a Time: n/a Visits: n/a Address: [address] [facility] Facility: (name, specialty or name of doctor) Wheel Chair: no Manager Talent Acquisition Needed: n/a Date: 12/29 Time: 9:45 AM Visits: (amount of visits) ( x monthly, weekly, daily) Address: 505 [facility] Facility: (name, specialty or name of doctor) Wheel Chair: no Manager Talent Acquisition Needed: n/a Date: n/a Time: n/a Visits: (amount of visits) ( x monthly, weekly, daily) Address: [address] [facility] Facility: [facility] Wheel Chair: monotype operator Manager Talent Acquisition Needed: n/a documented in this encounter Plan of Treatment Not on file documented as of this encounter Visit Diagnoses Not on filedocumented in this encounter Care Teams Center Rep Relationship Specialty Start Date End Date Lluvia Anderson MD [address] [place] [address] PCP - General Family Medicine 06/28/17 documented as of this encounter
--- OUTSIDE RECORDS SUMMARY | 2025-10-07 04:26 | XMS_ITS | Encounter Summary ---
Author Organization [employer] Address [address] [place] [address] 7 [place] [address] Care Team Providers Care Production Metal Sprayer Name Role Phone Lluvia Anderson MD Primary Care Provider [phone] Encounter Details Date Type Department Care Team [...] on filedocumented in this encounter Care Teams Production Metal Sprayer Relationship Specialty Start Date End Date Lluvia Anderson MD [address] [place] [address] PCP - General Family Medicine 06/28/17 documented as of this encounter
--- NOTE | 2025-10-07 04:52 | ED.GENADULT ---
HPI - General Adult General Chief complaint: Extremity Problem Stated complaint: left wrist pain Time Seen by Provider: 10/07/25 04:16 Source: patient Limitations: language barrier History of Present Illness ED Provider: Selena Head PA-C HPI narrative: 65-year-old female with a history of gout on allopurinol, mitral regurgitation, paroxysmal AFib on rivaroxaban, hypertension, and arthritis who presents with acute onset left wrist pain and swelling. Patient states she woke up yesterday morning with the pain and swelling of the left wrist, the pain is most prominent along radial aspect. The patient has since developed worsening swelling and redness. Denies fever or inability flex or extend from the wrist. No trauma, no overuse injury. Related Data Home Medications ?Medication ?Instructions ?Recorded ?Confirmed hydrochlorothiazide 25 mg tablet 25 mg PO DAILY 01/18/21 03/06/25 finasteride 5 mg tablet 5 mg PO DAILY 02/18/22 03/06/25 cholecalciferol (vitamin D3) 50 50 mcg PO QAM 03/06/25 03/06/25 mcg (2,000 unit) capsule (Vitamin D3) Previous Rx's ?Medication ?Instructions ?Recorded acetaminophen 500 mg tablet 500 mg PO Q6H PRN pain or fever 11/22/20 (Tylenol Extra Strength) #20 tabs lidocaine 5 % topical patch 1 patch topical DAILY #15 ea 10/14/23 (Lidoderm) flecainide 50 mg tablet 50 mg PO BID #180 tabs 06/10/25 metoprolol succinate 50 mg 50 mg PO DAILY #90 tabs 09/09/25 tablet,extended release 24 hr rivaroxaban 20 mg tablet (Xarelto) 20 mg PO QPM #90 tabs 09/10/25 oxycodone 5 mg tablet 5 mg PO Q8H PRN pain, moderate #12 10/07/25 tabs prednisone 20 mg tablet 40 mg (2 x 20 mg) PO DAILY #10 tabs 10/07/25 Allergies Allergy/AdvReac Type Severity Reaction Status Date / Time No Known Allergies (NO KNOWN Allergy Unknown N/A Verified 10/07/25 03:56 ALLERGIES) Review of Systems Review of Systems: Yes all other systems are reviewed and are negative Constitutional: Constitutional: Denies fatigue and Denies fever(s) Musculoskeletal: Musculoskeletal: Reports arthralgias and Reports joint swelling Integumentary/Breasts: Skin/Breast: Reports erythema Endocrine: Endocrine: Denies fatigue PMFSH Past Medical History Attestation statement: The following information was validated with the patient. 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 Physical Exam ED Vital Signs: Vital Signs - 24 hr 10/07/25 03:55 10/07/25 05:38 Temperature 96.8 F 97.5 F Pulse Rate 72 73 Respiratory Rate 20 18 Blood Pressure 137/63 120/78 Pulse Oximetry 98 98 Oxygen Delivery Method Room Air Room Air BMI result Body Mass Index 36.1 Const Other: Alert Orientation/consciousness: patient oriented x3 Resp Effort & Inspection: normal respiratory effort Cardio Other: Normal peripheral perfusion Skin Other: Warm dry no rash Neuro General: patient oriented x3, gait normal, no focal motor deficits and CN's II-XI intact bilaterally Extrem Other: The left wrist is subtly swollen with the overlying erythema, her pain is out of proportion to very light touch along the radial aspect just inferior to the thumb, she is able to flex and extend from the wrist to some degree, Psych Other: Emotionally labile, tearful Medications Administered Discontinued Medications Generic Name Dose Route Start Last Admin Trade Name Freq PRN Reason Stop Dose Admin Oxycodone HCl 10 mg 10/07/25 05:02 10/07/25 05:19 Oxycodone Hcl Immed Release 5 Mg Tablet PO 10/07/25 05:03 10 mg ONCE ONE Administration Prednisone 40 mg 10/07/25 05:02 10/07/25 05:19 Prednisone 20 Mg Tablet PO 10/07/25 05:03 40 mg ONCE ONE Administration Medical Decision Making Medical Decision Making MDM Narrative: 65-year-old female with a history of gout on allopurinol, mitral regurgitation, paroxysmal AFib on rivaroxaban, hypertension, and arthritis who presents with acute onset left wrist pain and swelling. Patient states she woke up yesterday morning with the pain and swelling of the left wrist, the pain is most prominent along radial aspect. The patient has since developed worsening swelling and redness. Denies fever or inability flex or extend from the wrist. No trauma, no overuse injury. Problem: Known gout and osteoarthritis History: Per patient I have considered the following differential diagnoses: Gout flare, arthritis flare, fracture, dislocation, contusion, sprain, septic joint Plan: X-ray obtained from triage, it is unremarkable, I do believe the patient has a gout flare. We will treat accordingly. Placing on a steroid instead of an NSAID given the use of rivaroxaban. This is not a septic joint, she is able to flex and extend, there was also no effusion, regardless I could not tap the joint at this time. I have independently reviewed the following tests: X-ray left wrist:Findings: No fractures or dislocations. No significant arthritic change or erosions. IMPRESSION: 1. 2 mm density in the volar palmar soft tissues. Age-indeterminate foreign body. 2. No acute fracture. Differential Diagnosis Differential Diagnoses: The differential diagnosis associated with the presentation includes See medical decision-making Admission/Observation Consideration of admission/observation: Escalation of care including admission/observation considered Not applicable Radiology Impression Discussion of test interpretation with radiology: I have reviewed the radiologist's reading. Discharge Plan Discharge Clinical Impression: Gout Patient Disposition: Home, Self-Care Instructions: Low Purine Diet (ED), Gout (ED) Additional Instructions: You are being treated for a gout flare. The x-ray did not reveal any acute abnormality, you do not have a joint effusion. See home care instructions. Take the prednisone as directed. Take the oxycodone as needed for further pain. Follow up with your primary care provider for a recheck in 1 week. Prescriptions: New oxycodone 5 mg tablet 5 mg PO Q8H PRN (Reason: pain, moderate) Qty: 12 0RF Rx Instructions: Partial Fill upon patient request. prednisone 20 mg tablet 40 mg PO DAILY Qty: 10 0RF No Action flecainide 50 mg tablet 50 mg PO BID Qty: 180 3RF metoprolol succinate 50 mg tablet extended release 24 hr 50 mg PO DAILY Qty: 90 3RF Xarelto 20 mg tablet 20 mg PO QPM Qty: 90 3RF acetaminophen [Tylenol Extra Strength] 500 mg tablet 500 mg PO Q6H PRN (Reason: pain or fever) Qty: 20 0RF lidocaine [Lidoderm] 5 % adhesive patch,medicated 1 patch topical DAILY Qty: 15 0RF Rx Instructions: leave on most painful area for up to 12 hrs hydrochlorothiazide 25 mg tablet 25 mg PO DAILY finasteride 5 mg tablet 5 mg PO DAILY cholecalciferol (vitamin D3) [Vitamin D3] 50 mcg (2,000 unit) capsule 50 mcg PO QAM Print Language: Khmer
[2025-10-07] MEDS: oxyCODONE HCl Immed Release 5 MG TABLET 10 MG PO (05:19)
[2025-10-07 05:38] VITALS: BP 120/78; PULSE 73; RESP 18; TEMP 36.4; O2SAT 98
[2025-10-07 05:58] VITALS: BP 120/78; PULSE 73; RESP 18; TEMP 36.4; O2SAT 98
== END 2025-10-07 06:00 | disposition home or self-care (01) ==
PROVIDERS: Emergency Provider Emergency Medicine; PCP Pediatrics
DX: M10.9 Gout, unspecified (principal); M25.532 Pain in left wrist; I10 Essential (primary) hypertension; I48.0 Paroxysmal atrial fibrillation
CPT/HCPCS: 73110; 99283; 99284

== ENCOUNTER → 2025-10-07 04:00 | Outpatient (BNV) | payer MEDICAID, SELFPAY | PROVIDERS: Emergency Provider Emergency Medicine; PCP Pediatrics; Visit Provider Radiology Diagnostic Radiology | DX: M79.89 Other specified soft tissue disorders (principal) | CPT/HCPCS: 73110 ==

== ENCOUNTER 2025-11-18 10:35 | Outpatient (AMB) | payer MEDICAID, SELFPAY ==
--- NOTE | 2025-11-18 10:50 | MHC.OFFVIS ---
Intake Visit Reasons: New Prob - left shoulder pain Intake Note: Afia is a 65 year old right hand dominant female who presents today for a evaluation of her left shoulder pain. No hx of injury. Patient reports ongoing pain for about 2 - 3 months. She mentions that her pain is on the lateral aspect of the shoulder and it moves down to her wrist. Patient notices that her pain is worse when she is over head reaching, lifting her arm up and lifting heavy items like a gallon of milk. Patient has tried topical cream and Tylenol with mild relief. Electrical Engineering Draftsperson Services: Electrical Engineering Draftsperson Present (Manisha ([id number])) Allergies No Known Allergies (NO KNOWN ALLERGIES) Allergy (Unknown, Verified 11/18/25 10:58) N/A HPI Comments Details: History of Present Illness The patient is a 65 year old female presenting with left shoulder pain. She reports the pain began many months ago without any specific injury. The onset was gradual, and the pain has progressively worsened over time. The patient is right-handed. Pain Description - Location: Left shoulder. - Onset: Gradual onset many months ago. - Progression: Pain has been building over time. - Exacerbating Factors: Pain is elicited with raising the arm. 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 Physical Exam Exam Exam: Physical Exam - Musculoskeletal: On examination of the left shoulder, active forward flexion and abduction are limited to 45 degrees. - External rotation is notable for mild stiffness. - The patient is unable to perform empty can or drop arm tests due to range of motion restrictions and pain. - She is also unable to perform a cross-body reach. Office Procedures AMB Joint Injection/Aspiration Joint Injection/Aspiration Primary Site: Left Shoulder Prep: site was prepped using aseptic technique, ethochloride spray was applied and injection warnings given Injected: 40 mg of, Decadron, with 3 mL of, 1% plain Lidocaine, 0.25% Bupivacaine and in the subcromial space Approach Used: posterolateral Procedure: The patient tolerated the procedure well, but had some pain with the injection and there was some relief with the local anesthesia Coding 27526 - Large joint Procedure code (CPT) selection complete Assessment & Plan Assessment & Plan (1) Painful arc syndrome of left shoulder: Code(s): M75.102 - Unspecified rotator cuff tear or rupture of left shoulder, not specified as traumatic Category: Medical Plan The patient's symptoms are suggestive of painful arc syndrome, possibly accompanied by developing stiffness from disuse due to pain. The patient was offered a cortisone injection in left shoulder. The patient was explained the risks, benefits, and alternatives to receiving this injection. After receiving consent for the injection, the patient had the procedure done while in the office today. The patient tolerated the procedure well with no complications. The risks, benefits, and alternatives to a corticosteroid injection were discussed with the patient, including the potential benefits of decreased inflammation and pain, improved function, and diagnostic value. Risks were reviewed, including post-injection flare, skin or fat atrophy, transient facial flushing, temporary elevation in blood glucose, bruising, and rare but serious complications such as infection, tendon weakening or rupture, and cartilage damage with repeated injections. Procedure-related discomfort and possible vasovagal symptoms were also explained. Alternatives were reviewed, including NSAIDs, physical therapy, activity modification, bracing, ice/heat, weight management, hyaluronic acid injections when appropriate, PRP or other orthobiologics, oral steroids, surgery depending on pathology, and observation. The patient verbalized understanding and elected to proceed. After receiving consent for the injection, the patient had the procedure done while in the office today. The patient tolerated the procedure well with no complications. A referral to physical therapy was made to improve shoulder mobility. A follow-up is scheduled in six weeks to check the range of motion. Consent Patient was informed and verbally consented to the use of an ambient scribe for clinic note documentation during this visit. Orders: Orders XR shoulder RT min 2V Today M25.519 - Pain in unspecified shoulder XR shoulder LT min 2V Today M25.519 - Pain in unspecified shoulder Coding Level of Care Code Est Pt Level 3 (85972) Add On Problem Visit Only Diagnoses Painful arc syndrome of left shoulder M75.102 CPT Codes Coding - 09259 Large joint: 45156 - Large joint ([id number])
--- OUTSIDE RECORDS SUMMARY | 2025-11-18 11:54 | XMS_ITS | Encounter Summary ---
Author Organization [employer] Address [address] [place] [address] Care Team Providers Care Manufacturing Systems Engineer Name Role Phone Lluvia Anderson MD Primary Care Provider [phone] Reason for Visit * Reason Onset Date Comments pt1 12/14/2022 Encounter Details Date Type Department Care Team ([facility] Contact Info) Description 12/14/2022 Telephone [facility] [address] [place] [address] Lluvia Anderson MD [address] [place], [place] [phone] pt1 Social History Tobacco Use Types Packs/Day [...] pt requesting to update yearly PT1 Location: [address] [address] Specialty: care provider Time: n/a Date:n/a Final Block Press Operator: n/a wheelchair accessible : n/a Location: [address] [address] Specialty: metal mixer Time: n/a Date:n/a Final Block Press Operator:n/a wheelchair accessible :n/a Location: [address] [address] Specialty: metal mixer / Lab works Time:n/a Date:n/a Final Block Press Operator:n/a wheelchair accessible :n/a documented in this encounter Plan of Treatment Not on file documented as of this encounter Visit Diagnoses Not on filedocumented in this encounter Care Teams Manufacturing Systems Engineer Relationship Specialty Start Date End Date Lluvia Anderson MD [address] [place] [address] PCP - General Family Medicine 06/28/17 documented as of this encounter
--- OUTSIDE RECORDS SUMMARY | 2025-11-18 11:54 | XMS_ITS | Clinical Summary ---
Author Organization [employer] Address [address] [facility] 7t [place] [address] Care Team Providers Care Club Former Name Role Phone Lluvia Anderson MD Primary Care Provider [phone] Allergies No known active allergies Medications flecainide [...] Encounters Date Type Department Care Team Description 11/17/2025 Patient Outreach [facility] MEDICINE [address] [place] [address] Tank Alvarado Care Coordination (CHW outreach for SDOH PT-1 and food needs-referral completed /) 11/17/2025 Telephone [facility] CHC MED & PEDS [address] [place] [address] Lluvia Anderson MD PT1 10/10/2025 Telephone [facility] MEDICINE [address] [place], [place] [phone] Lluvia Anderson MD ER Follow-up 10/07/2025 Orders Only [facility] External Provider, [facility] 09/03/2025 Refill [facility] CHC MED & PEDS [address] [place] [address] Lluvia Anderson MD Androgenic alopecia, unspecified 08/27/2025 Refill [facility] CHC MED & PEDS [address] [place], [place] [phone] Lluvia Anderson MD Primary hypertension from Last 3 Months Immunizations Immunization Administration [...] 60 years or older (1 - Risk 50-74 years 1-dose series) 2012 Colonoscopy 12/18/2022 12/18/2017 Colorectal Cancer Screening 12/18/2022 [...] Procedure Name Priority Date/Time Associated Diagnosis Comments XR WRIST 3+ VIEWS LEFT Routine 4:42 AM EST LIPID PANEL, STANDARD Routine 03/11/2025 10:18 AM [...] Recently Relevant to Health Maintenance Results * XR Wrist 3+ Views Left (10/07/2025 4:42 AM EST) Anatomical Region Laterality Modality Upper Extremities, Wrist Left Radiogr aphic Imaging 10/07/2025 4:42 AM EST Narrative 10/07/2025 4:44 AM EST [place] [address] XRay Report Signed Patient: Afia Guadalupe MR#: [id number] : 1960 Acct:[id number] Age/Sex: 65 / F ADM Date: 10/07/25 Loc: HO.ED Attending Dr: Ordering Physician: Renee Banuelos DO Date of Service: 10/07/25 Procedure(s): XR wrist LT min 3V Accession Number(s): [id number] cc: Lluvia Anderson MD; Renee Banuelos DO Reason for Exam: pain CLINICAL HISTORY: pain 3 view left wrist Comparison: None provided Findings: No fractures or dislocations. No significant arthritic change or erosions. IMPRESSION: 1. 2 mm density in the volar palmar soft tissues. Age-indeterminate foreign body. 2. No acute fracture. This document has been electronically signed by: Dererk Houston MD on 10/07/2025 04:42:41 Dictated By: Derrek Houston MD Signed By: <Electronically signed by Derrek Houston MD in OV> 10/07/25443 DD/ 1 TD/TT: 10/07/25441 Podiatry Doctor: Procedure Note Donotuseinterpreter, Image - 10/07/[address] [address] XRay Report Signed Patient: Jennifer Guadalupe#: [id number] : 1960cct:[id number] Age/Sex: 65 / FADM Date: 10/07/25 Loc: HO.ED Attending Dr: Ordering Physician: Renee Banuelos DO Date of Service: 10/07/25 Procedure(s): XR wrist LT min 3V Accession Number(s): [id number] cc: Lluvia Anderson MD; Renee Banuelos DO Reason for Exam: pain CLINICAL HISTORY: pain 3 view left wrist Comparison: None provided Findings: No fractures or dislocations. No significant arthritic change or erosions. IMPRESSION: 1. 2 mm density in the volar palmar soft tissues. Age-indeterminate foreign body. 2. No acute fracture. This document has been electronically signed by: Derrek Houston MD on 10/07/2025 04:42:41 Dictated By: Derrek Houston MD Signed By: <Electronically signed by Derrek Houston MD in OV> 10/07/25443 DD/ 1 TD/TT: 10/07/25441 Podiatry Doctor: [facility] External Provider IMG XR PROCEDURES Edited Result - Final * (ABNORMAL) Lipid Panel, Standard (03/11/2025 10:18 AM EDT) Triglycerides 117 <150 mg/dL [facility] Comment:Desirable Triglyceri de: less than 150 mg/dLBorderline High Triglyceride 150-199 mg/dLHigh Triglyceride: 200-499 mg/dLVery High Triglyceride: greater than or equal to 5OO mg/dL Cholesterol 173 <200 mg/dL [facility] Comment:Desirable Cholestero l: less than 200 mg/dLBorderline High Cholesterol: 200-239 mg/dLHigh Cholesterol: greater than 239 mg/dL LDL Cholesterol Calculated 101(H) <100 mg/dL [facility] Comment:Desirable LDL: less than 100 mg/dLNear Optimal/Above Optimal LDL: 110- 129 mg/dLBorderline High LDL: 130-159 mg/dLHigh LDL: 160-189 mg/dLVery High LDL: greater than or equal to 190 mg/dL HDL Cholesterol 49 >40 mg/dL [facility] Comment:Desirable HDL: great er than 40 mg/dL Note: This HDL assay may give artificially low results in patients with liver disease. Blood Venous blood specimen / Unknown 03/11/2025 10:18 AM EDT 03/11/2025 2:33 PM EDT us Lluvia Anderson MD LAB BLOOD ORDERABLES Final Re sult [facility] [address] [place] [phone] * BI Mammogram Screening Tomosynthesis Bilateral (11/23/2024 9:57 AM EST) Anatomical Region Laterality Modality Breast Bilateral Mammography 11/23/2024 9:57 AM EST Narrative 12/06/2024 5:07 PM EST [facility] [address] [place] [address] Mammography Report Signed Patient: Afia Guadalupe MR#: [id number] : 1960 Acct:[id number] Age/Sex: 64 / F ADM Date: 11/23/24 Loc: HO.MAMMO Attending Dr: Lluvia Anderson MD Ordering Physician: Lluvia Anderson MD Results: 1Ne gative Date of Service: 11/23/24 Follow Up: 1 Year From Orig inal Mammogram Procedure(s): MM tomosynthesis screening BI Accession Number(s): [id number] cc: Lluvia Anderson MD EXAMINATION: MM SCREENING [...] by: Emily Gr DO 12/06/2024 05:05 PM [facility] Dictated By: Emily Gr DO Signed By: <Electronically signed by Emily Gr DO in OV> 12/06/24 1705 DD/ 0957 TD/TT: 11/23/24 1010 Podiatry Doctor: Procedure Note Donotuseinterpreter, Image - 12/06/2024 [facility] [address] [place] [address] Mammography Report Signed Patient: Jennifer Guadalupe#: [id number] : 2Acct:[id number] Age/Sex: 64 / FADM Date: 11/23/24 Loc: HO.MAMMO Attending Dr: Lluvia Anderson MD Ordering Physician: Lluvia Anderson MDResults: 1Ne gative Date of Service: 11/23/24Follow Up: 1 Year From Orig inal Mammogram Procedure(s): MM tomosynthesis screening BI Accession Number(s): [id number] cc: Lluvia Andesron MD EXAMINATION: MM SCREENING DIGITAL BREAST TOMOSYNTHESIS, [...] 12/06/24 1705 DD/ 0957 TD/TT: 11/23/24 1010 Podiatry Doctor: us Lluvia Anderson MD IMG BI PROCEDURES Final Resul t * THINPREP PAP (04/06/2021 9:25 AM EDT) Clinical Information: [facility] COMMENT SEE COMMENT [facility]OUNDAT[facility] ON [...] along with historic and current clinical information. Chemical Treatment Operator : SEE COMMENT [facility] Comment: RK, CT(ASCP) CT screening location: [place] [address] Interpretation/R esult: Negative for intraepithelial lesion or malignancy. [facility] LMP: NONE GIVEN [facility] Prev. BX: NONE GIVEN [facility] Prev. PAP: NIL 2017 [facility] SOURCE: None given [facility] Statement Of Adequacy: [facility] COM[facility] Comment: Satisfactory for evaluation. Endocervical/transformation zone component present. 04/06/2021 9:25 AM EDT Julia MAURO LAB PATHOLOGY ORDERABLES Final Result Performing Organization Address [facility] Co de Phone Number [facility] [address] * HPV mRNA E6/E7 (04/06/2021 9:25 AM EDT) HPV nRNA E6/E7 Not Detected Not Detected [facility] Comment: Methodology: Hand Lacer-Mediated Amplification This assay detects E6/E7 viral messenger RNA (mRNA) from 14 high-risk HPV types (16,18,31,33,35,39,45,51,52,56,58,59,66,68). The analytical performance characteristics of this assay have been determined by [employer]. The modifications have not been cleared or approved by the FDA. This assay has been validated pursuant to the CLIA regulations and is used for clinical purposes. For additional information, please refer to http://education.[employer]/faq/ZMB850w5 (This link if provided for information/ educational purposes only.) 04/06/2021 9:25 AM EDT Julia Billingsley [facility] LAB BLOOD ORDERABLES Ciarra l Result Performing Organization Address [facility] Co de Phone Number [facility] [address] * Hm Colonoscopy (12/18/2017) Colonoscopy Normal Normal Narrative Alma Martinez - 12/18/2017 Recommended 5 year follow up Historical Provider MD HEALTH MAINTENANCE Final Result from Last 3 Months or Most Recently Relevant to Health Maintenance Insurance [facility] C3 Care Teams Club Former Relationship Specialty Start Date End Date Lluvia Anderson MD [address] [place] [phone] PCP - General Family Medicine 06/28/17
--- OUTSIDE RECORDS SUMMARY | 2025-11-18 11:54 | XMS_ITS | Encounter Summary ---
Author Organization [employer] Address [address] [facility] 7 [place] [address] Care Team Providers Care Change Director Name Role Phone Lluvia Anderson MD Primary Care Provider [phone] Reason for Visit * Reason Onset Date Comments PT1 11/17/2025 Encounter Details Date Type Department Care Team ([facility] st Contact Info) Description 11/17/2025 Telephone [facility] CHC MED & PEDS [address] [place], [place] [phone] Lluvia Anderson MD [address] [place], [place] [phone] PT1 Social History Tobacco Use Types Packs/Day [...] encounter Miscellaneous Notes * Telephone Encounter - Stephen Duque - 11/17/2025 9:17 AM EST Patient calling requesting PT1 Home Address verified: Y/N: Yes Provider name or facility name: [address] [place] [address] Escort needed: Y/N: No Do you have a wheelchair: Y/N: No Visits: (3x month) Patient calling requesting PT1 Home Address verified: Y/N: Yes Provider name or facility name: [address] Escort needed: Y/N: No Do you have a wheelchair: Y/N: No Visits: (3x month) documented in this encounter Plan of Treatment Not on file documented as of this encounter Visit Diagnoses Not on filedocumented in this encounter Additional Health Concerns Assessment Noted Time PHQ-9 Depression Total Score: 0 07/30/20 25 8:58 AM EDT documented as of this encounter Care Teams Change Director Relationship Specialty Start Date End Date Lluvia Anderson MD [address] [place] [address] PCP - General Family Medicine 06/28/17 documented as of this encounter
--- OUTSIDE RECORDS SUMMARY | 2025-11-18 11:54 | XMS_ITS | Encounter Summary ---
Author Organization [employer] Address [address] [facility] 7 [place] [address] Care Team Providers Care Loom Fixer Name Role Phone Lluvia Anderson MD Primary Care Provider [phone] Reason for Visit * Reason Onset Date Comments PT1 12/07/2023 Encounter Details Date Type Department Care Team ([facility] st Contact Info) Description 12/07/2023 Telephone [facility] CHC MED & PEDS [address] [place], [place] [phone] Lluvia Anderson MD [address] [place], [place] [phone] PT1 Social History Tobacco Use Types Packs/Day [...] n/a Time: n/a Visits: n/a Address: [address] [facility] Facility: (name, specialty or name of doctor) Wheel Chair: no Cook Tortilla Needed: n/a Date: 12/29 Time: 9:45 AM Visits: (amount of visits) ( x monthly, weekly, daily) Address: [address] [facility] Facility: (name, specialty or name of doctor) Wheel Chair: no Cook Tortilla Needed: n/a Date: n/a Time: n/a Visits: (amount of visits) ( x monthly, weekly, daily) Address: [address] [facility] [place] [facility] [place] Chair: general manager in training Cook Tortilla Needed: n/a documented in this encounter Plan of Treatment Not on file documented as of this encounter Visit Diagnoses Not on filedocumented in this encounter Care Teams Loom Fixer Relationship Specialty Start Date End Date Lluvia Anderson MD [address] [place] [address] PCP - General Family Medicine 06/28/17 documented as of this encounter
--- OUTSIDE RECORDS SUMMARY | 2025-11-18 11:54 | XMS_ITS | Clinical Summary ---
Author Organization [address] [facility] Address [address] [place] [address] Phone Care Team Providers Care Head Of Operation And Logistics Name Role Phone Lluvia Anderson MD Primary Care Provider Social History Tobacco Use Types Packs/Day Years Used Date Smoking Tobacco: Never Assessed Comments Unknown Sex and Gender Information Value Date Recorded Sex Assigned at Not on file Legal Sex Female 12:18 PM EDT Gender Identity Not on file Sexual Orientation Not on file Plan of Treatment Upcoming Encounters Date Type Department Care Team ([facility] Contact Info) Description 12/23/2025 3:15 PM EST Office Visit Orthopedic Surgery - [place] [address] [phone] Ajit Walsh, DPM [address] [phone] Health Maintenance Due Date Last Done Comments Breast Cancer Screening 1960 Colorectal Cancer Screening: Colonoscopy 1960 Cervical Cancer Screening: Pap Smear 1983 Pneumococcal Vaccine: 50+ Years (1 of 1 - PCV) 2012 Depression Screening 11/27/2024 HIV Screening 04/02/2025 Hepatitis C Screening 04/02/2025 Social Influencers of Health Screening 04/02/2025 COVID-19 Vaccine ( season) 2025 11/22/2021, 03/09/2021, 02/09/2021 Influenza Vaccine (#1) 2025 , 09/03/2019, 09/21/2018, Additional history exists Hypertension/CHF/CAD Annual [...] topic Insurance MEDICAID - [place] Care Teams Head Of Operation And Logistics Relationship Specialty Start Date End Date Lluvia Anderson MD [address] [place] [phone] PCP - General Internal Medicine 04/02/25
--- OUTSIDE RECORDS SUMMARY | 2025-11-18 11:54 | XMS_ITS | Encounter Summary ---
Author Organization [employer] Address [address] [place] [address] 7 [place] [address] Care Team Providers Care Dust Box Tender Name Role Phone Lluvia Anderson MD Primary Care Provider [phone] Encounter Details Date Type Department Care Team [...] on filedocumented in this encounter Care Teams Dust Box Tender Relationship Specialty Start Date End Date Lluvia Anderson MD [address] [place] [address] PCP - General Family Medicine 06/28/17 documented as of this encounter
--- OUTSIDE RECORDS SUMMARY | 2025-11-18 11:54 | XMS_ITS | Encounter Summary ---
Author Organization [employer] Address [address] [facility] [address] 7[address] [place] [address] Care Team Providers Care Die Keeper Name Role Phone Lluvia Anderson MD Primary Care Provider [phone] Reason for Visit * Reason Comments Care Coordination CHW outreach for SDO H PT-1 and food needs-referral completed Encounter Details Date Type Department Care Team (Latest Contact Info) Description 11/17/2025 Patient Outreach [facility] MEDICINE [address] [place] [address] Tank Alvarado Care Coordination (CHW outreach for SDOH PT-1 and food needs-referral completed /) Social History Tobacco Use Types Packs/Day Years [...] AM EDT documented as of this encounter Progress Notes * Tank Alvarado - 11/17/2025 9:58 AM EST CHW Tank Alvarado, placed outbound call to patient for assistance with SDOH as a referral was received by the provider. Patient's name and were confirmed. Patient screened positive for the following SDOH food insecurities. Patient states family in on SNAP program at this time. CHW referral patient to the local list of pantries in the area for help. PT-1 requested was send out in behalf of patient for futures appt. Patient verbalizes understanding, and able to agree with plan to follow up.Patient educated on extended clinic hours on Mondays through Wednesdays, and Walk-In Urgent Care Located in [facility]. Patient provided with after-hours line for [facility], , which offer night time triage service and option to transfer to healthcare applications analyst provider if needed. documented in this encounter Plan of Treatment Not on file documented as of this encounter Visit Diagnoses Not on filedocumented in this encounter Additional Health Concerns Assessment Noted Time PHQ-9 Depression Total Score: 0 07/30/20 25 8:58 AM EDT documented as of this encounter Care Teams Die Keeper Relationship Specialty Start Date End Date Lluvia Anderson MD [address] [place] [address] PCP - General Family Medicine 06/28/17 documented as of this encounter
--- OUTSIDE RECORDS SUMMARY | 2025-11-18 11:54 | XMS_ITS | Encounter Summary ---
Author Organization [employer] Address [address] [facility] [address] [place] [address] Care Team Providers Care Ship Scaler Name Role Phone Lluvia Anderson MD Primary Care Provider [phone] Encounter Details Date Type Department Care Team (Late st Contact Info) Description 10/03/2023 Abstract [facility] [address] [place] [address] Lluvia Anderson MD [address] [place], [place] [phone] Social History Tobacco Use Types Packs/Day Years [...] on filedocumented in this encounter Care Teams Ship Scaler Relationship Specialty Start Date End Date Lluvia Anderson MD [address] [place] [address] PCP - General Family Medicine 06/28/17 documented as of this encounter
--- OUTSIDE RECORDS SUMMARY | 2025-11-18 11:54 | XMS_ITS | Encounter Summary ---
Author Organization [employer] Address 75 [facility] 7t [place] [address] Care Team Providers Care Sort Manager Name Role Phone Lluvia Anderson MD Primary Care Provider [phone] Encounter Details Date Type Department Care Team ([facility] st Contact Info) Description 01/23/[address] [facility] CH[facility] MED & PEDS 505 [place], [place] [phone] Lluvia Anderson MD 505 [place] [address] Social History Tobacco Use Types Packs/Day Years [...] is not working. Please contact pt at [phone] (Barbadian) documented in this encounter Plan of Treatment Not on file documented as of this encounter Visit Diagnoses Not on filedocumented in this encounter Additional Health Concerns Assessment Noted Time PHQ-9 Depression Total Score: 0 12/29/19 24 9:27 AM EST documented as of this encounter Care Teams Sort Manager Relationship Specialty Start Date End Date Lluvia Anderson MD 505 [place] [address] PCP - General Family Medicine 06/28/17 documented as of this encounter
--- OUTSIDE RECORDS SUMMARY | 2025-11-18 11:54 | XMS_ITS | Encounter Summary ---
Author Organization [employer] Address 75 [facility] 7 [place] [address] Care Team Providers Care Tread Builder Name Role Phone Lluvia Anderson MD Primary Care Provider [phone] Reason for Visit * Reason Onset Date Comments PT-1 12/03/2024 Encounter Details Date Type Department Care Team (Late st Contact Info) Description 12/03/2024 Telephone [facility] MEDICINE 230 [place] [address] Lluvia Anderson MD 505 [place] [address] PT-1 Social History Tobacco Use Types Packs/Day [...] Y/N: Yes Provider name or facility name: [place] [address] Escort needed: Y/N: Yes Do you have [...] documented as of this encounter Care Teams Tread Builder Relationship Specialty Start Date End Date Lluvia Anderson MD 505 [place] [address] PCP - General Family Medicine 06/28/17 documented as of this encounter
--- OUTSIDE RECORDS SUMMARY | 2025-11-18 11:54 | XMS_ITS | Encounter Summary ---
Author Organization [employer] Address 75 [facility] 7 [place] [address] Care Team Providers Care Medical Assembler Name Role Phone Lluvia Anderson MD Primary Care Provider [phone] Reason for Visit * Reason Onset Date Comments Results 04/25/2024 Encounter Details Date Type Department Care Team ([facility] st Contact Info) Description 04/25/[address] [facility] MEDICINE 230 [place] [address] Lluvia Anderson MD 505 [place] [address] Results Social History Tobacco Use Types Packs/Day [...] 12:15 PM EDT Tc to pt using [employer] Environmental Coordinator [place], [place] [id number] in regards to lab results from 04/19. [...] call back with labs results from 04/19 Divehi speaker documented in this encounter Plan of Treatment Not on file documented as of this encounter Visit Diagnoses Not on filedocumented in this encounter Additional Health Concerns Assessment Noted Time PHQ-9 Depression Total Score: 0 12/29/19 24 9:27 AM EST documented as of this encounter Care Teams Medical Assembler Relationship Specialty Start Date End Date Lluvia Anderson MD 505 [place] [address] PCP - General Family Medicine 06/28/17 documented as of this encounter
--- OUTSIDE RECORDS SUMMARY | 2025-11-18 11:54 | XMS_ITS | Encounter Summary ---
Author Organization [employer] Address 75 [facility] 7 [place] [address] Care Team Providers Care Manager Willow Name Role Phone Lluvia Anderson MD Primary Care Provider [phone] Reason for Visit * Reason Onset Date Comments ER Follow-up 10/10/2025 Encounter Details Date Type Department Care Team ([facility] st Contact Info) Description 10/10/2025 Telephone [facility] MEDICINE 230 [place] [address] Lluvia Anderson MD 505 [place] [address] ER Follow-up Social History Tobacco Use Types Packs/Day Years [...] encounter Miscellaneous Notes * Telephone Encounter - Gilda Bain - 10/10/2025 9:42 AM EST Patient calling to report ED visit on : Date: 10/07 Hospital: [facility] Seen for: Pain in wrist Symptomatic No *if yes message should go to Triage Patient advised will forward to team nurse for follow up documented in this encounter Plan of Treatment Not on file documented as of this encounter Visit Diagnoses Not on filedocumented in this encounter Additional Health Concerns Assessment Noted Time PHQ-9 Depression Total Score: 0 07/30/20 25 8:58 AM EDT documented as of this encounter Care Teams Manager Willow Relationship Specialty Start Date End Date Lluvia Anderson MD [address] [place] [address] PCP - General Family Medicine 06/28/17 documented as of this encounter
== END 2025-11-18 11:39 | disposition home or self-care (01) ==
LOC: HO.HOS 10:36
PROVIDERS: PCP Pediatrics; Visit Provider Physician Assistant
DX: M75.102 Unspecified rotator cuff tear or rupture of left shoulder, not specified as traumatic (principal)
CPT/HCPCS: 20610; 99213

== ENCOUNTER 2025-11-18 10:41 | Outpatient (REF) | payer MEDICAID, SELFPAY ==
--- NOTE | ~2025-11-18 | XR_ITS ---
EXAMINATION: XR SHOULDER, LEFT CLINICAL INFORMATION: M25.519 - Pain in unspecified shoulder COMPARISON: None available. TECHNIQUE: AP external rotation, Grashey, scapular Y, and axillary views of the left shoulder. FINDINGS: No fracture. Glenohumeral and acromioclavicular alignment is anatomic with normal joint space. No abnormal soft tissue calcifications. XR/XR shoulder LT min 2V IMPRESSION: No acute findings Electronically signed by: Jasmeet Valencia MD 11/18/2025 04:28 PM EST
== END 2025-11-18 10:42 | disposition home or self-care (01) ==
LOC: HO.HOSX 10:41
PROVIDERS: Visit Provider Physician Assistant
DX: M75.102 Unspecified rotator cuff tear or rupture of left shoulder, not specified as traumatic (principal)
CPT/HCPCS: 20610; 73030; 99212; J0665; J1100; J2003

== ENCOUNTER → 2025-11-18 10:43 | Outpatient (BNV) | payer MEDICAID, SELFPAY | PROVIDERS: Visit Provider Radiology Diagnostic Ultrasound | DX: M25.512 Pain in left shoulder (principal) | CPT/HCPCS: 73030 ==

== ENCOUNTER → 2025-11-25 09:45 | Outpatient (BNV) | payer MEDICAID, SELFPAY | PROVIDERS: PCP Pediatrics; Visit Provider Internal Medicine | DX: Z12.31 Encounter for screening mammogram for malignant neoplasm of breast (principal) | CPT/HCPCS: 77063; 77067 ==

== ENCOUNTER 2025-11-25 09:48 | Outpatient (REF) | payer MEDICAID, SELFPAY ==
--- NOTE | ~2025-11-25 | MM_ITS ---
EXAMINATION: MM SCREENING DIGITAL BREAST TOMOSYNTHESIS, BILATERAL CLINICAL INFORMATION: Screening. Asymptomatic. COMPARISON: Mammography: Comparison is made with available priors TECHNIQUE: Digital breast mammography with tomosynthesis is performed in both the craniocaudal and mediolateral oblique views along with computer-aided detection (CAD). FINDINGS: There are scattered areas of fibroglandular density. There are no significant masses, abnormal calcifications, or other abnormalities. MM/MM tomosynthesis screening BI IMPRESSION: No mammographic evidence of malignancy. ASSESSMENT: BI-RADS Category 1: Negative RECOMMENDATION: Routine annual mammography screening. 1 year F/U This examination should not preclude the clinical evaluation of a suspicious palpable abnormality. This patient's information was entered into a reminder system with a target due date for their next mammogram. Electronically signed by: Emily Gr DO 11/26/2025 01:03 PM [facility]
--- OUTSIDE RECORDS SUMMARY | 2025-11-25 12:40 | XMS_ITS | Encounter Summary ---
Author Organization [employer] Address 75 [facility] 7 [place] [address] Care Team Providers Care Pharmacy Director Name Role Phone Lluvia Anderson MD Primary Care Provider [phone] Reason for Visit * Reason Onset Date Comments PT1 11/17/2025 Encounter Details Date Type Department Care Team ([facility] st Contact Info) Description 11/17/2025 Telephone [facility] CHC MED & PEDS 505 [place], [place] [phone] Lluvia Anderson MD 505 [place], [place] [phone] PT1 Social History Tobacco Use Types Packs/Day [...] Y/N: Yes Provider name or facility name: [address] [place] [address] Escort needed: Y/N: No Do you have a wheelchair: Y/N: No Visits: (3x month) Patient calling requesting PT1 Home Address verified: Y/N: Yes Provider name or facility name: [address] Escort needed: Y/N: No Do you have a wheelchair: Y/N: No Visits: (3x month) documented in this encounter Plan of Treatment Not on file documented as of this encounter Visit Diagnoses Not on filedocumented in this encounter Additional Health Concerns Assessment Noted Time PHQ-9 Depression Total Score: 0 07/30/20 25 8:58 AM EDT documented as of this encounter Care Teams Pharmacy Director Relationship Specialty Start Date End Date Lluvia Anderson MD 505 [place] [address] PCP - General Family Medicine 06/28/17 documented as of this encounter
--- OUTSIDE RECORDS SUMMARY | 2025-11-25 12:40 | XMS_ITS | Encounter Summary ---
Author Organization [employer] Address 75 [facility] 7 [place] [address] Care Team Providers Care Produce Buyer Name Role Phone Lluvia Anderson MD Primary Care Provider [phone] Reason for Visit * Reason Onset Date Comments PT-1 12/03/2024 Encounter Details Date Type Department Care Team (Late st Contact Info) Description 12/03/2024 Telephone [facility] MEDICINE 230 [place] [address] Lluvia Anderson MD 505 [place] [address] PT-1 Social History Tobacco Use Types Packs/Day [...] Y/N: Yes Provider name or facility name: [place] [address] Escort needed: Y/N: Yes Do you have [...] documented as of this encounter Care Teams Produce Buyer Relationship Specialty Start Date End Date Lluvia Anderson MD 505 [place] [address] PCP - General Family Medicine 06/28/17 documented as of this encounter
--- OUTSIDE RECORDS SUMMARY | 2025-11-25 12:40 | XMS_ITS | Encounter Summary ---
Author Organization [employer] Address 75 [facility] 7 [place] [address] Care Team Providers Care Call Center Rn Name Role Phone Lluvia Anderson MD Primary Care Provider [phone] Reason for Visit * Reason Onset Date Comments Results 04/25/2024 Encounter Details Date Type Department Care Team ([facility] st Contact Info) Description 04/25/2024 Telephone [facility] MEDICINE 230 [place] [address] Lluvia Anderson MD 505 [place] [address] Results Social History Tobacco Use Types Packs/Day [...] 12:15 PM EDT Tc to pt using [employer] Field Supervisor [place], [place] [id number] in regards to lab results from 04/19. [...] call back with labs results from 04/19 Croatian speaker documented in this encounter Plan of Treatment Not on file documented as of this encounter Visit Diagnoses Not on filedocumented in this encounter Additional Health Concerns Assessment Noted Time PHQ-9 Depression Total Score: 0 12/29/19 24 9:27 AM EST documented as of this encounter Care Teams Call Center Rn Relationship Specialty Start Date End Date Lluvia Anderson MD 505 [place] [address] PCP - General Family Medicine 06/28/17 documented as of this encounter
--- OUTSIDE RECORDS SUMMARY | 2025-11-25 12:40 | XMS_ITS | Encounter Summary ---
Author Organization [email or web address] Address 75 [facility] 7 [place] [address] Care Team Providers Care Finishing Operator Name Role Phone Lluvia Anderson MD Primary Care Provider [phone] Reason for Visit * Reason Onset Date Comments ER Follow-up 10/10/2025 Encounter Details Date Type Department Care Team ([facility] st Contact Info) Description 10/10/2025 Telephone [facility] MEDICINE 230 [place] [address] Lluvia Anderson MD 505 [place] [address] ER Follow-up Social History Tobacco Use Types [...] ED visit on : Date: 10/07 Hospital: [facility] Seen for: Pain in wrist Symptomatic [...] documented as of this encounter Care Teams Finishing Operator Relationship Specialty Start Date End Date Lluvia Anderson MD [address] [place] [address] PCP - General Family Medicine 06/28/17 documented as of this encounter
--- OUTSIDE RECORDS SUMMARY | 2025-11-25 12:41 | XMS_ITS | Encounter Summary ---
Author Organization [employer] Address [address] [place] [address] Care Team Providers Care Industry Consultant Name Role Phone Lluvia Anderson MD Primary Care Provider [phone] Reason for Visit * Reason Onset Date Comments pt1 12/14/2022 Encounter Details Date Type Department Care Team ([facility] Contact Info) Description 12/14/2022 Telephone [facility] MEDICINE [address] [place] [address] Lluvia Anderson MD 505 [place], [place] [phone] pt1 Social History Tobacco Use Types Packs/Day [...] pt requesting to update yearly PT1 Location: [address] [address] Specialty: care provider Time: n/a Date:n/a Jet Mechanic: n/a wheelchair accessible : n/a Location: [address] [address] Specialty: cosmetics counter manager Time: n/a Date:n/a Jet Mechanic:n/a wheelchair accessible :n/a Location: [address] [address] Specialty: cosmetics counter manager / Lab works Time:n/a Date:n/a Jet Mechanic:n/a wheelchair accessible :n/a documented in this encounter Plan of Treatment Not on file documented as of this encounter Visit Diagnoses Not on filedocumented in this encounter Care Teams Industry Consultant Relationship Specialty Start Date End Date Lluvia Anderson MD [address] [place] [address] PCP - General Family Medicine 06/28/17 documented as of this encounter
--- OUTSIDE RECORDS SUMMARY | 2025-11-25 12:41 | XMS_ITS | Clinical Summary ---
Author Organization [employer] Address 75 [facility] 7t [place] [address] Care Team Providers Care Wheel Truing Machine Tender Name Role Phone Lluvia Anderson MD Primary Care Provider [phone] Allergies No known active allergies Medications flecainide [...] Department Care Team Description 11/17/2025 Patient Outreach [facility] MEDICINE [address] [place] [address] Tank Alvarado Care Coordination (CHW outreach for SDOH PT-1 and food needs-referral completed /) 11/17/2025 Telephone [facility] CHC MED & PEDS 505 [place] [address] Lluvia Anderson MD PT1 10/10/2025 Telephone [facility] MEDICINE 230 [place], [place] [phone] Lluvia Anderson MD ER Follow-up 10/07/2025 Orders Only [facility] External Provider, [facility] 09/03/2025 Refill [facility] CHC MED & PEDS [address] [place] [address] Lluvia Anderson MD Androgenic alopecia, unspecified 08/27/2025 Refill [facility] MED & PEDS [address] [place], [place] [phone] Lluvia Anderson MD Primary hypertension from Last [...] AM EST Narrative 10/07/2025 4:44 AM EST [place] [address] XRay Report Signed Patient: Afia Guadalupe MR#: [id number] : 1960 Acct:[id number] Age/Sex: 65 / F ADM Date: 10/07/25 Loc: HO.ED Attending Dr: Ordering Physician: Renee Banuelos DO Date of Service: 10/07/25 Procedure(s): XR wrist LT min 3V Accession Number(s): [id number] cc: Lluvia Anderson MD; Renee Banuelos DO [...] in OV> 10/07/25443 DD/ 1 TD/TT: 10/07/25441 Fretted String Instrument Repairer: Procedure Note Donotuseinterpreter, Image - 10/07/[address] [address] XRay Report Signed Patient: Jennifer Guadalupe#: [id number] : 1960cct:[id number] Age/Sex: 65 / FADM Date: 10/07/25 Loc: HO.ED Attending Dr: Ordering Physician: Renee Banuelos DO Date of Service: 10/07/25 Procedure(s): XR wrist LT min 3V Accession Number(s): [id number] cc: Lluvia Anderson MD; Renee Banuelos DO [...] in OV> 10/07/25443 DD/ 1 TD/TT: 10/07/25441 Fretted String Instrument Repairer: [facility] External Provider IMG XR PROCEDURES Edited Result - Final * (ABNORMAL) Lipid Panel, Standard (03/11/2025 10:18 AM EDT) Triglycerides 117 <150 mg/dL [facility] Comment:Desirable Triglyceri de: less than 150 mg/dLBorderline High Triglyceride 150-199 mg/dLHigh Triglyceride: 200-499 mg/dLVery High Triglyceride: greater than or equal to 5OO mg/dL Cholesterol 173 <200 mg/dL [facility] Comment:Desirable Cholestero l: less than 200 mg/dLBorderline High Cholesterol: 200-239 mg/dLHigh Cholesterol: greater than 239 mg/dL LDL Cholesterol Calculated 101(H) <100 mg/dL [facility] Comment:Desirable LDL: less than 100 mg/dLNear Optimal/Above Optimal LDL: 110- 129 mg/dLBorderline High LDL: 130-159 mg/dLHigh LDL: 160-189 mg/dLVery High LDL: greater than or equal to 190 mg/dL HDL Cholesterol 49 >40 mg/dL [facility] Comment:Desirable HDL: great er than 40 mg/dL Note: This HDL assay may give artificially low results in patients with liver disease. Blood Venous blood specimen / Unknown 03/11/2025 10:18 AM EDT 03/11/2025 2:33 PM EDT us Lluvia Anderson MD LAB BLOOD ORDERABLES Final Re sult [facility] [address] [place] [phone] * BI Mammogram Screening Tomosynthesis Bilateral (11/23/2024 9:57 AM EST) Anatomical Region Laterality Modality Breast Bilateral Mammography 11/23/2024 9:57 AM EST Narrative 12/06/2024 5:07 PM EST [facility] [address] [place] [address] Mammography Report Signed Patient: Afia Guadalupe MR#: [id number] : 1960 Acct:[id number] Age/Sex: 64 / F ADM Date: 11/23/24 Loc: HO.MAMMO Attending Dr: Lluvia Anderson MD Ordering Physician: Lluvia Anderson MD Results: 1Ne gative Date of Service: 11/23/24 Follow Up: 1 Year From Orig inal Mammogram Procedure(s): MM tomosynthesis screening BI Accession Number(s): [id number] cc: Lluvia Anderson MD EXAMINATION: MM SCREENING [...] by: Emily Gr DO 12/06/2024 05:[address] [facility] Dictated By: Emily Gr DO Signed By: <Electronically signed by Emily Gr DO in OV> 12/06/24 1705 DD/ 0957 TD/TT: 11/23/24 1010 Fretted String Instrument Repairer: Procedure Note Donotuseinterpreter, Image - 12/06/2024 [facility] [address] [place] [address] Mammography Report Signed Patient: Jennifer Guadalupe#: [id number] : 2Acct:[id number] Age/Sex: 64 / FADM Date: 11/23/24 Loc: HO.MAMMO Attending Dr: Lluvia Anderson MD Ordering Physician: Lluvia Anderson MDResults: 1Ne gative Date of Service: 11/23/24Follow Up: 1 Year From Orig inal Mammogram Procedure(s): MM tomosynthesis screening BI Accession Number(s): [id number] cc: Lluvia Anderson MD EXAMINATION: MM SCREENING [...] 12/06/24 1705 DD/ 0957 TD/TT: 11/23/24 1010 Fretted String Instrument Repairer: us Lluvia Anderson MD IMG BI PROCEDURES Final Resul t * THINPREP PAP (04/06/2021 9:25 AM EDT) Clinical Information: MENOPAUSAL [facility] COMMENT SEE COMMENT FOUNDAT[facility] ON [...] along with historic and current clinical information. Car Spotter : SEE COMMENT [facility] Comment: RK, CT(ASCP) CT screening location: [place] [address] Interpretation/R esult: Negative for intraepithelial lesion or malignancy. [facility] LMP: NONE GIVEN [facility] Prev. BX: NONE [facility]IVEN [facility] Prev. PAP: NIL 2017 [facility] SOURCE: None given [facility] Statement Of Adequacy: SEE COMMENT [facility] Comment: Satisfactory for evaluation. Endocervical/transformation zone component present. 04/06/2021 9:25 AM EDT Julia MAURO LAB PATHOLOGY ORDERABLES Final Result Performing Organization Address [facility] Co de Phone Number [facility] [address] * HPV mRNA E6/E7 (04/06/2021 9:25 AM EDT) HPV nRNA E6/E7 Not Detected Not Detected [facility] Comment: Methodology: Travel Money Advisor-Mediated Amplification This assay detects E6/E7 viral messenger RNA (mRNA) from 14 high-risk HPV types (16,18,31,33,35,39,45,51,52,56,58,59,66,68). The analytical performance characteristics of this assay have been determined by [employer]. The modifications have not been cleared or approved by the FDA. This assay has been validated pursuant to the CLIA regulations and is used for clinical purposes. For additional information, please refer to http://education.[employer]/faq/UHO183f4 (This link if provided for information/ educational purposes only.) 04/06/2021 9:25 AM EDT Julia Billingsley [facility] LAB BLOOD ORDERABLES Ciarra l Result Performing Organization Address [facility] Co de Phone Number [facility] [address] * Hm Colonoscopy (12/18/2017) Colonoscopy Normal Normal Narrative Alma Martinez - 12/18/2017 Recommended 5 year follow up Historical Provider MD HEALTH MAINTENANCE Final Result from Last 3 Months or Most Recently Relevant to Health Maintenance Insurance [facility] C3 Care Teams Wheel Truing Machine Tender Relationship Specialty Start Date End Date Lluvia Anderson MD [address] [place] [address] PCP - General Family Medicine 06/28/17
--- OUTSIDE RECORDS SUMMARY | 2025-11-25 12:41 | XMS_ITS | Encounter Summary ---
Author Organization [employer] Address 75 [facility] 7t [place] [address] Care Team Providers Care Hosiery Knitter Name Role Phone Lluvia Anderson MD Primary Care Provider [phone] Encounter Details Date Type Department Care Team ([facility] st Contact Info) Description 01/23/2024 Telephone [facility] CHC MED & PEDS 505 [place], [place] [phone] Lluvia Anderson MD 505 [place] [address] Social History Tobacco Use Types Packs/Day Years [...] is not working. Please contact pt at [phone] (Tanzanian) documented in this encounter Plan of Treatment Not on file documented as of this encounter Visit Diagnoses Not on filedocumented in this encounter Additional Health Concerns Assessment Noted Time PHQ-9 Depression Total Score: 0 12/29/19 24 9:27 AM EST documented as of this encounter Care Teams Hosiery Knitter Relationship Specialty Start Date End Date Lluvia Anderson MD 505 [place] [address] PCP - General Family Medicine 06/28/17 documented as of this encounter
--- OUTSIDE RECORDS SUMMARY | 2025-11-25 12:41 | XMS_ITS | Encounter Summary ---
Author Organization [employer] Address 75 [facility] 7 [place] [address] Care Team Providers Care Senior Accounting Associate Name Role Phone Lluvia Anderson MD Primary Care Provider [phone] Reason for Visit * Reason Onset Date Comments PT1 12/07/2023 Encounter Details Date Type Department Care Team ([facility] st Contact Info) Description 12/07/2023 Telephone [facility] CHC MED & PEDS 505 [place], [place] [phone] Lluvia Anderson MD 505 [place], [place] [phone] PT1 Social History Tobacco Use Types Packs/Day [...] n/a Time: n/a Visits: n/a Address: [address] [facility] Facility: (name, specialty or name of doctor) Wheel Chair: no Sheet Metal Fabricator Needed: n/a Date: 12/29 Time: 9:45 AM Visits: (amount of visits) ( x monthly, weekly, daily) Address: [address] [facility] Facility: (name, specialty or name of doctor) Wheel Chair: no Sheet Metal Fabricator Needed: n/a Date: n/a Time: n/a Visits: (amount of visits) ( x monthly, weekly, daily) Address: [address] [facility] Facility: [facility] Wheel Chair: engine monitor Sheet Metal Fabricator Needed: n/a documented in this encounter Plan of Treatment Not on file documented as of this encounter Visit Diagnoses Not on filedocumented in this encounter Care Teams Senior Accounting Associate Relationship Specialty Start Date End Date Lluvia Anderson MD [address] [place] [address] PCP - General Family Medicine 06/28/17 documented as of this encounter
--- OUTSIDE RECORDS SUMMARY | 2025-11-25 12:41 | XMS_ITS | Encounter Summary ---
Author Organization [email or web address] Address [address] [place] [address] 7 [place] [address] Care Team Providers Care Senior Salesforce Developer Name Role Phone Lluvia Anderson MD [...] filedocumented in this encounter Care Teams Senior Salesforce Developer Relationship Specialty Start Date End Date Lluvia Anderson MD 505 [place] [address] PCP - General Family Medicine 06/28/17 documented as of this encounter
--- OUTSIDE RECORDS SUMMARY | 2025-11-25 12:41 | XMS_ITS | Encounter Summary ---
Author Organization [employer] Address 75 [facility] 7 [place] [address] Care Team Providers Care Farm Butcher Name Role Phone Lluvia Anderson MD Primary Care Provider [phone] Encounter Details Date Type Department Care Team (Late st Contact Info) Description 10/03/2023 Abstract [facility] MEDICINE [address] [place] [address] Lluvia Anderson MD 505 [place], [place] [phone] Social History Tobacco Use Types Packs/Day Years [...] on filedocumented in this encounter Care Teams Farm Butcher Relationship Specialty Start Date End Date Lluvia Anderson MD [address] [place] [address] PCP - General Family Medicine 06/28/17 documented as of this encounter
--- OUTSIDE RECORDS SUMMARY | 2025-11-25 12:41 | XMS_ITS | Clinical Summary ---
Author Organization [facility] Address [address] [place] [address] Phone Care Team Providers Care Vice President Safety Name Role Phone Lluvia Anderson MD Primary Care Provider [phone] Social History Tobacco Use Types Packs/Day Years Used Date Smoking Tobacco: Never Assessed Comments Unknown Sex and Gender Information Value Date Recorded Sex Assigned at Not on file Legal Sex Female 12:18 PM EDT Gender Identity Not on file Sexual Orientation Not on file Plan of Treatment Upcoming Encounters Date Type Department Care Team ([facility] Contact Info) Description 12/23/2025 3:15 PM EST Office Visit Orthopedic Surgery - [place] [address] [id number] Ajit Walsh, DPM [address] [phone] Health Maintenance Due Date Last Done Comments [...] topic Insurance MEDICAID - [place] Care Teams Vice President Safety Relationship Specialty Start Date End Date Lluvia Anderson MD [address] [place] [address] PCP - General Internal Medicine 04/02/25
== END 2025-11-25 09:49 | disposition home or self-care (01) ==
LOC: HO.MAMMO 09:48
PROVIDERS: PCP Pediatrics; Visit Provider Pediatrics
DX: Z12.31 Encounter for screening mammogram for malignant neoplasm of breast (principal)
CPT/HCPCS: 77063; 77067